=== PATIENT | female | born 1940 | race Caucasian/White ===

== ENCOUNTER 2017-01-30 02:24 | Inpatient (IN) | payer BC, OTHER ==
[~2017-01-30] VITALS: Ht 167.6 cm; Wt 54.3 kg
[2017-01-30] VITALS (8 sets, daily range): BP systolic 160–189; BP diastolic 60–80; PULSE 72–100; TEMP 36.8–37; O2SAT 96–97; Ht 167.6 cm; Wt 54.3 kg
[~2017-01-30 02:24] MED LIST: ASPI325T45 PO; CALCTAB65 PO; LANS30CA12 PO; LOSA50TA54 PO; MAGNTAB4 PO; METF-383 PO; NMN10 PO; NVLGI7030 SQ; PANC1200 PO; RISE150T PO; SIMV40TA2 PO
[2017-01-30] MEDS ORDERED: SODIUM CHLORIDE 0.9% 1000ML 1,000 ML IV ONE (03:00)
[2017-01-30 03:38] LABS: BASO % 0.2 %; BASO ABS # 0.02 K/uL (0-0.2); COMPLETE YES; EOS % 0.2 %; IG% 0.3 %; LYMPH % 12.9 %; MEAN CELL VOLUME 90.9 fL (80-100); MEAN CORPUSCULAR HEMOGLOBIN 30.6 pg (25-34); MEAN CORPUSCULAR HGB CONC 33.7 g/dl (32-36); MEAN PLATELET VOLUME 9.4 fL (7.4-10.4); MONO % 7.1 %; NEUT % 79.3 %; PLATELET COUNT 292 K/uL (130-400); RED BLOOD COUNT 3.85 M/uL (4.2-5.4); WHITE BLOOD COUNT 10.07 K/uL (4.8-10.8)
[2017-01-30 03:57] LABS: BUN/CREATININE RATIO 33.6 (10-20); CALCIUM 9.9 mg/dl (8.5-10.1); CREATININE 1.5 mg/dl (0.60-1.20); MAGNESIUM 2.4 mg/dl (1.8-2.4); POTASSIUM 5.2 mmol/L (3.5-5.1)
[2017-01-30 03:59] LABS: ALB/GLOB RATIO 1.1 (0.9-2)
[2017-01-30 04:16] LABS: URINE APPEARANCE CLEAR (CLEAR); URINE BILIRUBIN NEG (NEG); URINE COLOR YELLOW; URINE EPITHELIAL CELL AUTO >30 /lpf (0-5); URINE NITRITE NEG (NEG); URINE SPECIFIC GRAVITY 1.023 (1.000-1.030); UROBILINOGEN NEG (NEG); ZZUR CULT IF INDIC CLEAN CATCH YES
[2017-01-30 04:20] LABS: MANUAL MICROSCOPIC REQUIRED? NO; REVIEW REQ? YES
[2017-01-30] MEDS ORDERED: NAPHSOL OPB (05:12)
[2017-01-30] MEDS ORDERED: MIRA1TAB3 PO (05:16)
[2017-01-30] MEDS ORDERED: NVLGI/PEN SQ ×2 (05:18→05:44)
[2017-01-30] MEDS ORDERED: RIVA4.5C4 PO (05:20)
[2017-01-30] MEDS ORDERED: LEVAQUIN 500MG / 100ML D5W IV ONE (05:30)
--- NOTE | 2017-01-30 05:46 | EMERGENCY ROOM VISIT NOTE ---
ED Visit Note First contact with patient: 02:40 Agree with the workup by my physician pastry assistant. I have personally examined the patient and reviewed labs. Patient has an elevated creatinine and signs of dehydration. Patient has failed outpatient therapy with Bactrim and continues to have a urinary tract infection with confusion. The case of be discussed with the hospitalist for admission. I agree with the entire workup Problem List Medical Problems: (1) Breast CA Status: Resolved (2) Diabetes Status: Chronic (3) Hypertension Status: Chronic (4) Pancreatic carcinoma Status: Resolved Surgical Problems: (1) S/P tubal ligation Status: Resolved Current/Historical Medications Scheduled Aspirin (Aspirin), 325 MG PO DAILY Calcium Carbonate-Vitamin D (Calcium 500 + D), 1 TAB PO DAILY Insulin Aspart (Novolog Flexpen), 2 UNITS SQ BEFORE LUNCH Insulin Aspart (Novolog Flexpen), 3-4 UNITS SQ BEFORE VASHTI MEAL Lansoprazole (Prevacid), 30 MG PO DAILY Losartan Potassium (Cozaar), 50 MG PO DAILY Magnesium Chloride (Slow-Mag Tab), 64 MG PO DAILY Memantine (Namenda), 10 MG PO BID Metformin Hcl (Glucophage), 850 MG PO BIDM Mirabegron (Myrbetriq Er), 50 MG PO DAILY Naphazoline W/ Pheniramine (Eye Allergy Relief), 1 DROP OPB DAILY Pancrelipase (Lipase-Protease- (Creon [id number]), 24,000 MG PO BIDM Risedronate Sodium (Actonel), 1 TAB PO MONTHLY Rivastigmine Tartrate (Rivastigmine Tartrate), 4.5 MG PO BID Simvastatin (Zocor), 40 MG PO QPM Allergies Coded Allergies: Repaglinide (Verified Allergy, Intermediate, SEVER SHAKING, 01/30/17) Acetaminophen (Verified Allergy, Mild, UNKNOWN, 01/30/17) Hydrocodone (Verified Allergy, Mild, UNKNOWN, 01/30/17) Vital Signs Date Time Temp Pulse Resp B/P Pulse Ox O2 Delivery O2 Flow Rate FiO2 01/30/17 05:34 93 24 184/88 95 Room Air 01/30/17 04:25 84 182/73 96 Room Air 01/30/17 03:45 89 01/30/17 03:03 97 Room Air 01/30/17 02:29 36.7 91 21 152/70 96 Room Air Laboratory Results 01/30/17 03:25 Red Blood Count 3.85, Mean Corpuscular Volume 90.9, Mean Corpuscular Hemoglobin 30.6, Mean Corpuscular Hemoglobin Concent 33.7, Mean Platelet Volume 9.4, Neutrophils (%) (Auto) 79.3, Lymphocytes (%) (Auto) 12.9, Monocytes (%) (Auto) 7.1, Eosinophils (%) (Auto) 0.2, Basophils (%) (Auto) 0.2, Neutrophils # (Auto) 7.98, Lymphocytes # (Auto) 1.30, Monocytes # (Auto) 0.72, Eosinophils # (Auto) 0.02, Basophils # (Auto) 0.02 01/30/17 03:25 Test 01/30/17 03:25 01/30/17 03:32 01/30/17 03:35 01/30/17 04:00 White Blood Count 10.07 K/uL (4.8-10.8) Red Blood Count 3.85 M/uL (4.2-5.4) Hemoglobin 11.8 g/dL (12.0-16.0) Hematocrit 35.0 % (37-47) Mean Corpuscular Volume 90.9 fL (80-100) Mean Corpuscular Hemoglobin 30.6 pg (25-34) Mean Corpuscular Hemoglobin Concent 33.7 g/dl (32-36) Platelet Count 292 K/uL (130-400) Mean Platelet Volume 9.4 fL (7.4-10.4) Neutrophils (%) (Auto) 79.3 % Lymphocytes (%) (Auto) 12.9 % Monocytes (%) (Auto) 7.1 % Eosinophils (%) (Auto) 0.2 % Basophils (%) (Auto) 0.2 % Neutrophils # (Auto) 7.98 K/uL (1.4-6.5) Lymphocytes # (Auto) 1.30 K/uL (1.2-3.4) Monocytes # (Auto) 0.72 K/uL (0.11-0.59) Eosinophils # (Auto) 0.02 K/uL (0-0.5) Basophils # (Auto) 0.02 K/uL (0-0.2) RDW Standard Deviation 40.1 fL (36.4-46.3) RDW Coefficient of Variation 12.1 % (11.5-14.5) Immature Granulocyte % (Auto) 0.3 % Immature Granulocyte # (Auto) 0.03 K/uL (0.00-0.02) Anion Gap 9.0 mmol/L (3-11) Est Creatinine Clear Calc Drug Dose 27.8 ml/min Estimated GFR () 39.1 Estimated GFR (Non- 33.7 BUN/Creatinine Ratio 33.6 (10-20) Calcium Level 9.9 mg/dl (8.5-10.1) Magnesium Level 2.4 mg/dl (1.8-2.4) Total Bilirubin 0.3 mg/dl (0.2-1) Aspartate Amino Transf (AST/SGOT) 20 U/L (15-37) Alanine Aminotransferase (ALT/SGPT) 30 U/L (12-78) Alkaline Phosphatase 53 U/L (45-117) Total Protein 7.4 gm/dl (6.4-8.2) Albumin 3.9 gm/dl (3.4-5.0) Globulin 3.5 gm/dl (2.5-4.0) Albumin/Globulin Ratio 1.1 (0.9-2) Bedside Troponin I 0.010 ng/ml (0-0.045) Lactic Acid Level 1.2 mmol/L (0.4-2.0) Urine Color YELLOW Urine Appearance CLEAR (CLEAR) Urine pH 5.0 (4.5-7.5) Urine Specific [place] 1.023 (1.000-1.030) Urine Protein NEG (NEG) Urine Glucose (UA) 3+ (NEG) Urine Ketones TRACE (NEG) Urine Occult Blood NEG (NEG) Urine Nitrite NEG (NEG) Urine Bilirubin NEG (NEG) Urine Urobilinogen NEG (NEG) Urine Leukocyte Esterase SMALL (NEG) Urine WBC (Auto) 10-30 /hpf (0-5) Urine RBC (Auto) 0-4 /hpf (0-4) Urine Hyaline Casts (Auto) >30 /lpf (0-5) Urine Epithelial Cells (Auto) >30 /lpf (0-5) Urine Bacteria (Auto) 1+ (NEG) Urine Crystals CALCIUM OXALATE (NONE Urine Pathogenic Casts /lpf (0) Medications Administered Medications (Trade) Dose Ordered Sig/German Route Start Time Stop Time Status Last Admin Dose Admin Sodium Chloride (Nss 1000ml) 1,000 ml @ 250 mls/hr Q4H ONCE IV 01/30/17 03:00 01/30/17 06:59 01/30/17 03:25 250 MLS/HR Levofloxacin (Levaquin / D5W) 500 mg NOW ONCE IV 01/30/17 05:30 01/30/17 05:31 DC 01/30/17 05:32 500 MG Departure Information Referrals Toney Morgan MD (PCP) Patient Instructions Count Includes [facility]
[2017-01-30] MEDS ORDERED: RIVA3CAP4 PO (05:48)
[2017-01-30] MEDS ORDERED: SERT25TA PO (05:50)
[2017-01-30] MEDS ORDERED: INSU1.2I SQ (05:52)
[2017-01-30] MEDS ORDERED: LEVOFLOXACIN / D5W 500 MG in PREMIXED IN D5W 100 ML IV SCH (06:45)
[2017-01-30] MEDS ORDERED: ONDANSETRON INJ 2 MG/ML 2 ML VIAL IV PRN (06:45)
[2017-01-30] MEDS ORDERED: MAGNESIUM HYDROXIDE SUSP 30 ML UDC PO PRN (06:45)
[2017-01-30] MEDS ORDERED: ALUMINUM/MAGNESIUM/SIMETH (MAALOX MAX) 30 ML UDC PO PRN (06:45)
--- NOTE | 2017-01-30 07:02 | History and Physical ---
History & Physical Date & Time of Service: Jan 30, 2017 at 06:48 Chief Complaint: Confused,Dizzy, Primary Care Physician: Toney Morgan MD History of Present Illness Source: spouse 76 y/o F w/Hx DM, HTN, pancreatic insufficiency, advanced dementia. Per she has been acting more confused than usual and has exhibited an unsteady gait over the past few days. She was recently treated for a UTI with a 7 day course of Bactrim. There have been no reported fevers and the pt does not complain of back pain or dysuria but she is not a reliable historian. Her UA is strongly positive and labs reveal SUNDAR. Her neurologist had recently increased her Namenda and Exelon doses. Past Medical/Surgical History Medical Problems: (1) Breast CA Status: Resolved (2) Diabetes Status: Chronic (3) Hypertension Status: Chronic (4) Pancreatic mass - benign - leading to pancreatic insufficiency - did not receive surgery Surgical Problems: (1) S/P tubal ligation Status: Resolved Family History Hypertension Kidney disease Could not obtain Social History She is care-dependent due to dementia - she is looked after by her Smoking Status: Never Smoker Drug Use: none Marital Status: Immunizations History of Pneumococcal: Yes Multi-Drug Resistant Organisms History of MDRO: No Allergies Coded Allergies: Repaglinide (Verified Allergy, Intermediate, SEVER SHAKING, 01/30/17) Acetaminophen (Verified Allergy, Mild, UNKNOWN, 01/30/17) Hydrocodone (Verified Allergy, Mild, UNKNOWN, 01/30/17) Home Medications Scheduled Aspirin (Aspirin), 325 MG PO DAILY Calcium Carbonate-Vitamin D (Calcium 500 + D), 1 TAB PO DAILY Insulin Aspart (Novolog Flexpen), 2 UNITS SQ BEFORE LUNCH Insulin Aspart (Novolog Flexpen), 3-4 UNITS SQ BEFORE VASHTI MEAL Insulin Glargine (Toujeo Solostar), 6 UNITS SQ HS Lansoprazole (Prevacid), 30 MG PO DAILY Losartan Potassium (Cozaar), 50 MG PO DAILY Magnesium Chloride (Slow-Mag Tab), 64 MG PO DAILY Memantine (Namenda), 10 MG PO BID Metformin Hcl (Glucophage), 850 MG PO BIDM Mirabegron (Myrbetriq Er), 50 MG PO DAILY Naphazoline W/ Pheniramine (Eye Allergy Relief), 1 DROP OPB DAILY Pancrelipase (Lipase-Protease- (Creon [id number]), 24,000 MG PO BIDM Risedronate Sodium (Actonel), 1 TAB PO MONTHLY Rivastigmine Tartrate (Exelon), 6 MG PO DAILY Sertraline (Zoloft), 25 MG PO DAILY Simvastatin (Zocor), 40 MG PO QPM Review of Systems Could not obtain - brought in by due to worsening confusion and unsteady gait. Physical Exam Vital Signs Date Time Temp Pulse Resp B/P Pulse Ox O2 Delivery O2 Flow Rate FiO2 01/30/17 05:34 93 24 184/88 95 Room Air 01/30/17 04:25 84 182/73 96 Room Air 01/30/17 03:45 89 01/30/17 03:03 97 Room Air 01/30/17 02:29 36.7 91 21 152/70 96 Room Air General Appearance: + pertinent finding (Thin , pleasantly confused elderly female in no distress) Head: normocephalic Eyes: normal inspection, PERRL, EOMI ENT: normal ENT inspection, pharynx normal Neck: supple, no JVD Respiratory/Chest: chest non-tender, lungs clear, normal breath sounds Cardiovascular: regular rate, rhythm, no edema, no gallop Abdomen/GI: normal bowel sounds, non tender, soft Back: normal inspection, no CVA tenderness Extremities/Musculoskelatal: normal inspection, no calf tenderness, normal capillary refill, no pedal edema, normal range of motion Neurologic/Psych: dental receptionist II-XII nml as tested, no motor/sensory deficits, + pertinent finding (AAO x 1 ) Skin: normal color, warm/dry, no rash Diagnostics Laboratory Results Results Past 24 Hours Test 01/30/17 03:25 01/30/17 03:32 01/30/17 03:35 01/30/17 04:00 Range/Units White Blood Count 10.07 4.8-10.8 K/uL Red Blood Count 3.85 4.2-5.4 M/uL Hemoglobin 11.8 12.0-16.0 g/dL Hematocrit 35.0 37-47 % Mean Corpuscular Volume 90.9 80-100 fL Mean Corpuscular Hemoglobin 30.6 25-34 pg Mean Corpuscular Hemoglobin Concent 33.7 32-36 g/dl Platelet Count 292 130-400 K/uL Mean Platelet Volume 9.4 7.4-10.4 fL Neutrophils (%) (Auto) 79.3 % Lymphocytes (%) (Auto) 12.9 % Monocytes (%) (Auto) 7.1 % Eosinophils (%) (Auto) 0.2 % Basophils (%) (Auto) 0.2 % Neutrophils # (Auto) 7.98 1.4-6.5 K/uL Lymphocytes # (Auto) 1.30 1.2-3.4 K/uL Monocytes # (Auto) 0.72 0.11-0.59 K/uL Eosinophils # (Auto) 0.02 0-0.5 K/uL Basophils # (Auto) 0.02 0-0.2 K/uL RDW Standard Deviation 40.1 36.4-46.3 fL RDW Coefficient of Variation 12.1 11.5-14.5 % Immature Granulocyte % (Auto) 0.3 % Immature Granulocyte # (Auto) 0.03 0.00-0.02 K/uL Sodium Level 137 136-145 mmol/L Potassium Level 5.2 3.5-5.1 mmol/L Chloride Level 102 98-107 mmol/L Carbon Dioxide Level 26 21-32 mmol/L Anion Gap 9.0 3-11 mmol/L Blood Urea Nitrogen 50 7-18 mg/dl Creatinine 1.50 0.60-1.20 mg/dl Est Creatinine Clear Calc Drug Dose 27.8 ml/min Estimated GFR () 39.1 Estimated GFR (Non- 33.7 BUN/Creatinine Ratio 33.6 10-20 Random Glucose 230 70-99 mg/dl Calcium Level 9.9 8.5-10.1 mg/dl Magnesium Level 2.4 1.8-2.4 mg/dl Total Bilirubin 0.3 0.2-1 mg/dl Aspartate Amino Transf (AST/SGOT) 20 15-37 U/L Alanine Aminotransferase (ALT/SGPT) 30 12-78 U/L Alkaline Phosphatase 53 45-117 U/L Total Protein 7.4 6.4-8.2 gm/dl Albumin 3.9 3.4-5.0 gm/dl Globulin 3.5 2.5-4.0 gm/dl Albumin/Globulin Ratio 1.1 0.9-2 Bedside Troponin I 0.010 0-0.045 ng/ml Lactic Acid Level 1.2 0.4-2.0 mmol/L Urine Color YELLOW Urine Appearance CLEAR CLEAR Urine pH 5.0 4.5-7.5 Urine Specific [place] 1.023 1.000-1.030 Urine Protein NEG NEG Urine Glucose (UA) 3+ NEG Urine Ketones TRACE NEG Urine Occult Blood NEG NEG Urine Nitrite NEG NEG Urine Bilirubin NEG NEG Urine Urobilinogen NEG NEG Urine Leukocyte Esterase SMALL NEG Urine WBC (Auto) 10-30 0-5 /hpf Urine RBC (Auto) 0-4 0-4 /hpf Urine Hyaline Casts (Auto) >30 0-5 /lpf Urine Epithelial Cells (Auto) >30 0-5 /lpf Urine Bacteria (Auto) 1+ NEG Urine Crystals CALCIUM OXALATE NONE PRSENT Urine Pathogenic Casts 0 /lpf Microbiology Results 01/30/17 Blood Culture, Received Pending 01/30/17 Blood Culture, Received Pending 01/30/17 Urine Culture, Received Pending Impression Assessment and Plan 76 y/o F w/Hx DM, HTN, pancreatic insufficiency, advanced dementia. Per she has been acting more confused than usual and has exhibited an unsteady gait over the past few days. She was recently treated for a UTI with a 7 day course of Bactrim. There have been no reported fevers and the pt does not complain of back pain or dysuria but she is not a reliable historian. Her UA is strongly positive and labs reveal SUNDAR. 1) UTI - Levaquin provided pending culture results 2) AMS - advanced dementia - likely exacerbated by infection and dehydration - IVF provided - trend labs 3) SUNDAR - IVF - repeat labs afternoon 4) Advanced dementia - Her neurologist had recently increased her Namenda and Exelon doses. Pt will require 1 to 1 obs during her stay as she has a tendency to wander and may be a fall risk. 5) DM - SS 6) HTN - Cont Cozaar 7) HPL - statin provided Full code - SCDs due to falll risk Total time for this admit including review of labs, meds, records - discussion with pts and ER attending 33 min Level of Care Med/Surg Resuscitation Status FULL RESUSCITATION VTE Prophylaxis VTE Risk Assessment Done? Y/N: Yes Risk Level: Moderate Given or contraindicated: Unfractionated heparin SQ
--- NOTE | 2017-01-30 07:05 | DIAGNOSTIC IMAGING REPORT ---
HEAD CT NONCONTRAST CT DOSE: 614.27 mGy.cm HISTORY: Confusion TECHNIQUE: Multiaxial CT images of the head were performed without the use of intravenous contrast. Automated exposure control was utilized for this study. Comparison: Head CT 07/03/2016. Findings: The paranasal sinuses and mastoid air cells are clear. The calvarium and skull base are intact. There is no mass, hematoma, midline shift, acute infarct. White matter hypodensity is nonspecific but suggestive of microvascular ischemic change. The ventricles and sulci demonstrate mild age-related involutional changes. Impression: No significant change compared to the prior study. No acute intracranial abnormality. Electronically signed by: Jaxon Spencer M.D. 01/30/2017 7:03 AM Dictated Date/Time: 01/30/2017 7:02 AM
--- NOTE | 2017-01-30 07:10 | EMERGENCY ROOM VISIT NOTE ---
History First contact with patient: 02:40 Chief Complaint: CONFUSION Stated Complaint: CONFUSED,DIZZY, Nursing Triage Summary: see triage note History of Present Illness The patient is a 76 year old female who presents to the Emergency Room with complaints of worsening confusion this evening. The patient is accompanied by his who helps with the history. The patient has recently been treated for a urinary tract infection with a 7 day course of Bactrim. She has been eating well and does not complain of back pain or dysuria. She does not report fever or other complaints. The patient herself is unsure why she is here. She rates her discomfort a 0/10. Review of Systems More than 10 systems were reviewed and otherwise negative with the exception of history of present illness. Past Medical/Surgical History Medical Problems: (1) Altered mental status (2) Breast CA (3) Diabetes (4) Hypertension (5) Pancreatic carcinoma Surgical Problems: (1) S/P tubal ligation Family History Hypertension Kidney disease Social History Smoking Status: Never Smoker Drug Use: none Marital Status: Housing Status: lives with family Current/Historical Medications Scheduled Aspirin (Aspirin), 325 MG PO DAILY Calcium Carbonate-Vitamin D (Calcium 500 + D), 1 TAB PO DAILY Insulin Aspart (Novolog Flexpen), 2 UNITS SQ BEFORE LUNCH Insulin Aspart (Novolog Flexpen), 3-4 UNITS SQ BEFORE VASHTI MEAL Insulin Glargine (Toujeo Solostar), 6 UNITS SQ HS Lansoprazole (Prevacid), 30 MG PO DAILY Losartan Potassium (Cozaar), 50 MG PO DAILY Magnesium Chloride (Slow-Mag Tab), 64 MG PO DAILY Memantine (Namenda), 10 MG PO BID Metformin Hcl (Glucophage), 850 MG PO BIDM Mirabegron (Myrbetriq Er), 50 MG PO DAILY Naphazoline W/ Pheniramine (Eye Allergy Relief), 1 DROP OPB DAILY Pancrelipase (Lipase-Protease- (Creon [id number]), 24,000 MG PO BIDM Risedronate Sodium (Actonel), 1 TAB PO MONTHLY Rivastigmine Tartrate (Exelon), 6 MG PO DAILY Sertraline (Zoloft), 25 MG PO DAILY Simvastatin (Zocor), 40 MG PO QPM Allergies Coded Allergies: Repaglinide (Verified Allergy, Intermediate, SEVER SHAKING, 01/30/17) Acetaminophen (Verified Allergy, Mild, UNKNOWN, 01/30/17) Hydrocodone (Verified Allergy, Mild, UNKNOWN, 01/30/17) Physical Exam Vital Signs Date Time Temp Pulse Resp B/P Pulse Ox O2 Delivery O2 Flow Rate FiO2 01/30/17 06:52 94 18 190/86 96 Room Air 01/30/17 05:34 93 24 184/88 95 Room Air 01/30/17 04:25 84 182/73 96 Room Air 01/30/17 03:45 89 01/30/17 03:03 97 Room Air 01/30/17 02:29 36.7 91 21 152/70 96 Room Air Physical Exam VITALS: Vitals are noted on the nurse's note and reviewed by myself. Vital signs stable. GENERAL: Elderly-appearing white female who is mildly confused but cooperative HEART: Regular rate and rhythm without murmurs gallops or rubs. LUNGS: Clear to auscultation bilaterally without wheezes, rales or rhonchi. No retractions or accessory muscle use. ABDOMEN: Positive normal bowel sounds x 4. Soft, nontender, without masses or organomegaly. No guarding or rebound tenderness. No CVA tenderness. MUSCULOSKELETAL: No muscle atrophy, erythema, or edema noted. Full range of motion without joint tenderness in all extremities. Medical Decision & Procedures ER Provider Diagnostic Interpretation: HEAD CT NONCONTRAST CT DOSE: 614.27 mGy.cm HISTORY: Confusion TECHNIQUE: Multiaxial CT images of the head were performed without the use of intravenous contrast. Automated exposure control was utilized for this study. Comparison: Head CT 07/03/2016. Findings: The paranasal sinuses and mastoid air cells are clear. The calvarium and skull base are intact. There is no mass, hematoma, midline shift, acute infarct. White matter hypodensity is nonspecific but suggestive of microvascular ischemic change. The ventricles and sulci demonstrate mild age-related involutional changes. Impression: No significant change compared to the prior study. No acute intracranial abnormality. Laboratory Results 01/30/17 03:25 Red Blood Count 3.85, Mean Corpuscular Volume 90.9, Mean Corpuscular Hemoglobin 30.6, Mean Corpuscular Hemoglobin Concent 33.7, Mean Platelet Volume 9.4, Neutrophils (%) (Auto) 79.3, Lymphocytes (%) (Auto) 12.9, Monocytes (%) (Auto) 7.1, Eosinophils (%) (Auto) 0.2, Basophils (%) (Auto) 0.2, Neutrophils # (Auto) 7.98, Lymphocytes # (Auto) 1.30, Monocytes # (Auto) 0.72, Eosinophils # (Auto) 0.02, Basophils # (Auto) 0.02 Test 01/30/17 03:25 01/30/17 03:32 01/30/17 03:35 01/30/17 04:00 White Blood Count 10.07 K/uL (4.8-10.8) Red Blood Count 3.85 M/uL (4.2-5.4) Hemoglobin 11.8 g/dL (12.0-16.0) Hematocrit 35.0 % (37-47) Mean Corpuscular Volume 90.9 fL (80-100) Mean Corpuscular Hemoglobin 30.6 pg (25-34) Mean Corpuscular Hemoglobin Concent 33.7 g/dl (32-36) Platelet Count 292 K/uL (130-400) Mean Platelet Volume 9.4 fL (7.4-10.4) Neutrophils (%) (Auto) 79.3 % Lymphocytes (%) (Auto) 12.9 % Monocytes (%) (Auto) 7.1 % Eosinophils (%) (Auto) 0.2 % Basophils (%) (Auto) 0.2 % Neutrophils # (Auto) 7.98 K/uL (1.4-6.5) Lymphocytes # (Auto) 1.30 K/uL (1.2-3.4) Monocytes # (Auto) 0.72 K/uL (0.11-0.59) Eosinophils # (Auto) 0.02 K/uL (0-0.5) Basophils # (Auto) 0.02 K/uL (0-0.2) RDW Standard Deviation 40.1 fL (36.4-46.3) RDW Coefficient of Variation 12.1 % (11.5-14.5) Immature Granulocyte % (Auto) 0.3 % Immature Granulocyte # (Auto) 0.03 K/uL (0.00-0.02) Est Creatinine Clear Calc Drug Dose 27.8 ml/min Magnesium Level 2.4 mg/dl (1.8-2.4) Total Bilirubin 0.3 mg/dl (0.2-1) Aspartate Amino Transf (AST/SGOT) 20 U/L (15-37) Alanine Aminotransferase (ALT/SGPT) 30 U/L (12-78) Alkaline Phosphatase 53 U/L (45-117) Total Protein 7.4 gm/dl (6.4-8.2) Albumin 3.9 gm/dl (3.4-5.0) Globulin 3.5 gm/dl (2.5-4.0) Albumin/Globulin Ratio 1.1 (0.9-2) Bedside Troponin I 0.010 ng/ml (0-0.045) Lactic Acid Level 1.2 mmol/L (0.4-2.0) Urine Color YELLOW Urine Appearance CLEAR (CLEAR) Urine pH 5.0 (4.5-7.5) Urine Specific [place] 1.023 (1.000-1.030) Urine Protein NEG (NEG) Urine Glucose (UA) 3+ (NEG) Urine Ketones TRACE (NEG) Urine Occult Blood NEG (NEG) Urine Nitrite NEG (NEG) Urine Bilirubin NEG (NEG) Urine Urobilinogen NEG (NEG) Urine Leukocyte Esterase SMALL (NEG) Urine WBC (Auto) 10-30 /hpf (0-5) Urine RBC (Auto) 0-4 /hpf (0-4) Urine Hyaline Casts (Auto) >30 /lpf (0-5) Urine Epithelial Cells (Auto) >30 /lpf (0-5) Urine Bacteria (Auto) 1+ (NEG) Urine Crystals CALCIUM OXALATE (NONE Urine Pathogenic Casts /lpf (0) Test 01/30/17 06:48 Medications Administered Medications (Trade) Dose Ordered Sig/German Route Start Time Stop Time Status Last Admin Dose Admin Sodium Chloride (Nss 1000ml) 1,000 ml @ 250 mls/hr Q4H ONCE IV 01/30/17 03:00 01/30/17 06:59 DC 01/30/17 03:25 250 MLS/HR Levofloxacin (Levaquin / D5W) 500 mg NOW ONCE IV 01/30/17 05:30 01/30/17 05:31 DC 01/30/17 05:32 500 MG ED Course Physical exam and history were performed. Nursing notes and EMR were reviewed. Patient appears to have worsening confusion over the past one day. She was wandering around the upstairs of her home tonight, and could not explained to her why she was doing this. The patient appears pleasant, but confused. She does have some confusion at baseline, but this is worse than normal according to her . IV access was established and labs were obtained. CT scan of the head was performed. The patient was gently hydrated with normal saline and urine was collected. The patient blood work is as above and was reviewed. She does not have a significantly elevated white blood cell count. She is mildly anemic. She does not have a gross electrolyte imbalance, however her BUN/creatinine are elevated when compared to labs from 2016. The patient urine is quite concerning for urinary tract infection. CT scan does not show acute process. Chest x-ray does not show significant findings. The case was discussed with my attending physician, Dr. Carrero, who also independently evaluated the patient. The patient does have some increasing confusion with a persistent UTI that has failed 7 days of outpatient Bactrim. Thankfully she does not have an elevated lactic acid and her vitals are stable. Blood cultures and urine cultures are pending. The patient also has some acute kidney injury and is being gently hydrated here in the department. Because of this we feel the patient is not stable for discharge home. The case was discussed with the on-call hospitalist who will agree to evaluate the patient here for further care and evaluation. The chart was completed utilizing [employer] Speech Voice Recognition Software. Grammatical errors, random word insertions, pronoun errors, and incomplete sentences are an occasional consequence of this system due to software limitations, ambient noise, and hardware issues. Any formal questions or concerns about the content, text, or information contained within the body of this dictation should be directly addressed to the provider for clarification. . Medical Decision Differential diagnosis: Etiologies such as metabolic, infection, hypoglycemia, electrolyte abnormalities , cardiac sources, intracerebral event, toxicologic, neurologic, as well as others were entertained. Impression Primary Impression: Altered mental status Additional Impressions: UTI (urinary tract infection) Acute kidney injury Failure of outpatient treatment Departure Information Referrals Toney Morgan MD (PCP) Patient Instructions My [facility] Problem Qualifiers
[2017-01-30] MEDS ORDERED: SODIUM CHLORIDE 0.9% 1000ML 1,000 ML IV SCH (08:30)
[2017-01-30] MEDS ORDERED: GLUCAGON FOR INJ 1 MG VIAL SQ PRN (08:45)
[2017-01-30] MEDS ORDERED: DEXTROSE 50% 50 ML SYR IV PRN (08:45)
[2017-01-30] MEDS ORDERED: GLUCOSE 10 TABS/TUBE PO PRN (08:45)
[2017-01-30] MEDS ORDERED: POLYETHYLENE (MIRALAX) 17 GM PACK PO PRN (08:45)
[2017-01-30] MEDS ORDERED: GLUCOSE 40% GEL 15 GM TUBE PO PRN (08:45)
--- NOTE | 2017-01-30 08:50 | DIAGNOSTIC IMAGING REPORT ---
CHEST ONE VIEW PORTABLE HISTORY: Confusion COMPARISON: None. FINDINGS: The lungs are clear. Cardiac silhouette is normal in size. No pleural effusions. No pneumothorax. Right hilar prominence is likely due to the overlapping vessels and mild patient rotation. Calcified right peritracheal lymph nodes are again noted. IMPRESSION: No acute process. Electronically signed by: Jaxon Spencer M.D. 01/30/2017 8:49 AM Dictated Date/Time: 01/30/2017 8:48 AM
[2017-01-30 08:51] LABS: PARTIAL THROMBOPLASTIN RATIO 0.8; PROTHROMBIN TIME (PATIENT) 10.9 SECONDS (9.0-12.0)
[2017-01-30 09:18] LABS: BUN/CREATININE RATIO 40.5 (10-20); CREATININE 0.94 mg/dl (0.60-1.20); POTASSIUM 3.9 mmol/L (3.5-5.1)
[2017-01-30] MEDS: RIVASTIGMINE TARTRATE (EXELON) 1.5 MG CAP PO SCH (10:36)
[2017-01-30] MEDS: ASPIRIN 325 MG ECTAB PO SCH (10:37)
[2017-01-30] MEDS: CALCIUM 600MG + VIT D 400 IU TAB PO SCH (10:37)
[2017-01-30] MEDS: MAGNESIUM CHLORIDE 64MG DELAYED REL TAB PO SCH (10:37)
[2017-01-30] MEDS: MIRABEGRON ER 25 MG TAB PO SCH (10:37)
[2017-01-30] MEDS: SERTRALINE HCL 50 MG TAB PO SCH (10:38)
[2017-01-30] MEDS: PANCREAZE (LIPASE 10,500U) CAP PO SCH ×2 (10:38→18:23)
[2017-01-30] MEDS: MEMANTINE 10 MG TAB PO SCH ×2 (10:39→21:55)
[2017-01-30] MEDS: PANTOprazole SOD 40 MG TAB PO SCH (10:39)
[2017-01-30] MEDS ORDERED: LEVOFLOXACIN CONSULT ACTIVE PRN (13:00)
[2017-01-30] MEDS: INSULIN ASPART 100 UNITS/ML 3 ML PEN SC SCH ×3 (13:26→21:00)
[2017-01-30] MEDS: HEPARIN SOD 5000 UNIT/0.5 ML CARP SQ SCH ×2 (13:27→21:59)
[2017-01-30 16:00] LABS: BUN/CREATININE RATIO 33.9 (10-20); CALCIUM 8.4 mg/dl (8.5-10.1); CREATININE 0.92 mg/dl (0.60-1.20); POTASSIUM 3.7 mmol/L (3.5-5.1)
[2017-01-30 16:20] LABS: BETA-HYDROXYBUTYRATE 0.85 mg/dL (0.2-2.81)
[2017-01-30] MEDS: HydrALAZINE HCL 20 MG/ML VIAL IV. PRN (17:13)
[2017-01-30] MEDS ORDERED: LOSARTAN POTASSIUM 50 MG TAB PO ONE (17:21)
[2017-01-30] MEDS ORDERED: INSULIN GLARGINE SOLOSTAR 100 UNITS/ML 3 ML PEN SC SCH ×2 (21:00)
[2017-01-30] MEDS ORDERED: SIMVASTATIN 40 MG TAB PO SCH (21:00)
--- NOTE | 2017-01-30 22:17 | Progress Note ---
Progress Note Date of Service Jan 30, 2017. Progress Note Patient admitted after midnight. She was seen and examined by me today. Her was at bedside. She is feeling significantly improved and he is asking if he can even take her home. Her renal failure has improved overnight with IV fluids and treatment of her UTI. states that she is totally back to baseline as far as her confusion on her pre-existing dementia. Blood glucose is benign her insulin was adjusted. I will continue her on Levaquin. Her IV fluids have been stopped. Vitals reviewed RRR no MGR Clear to auscultation bilaterally, breathing unlabored Abdomen soft nontender nondistended positive bowel sounds Extremities no edema 76-year-old female here with acute metabolic encephalopathy secondary to UTI present on admission. -Follow urine culture sensitivities and identification -Continue Levaquin -If blood cultures negative tomorrow and urine culture sensitivity is back, can consider discharge to home PT riley
[2017-01-31] MEDS ORDERED: LEVOFLOXACIN 250MG / D5W IV SCH (06:00)
[2017-01-31] MEDS: HEPARIN SOD 5000 UNIT/0.5 ML CARP SQ SCH ×2 (06:41→14:00)
[2017-01-31 07:18] LABS: BASO % 0.4 %; BASO ABS # 0.03 K/uL (0-0.2); COMPLETE YES; EOS % 1.4 %; IG% 0.3 %; LYMPH % 21.5 %; LYMPH ABS # 1.71 K/uL (1.2-3.4); MEAN CELL VOLUME 92.1 fL (80-100); MEAN CORPUSCULAR HEMOGLOBIN 32.1 pg (25-34); MEAN CORPUSCULAR HGB CONC 34.9 g/dl (32-36); MEAN PLATELET VOLUME 9.8 fL (7.4-10.4); MONO % 9.8 %; NEUT % 66.6 %; PLATELET COUNT 263 K/uL (130-400); WHITE BLOOD COUNT 7.96 K/uL (4.8-10.8)
[2017-01-31 07:59] LABS: BUN/CREATININE RATIO 24.4 (10-20); CALCIUM 8.7 mg/dl (8.5-10.1); MAGNESIUM 1.9 mg/dl (1.8-2.4)
[2017-01-31 08:00] VITALS: BP 197/71; PULSE 84; TEMP 36.5; O2SAT 96; O2SAT 97
[2017-01-31 08:12] LABS: BETA-HYDROXYBUTYRATE 0.9 mg/dL (0.2-2.81)
[2017-01-31] MEDS: MIRABEGRON ER 25 MG TAB PO SCH (08:31)
[2017-01-31] MEDS: MAGNESIUM CHLORIDE 64MG DELAYED REL TAB PO SCH (08:31)
[2017-01-31] MEDS: PANCREAZE (LIPASE 10,500U) CAP PO SCH (08:32)
[2017-01-31] MEDS: ASPIRIN 325 MG ECTAB PO SCH (08:32)
[2017-01-31] MEDS: SERTRALINE HCL 50 MG TAB PO SCH (08:32)
[2017-01-31] MEDS: PANTOprazole SOD 40 MG TAB PO SCH (08:33)
[2017-01-31] MEDS: MEMANTINE 10 MG TAB PO SCH (08:33)
[2017-01-31] MEDS: RIVASTIGMINE TARTRATE (EXELON) 1.5 MG CAP PO SCH (08:33)
[2017-01-31 08:34] LABS: POTASSIUM 4.3 mmol/L (3.5-5.1)
[2017-01-31] MEDS: HydrALAZINE HCL 20 MG/ML VIAL IV. PRN (08:37)
[2017-01-31] MEDS: INSULIN ASPART 100 UNITS/ML 3 ML PEN SC SCH ×2 (08:44→12:34)
[2017-01-31] MEDS: CALCIUM 600MG + VIT D 400 IU TAB PO SCH (08:47)
[2017-01-31] MEDS ORDERED: LOSARTAN POTASSIUM 50 MG TAB PO SCH (09:00)
[2017-01-31 10:30] VITALS: BP 170/67; PULSE 98
[2017-01-31] MEDS ORDERED: AMLODIPINE BESYLATE 5 MG TAB PO ONE (11:00)
[2017-01-31 12:13] VITALS: BP 181/65; PULSE 95; TEMP 36.8; O2SAT 95
[2017-01-31 14:22] VITALS: BP 159/59; PULSE 102; O2SAT 97
[2017-01-31 14:40] VITALS: BP 165/53; PULSE 97; TEMP 36.8; O2SAT 95
[2017-01-31] MEDS ORDERED: INSU1.2I SQ (14:47)
[2017-01-31] MEDS ORDERED: NRV5 PO (14:47)
[2017-01-31] MEDS ORDERED: LEVO500T19 PO (14:47)
--- NOTE | 2017-01-31 14:52 | Discharge Instructions ---
Discharge Instructions Date of Service Jan 31, 2017. Admission Reason for Admission: Altered Mental Status; Uti Discharge Discharge Diagnosis / Problem: UTI, Acute metabolic encephalopathy Discharge Goals Goal(s): Improve disease control, Therapeutic intervention Activity Recommendations Activity Limitations: resume your previous activity Exercise/Sports Limitations: gradually increase as tolerated (and will be seen by home PT) . Instructions / Follow-Up Instructions / Follow-Up You were admitted to the hospital for confusion due to a urinary tract infection (UTI). You were treated with antibiotics and had significant improvement. You should finish out the whole course of antibiotics after you return home. Your blood pressure was very elevated while you were here. You will be started on a new blood pressure medication called amlodipine. This is to be taken once daily IN ADDITION TO your losartan. Your blood sugars were very elevated as well due to the infection and your insulin (long acting) is to be increased to 8 units at bedtime. This can be adjusted by your family doctor if your blood sugars start to get too low. Please follow up with your family doctor within 1 week. Current Hospital Diet Patient's current hospital diet: AHA Diet (Heart Healthy), Diabetes Type 2 Diet Discharge Diet Recommended Diet: AHA Diet (Heart Healthy), Diabetes Type 2 Diet Procedures Procedures Performed: Chest Xray CT head Pending Studies Studies pending at discharge: yes List of pending studies: Final Urine culture--> still pending at time of discharge Final Blood cultures-no growth at time of discharge Laboratory Results Hemoglobin A1c Test 01/31/17 06:50 Range/Units Medical Emergencies . Who to Call and When: Medical Emergencies: If at any time you feel your situation is an emergency, please call 911 immediately. . Non-Emergent Contact Non-Emergency issues call your: Primary Care Provider Call Non-Emergent contact if: you have a fever, you have any medication questions if you develop worsening confusion or weakness. . . "Provider Documentation" section prepared by Blanca Jack. . VTE Core Measure Inpt VTE Proph given/why not?: Unfractionated heparin SQ
[2017-01-31 15:48] VITALS: BP 165/53; PULSE 97; TEMP 36.8; O2SAT 95
--- NOTE | 2017-01-31 22:59 | Discharge Summary ---
Discharge Summary Date of Service Jan 31, 2017. Discharge Summary Admission Date: Jan 30, 2017 at 06:36 Discharge Date: Jan 31, 2017 Discharge Disposition: Home with services Principal Diagnosis: acute metabolic encephalopathy secondary to UTI, acute kidney injury Problems/Secondary Diagnoses: DMII HTN Pancreatic insufficiency Dementia Ambulatory dysfunction Hyperlipidemia GERD Anxiety disorder Overactive bladder Immunizations: History of Pneumococcal: Yes Procedures: Head CT: The paranasal sinuses and mastoid air cells are clear. The calvarium and skull base are intact. There is no mass, hematoma, midline shift, acute infarct. White matter hypodensity is nonspecific but suggestive of microvascular ischemic change. The ventricles and sulci demonstrate mild age-related involutional changes. Impression: No significant change compared to the prior study. No acute intracranial abnormality. Chest x-ray: The lungs are clear. Cardiac silhouette is normal in size. No pleural effusions. No pneumothorax. Right hilar prominence is likely due to the overlapping vessels and mild patient rotation. Calcified right peritracheal lymph nodes are again noted. IMPRESSION: No acute process. Consultations: None Medication Reconciliation New Medications: Levofloxacin (Levaquin) 500 Mg Tab 1 TAB PO DAILY for 5 Days, #5 TAB Next dose due on 02/01/17 Amlodipine Besylate (Amlodipine Besylate) 5 Mg Tab 5 MG PO QAM for Hypertension for 30 Days, #30 TAB Changed Medications: Insulin Glargine (Toujeo Solostar) 300 Unit/Ml Inj 8 UNITS SQ HS for 30 Days (Changed from: 6 UNITS) Continued Medications: Aspirin (Aspirin) 325 Mg Tab 325 MG PO DAILY Calcium Carbonate-Vitamin D (Calcium 500 + D) 1 Tab Tab 1 TAB PO DAILY Insulin Aspart (Novolog Flexpen) 100 Units/Ml Inj 2 UNITS SQ BEFORE LUNCH Insulin Aspart (Novolog Flexpen) 100 Units/Ml Inj 3-4 UNITS SQ BEFORE VASHTI MEAL Lansoprazole (Prevacid) 30 Mg Capcr 30 MG PO DAILY, CAP Losartan Potassium (Cozaar) 50 Mg Tab 50 MG PO DAILY, TAB Magnesium Chloride (Slow-Mag Tab) 64 Mg Tabcr 64 MG PO DAILY, TAB Memantine (Namenda) 10 Mg Tab 10 MG PO BID, TAB Metformin Hcl (Glucophage) 850 Mg Tab 850 MG PO BIDM, TAB WITH MORNING AND EVENING MEALS Mirabegron (Myrbetriq Er) 50 Mg Tab 50 MG PO DAILY, TAB Naphazoline W/ Pheniramine (Eye Allergy Relief) 1 Cora Cora 1 DROP OPB DAILY Pancrelipase (Lipase-Protease- (Creon 61873) 1 Cap Cap 39780 MG PO BIDM, CAP Risedronate Sodium (Actonel) 150 Mg Tab 1 TAB PO MONTHLY, TAB GIVE ON THE 6TH OF EACH MONTH Rivastigmine Tartrate (Exelon) 3 Mg Cap 6 MG PO DAILY, CAP Sertraline (Zoloft) 25 Mg Tab 25 MG PO DAILY, TAB Simvastatin (Zocor) 40 Mg Tab 40 MG PO QPM, TAB Referrals At Discharge Follow up Referrals: Family Practice Referral - Within 1 Week with Toeny Morgan MD Discharge Exam Review of Systems: Constitutional: No fever Eyes: No problem reported ENT: No problem reported Respiratory: No shortness of breath Cardiovascular: No chest pain Abdomen: No diarrhea, No nausea, No pain, No vomiting Musculoskeletal: No problem reported Genitourinary - Female: No problem reported Neurologic: + memory loss Psychiatric: No problem reported Endocrine: No problem reported Hematologic / Lymphatic: No problem reported Integumentary: No problem reported Physical Exam: General Appearance: WD/WN, no apparent distress Eyes: normal inspection, sclerae normal ENT: hearing grossly normal, pharynx normal Neck: trachea midline Respiratory/Chest: lungs clear, normal breath sounds, no respiratory distress, no accessory muscle use Cardiovascular: regular rate, rhythm, no edema, no gallop, no murmur Abdomen / GI: normal bowel sounds, non tender, soft Extremities: no calf tenderness, no pedal edema, normal range of motion Neurologic/Psychiatric: alert, normal mood/affect Skin: normal color, warm/dry, no rash Hospital Course 76 y/o F w/Hx DM, HTN, pancreatic insufficiency, advanced dementia. Per she has been acting more confused than usual and has exhibited an unsteady gait over the past few days. She was recently treated for a UTI with a 7 day course of Bactrim. There have been no reported fevers and the pt does not complain of back pain or dysuria but she is not a reliable historian. Her UA is strongly positive and labs reveal SUNDAR. 1) UTI present on admission - Levaquin provided and had improvement in symptoms including improved weakness and resolved metabolic encephalopathy. Urine culture was still pending at the time of discharge. -Continue Levaquin for 7 day course and follow up with PCP 2) acute metabolic encephalopathy secondary to urinary tract infection superimposed on dementia -treated the dehydration, acute kidney injury, and UTI and she had improvement back to her baseline 3) SUNDAR - creatinine was 1.5 on admission. IVF were given and creatinine improved to 1.0 on the day of discharge 4) Advanced dementia - Her neurologist had recently increased her Namenda and Exelon doses. No issues during hospitalization 5) DMII- uncontrolled with hyperglycemia during admission likely secondary to acute infection, hemoglobin A1c pending at time of discharge -Increased insulin glargine to 8 units at bedtime and utilized sliding scale with carbohydrate coverage while inpatient -Continue glucose checks and pre-meal NovoLog along with long-acting insulin at home and follow up with PCP -Restart metformin on discharge 6) HTN - uncontrolled requiring IV hydralazine during admission. Cozaar was held initially for acute kidney injury -Cont Cozaar and added amlodipine 5 mg once daily -Follow up with PCP 7) HPL - stable, no issues -Continue statin 8) overactive bladder-stable -Continue Myrbetriq 9) GERD-stable -Continue PPI Full code - SCDs due to falll risk Total Time Spent: Greater than 30 minutes This includes examination of the patient, discharge planning, medication reconciliation, and communication with other providers. Discharge Instructions Please refer to the electronic Patient Visit Report (Discharge Instructions) for additional information. Follow-Up With PCP within 1-2 weeks Additional Copies To Toney Morgan MD
[2017-02-01 06:40] LABS: ESTIMATED AVERAGE GLUCOSE 209 mg/dl; HA1C FLAG Normal (Normal)
[2017-02-01] MEDS ORDERED: AMLODIPINE BESYLATE 5 MG TAB PO SCH (09:00)
== END 2017-01-31 16:15 | disposition home health service (06) | DRG 689 ==
LOC: ENRESERVTM → ENRESERVDT → C.EDB 02:26 → C.MED 06:36 → EDBEDREQ 06:46
PROVIDERS: ADMIT Internal Medicine; ATTEND Family Medicine
DX: N39.0 Urinary tract infection, site not specified (principal); G93.41 Metabolic encephalopathy; N17.9 Acute kidney failure, unspecified; E86.0 Dehydration; I10 Essential (primary) hypertension; E11.65 Type 2 diabetes mellitus with hyperglycemia; K86.89 Other specified diseases of pancreas; R26.9 Unspecified abnormalities of gait and mobility; E78.5 Hyperlipidemia, unspecified; K21.9 Gastro-esophageal reflux disease without esophagitis; N32.81 Overactive bladder; F03.90 Unspecified dementia, unspecified severity, without behavioral disturbance, psychotic disturbance, mood disturbance, and anxiety; F41.9 Anxiety disorder, unspecified; Z79.4 Long term (current) use of insulin; Z79.84 Long term (current) use of oral hypoglycemic drugs; Z79.82 Long term (current) use of aspirin; Z79.899 Other long term (current) drug therapy

== ENCOUNTER → 2017-02-19 | Outpatient (CLI) | payer BC ==
[~2017-02-19] MED LIST changes: +INSU1.2I SQ; +MIRA1TAB3 PO; +NAPHSOL OPB; +NRV5 PO; +NVLGI/PEN SQ; -NVLGI7030 SQ; +RIVA3CAP4 PO; +SERT25TA PO
== END | disposition home or self-care (01) ==
LOC: C.LABBFT 13:57
PROVIDERS: ATTEND Nurse Practitioner Adult Health
DX: R39.15 Urgency of urination (principal)

== ENCOUNTER → 2017-10-05 | Outpatient (CLI) | payer BC ==
[~2017-10-05] MED LIST changes: +ACET-1138 PO; +AMLO2.5T PO; +AMLO2.5T2 PO; +ASPECOTC PO; -ASPI325T45 PO; +ASPI81TA28 PO; +BACTRIM PO; +CALC-20 PO; +CALC-214 PO; +CALC-354 PO; +CALC-388 PO; +CALC-51 PO; +CALC1TAB72 PO; +CALC300T PO; +CEFD300C2 PO; +CEPH500C2 PO; +CRDCD180 PO; +CYCL5TAB PO; +CZR25 PO; +CZR50 PO; +DILT-113 PO; +DTR/2 PO; +GLC500 PO; +INSDGIPEN SC; +INSDGIPEN SQ; +LDDP5 TD; +LIDO1PAD2 TD; +LOSA50TA6 PO; +LPR25 PO; +MAGN1CAP2; +MAGN1TAB41 PO; +METF-384 PO; +METO25TA56 PO; +METO50TA2 PO; +MOME6000 NAE; +NVLGI7030 SC; +NVLGIPEN SC; +RIVA6CAP4 PO; +SLWMEC PO; +SULF800T23 PO; +ULT/50 PO; +ZLF50 PO
--- NOTE | 2017-10-05 16:28 | DIAGNOSTIC IMAGING REPORT ---
RIBS BILATERAL WITH PA CHEST CLINICAL HISTORY: BACK PAIN pain COMPARISON STUDY: 01/30/2017 FINDINGS: Lungs are considered clear. Nondisplaced cortical fractures anterior right sixth and eighth ribs. Negative left ribs. IMPRESSION: 1. Nondisplaced cortical fractures right sixth and eighth ribs. 2. Negative left ribs. 3. Negative chest. The above report was generated using voice recognition software. It may contain grammatical, syntax or spelling errors. Electronically signed by: Erwin Morgan M.D. 10/05/2017 4:26 PM Dictated Date/Time: 10/05/2017 4:24 PM
== END | disposition home or self-care (01) ==
LOC: C.LAB1850 16:01
PROVIDERS: ATTEND Student in an Organized Health Care Education/Training Program
DX: S22.41XA Multiple fractures of ribs, right side, initial encounter for closed fracture (principal); W19.XXXA Unspecified fall, initial encounter

== ENCOUNTER → 2018-05-02 | Outpatient (CLI) | payer BC ==
[~2018-05-02] MED LIST changes: -AMLO2.5T PO; -AMLO2.5T2 PO; -ASPECOTC PO; -BACTRIM PO; -CALC-20 PO; -CALC-214 PO; -CALC-354 PO; -CALC-51 PO; -CALC300T PO; -CALCTAB65 PO; -CEFD300C2 PO; -CEPH500C2 PO; -CRDCD180 PO; -CYCL5TAB PO; -CZR25 PO; -CZR50 PO; -DTR/2 PO; -GLC500 PO; -INSDGIPEN SC; -INSU1.2I SQ; -LDDP5 TD; -LIDO1PAD2 TD; -LOSA50TA54 PO; -LPR25 PO; -MAGN1CAP2; -MAGN1TAB41 PO; -MAGNTAB4 PO; -METF-383 PO; -METO25TA56 PO; -NAPHSOL OPB; -NRV5 PO; -NVLGI7030 SC; -NVLGIPEN SC; -RIVA3CAP4 PO; -SLWMEC PO; -SULF800T23 PO; -ULT/50 PO; -ZLF50 PO
== END | disposition home or self-care (01) ==
LOC: C.LAB 16:31
PROVIDERS: ATTEND Nurse Practitioner Family
DX: R32 Unspecified urinary incontinence (principal); R39.15 Urgency of urination; N39.0 Urinary tract infection, site not specified

== ENCOUNTER 2018-05-16 15:09 | Inpatient (IN) | payer BC, OTHER ==
[~2018-05-16] VITALS: Ht 167.6 cm; Wt 55.7 kg
[2018-05-16 16:11] LABS: BASO % 0.4 %; BASO ABS # 0.03 K/uL (0-0.2); EOS % 1.3 %; HEMATOCRIT 35.3 % (37-47); HEMOGLOBIN 11.8 g/dL (12.0-16.0); IG# 0.02 K/uL (0.00-0.02); LYMPH % 17.3 %; MEAN CELL VOLUME 88.3 fL (80-100); MEAN CORPUSCULAR HEMOGLOBIN 29.5 pg (25-34); MEAN CORPUSCULAR HGB CONC 33.4 g/dl (32-36); MEAN PLATELET VOLUME 8.6 fL (7.4-10.4); MONO % 7.6 %; MONO ABS # 0.57 K/uL (0.11-0.59); NEUT % 73.1 %; NEUT ABS # 5.49 K/uL (1.4-6.5); PLATELET COUNT 297 K/uL (130-400); RED CELL DISTRIBUTION WIDTH CV 12.6 % (11.5-14.5); RED CELL DISTRIBUTION WIDTH SD 40.4 fL (36.4-46.3); WHITE BLOOD COUNT 7.51 K/uL (4.8-10.8)
[2018-05-16 16:19] LABS: PTT PATIENT 23.2 SECONDS (21.0-31.0)
[2018-05-16 16:40] LABS: ALBUMIN 3.3 gm/dl (3.4-5.0); ALKALINE PHOSPHATASE 52 U/L (45-117); ALT/SGPT 17 U/L (12-78); AST/SGOT 16 U/L (15-37); BLOOD UREA NITROGEN 14 mg/dl (7-18); CALCIUM 9.1 mg/dl (8.5-10.1); CARBON DIOXIDE 25 mmol/L (21-32); GLUCOSE 79 mg/dl (70-99); LIPASE 61 U/L (73-393); POTASSIUM 3.9 mmol/L (3.5-5.1); SODIUM 129 mmol/L (136-145); TOTAL PROTEIN 7.5 gm/dl (6.4-8.2)
--- NOTE | 2018-05-16 16:47 | DIAGNOSTIC IMAGING REPORT ---
HEAD CT NONCONTRAST CT DOSE: 1819.83 mGy.cm HISTORY: Fall. EVALUATE WEAKNESS TECHNIQUE: Multiaxial CT images of the head were performed without the use of intravenous contrast. Automated exposure control was utilized for this study. A dose lowering technique was utilized adhering to the principles of ALARA. Comparison: Head CT 03/31/2018 Findings: The paranasal sinuses and mastoid air cells are clear. The calvarium and skull base are intact. There is no mass, hematoma, midline shift, acute infarct. White matter hypodensity is nonspecific but suggestive of microvascular ischemic change. The ventricles and sulci demonstrate mild age-related involutional changes. Impression: No significant change compared to the prior study. No acute intracranial abnormality. Electronically signed by: Jaxon Spencer M.D. 05/16/2018 4:45 PM Dictated Date/Time: 05/16/2018 4:42 PM
--- NOTE | 2018-05-16 17:04 | DIAGNOSTIC IMAGING REPORT ---
CERVICAL, THORACIC, LUMBAR SPINE CT CT DOSE: HISTORY: fall, pain TECHNIQUE: Multiaxial CT images of the cervical, thoracic, and lumbar spine were performed and reformatted in the sagittal and coronal plane without the use of contrast. A dose lowering technique was utilized adhering to the principles of ALARA. COMPARISON: None. FINDINGS: No fracture or subluxation within the cervical spine. Prevertebral soft tissues and the C1-C2 interval are intact. Disc spaces are preserved for age. No pneumothorax. No significant change in the moderate T11 compression deformity. This demonstrates sclerosis and is therefore considered to be a subacute to chronic fracture. There is 2 mm of retropulsion of the posterior superior corner without significant central canal narrowing. Mild disc space narrowing within the thoracic spine. Minimal superior endplate concavity at T2 and T3 is also likely old. No acute fractures identified within the thoracic spine. Subacute to chronic fracture within the right posterior T7 and T8 ribs. Healing right L1 transverse process fracture. No acute fractures within the lumbar spine. Disc spaces are preserved. Paraspinal soft tissues are unremarkable. IMPRESSION: 1. No acute fractures within the cervical, thoracic, lumbar spine. 2. Subacute to chronic fractures within the thoracic and lumbar spine described above. There are also subacute right posterior T7 and T8 rib fractures. Electronically signed by: Jaxon Spencer M.D. 05/16/2018 5:03 PM Dictated Date/Time: 05/16/2018 4:49 PM
--- NOTE | 2018-05-16 17:05 | DIAGNOSTIC IMAGING REPORT ---
CT OF THE CHEST WITHOUT IV CONTRAST CLINICAL HISTORY: Fall. Chest pain. COMPARISON STUDY: Chest radiograph April 01, 2018. TECHNIQUE: Axial images of the chest were obtained without IV contrast. Images were reviewed in the axial, sagittal, and coronal planes. IV contrast was not administered for this examination. A dose lowering technique was utilized adhering to the principles of ALARA. FINDINGS: Several calcified mediastinal lymph nodes are noted. The size of the heart is normal. There is no mediastinal hematoma. There is no pericardial effusion. No pneumothorax or pulmonary contusion is present. The thoracic spine CT will be reported separately. Nondisplaced fractures of the posterior right seventh and eighth ribs are noted. These are probably subacute. There are multiple old bilateral rib fractures. The abdomen and pelvis will be reported separately. Old T11 compression fracture is noted. IMPRESSION: 1. No pneumothorax. No mediastinal hematoma. No pulmonary contusion. 2. Several age indeterminate, but likely subacute, posterior right rib fractures. Electronically signed by: Blake Padilla M.D. 05/16/2018 5:03 PM Dictated Date/Time: 05/16/2018 4:55 PM
--- NOTE | 2018-05-16 17:13 | DIAGNOSTIC IMAGING REPORT ---
CT OF THE ABDOMEN AND PELVIS WITHOUT CONTRAST CLINICAL HISTORY: Fall. Pain. COMPARISON STUDY: CT of the abdomen and pelvis March 18, 2018. TECHNIQUE: Axial images of the abdomen and pelvis were obtained without IV contrast. Images were reviewed in the axial, sagittal, and coronal planes. A dose lowering technique was utilized adhering to the principles of ALARA. FINDINGS: No hemoperitoneum or pneumoperitoneum is present. Dilatation of the main pancreatic duct is similar to previous exam. This is suboptimally assessed on this unenhanced exam. Pancreatic glandular atrophy is unchanged. There is no change in biliary ductal dilatation status post cholecystectomy. There are a few pancreatic parenchymal calcifications. There is no evidence for traumatic injury to the liver, spleen, adrenal glands, kidneys or pancreas. There are calcified cannula was within the spleen. The appendix is normal. No acute lumbar spine or pelvic fractures identified. Old T11 compression fracture is noted. There is sigmoid diverticulosis without evidence for acute diverticulitis. Old right inferior pubic ramus fracture is present. Bladder is mildly distended. Extensive atherosclerotic plaque is noted. IMPRESSION: 1. No acute traumatic findings within the abdomen or pelvis on unenhanced exam. 2. No change in pancreatic ductal dilatation which is better depicted on prior contrast enhanced CT of March 18, 2018. This remains similar to study of December 09, 2012. Electronically signed by: Blake Padilla M.D. 05/16/2018 5:11 PM Dictated Date/Time: 05/16/2018 5:04 PM
[2018-05-16] MEDS ORDERED: CALC-354 PO ×2 (17:24)
[2018-05-16] MEDS ORDERED: MAGN1CAP2 (17:30)
[2018-05-16] MEDS ORDERED: MAGN1TAB41 PO ×2 (17:30)
[2018-05-16] MEDS ORDERED: METO25TA56 PO ×2 (17:31)
[2018-05-16] MEDS ORDERED: NVLGI/PEN SQ ×6 (17:34→17:36)
[2018-05-16] MEDS ORDERED: KETOROLAC TROMETHAMINE 30 MG/ML VIAL IV STA (17:36)
[2018-05-16] MEDS ORDERED: LIDODERM (LIDOCAINE) PATCH 5% TD STA (17:43)
[2018-05-16] MEDS ORDERED: SULF800T23 PO ×2 (17:46)
[2018-05-16] MEDS ORDERED: INSU1.2I SQ ×2 (17:50)
[2018-05-16] MEDS ORDERED: AMLO2.5T PO ×2 (17:51)
[2018-05-16] MEDS ORDERED: DILT-113 PO (17:52)
[2018-05-16] MEDS ORDERED: ULT/50 PO (18:02)
[2018-05-16] MEDS ORDERED: ACETAMINOPHEN 500 MG TAB PO STA (19:07)
[2018-05-16] MEDS ORDERED: FENTANYL CITRATE INJ 50 MCG/1 ML 2 ML VIAL IV ONE (19:15)
[2018-05-16] MEDS ORDERED: GLUCAGON FOR INJ 1 MG VIAL SQ PRN (20:00)
[2018-05-16] MEDS ORDERED: GLUCOSE 10 TABS/TUBE PO PRN (20:00)
[2018-05-16] MEDS ORDERED: ALUMINUM/MAGNESIUM/SIMETH (MAALOX MAX) 30 ML UDC PO PRN (20:00)
[2018-05-16] MEDS ORDERED: MAGNESIUM HYDROXIDE SUSP 30 ML UDC PO PRN (20:00)
[2018-05-16] MEDS ORDERED: ACETAMINOPHEN 325 MG TAB PO PRN (20:00)
[2018-05-16] MEDS ORDERED: CARBOHYDRATES FOR HYPOGLYCEMIA PO PRN (20:00)
[2018-05-16] MEDS ORDERED: TRAMADOL HCL 50 MG TAB PO PRN (20:00)
[2018-05-16] MEDS ORDERED: GLUCOSE 40% GEL 15 GM TUBE PO PRN (20:00)
[2018-05-16] MEDS ORDERED: DEXTROSE 50% 50 ML SYR IV PRN (20:00)
--- NOTE | 2018-05-16 20:44 | History and Physical ---
History & Physical Date & Time of Service: May 16, 2018 at 20:15 Chief Complaint: Back Pain Primary Care Physician: Toney Morgan MD History of Present Illness The patient is a 77 year old female with a past medical history of hypertension , diabetes mellitus, dementia, overactive bladder, GERD, and chronic hyponatremia that presents with a 10 day history of worsening unsteadiness and falls. The patient lives at home alone with her and as home health/ PT every other day. 10 days ago the noticed that the was becoming increasingly unsteady and had an unwitnessed fall outside in their backyard. The patient does not recall the fall but fell on her back and denies any head trauma. Her left sided hip pain has become increasingly worse and now is having trouble getting in and out of bed. The himself uses a walker and is no longer able to help her get in and out of bed. The patient was also recently admitted for hyponatremia and was found to have a sodium of 129 in the ED. The patient denies any dysuria but has been having polyuria and is incontinent at night to urine. She denies any recent fevers , chills, sweats, or other infectious symptoms. The patient describes her unsteadiness as a lightheaded sensation but denies any vertigo like symptoms. The patient has some clear underlying dementia during our conversation with mainly short term recall and memory. Past Medical/Surgical History Medical Problems: (1) Abnormal chest x-ray (2) Acute kidney injury (3) Acute metabolic encephalopathy (4) Altered mental status (5) Breast CA (6) Chest wall contusion (7) CHI (closed head injury) (8) Confusion (9) Confusion (10) Dehydration (11) Diabetes (12) Diarrhea (13) Dizziness (14) Failure of outpatient treatment (15) Fall (16) Generalized weakness (17) Hyperglycemia (18) Hyperglycemia (19) Hypertension (20) Hypertensive urgency (21) Hyponatremia (22) Pancreatic carcinoma (23) Skin tear of left forearm without complication (24) Skin tear of right upper arm without complication (25) Skin tear of right upper extremity (26) UTI (urinary tract infection) (27) Visual changes Surgical Problems: (1) S/P tubal ligation Family History Hypertension Kidney disease Social History Smoking Status: Never Smoker Drug Use: none Marital Status: Housing status: lives with family Occupational Status: retired Immunizations History of Influenza Vaccine: Unknown History of Tetanus Vaccine?: Unknown History of Pneumococcal: Unknown History of Hepatitis B Vaccine: Unknown Allergies Coded Allergies: Repaglinide (Verified Allergy, Intermediate, SEVER SHAKING, 04/01/18) Hydrocodone (Verified Allergy, Mild, UNKNOWN, 04/01/18) Home Medications Scheduled Amlodipine (Norvasc), 2.5 MG PO DAILY Aspirin (Aspirin Ec), 81 MG PO DAILY Calcium Carbonate-Cholecalcife (Caltrate 600+D), 1 TAB PO DAILY Insulin Aspart (Novolog Flexpen), 3 UNITS SQ BREAKFAST Insulin Aspart (Novolog Flexpen), 3 UNITS SQ LUNCH Insulin Aspart (Novolog Flexpen), 4 UNITS SQ VASHTI MEAL Insulin Glargine (Toujeo Solostar), 8 UNITS SQ BEFORE BREAKFAST Lansoprazole (Prevacid), 30 MG PO DAILY Losartan Potassium (Cozaar), 50 MG PO BID Magnesium Oxide (Magnesium), 200 MG PO DAILY Memantine (Namenda), 10 MG PO BID Metformin Hcl (Glucophage), 1,000 MG PO BID Metoprolol Tartrate (Lopressor) (Lopressor), 25 MG PO BID Mirabegron (Myrbetriq Er), 50 MG PO DAILY Pancrelipase (Lipase-Protease- (Creon [id number]), 24,000 MG PO BIDM Risedronate Sodium (Actonel), 150 MG PO MONTHLY Rivastigmine Tartrate (Rivastigmine Tartrate), 6 MG PO BID Sertraline (Zoloft), 50 MG PO HS Simvastatin (Zocor), 40 MG PO QPM Sulfa/Trimethoprim (Bactrim Ds 800MG/160MG), 1 TAB PO BID Scheduled PRN Acetaminophen (Tylenol Extra Strength), 1,000 MG PO Q6 PRN for Pain Mometasone Furoate (Nasal) (Mometasone Furoate), 2 SPRAYS DENA DAILY PRN for ALLERGY SYMPTOMS Tramadol Hcl (Ultram), 50 MG PO Q8H PRN for Pain Review of Systems Constitutional: + weakness, + fatigue, No fever, No chills Respiratory: No cough, No sputum, No wheezing, No shortness of breath, No dyspnea on exertion Cardiovascular: No chest pain, No orthopnea, No palpitations Abdomen: No pain, No nausea, No vomiting, No diarrhea, No constipation Musculoskeletal: No joint pain, No swelling, No calf pain Genitourinary - Female: + urinary frequency, + urinary incontinence, No dysuria , No urinary urgency Neurologic: No memory loss, No numbness/tingling, No vertigo Physical Exam Vital Signs Date Time Temp Pulse Resp B/P (MAP) Pulse Ox O2 Delivery O2 Flow Rate FiO2 05/16/18 20:12 75 05/16/18 20:04 76 14 187/77 96 Room Air 05/16/18 18:27 37.0 80 16 183/64 96 05/16/18 17:53 80 16 183/64 96 Room Air 05/16/18 15:52 94 Room Air 05/16/18 15:17 76 05/16/18 15:17 37.0 76 13 195/79 94 Room Air General Appearance: WD/WN, no apparent distress Head: normocephalic, atraumatic Eyes: normal inspection, sclerae normal Neck: supple, no carotid bruits Respiratory/Chest: chest non-tender, lungs clear, normal breath sounds Cardiovascular: regular rate, rhythm, no edema, no gallop Abdomen/GI: normal bowel sounds, non tender, soft Extremities/Musculoskelatal: no calf tenderness, no pedal edema, + pertinent finding (Left posterior hip tenderness to palpation, no visible hematoma or abrasions over the area. 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, no motor/sensory deficits, alert, normal mood/affect, oriented x 3, + pertinent finding (Field of view intacts, CN 2-12 grossly intact, finger to nose and heel to chong grossly intact, A&O x 3) Diagnostics Laboratory Results Results Past 24 Hours Test 05/16/18 16:02 05/16/18 16:46 05/16/18 19:54 Range/Units White Blood Count 7.51 4.8-10.8 K/uL Red Blood Count 4.00 4.2-5.4 M/uL Hemoglobin 11.8 12.0-16.0 g/dL Hematocrit 35.3 37-47 % Mean Corpuscular Volume 88.3 80-100 fL Mean Corpuscular Hemoglobin 29.5 25-34 pg Mean Corpuscular Hemoglobin Concent 33.4 32-36 g/dl Platelet Count 297 130-400 K/uL Mean Platelet Volume 8.6 7.4-10.4 fL Neutrophils (%) (Auto) 73.1 % Lymphocytes (%) (Auto) 17.3 % Monocytes (%) (Auto) 7.6 % Eosinophils (%) (Auto) 1.3 % Basophils (%) (Auto) 0.4 % Neutrophils # (Auto) 5.49 1.4-6.5 K/uL Lymphocytes # (Auto) 1.30 1.2-3.4 K/uL Monocytes # (Auto) 0.57 0.11-0.59 K/uL Eosinophils # (Auto) 0.10 0-0.5 K/uL Basophils # (Auto) 0.03 0-0.2 K/uL RDW Standard Deviation 40.4 36.4-46.3 fL RDW Coefficient of Variation 12.6 11.5-14.5 % Immature Granulocyte % (Auto) 0.3 % Immature Granulocyte # (Auto) 0.02 0.00-0.02 K/uL Prothrombin Time 10.3 9.0-12.0 SECONDS Prothromb Time International Ratio 1.0 0.9-1.1 Activated Partial Thromboplast Time 23.2 21.0-31.0 SECONDS Partial Thromboplastin Ratio 0.9 Sodium Level 129 136-145 mmol/L Potassium Level 3.9 3.5-5.1 mmol/L Chloride Level 95 98-107 mmol/L Carbon Dioxide Level 25 21-32 mmol/L Anion Gap 9.0 3-11 mmol/L Blood Urea Nitrogen 14 7-18 mg/dl Creatinine 0.70 0.60-1.20 mg/dl Est Creatinine Clear Calc Drug Dose 72.3 ml/min Estimated GFR () 97.5 Estimated GFR (Non- 84.2 BUN/Creatinine Ratio 19.3 10-20 Random Glucose 79 70-99 mg/dl Calcium Level 9.1 8.5-10.1 mg/dl Magnesium Level 2.1 1.8-2.4 mg/dl Total Bilirubin 0.5 0.2-1 mg/dl Direct Bilirubin 0.1 0-0.2 mg/dl Aspartate Amino Transf (AST/SGOT) 16 15-37 U/L Alanine Aminotransferase (ALT/SGPT) 17 12-78 U/L Alkaline Phosphatase 52 45-117 U/L Troponin I < 0.015 0-0.045 ng/ml Total Protein 7.5 6.4-8.2 gm/dl Albumin 3.3 3.4-5.0 gm/dl Lipase 61 73-393 U/L Thyroid Stimulating Hormone (TSH) 0.921 0.300-4.500 uIu/ml Urine Color YELLOW Urine Appearance CLEAR CLEAR Urine pH 7.0 4.5-7.5 Urine Specific [place] 1.013 1.000-1.030 Urine Protein NEG NEG Urine Glucose (UA) NEG NEG Urine Ketones TRACE NEG Urine Occult Blood NEG NEG Urine Nitrite NEG NEG Urine Bilirubin NEG NEG Urine Urobilinogen NEG NEG Urine Leukocyte Esterase NEG NEG Bedside Glucose 98 70-90 mg/dl Microbiology Results 05/16/18 Urine Culture, Received Pending Impression Assessment and Plan The patient is a 77 year old female with a past medical history of hypertension , diabetes mellitus, dementia, overactive bladder, GERD, and chronic hyponatremia that presents with a 10 day history of worsening unsteadiness and falls Functional Decline with Recent Fall - No signs of infection, UA wnl, progressive decline at home - CT Imaging showed subacute rib fractures of T7/T8 in addition to multiple healing older fractures - PT/OT - Fall Precautions and Walking with Assistance in the hospital - Lidocaine Patch, Toradol and Tylenol PRN for pain - Continue home Tramadol for pain Hyponatremia - Na 129 - IV NS @ 60 mls/hr - Daily BMP Diabetes Mellitus - ISS with AC & HS Glucose Checks - Lantus 8 units QAM - Hold home Metformin Hypertension - Continue home Amlodipine and Losartan Dementia/ Depression - Continue home Namenda, Simvastatin HLD - Continue home Simvastatin DVT - Heparin Code Status - Full Resuscitation Resuscitation Status Full Resuscitation VTE Prophylaxis Will order VTE Prophylaxis: Yes Resident Tracking Resident Involvement: Resident Care Provided Care Provided: Adult Hospital Medicine History Patient seen and examined, chart reviewed, case discussed with Dr. Marcum and I agree with his assessment and plan as documented above. Briefly, patient is a 77yo female with history of HTN, DM, Dementia, GERD and hyponatremia presenting with 10 days of functional decline after an unwitnessed fall at home. Patient has chronic dizziness and frequent falls, requiring more assistance at home. Pain is presently well controlled, no additional complaints On physical exam she is afebrile, hypertensive otherwise HD stable General: AA&O, pleasant, NAD Skin: warm, dry, intact, no rashes/lesions HEENT: NC/AT, PERRL, MMM, neck supple, no JVD Heart: +S1/S2, regular, no m/r/g Lungs: CTA Abd: +BS, soft, NT/ND Ext: warm, well perfused, no clubbing/cyanosis or edema, no midline spine tenderness, some tenderness over left hip Labs and images reviewed. Oo=[id number]. Xray with subacute right posterior T7 and T8 rib fractures. Assessment/Plan: Observation to medical floor. Gentle IV hydration. Pain control. Monitor Na level. PT/OT and Case management consult for possible placement needs. Management of chronic medical problems as above.
[2018-05-16] MEDS ORDERED: KETOROLAC TROMETHAMINE 15 MG/ML VIAL IV PRN (20:45)
[2018-05-16] MEDS ORDERED: ACETAMINOPHEN 500 MG TAB PO PRN (21:00)
--- NOTE | 2018-05-16 21:47 | EMERGENCY ROOM VISIT NOTE ---
History Report prepared by Terrence: Tiffani Diaz Under the Supervision of: Dr. Nash Baires M.D. First contact with patient: 15:38 Chief Complaint: BACK PAIN Stated Complaint: BACK PAIN History of Present Illness The patient is a 77 year old female who presents to the Emergency Room with complaints of persistent back pain for the past 3 days. She rates her discomfort as a 10/10 in severity. Movement worsens her pain. Aspirin has provided some relief. She denies any headache, chest pain or difficulty breathing. She states she has been eating and drinking normally. She admits to urinary symptoms both today and yesterday. She does not take daily blood thinners. She has experienced no vision changes. Nursing states the patient experienced a fall from ground level approximately 1 week ago and landed on her back, and the patient also has a history of dementia. HPI is limited secondary to the patients history of dementia. Source of History: patient Onset: 3 days [employer]IT[employer] Position: back Symptom Intensity: 10/10 Timing: other (persistent) Modifying Factors (Worsening): movement Modifying Factors (Relieving): other (Aspirin) Associated Symptoms: + urinary symptoms, No headache, No chest pain, No SOB Review of Systems See HPI for pertinent positives and negatives. A limited number of systems were reviewed and were otherwise negative. Past Medical & Surgical Medical Problems: (1) Acute metabolic encephalopathy (2) Altered mental status (3) Breast CA (4) Dementia (5) Diabetes (6) Hypertension (7) Pancreatic carcinoma Surgical Problems: (1) S/P tubal ligation Family History Hypertension Kidney disease Social History Smoking Status: Never Smoker Alcohol Use: none Drug Use: none Marital Status: Housing Status: lives with family Occupation Status: retired Current/Historical Medications Scheduled Amlodipine (Norvasc), 2.5 MG PO DAILY Aspirin (Aspirin Ec), 81 MG PO DAILY Calcium Carbonate-Cholecalcife (Caltrate 600+D), 1 TAB PO DAILY Insulin Aspart (Novolog Flexpen), 3 UNITS SQ BREAKFAST Insulin Aspart (Novolog Flexpen), 3 UNITS SQ LUNCH Insulin Aspart (Novolog Flexpen), 4 UNITS SQ VASHTI MEAL Insulin Glargine (Toujeo Solostar), 8 UNITS SQ BEFORE BREAKFAST Lansoprazole (Prevacid), 30 MG PO DAILY Losartan Potassium (Cozaar), 50 MG PO BID Magnesium Oxide (Magnesium), 200 MG PO DAILY Memantine (Namenda), 10 MG PO BID Metformin Hcl (Glucophage), 1,000 MG PO BID Metoprolol Tartrate (Lopressor) (Lopressor), 25 MG PO BID Mirabegron (Myrbetriq Er), 50 MG PO DAILY Pancrelipase (Lipase-Protease- (Creon [id number]), 24,000 MG PO BIDM Risedronate Sodium (Actonel), 150 MG PO MONTHLY Rivastigmine Tartrate (Rivastigmine Tartrate), 6 MG PO BID Sertraline (Zoloft), 50 MG PO HS Simvastatin (Zocor), 40 MG PO QPM Sulfa/Trimethoprim (Bactrim Ds 800MG/160MG), 1 TAB PO BID Scheduled PRN Acetaminophen (Tylenol Extra Strength), 1,000 MG PO Q6 PRN for Pain Mometasone Furoate (Nasal) (Mometasone Furoate), 2 SPRAYS DENA DAILY PRN for ALLERGY SYMPTOMS Tramadol Hcl (Ultram), 50 MG PO Q8H PRN for Pain Allergies Coded Allergies: Repaglinide (Verified Allergy, Intermediate, SEVER SHAKING, 04/01/18) Hydrocodone (Verified Allergy, Mild, UNKNOWN, 04/01/18) Physical Exam Vital Signs Date Time Temp Pulse Resp B/P (MAP) Pulse Ox O2 Delivery O2 Flow Rate FiO2 05/16/18 20:12 75 05/16/18 20:04 76 14 187/77 96 Room Air 05/16/18 18:27 37.0 80 16 183/64 96 05/16/18 17:53 80 16 183/64 96 Room Air 05/16/18 15:52 94 Room Air 05/16/18 15:17 76 05/16/18 15:17 37.0 76 13 195/79 94 Room Air Physical Exam GENERAL: Awake, alert, well-appearing, in no distress HENT: Normocephalic, atraumatic. Oropharynx unremarkable. EYES: Normal conjunctiva. Sclera non-icteric. NECK: Supple. No nuchal rigidity. RESPIRATORY: Clear to auscultation. No wheezes. Normal respiratory effort. CARDIAC: Normal rate. Normal rhythm. Extremities warm and well perfused. GI: Soft, non-distended. left flank tenderness to palpation and pain with straight leg raise. No rebound or guarding. No masses. RECTAL: Deferred. MUSCULOSKELETAL: Atraumatic. Chest examination reveals no tenderness. There is no CVA tenderness to palpation. LOWER EXTREMITIES: Calves are equal size bilaterally and non-tender. No edema NEURO: Patient is alert to person, but not to time or location. Normal sensorium. No sensory or motor deficits noted. No facial droop. SKIN: Warm and dry. No rash or jaundice noted. Medical Decision & Procedures ER Provider Diagnostic Interpretation: Radiology results as stated below per my review and radiologist interpretation: CERVICAL, THORACIC, LUMBAR SPINE CT CT DOSE: HISTORY: fall, pain TECHNIQUE: Multiaxial CT images of the cervical, thoracic, and lumbar spine were performed and reformatted in the sagittal and coronal plane without the use of contrast. A dose lowering technique was utilized adhering to the principles of ALARA. COMPARISON: None. FINDINGS: No fracture or subluxation within the cervical spine. Prevertebral soft tissues and the C1-C2 interval are intact. Disc spaces are preserved for age. No pneumothorax. No significant change in the moderate T11 compression deformity. This demonstrates sclerosis and is therefore considered to be a subacute to chronic fracture. There is 2 mm of retropulsion of the posterior superior corner without significant central canal narrowing. Mild disc space narrowing within the thoracic spine. Minimal superior endplate concavity at T2 and T3 is also likely old. No acute fractures identified within the thoracic spine. Subacute to chronic fracture within the right posterior T7 and T8 ribs. Healing right L1 transverse process fracture. No acute fractures within the lumbar spine. Disc spaces are preserved. Paraspinal soft tissues are unremarkable. IMPRESSION: 1. No acute fractures within the cervical, thoracic, lumbar spine. 2. Subacute to chronic fractures within the thoracic and lumbar spine described above. There are also subacute right posterior T7 and T8 rib fractures. Electronically signed by: Jaxon Spencer M.D. 05/16/2018 5:[address] OF THE ABDOMEN AND PELVIS WITHOUT CONTRAST CLINICAL HISTORY: Fall. Pain. COMPARISON STUDY: CT of the abdomen and pelvis March 18, 2018. TECHNIQUE: Axial images of the abdomen and pelvis were obtained without IV contrast. Images were reviewed in the axial, sagittal, and coronal planes. A dose lowering technique was utilized adhering to the principles of ALARA. FINDINGS: No hemoperitoneum or pneumoperitoneum is present. Dilatation of the main pancreatic duct is similar to previous exam. This is suboptimally assessed on this unenhanced exam. Pancreatic glandular atrophy is unchanged. There is no change in biliary ductal dilatation status post cholecystectomy. There are a few pancreatic parenchymal calcifications. There is no evidence for traumatic injury to the liver, spleen, adrenal glands, kidneys or pancreas. There are calcified cannula was within the spleen. The appendix is normal. No acute lumbar spine or pelvic fractures identified. Old T11 compression fracture is noted. There is sigmoid diverticulosis without evidence for acute diverticulitis. Old right inferior pubic ramus fracture is present. Bladder is mildly distended. Extensive atherosclerotic plaque is noted. IMPRESSION: 1. No acute traumatic findings within the abdomen or pelvis on unenhanced exam. 2. No change in pancreatic ductal dilatation which is better depicted on prior contrast enhanced CT of March 18, 2018. This remains similar to study of December 09, 2012. Electronically signed by: Blake Padilla M.D. 05/16/2018 5:[address] OF THE CHEST WITHOUT IV CONTRAST CLINICAL HISTORY: Fall. Chest pain. COMPARISON STUDY: Chest radiograph April 01, 2018. TECHNIQUE: Axial images of the chest were obtained without IV contrast. Images were reviewed in the axial, sagittal, and coronal planes. IV contrast was not administered for this examination. A dose lowering technique was utilized adhering to the principles of ALARA. FINDINGS: Several calcified mediastinal lymph nodes are noted. The size of the heart is normal. There is no mediastinal hematoma. There is no pericardial effusion. No pneumothorax or pulmonary contusion is present. The thoracic spine CT will be reported separately. Nondisplaced fractures of the posterior right seventh and eighth ribs are noted. These are probably subacute. There are multiple old bilateral rib fractures. The abdomen and pelvis will be reported separately. Old T11 compression fracture is noted. IMPRESSION: 1. No pneumothorax. No mediastinal hematoma. No pulmonary contusion. 2. Several age indeterminate, but likely subacute, posterior right rib fractures. Electronically signed by: Blake Padilla M.D. 05/16/2018 5:[address] CT DOSE: 1819.83 mGy.cm HISTORY: Fall. EVALUATE WEAKNESS TECHNIQUE: Multiaxial CT images of the head were performed without the use of intravenous contrast. Automated exposure control was utilized for this study. A dose lowering technique was utilized adhering to the principles of ALARA. Comparison: Head CT 03/31/2018 Findings: The paranasal sinuses and mastoid air cells are clear. The calvarium and skull base are intact. There is no mass, hematoma, midline shift, acute infarct. White matter hypodensity is nonspecific but suggestive of microvascular ischemic change. The ventricles and sulci demonstrate mild age-related involutional changes. Impression: No significant change compared to the prior study. No acute intracranial abnormality. Electronically signed by: Jaxon Spencer M.D. 05/16/2018 4:45 PM CERVICAL, THORACIC, LUMBAR SPINE CT CT DOSE: HISTORY: fall, pain TECHNIQUE: Multiaxial CT images of the cervical, thoracic, and lumbar spine were performed and reformatted in the sagittal and coronal plane without the use of contrast. A dose lowering technique was utilized adhering to the principles of ALARA. COMPARISON: None. FINDINGS: No fracture or subluxation within the cervical spine. Prevertebral soft tissues and the C1-C2 interval are intact. Disc spaces are preserved for age. No pneumothorax. No significant change in the moderate T11 compression deformity. This demonstrates sclerosis and is therefore considered to be a subacute to chronic fracture. There is 2 mm of retropulsion of the posterior superior corner without significant central canal narrowing. Mild disc space narrowing within the thoracic spine. Minimal superior endplate concavity at T2 and T3 is also likely old. No acute fractures identified within the thoracic spine. Subacute to chronic fracture within the right posterior T7 and T8 ribs. Healing right L1 transverse process fracture. No acute fractures within the lumbar spine. Disc spaces are preserved. Paraspinal soft tissues are unremarkable. IMPRESSION: 1. No acute fractures within the cervical, thoracic, lumbar spine. 2. Subacute to chronic fractures within the thoracic and lumbar spine described above. There are also subacute right posterior T7 and T8 rib fractures. Electronically signed by: Jaxon Spencer M.D. 05/16/2018 5:03 PM CERVICAL, THORACIC, LUMBAR SPINE CT CT DOSE: HISTORY: fall, pain TECHNIQUE: Multiaxial CT images of the cervical, thoracic, and lumbar spine were performed and reformatted in the sagittal and coronal plane without the use of contrast. A dose lowering technique was utilized adhering to the principles of ALARA. COMPARISON: None. FINDINGS: No fracture or subluxation within the cervical spine. Prevertebral soft tissues and the C1-C2 interval are intact. Disc spaces are preserved for age. No pneumothorax. No significant change in the moderate T11 compression deformity. This demonstrates sclerosis and is therefore considered to be a subacute to chronic fracture. There is 2 mm of retropulsion of the posterior superior corner without significant central canal narrowing. Mild disc space narrowing within the thoracic spine. Minimal superior endplate concavity at T2 and T3 is also likely old. No acute fractures identified within the thoracic spine. Subacute to chronic fracture within the right posterior T7 and T8 ribs. Healing right L1 transverse process fracture. No acute fractures within the lumbar spine. Disc spaces are preserved. Paraspinal soft tissues are unremarkable. IMPRESSION: 1. No acute fractures within the cervical, thoracic, lumbar spine. 2. Subacute to chronic fractures within the thoracic and lumbar spine described above. There are also subacute right posterior T7 and T8 rib fractures. Electronically signed by: Jaxon Spencer M.D. 05/16/2018 5:03 PM Laboratory Results 05/16/18 16:02 Red Blood Count 4.00, Mean Corpuscular Volume 88.3, Mean Corpuscular Hemoglobin 29.5, Mean Corpuscular Hemoglobin Concent 33.4, Mean Platelet Volume 8.6, Neutrophils (%) (Auto) 73.1, Lymphocytes (%) (Auto) 17.3, Monocytes (%) (Auto) 7.6, Eosinophils (%) (Auto) 1.3, Basophils (%) (Auto) 0.4, Neutrophils # (Auto) 5.49, Lymphocytes # (Auto) 1.30, Monocytes # (Auto) 0.57, Eosinophils # (Auto) 0.10, Basophils # (Auto) 0.03 05/16/18 16:02 Test 05/16/18 16:02 05/16/18 16:46 White Blood Count 7.51 K/uL (4.8-10.8) Red Blood Count 4.00 M/uL (4.2-5.4) Hemoglobin 11.8 g/dL (12.0-16.0) Hematocrit 35.3 % (37-47) Mean Corpuscular Volume 88.3 fL (80-100) Mean Corpuscular Hemoglobin 29.5 pg (25-34) Mean Corpuscular Hemoglobin Concent 33.4 g/dl (32-36) Platelet Count 297 K/uL (130-400) Mean Platelet Volume 8.6 fL (7.4-10.4) Neutrophils (%) (Auto) 73.1 % Lymphocytes (%) (Auto) 17.3 % Monocytes (%) (Auto) 7.6 % Eosinophils (%) (Auto) 1.3 % Basophils (%) (Auto) 0.4 % Neutrophils # (Auto) 5.49 K/uL (1.4-6.5) Lymphocytes # (Auto) 1.30 K/uL (1.2-3.4) Monocytes # (Auto) 0.57 K/uL (0.11-0.59) Eosinophils # (Auto) 0.10 K/uL (0-0.5) Basophils # (Auto) 0.03 K/uL (0-0.2) RDW Standard Deviation 40.4 fL (36.4-46.3) RDW Coefficient of Variation 12.6 % (11.5-14.5) Immature Granulocyte % (Auto) 0.3 % Immature Granulocyte # (Auto) 0.02 K/uL (0.00-0.02) Prothrombin Time 10.3 SECONDS (9.0-12.0) Prothromb Time International Ratio 1.0 (0.9-1.1) Activated Partial Thromboplast Time 23.2 SECONDS (21.0-31.0) Partial Thromboplastin Ratio 0.9 Anion Gap 9.0 mmol/L (3-11) Est Creatinine Clear Calc Drug Dose 72.3 ml/min Estimated GFR () 97.5 Estimated GFR (Non- 84.2 BUN/Creatinine Ratio 19.3 (10-20) Calcium Level 9.1 mg/dl (8.5-10.1) Magnesium Level 2.1 mg/dl (1.8-2.4) Total Bilirubin 0.5 mg/dl (0.2-1) Direct Bilirubin 0.1 mg/dl (0-0.2) Aspartate Amino Transf (AST/SGOT) 16 U/L (15-37) Alanine Aminotransferase (ALT/SGPT) 17 U/L (12-78) Alkaline Phosphatase 52 U/L (45-117) Troponin I < 0.015 ng/ml (0-0.045) Total Protein 7.5 gm/dl (6.4-8.2) Albumin 3.3 gm/dl (3.4-5.0) Lipase 61 U/L (73-393) Thyroid Stimulating Hormone (TSH) 0.921 uIu/ml (0.300-4.500) Urine Color YELLOW Urine Appearance CLEAR (CLEAR) Urine pH 7.0 (4.5-7.5) Urine Specific [place] 1.013 (1.000-1.030) Urine Protein NEG (NEG) Urine Glucose (UA) NEG (NEG) Urine Ketones TRACE (NEG) Urine Occult Blood NEG (NEG) Urine Nitrite NEG (NEG) Urine Bilirubin NEG (NEG) Urine Urobilinogen NEG (NEG) Urine Leukocyte Esterase NEG (NEG) Laboratory results reviewed by me Medications Administered Medications (Trade) Dose Ordered Sig/German Route Start Time Stop Time Status Last Admin Dose Admin Ketorolac Tromethamine (Toradol Inj) 15 mg NOW STAT IV 05/16/18 17:36 05/16/18 17:37 DC 05/16/18 17:50 15 MG Lidocaine (Lidoderm Patch 5%) 1 patch ONE STAT TD 05/16/18 17:43 05/16/18 17:44 DC 05/16/18 17:51 1 PATCH Acetaminophen (Tylenol Tab) 1,000 mg NOW STAT PO 05/16/18 19:07 05/16/18 19:08 DC 05/16/18 19:41 1,000 MG Fentanyl Citrate (Fentanyl Inj) 25 mcg NOW ONCE IV 05/16/18 19:15 05/16/18 19:17 DC 05/16/18 19:42 25 MCG ECG Per My Interpretation Indication: back/shoulder pain Rate (beats per minute): 78 Rhythm: sinus rhythm Findings: PAC, other (no ST segment elevation, no T wave inversions) Comparison ECG Date: Compared to EKG from April 13, 2019, PAC's are now present ED Course 1540: The patient was evaluated in room C10. A complete history and physical exam was performed. 173: Toradol 15 mg IV. 174: Lidoderm Patch 1 patch TD. 1814: I reevaluated the patient. She is feeling well and resting comfortably. I discussed her results and discharge instructions and she verbalized complete understanding and agreement. 1850: Nursing informed me the patient cannot ambulate and is unable to go home. I will contact the hospital medicine team. 1906: Acetaminophen 1000 mg PO. 1914: Fentanyl 25 mcg IV. 0: I discussed the patients case with [facility] Hospitalist. The patient will be further evaluated. Medical Decision Triage Nursing notes reviewed. The patient's presentation and history were concerning for traumatic injury. Differential diagnosis: Etiologies such as fracture, dislocation, intra-abdominal, pneumothorax, intrathoracic , intracranial, neurologic, as well as other traumatic pathologies were entertained. Limited history from patient secondary to dementia. Evidently suffered a fall about a week ago. Unsure of evaluated. Complaining of back pain worse with movement. No abdominal pain reported or chest pain. Given limited history and question of fall imaging of the head spine and thorax completed with CT scans. Basic labs and urine obtained. Doubt cauda equina syndrome. No evidence of acute intracranial injury or cervical injury. No thoracic injuries appreciated in the chest abdomen or pelvis. No leukocytosis. No evidence of UTI. Stable hyponatremia. Given some Toradol. Some subacute to chronic rib fractures and thoracic and lumbar spine fractures. No other acute findings. Family is working for placement at [facility]. PDMP was queried and she is appropriate for controlled substances at this time. Given instruction utilize Tylenol and Advil and breakthrough tramadol which is tolerated before. Had discussion with this with the patient's who is in agreement; however, upon trying to have the patient ambulate here there is significant difficulty. Patient expressed significant concern about being able to get her around at home. Case management was unable for direct custodial placement at this time. Given additional pain medication. They do not feel safe with discharge and patient required admission for PT OT eval for likely placement. Hospitalist contacted. Medication Reconcilliation Current Medication List: was personally reviewed by me Blood Pressure Screening Patient's blood pressure: Elevated blood pressure Blood pressure disposition: Referred to PCP Consults Time Called: 1929 Consulting Physician: Dr. Marcum, [facility]ist Returned Call: 1929 I discussed the patients case with Dr. Marcum [facility] Hospitalist. The patient will be further evaluated. Impression Primary Impression: Back pain Additional Impression: Dementia Scribe Attestation The scribe's documentation has been prepared under my direction and personally reviewed by me in its entirety. I confirm that the note above accurately reflects all work, treatment, procedures, and medical decision making performed by me. Departure Information Dispostion Being Evaluated By Hospitalist Prescriptions Tramadol Hcl (ULTRAM) 50 Mg Tab 50 MG PO Q8H Y for Pain for 5 Days, #15 TAB PRN PAIN Prov: Nash Baires M.D. 05/16/18 Referrals Toney Morgan MD (PCP) Patient Instructions My [facility] Problem Qualifiers Primary Impression: Back pain Back pain location: low back pain Chronicity: chronic Back pain laterality : left Sciatica presence: without sciatica Qualified Codes: M54.5 - Low back pain; G89.29 - Other chronic pain Additional Impression: Dementia Dementia type: unspecified type Dementia behavioral disturbance: without behavioral disturbance Qualified Codes: F03.90 - Unspecified dementia without behavioral disturbance
[2018-05-16 21:50] VITALS: BMI 19.8
[2018-05-16 22:30] VITALS: O2SAT 97
[2018-05-16 22:33] VITALS: BP 214/80; PULSE 88; TEMP 37; Ht 167.6 cm; Wt 55.7 kg
[2018-05-16 23:21] VITALS: BP 151/66; PULSE 71; TEMP 36.5; O2SAT 96
[2018-05-16] MEDS: SODIUM CHLORIDE 0.9% 1000ML 1,000 ML IV SCH (23:44)
[2018-05-16] MEDS: METOPROLOL TARTRATE 25 MG TAB PO SCH (23:46)
[2018-05-16] MEDS: LOSARTAN POTASSIUM 50 MG TAB PO SCH (23:46)
[2018-05-16] MEDS: SIMVASTATIN 40 MG TAB PO SCH (23:47)
[2018-05-16] MEDS: SERTRALINE HCL 50 MG TAB PO SCH (23:48)
[2018-05-16] MEDS: MEMANTINE 10 MG TAB PO SCH (23:49)
[2018-05-16] MEDS: SULFAMETHOXAZOLE/TRIMETHOPRIM DS 800/160MG TAB PO SCH (23:49)
[2018-05-17] MEDS: HEPARIN SOD 5000 UNIT/0.5 ML CARP SQ SCH ×3 (00:08→20:13)
[2018-05-17] MEDS: INSULIN ASPART 100 UNITS/ML 3 ML PEN SC SCH ×5 (00:09→20:13)
--- NOTE | 2018-05-17 06:44 | Family Medicine Progress Note ---
Progress Note Date of Service May 17, 2018. Subjective Pt evaluation today including: conversation w/ patient Pain: None PO Intake: Good Diane Caraballo is a 77yo F with a PMHx of HTN, T2DM, dementia, overactive bladder, GERD, and chronic hyponatremia admitted after an unobserved fall by her and with a 10 day history of worsening unsteadiness. She was at home when her found her in the backyard on her back. She denies head trauma. She was admitted to the ED and found to have a sodium of 129, she is chronically in the high 120'[id number]. She denies any vertigo, but endorses lightheadedness at the time of fall. Endorses weakness. Denies fevers, chills, sweats, chest pain, shortness of breath, and cold like symptoms. CT spine/ab/pelvis/head/LS/TS showed subacute rib fxrs at T7/T8 and subacute thoracic and lumbar fxr but without acute pathology. She reports she feels well today. She endorses she has had many falls over the summer. She feels she falls from lightheadedness, but does not experience room spinning. She is eating today. She eats cereal and 'mixed meals' at home, denies tea and toast type diet. She lives with her who was not present at time of interview. She has a good appetite today. No nausea, vomiting, diarrhea, or constipation. She reports she frequently has to pee and sometimes has trouble making it to the bathroom in time. Denies urinary retention. Endorses a gradual decrease in visual acuity but no recent change. Reports her mood is ok, sometimes a little down but she feels well today. Some dementia was prominent during visit, but she answered most questions appropriately. Appendum 05/17 1700hrs - Diane had a fall observed by nursing staff when she was trying to administrative office specialist her room. Per nursing staff she hit the back of her head, pt denies this. She has no headache, pain, or pain to palpation following the fall. No nausea, dizziness, confusion. She sustained an abrasian to her R elbow. Non-contrast CT ordered for evaluation. Constitutional: + weakness, + fatigue, No fever, No chills, No sweats, No weight loss Eyes: + worsening of vision, No diplopia ENT: No hearing loss, No nasal symptoms, No sore throat Respiratory: No cough, No sputum, No shortness of breath, No dyspnea on exertion Cardiovascular: No chest pain, No edema, No palpitations Abdomen: No pain, No nausea, No vomiting, No diarrhea, No constipation, No GI bleeding Musculoskeletal: No joint pain, No muscle pain Female : + urinary frequency, No dysuria Neurologic: + weakness, + balance problems, No numbness/tingling, No vertigo Psychiatric: + depression symptoms, No anxiety, No insomnia Endo: + fatigue Skin: No rash Medications Current Inpatient Medications Medications (Trade) Dose Ordered Sig/German Route Start Time Stop Time Status Last Admin Dose Admin Al Hydrox/Mg Hydrox/Simethicone (Maalox Max Susp) 15 ml Q4H PRN PO 05/16/18 20:00 06/15/18 19:59 Magnesium Hydroxide (Milk Of Magnesia Susp) 30 ml Q6H PRN PO 05/16/18 20:00 06/15/18 19:59 Heparin Sodium (Porcine) (Heparin Sq 5000 Unit/0.5ml) 5,000 unit Q12 SQ 05/16/18 21:00 06/15/18 20:59 05/17/18 08:12 5,000 UNIT Insulin Aspart (novoLOG ASPART) SLIDING SCALE If C... ACHS SC 05/16/18 21:00 06/15/18 20:59 05/17/18 17:56 7 UNITS Glucose (Glucose 40% Gel) 15-30 GRAMS 15 GRAMS... UD PRN PO 05/16/18 20:00 06/15/18 19:59 Glucose (Glucose Chew Tab) 4-8 Tablets 4 Tabl... UD PRN PO 05/16/18 20:00 06/15/18 19:59 Dextrose (Dextrose 50% 50ML Syringe) 25-50ML 25ML FOR ... UD PRN IV 05/16/18 20:00 06/15/18 19:59 Glucagon (Glucagon Inj) 1 mg UD PRN SQ 05/16/18 20:00 06/15/18 19:59 Carbohydrates (Carbohydrates For Hypoglycemia) 15-30 GRAMS 15 grams if BSG 54-69... UD PRN PO 05/16/18 20:00 06/15/18 19:59 Acetaminophen (Tylenol Tab) 1,000 mg Q6H PRN PO 05/16/18 21:00 06/15/18 20:59 Amlodipine Besylate (Norvasc Tab) 2.5 mg DAILY PO 05/17/18 08:00 06/16/18 08:59 05/17/18 08:06 2.5 MG Aspirin (Ecotrin Tab) 81 mg DAILY PO 05/17/18 08:00 06/16/18 08:59 05/17/18 08:08 81 MG Losartan Potassium (coZAAR TAB) 50 mg BID PO 05/16/18 21:00 06/15/18 20:59 05/17/18 08:07 50 MG Memantine (Namenda Tab) 10 mg BID PO 05/16/18 21:00 06/15/18 20:59 05/17/18 08:08 10 MG Metoprolol Tartrate (Lopressor Tab) 25 mg BID PO 05/16/18 21:00 06/15/18 20:59 05/17/18 08:07 25 MG Mirabegron (Myrbetriq Er) 50 mg DAILY PO 05/17/18 08:00 06/16/18 08:59 05/17/18 08:06 50 MG Sertraline HCl (Zoloft Tab) 50 mg HS PO 05/16/18 21:00 06/15/18 20:59 05/16/18 23:48 50 MG Simvastatin (Zocor Tab) 40 mg QPM PO 05/16/18 21:00 06/15/18 20:59 05/16/18 23:47 40 MG Trimethoprim/ Sulfamethoxazole (Septra Ds 800/ 160MG Tab) 1 tab BID PO 05/16/18 21:00 05/26/18 20:59 05/17/18 08:07 1 TAB Tramadol HCl (Ultram Tab) 50 mg Q8H PRN PO 05/16/18 20:00 06/15/18 19:59 Insulin Glargine (Lantus Solostar Pen) 8 units QAM SC 05/17/18 08:00 06/16/18 08:59 05/17/18 08:12 8 UNITS Pantoprazole Sodium (Protonix Tab) 40 mg QAM PO 05/17/18 08:00 06/16/18 08:59 05/17/18 08:07 40 MG Sodium Chloride 1,000 ml @ 60 mls/hr [id number] IV 05/16/18 20:45 06/15/18 20:44 05/17/18 12:42 60 MLS/HR Ketorolac Tromethamine (Toradol Inj) 15 mg Q6H PRN IV 05/16/18 20:45 05/21/18 20:44 Lidocaine (Lidoderm Patch 5%) 1 patch QAM TD 05/17/18 08:00 06/16/18 08:59 05/17/18 08:07 1 PATCH Miscellaneous (Remove Lidoderm Patch) 1 ea DAILY@21 N/A 05/16/18 21:00 06/15/18 20:59 Amylase/Lipase/ Protease (Pancreaze (Lipase 10,500U) Cap) 1 cap BIDM PO 05/17/18 17:00 06/16/18 16:59 05/17/18 17:32 1 CAP Objective Vital Signs Date Time Temp Pulse Resp B/P (MAP) Pulse Ox O2 Delivery O2 Flow Rate FiO2 05/17/18 16:04 36.9 67 18 135/67 (89) 95 Room Air 05/17/18 15:30 96 Room Air 05/17/18 13:26 64 96 05/17/18 09:46 Room Air 05/17/18 07:47 36.6 65 16 153/67 (95) 95 Room Air 05/16/18 23:21 36.5 71 20 151/66 (94) 96 Room Air 05/16/18 22:33 37.0 88 16 214/80 05/16/18 22:30 97 Room Air 05/16/18 21:16 88 16 182/76 99 Room Air 05/16/18 20:12 75 05/16/18 20:04 76 14 187/77 96 Room Air 05/16/18 18:27 37.0 80 16 183/64 96 Physical Exam General Appearance: WD/WN, no apparent distress Eyes: normal inspection, PERRL, EOMI, sclerae normal ENT: hearing grossly normal Neck: supple, no adenopathy, no JVD, no carotid bruits, trachea midline Respiratory/Chest: lungs clear, normal breath sounds, no respiratory distress, no accessory muscle use, + pertinent finding (lower L lifts prominently tender to palpation. Mild pain in lower L ribs on deep inspiration.) Cardiovascular: regular rate, rhythm, no edema, no gallop, no JVD, no murmur Abdomen: normal bowel sounds, soft, no organomegaly, + tenderness (mild tenderness to deep palpation in LRQ, no radiation) Extremities: non-tender, no pedal edema, + pertinent finding (ankle dorsiflexion/plantarflexion, hip flexion, knee flexion/extension, elbow flexion/ extension, shoulder flexion/extension/internal rot/external rot 5/5 but weight bearing and gait not tested.) Neurologic/Psychiatric: alert, normal mood/affect, + pertinent finding ( Oriented to place and name. Not oriented to date or season.) Skin: normal color, warm/dry, no rash Lymphatic: no adenopathy Laboratory Results 05/17/18 05:34 Test 05/17/18 05:34 05/17/18 16:45 Anion Gap 7.0 mmol/L (3-11) Est Creatinine Clear Calc Drug Dose 62.8 ml/min Estimated GFR () 99.0 Estimated GFR (Non- 85.4 BUN/Creatinine Ratio 31.7 (10-20) Calcium Level 8.5 mg/dl (8.5-10.1) Bedside Glucose 113 mg/dl (70-90) Assessment and Plan Diane Caraballo is a 77yo F with a PMHx of hyponatremia, falls, dementia, and T2DM with functional decline and 3 recent admits related to falls who presents with 10 days of worsening balance and an unobserved fall. Functional Decline with Recent Fall - 3x fall admits over this past summer - No signs of infection, UA wnl, progressive decline at home - CT Imaging showed subacute rib fractures of T7/T8, multiple healing older fractures - PT/OT to see - Fall Precautions and Walking with Assistance in the hospital - Pt reports she is independent with ADLs - Lidocaine Patch, Toradol and Tylenol PRN for pain - Continue MONOTYPER Tramadol for pain - Case management saw. She has been denied referal to [facility] in the [facility] , pt would not like to go to a skilled facility unless she is denied. Hyponatremia - Na 129 - IV NS @ 60 mls/hr - Daily BMP Diabetes Mellitus - ISS with AC & HS Glucose Checks - Lantus 8 units QAM - Hold home Metformin Hypertension - MONOTYPER Amlodipine 2.5mg QD - MONOTYPER Losartan 50mg BID Dementia - MONOTYPER Namenda 10mg BID Depression - Continue MONOTYPER Sertraline 50mg QD - She has a long history of hyponatremia in the high 120s/low 130s which likely represents her baseline. It is unlikely that her SSI is making a meaningful contribution to SIADH/hyponatremia at this time but this should be reassessed if her hyponatremia worsens in the future. HLD - MONOTYPER Simvastatin 40mg qHS DVT - Heparin prophylaxis Incontinence/Overactive Bladder - Mirabegron 50mg QD GERD - Pantoprazole 40mg QD Code Status - Full Resuscitation Resident Physician Supervision Note: I was present with the resident physician during the history and exam. I discussed the case with the resident and agree with the findings and plan as documented in the note. This looks to be the patient's third admission this summer for similar presentation. At the last admission, there is documented discussion regarding the possibility of the need for placement in the near future. Physical therapy and occupational consults; also involve case management as we look to find the best and safest placement for this patient. She is chronically mildly hyponatremic; I suspect her amatory dysfunction is more the basis of her progressive dementia rather than her hyponatremia. Documented By: Yo Albarran Continued [facility] stay due to: home environment unsafe for pt Resident Tracking Resident Involvement: Resident Care Provided Care Provided: Adult Hospital Medicine
[2018-05-17 06:50] LABS: CALCIUM 8.5 mg/dl (8.5-10.1); CREATININE 0.67 mg/dl (0.60-1.20)
[2018-05-17 07:47] VITALS: BP 153/67; PULSE 65; TEMP 36.6; O2SAT 95
[2018-05-17] MEDS: MIRABEGRON ER 25 MG TAB PO SCH (08:06)
[2018-05-17] MEDS: AMLODIPINE BESYLATE 5 MG TAB PO SCH (08:06)
[2018-05-17] MEDS: SULFAMETHOXAZOLE/TRIMETHOPRIM DS 800/160MG TAB PO SCH ×2 (08:07→19:55)
[2018-05-17] MEDS: METOPROLOL TARTRATE 25 MG TAB PO SCH ×2 (08:07→19:54)
[2018-05-17] MEDS: LIDODERM (LIDOCAINE) PATCH 5% TD SCH (08:07)
[2018-05-17] MEDS: LOSARTAN POTASSIUM 50 MG TAB PO SCH ×2 (08:07→19:54)
[2018-05-17] MEDS: PANTOprazole SOD 40 MG TAB PO SCH (08:07)
[2018-05-17] MEDS: ASPIRIN 81 MG ECTAB PO SCH (08:08)
[2018-05-17] MEDS: MEMANTINE 10 MG TAB PO SCH ×2 (08:08→19:55)
[2018-05-17] MEDS: INSULIN GLARGINE SOLOSTAR 100 UNITS/ML 3 ML PEN SC SCH (08:12)
[2018-05-17] MEDS: SODIUM CHLORIDE 0.9% 1000ML 1,000 ML IV SCH (12:42)
[2018-05-17 13:26] VITALS: BP 127/66; PULSE 64; O2SAT 96
[2018-05-17 15:30] VITALS: O2SAT 96
[2018-05-17 16:04] VITALS: BP 135/67; PULSE 67; TEMP 36.9; O2SAT 95
--- NOTE | 2018-05-17 17:18 | DIAGNOSTIC IMAGING REPORT ---
HEAD WITHOUT CONTRAST (CT) CT DOSE: 537.48 mGy.cm HISTORY: Trauma. Mental status change. Fall while in hospital room, hit back of head. TECHNIQUE: Multiaxial CT images of the head were performed without the use of intravenous contrast. A dose lowering technique was utilized adhering to the principles of ALARA. Comparison: 05/16/2018 Findings: The paranasal sinuses and mastoid air cells are clear. The calvarium and skull base are intact. The ventricles and sulci are within normal limits. There is no mass, hematoma, midline shift, or acute infarct. Impression: No acute intracranial abnormality. Age-related atrophy and chronic small vessel change The above report was generated using voice recognition software. It may contain grammatical, syntax or spelling errors. Electronically signed by: Erwin Morgan M.D. 05/17/2018 5:16 PM Dictated Date/Time: 05/17/2018 5:15 PM
[2018-05-17] MEDS: PANCREAZE (LIPASE 10,500U) CAP PO SCH (17:32)
[2018-05-17 19:51] VITALS: BP 152/62; PULSE 75
[2018-05-17] MEDS: SIMVASTATIN 40 MG TAB PO SCH (19:57)
[2018-05-17] MEDS: SERTRALINE HCL 50 MG TAB PO SCH (19:57)
[2018-05-17 23:03] VITALS: BP 147/63; PULSE 73; TEMP 36.7; O2SAT 94
[2018-05-18] VITALS (7 sets, daily range): BP systolic 139–222; BP diastolic 65–99; PULSE 64–95; TEMP 36.6–36.9; O2SAT 93–97
--- NOTE | 2018-05-18 06:44 | Family Medicine Progress Note ---
Progress Note Date of Service May 18, 2018. Subjective Pt evaluation today including: conversation w/ patient Pain: None PO Intake: Good Voiding: no voiding problems Diane Caraballo is a 77yo F with a PMHx of HTN, T2DM, dementia, overactive bladder, GERD, and chronic hyponatremia admitted after an unobserved fall by her and with a 10 day history of worsening unsteadiness. She was at home when her found her in the backyard on her back. She denies head trauma. She was admitted to the ED and found to have a sodium of 129, she is chronically in the high 120's-[id number]. She denies any vertigo, but endorses lightheadedness at the time of fall. Endorses weakness. Denies fevers, chills, sweats, chest pain, shortness of breath, and cold like symptoms. CT spine/ab/pelvis/head/LS/TS showed subacute rib fxrs at T7/T8 and subacute thoracic and lumbar fxr but without acute pathology. She feels well today. She fell yesterday but had no pain, lightheadedness, dizziness, or headache. She is eating breakfast at time of exam this morning. Denies nausea, vomiting, diarrhea, constipation. She has no questions/concerns this morning. No shortness of breath or chest pain. She continues to endorse feelings of weakness and gait instability. She requires assistance to stand. She is not sure where what the plan is for discharge placement, but she reports she is content and comfortable at the moment. Dementia is prominent during visit today. Constitutional: + weakness, No fever, No chills Eyes: No worsening of vision Respiratory: No cough, No sputum, No wheezing, No shortness of breath, No dyspnea on exertion Cardiovascular: No chest pain Abdomen: No pain, No nausea, No vomiting, No diarrhea, No constipation Musculoskeletal: No joint pain, No muscle pain Female : No dysuria Endo: No fatigue Skin: No rash Medications Current Inpatient Medications Medications (Trade) Dose Ordered Sig/German Route Start Time Stop Time Status Last Admin Dose Admin Al Hydrox/Mg Hydrox/Simethicone (Maalox Max Susp) 15 ml Q4H PRN PO 05/16/18 20:00 06/15/18 19:59 Magnesium Hydroxide (Milk Of Magnesia Susp) 30 ml Q6H PRN PO 05/16/18 20:00 06/15/18 19:59 Heparin Sodium (Porcine) (Heparin Sq 5000 Unit/0.5ml) 5,000 unit Q12 SQ 05/16/18 21:00 06/15/18 20:59 05/18/18 08:34 5,000 UNIT Insulin Aspart (novoLOG ASPART) SLIDING SCALE If C... ACHS SC 05/16/18 21:00 06/15/18 20:59 05/18/18 12:28 6 UNITS Glucose (Glucose 40% Gel) 15-30 GRAMS 15 GRAMS... UD PRN PO 05/16/18 20:00 06/15/18 19:59 Glucose (Glucose Chew Tab) 4-8 Tablets 4 Tabl... UD PRN PO 05/16/18 20:00 06/15/18 19:59 Dextrose (Dextrose 50% 50ML Syringe) 25-50ML 25ML FOR ... UD PRN IV 05/16/18 20:00 06/15/18 19:59 Glucagon (Glucagon Inj) 1 mg UD PRN SQ 05/16/18 20:00 06/15/18 19:59 Carbohydrates (Carbohydrates For Hypoglycemia) 15-30 GRAMS 15 grams if BSG 54-69... UD PRN PO 05/16/18 20:00 06/15/18 19:59 Acetaminophen (Tylenol Tab) 1,000 mg Q6H PRN PO 05/16/18 21:00 06/15/18 20:59 Amlodipine Besylate (Norvasc Tab) 2.5 mg DAILY PO 05/17/18 08:00 06/16/18 08:59 05/18/18 08:03 2.5 MG Aspirin (Ecotrin Tab) 81 mg DAILY PO 05/17/18 08:00 06/16/18 08:59 05/18/18 08:05 81 MG Losartan Potassium (coZAAR TAB) 50 mg BID PO 05/16/18 21:00 06/15/18 20:59 05/18/18 08:04 50 MG Memantine (Namenda Tab) 10 mg BID PO 05/16/18 21:00 06/15/18 20:59 05/18/18 08:05 10 MG Metoprolol Tartrate (Lopressor Tab) 25 mg BID PO 05/16/18 21:00 06/15/18 20:59 05/18/18 08:05 25 MG Mirabegron (Myrbetriq Er) 50 mg DAILY PO 05/17/18 08:00 06/16/18 08:59 05/18/18 08:06 50 MG Sertraline HCl (Zoloft Tab) 50 mg HS PO 05/16/18 21:00 06/15/18 20:59 05/17/18 19:57 50 MG Simvastatin (Zocor Tab) 40 mg QPM PO 05/16/18 21:00 06/15/18 20:59 05/17/18 19:57 40 MG Trimethoprim/ Sulfamethoxazole (Septra Ds 800/ 160MG Tab) 1 tab BID PO 05/16/18 21:00 05/26/18 20:59 05/18/18 08:05 1 TAB Tramadol HCl (Ultram Tab) 50 mg Q8H PRN PO 05/16/18 20:00 06/15/18 19:59 05/17/18 21:10 50 MG Insulin Glargine (Lantus Solostar Pen) 8 units QAM SC 05/17/18 08:00 06/16/18 08:59 05/18/18 08:33 8 UNITS Pantoprazole Sodium (Protonix Tab) 40 mg QAM PO 05/17/18 08:00 06/16/18 08:59 05/18/18 08:05 40 MG Sodium Chloride 1,000 ml @ 60 mls/hr [id number] IV 05/16/18 20:45 06/15/18 20:44 05/18/18 08:03 60 MLS/HR Ketorolac Tromethamine (Toradol Inj) 15 mg Q6H PRN IV 05/16/18 20:45 05/21/18 20:44 Lidocaine (Lidoderm Patch 5%) 1 patch QAM TD 05/17/18 08:00 06/16/18 08:59 05/18/18 08:07 1 PATCH Miscellaneous (Remove Lidoderm Patch) 1 ea DAILY@21 N/A 05/16/18 21:00 06/15/18 20:59 05/17/18 19:58 1 EA Amylase/Lipase/ Protease (Pancreaze (Lipase 10,500U) Cap) 1 cap BIDM PO 05/17/18 17:00 06/16/18 16:59 05/18/18 08:05 1 CAP Objective Vital Signs Date Time Temp Pulse Resp B/P (MAP) Pulse Ox O2 Delivery O2 Flow Rate FiO2 05/18/18 15:38 36.9 64 18 146/66 (92) 93 Room Air 05/18/18 08:30 97 Room Air 05/18/18 08:00 68 20 174/67 (102) 05/18/18 07:27 36.6 82 17 222/94 (136) 97 Room Air 210/99 (136) 05/18/18 00:00 Room Air 05/17/18 23:03 36.7 73 18 147/63 (91) 94 Room Air 05/17/18 21:22 Room Air 05/17/18 19:51 75 152/62 (92) 05/17/18 16:04 36.9 67 18 135/67 (89) 95 Room Air Physical Exam General Appearance: WD/WN, no apparent distress Eyes: normal inspection, PERRL, sclerae normal ENT: hearing grossly normal Neck: supple, no JVD, no carotid bruits, trachea midline Respiratory/Chest: chest non-tender, lungs clear, normal breath sounds, no respiratory distress, no accessory muscle use Cardiovascular: regular rate, rhythm, no edema, no JVD Abdomen: normal bowel sounds, non tender, soft Extremities: normal inspection Neurologic/Psychiatric: alert, + pertinent finding (poorly oriented, oriented to name only. Not oriented to season, year, place.) Skin: normal color, warm/dry, no rash Lymphatic: no adenopathy Laboratory Results 05/18/18 07:58 Test 05/18/18 07:58 05/18/18 11:45 Anion Gap 7.0 mmol/L (3-11) Est Creatinine Clear Calc Drug Dose 49.5 ml/min Estimated GFR () 77.1 Estimated GFR (Non- 66.6 BUN/Creatinine Ratio 19.1 (10-20) Calcium Level 8.3 mg/dl (8.5-10.1) Bedside Glucose 257 mg/dl (70-90) Assessment and Plan Diane Caraballo is a 77yo F with a PMHx of hyponatremia, falls, dementia, and T2DM with functional decline and 3 recent admits related to falls who presents with 10 days of worsening balance and an unobserved fall. Functional Decline with Recent Fall - 3x fall admits over this past summer. Progressive decline at home. - No signs of infection - CT Imaging showed subacute rib fractures of T7/T8, multiple healing older fractures - PT/OT to see. Requires 2 nurse assist to stand today. - Fall Precautions and Walking with Assistance in the hospital - Lidocaine Patch, Toradol and Tylenol PRN for pain - Continue KENO CLERK Tramadol for pain - Case management saw. She has been denied referal to [facility] in the [facility] , continuing to try and find placement. She is medically safe for d/c pending placement. Hyponatremia - Na 131 - IV NS @ 60 mls/hr - Daily BMP Diabetes Mellitus - ISS with AC & HS Glucose Checks - Lantus 8 units QAM - Hold home Metformin Hypertension - KENO CLERK Amlodipine 2.5mg QD - KENO CLERK Losartan 50mg BID Dementia - KENO CLERK Namenda 10mg BID Depression - Continue KENO CLERK Sertraline 50mg QD - She has a long history of hyponatremia in the high 120s/low 130s which likely represents her baseline. It is unlikely that her SSI is making a meaningful contribution to SIADH/hyponatremia at this time but this should be reassessed if her hyponatremia worsens in the future. HLD - KENO CLERK Simvastatin 40mg qHS DVT - Heparin prophylaxis Incontinence/Overactive Bladder - Mirabegron 50mg QD GERD - Pantoprazole 40mg QD Code Status - Full Resuscitation Resident Physician Supervision Note: I interviewed and examined the patient. Discussed with the resident physician and agree with findings and plan as documented in the note. Any exceptions or clarifications are listed here: Upon my visit and examination the patient this morning, she was sleeping but easily awoke to my voice. She was oriented to place, but not to date or time. Efforts continue regarding placement; as discussed yesterday, this is her third admission over the summer and we have radiographic evidence suggesting multiple falls during this timeframe. Documented By: Yo Albarran Continued [facility] stay due to: other (pending placement and PT/OT eval. Pt is not safe for ambulation or care at home, high fall risk.) Resident Tracking Resident Involvement: Resident Care Provided Care Provided: Adult Hospital Medicine
[2018-05-18] MEDS: AMLODIPINE BESYLATE 5 MG TAB PO SCH (08:03)
[2018-05-18] MEDS: SODIUM CHLORIDE 0.9% 1000ML 1,000 ML IV SCH (08:03)
[2018-05-18] MEDS: LOSARTAN POTASSIUM 50 MG TAB PO SCH ×2 (08:04→21:23)
[2018-05-18] MEDS: MEMANTINE 10 MG TAB PO SCH ×2 (08:05→21:05)
[2018-05-18] MEDS: PANCREAZE (LIPASE 10,500U) CAP PO SCH ×2 (08:05→17:34)
[2018-05-18] MEDS: ASPIRIN 81 MG ECTAB PO SCH (08:05)
[2018-05-18] MEDS: METOPROLOL TARTRATE 25 MG TAB PO SCH ×2 (08:05→21:24)
[2018-05-18] MEDS: PANTOprazole SOD 40 MG TAB PO SCH (08:05)
[2018-05-18] MEDS: SULFAMETHOXAZOLE/TRIMETHOPRIM DS 800/160MG TAB PO SCH ×2 (08:05→21:05)
[2018-05-18] MEDS: MIRABEGRON ER 25 MG TAB PO SCH (08:06)
[2018-05-18] MEDS: LIDODERM (LIDOCAINE) PATCH 5% TD SCH (08:07)
[2018-05-18] MEDS: INSULIN ASPART 100 UNITS/ML 3 ML PEN SC SCH ×4 (08:32→21:27)
[2018-05-18] MEDS: INSULIN GLARGINE SOLOSTAR 100 UNITS/ML 3 ML PEN SC SCH (08:33)
[2018-05-18 08:34] LABS: CALCIUM 8.3 mg/dl (8.5-10.1); CREATININE 0.85 mg/dl (0.60-1.20); POTASSIUM 4.2 mmol/L (3.5-5.1)
[2018-05-18] MEDS: HEPARIN SOD 5000 UNIT/0.5 ML CARP SQ SCH ×2 (08:34→21:27)
[2018-05-18] MEDS: SERTRALINE HCL 50 MG TAB PO SCH (21:04)
[2018-05-18] MEDS: SIMVASTATIN 40 MG TAB PO SCH (21:23)
[2018-05-19] MEDS: SODIUM CHLORIDE 0.9% 1000ML 1,000 ML IV SCH ×2 (00:59→15:26)
--- NOTE | 2018-05-19 06:48 | Family Medicine Progress Note ---
Progress Note Date of Service May 19, 2018. Subjective Pt evaluation today including: conversation w/ patient, conversation w/ family Diane Caraballo is a 77yo F with a PMHx of HTN, T2DM, dementia, overactive bladder, GERD, and chronic hyponatremia admitted after an unobserved fall by her and with a 10 day history of worsening unsteadiness. She was at home when her found her in the backyard on her back; she denied head trauma. She was admitted to the ED and found to have a sodium of 129, she is chronically in the high [id number]. She feels well today. She is eating breakfast at time of visit. She has no nausea, and denies vomiting/diarrhea/constipation. She denies pain, lightheadedness, dizziness. She feels she is at her baseline strength, but notes that she feels weak when trying to stand. She requires a 2 nurse assist to stand. Addendum: Her is here to visit today. He has numerous questions regarding placement. He would like her to be able to go to rehab, but agrees that she is unlikely to tolerate 4 hours per day of rehab. Her decline in function as related to her dementia was gently discussed, and the possibility that she may not tolerate intense rehab was touched on. He also notes that it has been harder to take care of her at home and they have had to gate the stairs to prevent her from falling. He is curious to know about what the options are. He is also concerned that one of her medications related to bladder or blood pressure might be making her weak. Constitutional: + weakness, No fever, No chills, No sweats, No fatigue Eyes: No worsening of vision Respiratory: No cough, No sputum, No wheezing, No shortness of breath, No dyspnea at rest Cardiovascular: No chest pain, No edema Abdomen: No pain, No nausea, No vomiting, No diarrhea, No constipation Musculoskeletal: No joint pain, No muscle pain Female : No dysuria, No urinary frequency Neurologic: + memory loss, + weakness, + balance problems, No numbness/ tingling, No vertigo Skin: No rash Medications Current Inpatient Medications Medications (Trade) Dose Ordered Sig/German Route Start Time Stop Time Status Last Admin Dose Admin Al Hydrox/Mg Hydrox/Simethicone (Maalox Max Susp) 15 ml Q4H PRN PO 8/13/18 20:00 06/15/18 19:59 Magnesium Hydroxide (Milk Of Magnesia Susp) 30 ml Q6H PRN PO 05/16/18 20:00 06/15/18 19:59 Heparin Sodium (Porcine) (Heparin Sq 5000 Unit/0.5ml) 5,000 unit Q12 SQ 05/16/18 21:00 06/15/18 20:59 05/19/18 07:54 5,000 UNIT Insulin Aspart (novoLOG ASPART) SLIDING SCALE If C... ACHS SC 05/16/18 21:00 06/15/18 20:59 05/19/18 13:15 8 UNITS Glucose (Glucose 40% Gel) 15-30 GRAMS 15 GRAMS... UD PRN PO 05/16/18 20:00 06/15/18 19:59 Glucose (Glucose Chew Tab) 4-8 Tablets 4 Tabl... UD PRN PO 05/16/18 20:00 06/15/18 19:59 Dextrose (Dextrose 50% 50ML Syringe) 25-50ML 25ML FOR ... UD PRN IV 05/16/18 20:00 06/15/18 19:59 Glucagon (Glucagon Inj) 1 mg UD PRN SQ 05/16/18 20:00 06/15/18 19:59 Carbohydrates (Carbohydrates For Hypoglycemia) 15-30 GRAMS 15 grams if BSG 54-69... UD PRN PO 05/16/18 20:00 06/15/18 19:59 Acetaminophen (Tylenol Tab) 1,000 mg Q6H PRN PO 05/16/18 21:00 06/15/18 20:59 Amlodipine Besylate (Norvasc Tab) 2.5 mg DAILY PO 05/17/18 08:00 06/16/18 08:59 05/19/18 08:11 2.5 MG Aspirin (Ecotrin Tab) 81 mg DAILY PO 05/17/18 08:00 06/16/18 08:59 05/19/18 07:39 81 MG Losartan Potassium (coZAAR TAB) 50 mg BID PO 05/16/18 21:00 06/15/18 20:59 05/19/18 07:39 50 MG Memantine (Namenda Tab) 10 mg BID PO 05/16/18 21:00 06/15/18 20:59 05/19/18 07:43 10 MG Metoprolol Tartrate (Lopressor Tab) 25 mg BID PO 05/16/18 21:00 06/15/18 20:59 05/19/18 07:39 25 MG Mirabegron (Myrbetriq Er) 50 mg DAILY PO 05/17/18 08:00 06/16/18 08:59 05/19/18 07:43 50 MG Sertraline HCl (Zoloft Tab) 50 mg HS PO 05/16/18 21:00 06/15/18 20:59 05/18/18 21:04 50 MG Simvastatin (Zocor Tab) 40 mg QPM PO 05/16/18 21:00 06/15/18 20:59 05/18/18 21:23 40 MG Trimethoprim/ Sulfamethoxazole (Septra Ds 800/ 160MG Tab) 1 tab BID PO 05/16/18 21:00 05/26/18 20:59 05/19/18 07:43 1 TAB Tramadol HCl (Ultram Tab) 50 mg Q8H PRN PO 05/16/18 20:00 06/15/18 19:59 05/17/18 21:10 50 MG Insulin Glargine (Lantus Solostar Pen) 8 units QAM SC 05/17/18 08:00 06/16/18 08:59 05/19/18 08:15 8 UNITS Pantoprazole Sodium (Protonix Tab) 40 mg QAM PO 05/17/18 08:00 06/16/18 08:59 05/19/18 08:10 40 MG Sodium Chloride 1,000 ml @ 60 mls/hr [id number] IV 05/16/18 20:45 06/15/18 20:44 05/19/18 15:26 60 MLS/HR Ketorolac Tromethamine (Toradol Inj) 15 mg Q6H PRN IV 05/16/18 20:45 05/21/18 20:44 Lidocaine (Lidoderm Patch 5%) 1 patch QAM TD 05/17/18 08:00 06/16/18 08:59 05/19/18 07:44 1 PATCH Miscellaneous (Remove Lidoderm Patch) 1 ea DAILY@21 N/A 05/16/18 21:00 06/15/18 20:59 8/15/18 21:24 1 EA Amylase/Lipase/ Protease (Pancreaze (Lipase 10,500U) Cap) 1 cap BIDM PO 05/17/18 17:00 06/16/18 16:59 05/19/18 07:43 1 CAP Objective Vital Signs Test 05/19/18 11:49 Bedside Glucose 288 mg/dl (70-90) Physical Exam General Appearance: WD/WN, no apparent distress Eyes: normal inspection, PERRL, sclerae normal ENT: hearing grossly normal Neck: supple, no carotid bruits, trachea midline Respiratory/Chest: chest non-tender, lungs clear, normal breath sounds, no respiratory distress, no accessory muscle use Cardiovascular: regular rate, rhythm, no edema, no gallop, no JVD, no murmur Abdomen: normal bowel sounds, non tender, soft Extremities: normal capillary refill Neurologic/Psychiatric: alert, normal mood/affect, + disoriented (not orientate to date, city today. oriented to place and name) Skin: normal color, warm/dry, no rash Lymphatic: no adenopathy Laboratory Results Test 05/19/18 11:49 Bedside Glucose 288 mg/dl (70-90) Assessment and Plan Diane Caraballo is a 77yo F with a PMHx of hyponatremia, falls, dementia, and T2DM with functional decline and 3 recent admits related to falls who presents with 10 days of worsening balance and an unobserved fall. Functional Decline with Recent Fall - 3x fall admits over this past summer. Progressive decline at home. - No signs of infection - CT Imaging showed subacute rib fractures of T7/T8, multiple healing older fractures - PT/OT to see. Requires 2 nurse assist to stand today. - Fall Precautions and Walking with Assistance in the hospital - Lidocaine Patch, Toradol and Tylenol PRN for pain - Continue ANIMAL TECHNICIAN Tramadol for pain - Case management saw. Her is here today. would like rehab, but admits that she is unlikely to tolerate 4 hours of rehab at [facility]. Case management working on placement. She still requires a 2 nurse assist to stand. Skilled is likely the most appropriate dispo plan for her. Amendment 05/19 @ 1555: Pt has been accepted at [facility], pending insurance authorization. Hyponatremia - Na 131 - IV NS @ 60 mls/hr - Daily BMP - Likely represents a new osmostat and is not pathologic for her. Diabetes Mellitus - ISS with AC & HS Glucose Checks - Lantus 8 units QAM - Hold home Metformin Hypertension - ANIMAL TECHNICIAN Amlodipine 2.5mg QD - ANIMAL TECHNICIAN Losartan 50mg BID Dementia - ANIMAL TECHNICIAN Namenda 10mg BID Depression - Continue ANIMAL TECHNICIAN Sertraline 50mg QD - She has a long history of hyponatremia in the high 120s/low 130s which likely represents her baseline. It is unlikely that her SSI is making a meaningful contribution to SIADH/hyponatremia at this time but this should be reassessed if her hyponatremia worsens in the future. HLD - ANIMAL TECHNICIAN Simvastatin 40mg qHS DVT - Heparin prophylaxis Incontinence/Overactive Bladder - Mirabegron 50mg QD GERD - Pantoprazole 40mg QD Code Status - Full Resuscitation Resident Physician Supervision Note: I was present with the resident physician during the history and exam. I discussed the case with the resident and agree with the findings and plan as documented in the note. We had a discussion with the patient and her late this morning. I do not think she will be appropriate for [facility], as given her dementia and overall prognosis, I do not think she would be capable of doing 4 hours of physical therapy a day. She would benefit from lower intensity physical therapy to improve safety on transfers. Per nursing notes now, the patient is a 2 person assist on transfers. Spoke with case management who will discuss with family and investigate facilities close to where the patient and her live presently. Documented By: Yo Albarran Continued [facility] stay due to: other (pending placement) Discharge planning: [facility] facility (She has been accepted at [facility]. Pending insurance auth.) Resident Tracking Resident Involvement: Resident Care Provided Care Provided: Adult Hospital Medicine
[2018-05-19 07:35] VITALS: BP_SYST 215; BP_SYST 238; BP_DIAS 83; BP_DIAS 94; PULSE 90; TEMP 36.9; O2SAT 93
[2018-05-19] MEDS: ASPIRIN 81 MG ECTAB PO SCH (07:39)
[2018-05-19] MEDS: METOPROLOL TARTRATE 25 MG TAB PO SCH ×2 (07:39→20:30)
[2018-05-19] MEDS: LOSARTAN POTASSIUM 50 MG TAB PO SCH ×2 (07:39→20:30)
[2018-05-19] MEDS: SULFAMETHOXAZOLE/TRIMETHOPRIM DS 800/160MG TAB PO SCH ×2 (07:43→20:28)
[2018-05-19] MEDS: MIRABEGRON ER 25 MG TAB PO SCH (07:43)
[2018-05-19] MEDS: PANCREAZE (LIPASE 10,500U) CAP PO SCH ×2 (07:43→17:11)
[2018-05-19] MEDS: MEMANTINE 10 MG TAB PO SCH ×2 (07:43→20:27)
[2018-05-19] MEDS: LIDODERM (LIDOCAINE) PATCH 5% TD SCH (07:44)
[2018-05-19] MEDS: HEPARIN SOD 5000 UNIT/0.5 ML CARP SQ SCH ×2 (07:54→20:35)
[2018-05-19] MEDS: PANTOprazole SOD 40 MG TAB PO SCH (08:10)
[2018-05-19] MEDS: AMLODIPINE BESYLATE 5 MG TAB PO SCH (08:11)
[2018-05-19] MEDS: INSULIN ASPART 100 UNITS/ML 3 ML PEN SC SCH ×4 (08:15→20:37)
[2018-05-19] MEDS: INSULIN GLARGINE SOLOSTAR 100 UNITS/ML 3 ML PEN SC SCH (08:15)
[2018-05-19 09:32] VITALS: BP_SYST 118; BP_SYST 125; BP_DIAS 46; BP_DIAS 54
[2018-05-19 14:40] VITALS: BP 127/68; PULSE 69; TEMP 37.1; O2SAT 98
[2018-05-19 20:28] VITALS: BP 168/52; PULSE 76
[2018-05-19] MEDS: SIMVASTATIN 40 MG TAB PO SCH (20:28)
[2018-05-19] MEDS: SERTRALINE HCL 50 MG TAB PO SCH (20:31)
[2018-05-19 22:59] VITALS: BP_SYST 207; BP_SYST 209; BP_DIAS 67; BP_DIAS 70; PULSE 80; TEMP 36.8; O2SAT 95
[2018-05-20] MEDS ORDERED: HydrALAZINE HCL 20 MG/ML VIAL IV. PRN (00:15)
[2018-05-20 02:56] VITALS: BP 159/65; PULSE 74
[2018-05-20 06:13] LABS: HEMATOCRIT 32.7 % (37-47); MEAN CELL VOLUME 87.4 fL (80-100); MEAN CORPUSCULAR HEMOGLOBIN 29.4 pg (25-34); MEAN CORPUSCULAR HGB CONC 33.6 g/dl (32-36); MEAN PLATELET VOLUME 9.3 fL (7.4-10.4); PLATELET COUNT 337 K/uL (130-400); RED CELL DISTRIBUTION WIDTH CV 12.8 % (11.5-14.5); RED CELL DISTRIBUTION WIDTH SD 41.3 fL (36.4-46.3); WHITE BLOOD COUNT 10.65 K/uL (4.8-10.8)
[2018-05-20 06:48] LABS: CALCIUM 8.6 mg/dl (8.5-10.1); CREATININE 0.75 mg/dl (0.60-1.20); POTASSIUM 3.9 mmol/L (3.5-5.1)
[2018-05-20] MEDS: SODIUM CHLORIDE 0.9% 1000ML 1,000 ML IV SCH (07:43)
[2018-05-20 07:44] VITALS: BP 165/66; PULSE 72; TEMP 36.8; O2SAT 96
[2018-05-20] MEDS: SULFAMETHOXAZOLE/TRIMETHOPRIM DS 800/160MG TAB PO SCH ×2 (07:44→20:38)
[2018-05-20] MEDS: PANCREAZE (LIPASE 10,500U) CAP PO SCH ×2 (07:44→17:38)
[2018-05-20] MEDS: LIDODERM (LIDOCAINE) PATCH 5% TD SCH (07:44)
[2018-05-20] MEDS: MEMANTINE 10 MG TAB PO SCH ×2 (07:45→20:38)
[2018-05-20] MEDS: ASPIRIN 81 MG ECTAB PO SCH (07:45)
[2018-05-20] MEDS: MIRABEGRON ER 25 MG TAB PO SCH (07:45)
[2018-05-20] MEDS: AMLODIPINE BESYLATE 5 MG TAB PO SCH (07:45)
[2018-05-20] MEDS: PANTOprazole SOD 40 MG TAB PO SCH (07:46)
[2018-05-20] MEDS: LOSARTAN POTASSIUM 50 MG TAB PO SCH ×2 (07:46→20:37)
[2018-05-20] MEDS: METOPROLOL TARTRATE 25 MG TAB PO SCH ×2 (07:46→20:38)
[2018-05-20] MEDS: HEPARIN SOD 5000 UNIT/0.5 ML CARP SQ SCH ×2 (07:55→20:45)
[2018-05-20] MEDS: INSULIN ASPART 100 UNITS/ML 3 ML PEN SC SCH ×4 (08:29→20:44)
[2018-05-20] MEDS: INSULIN GLARGINE SOLOSTAR 100 UNITS/ML 3 ML PEN SC SCH (08:30)
[2018-05-20 13:58] LABS: CALCIUM 8.6 mg/dl (8.5-10.1); CREATININE 0.9 mg/dl (0.60-1.20); POTASSIUM 4.4 mmol/L (3.5-5.1)
[2018-05-20 15:02] VITALS: BP 170/70; PULSE 73; TEMP 36.6; O2SAT 98
--- NOTE | 2018-05-20 16:32 | Family Medicine Progress Note ---
Progress Note Date of Service May 20, 2018. Subjective Pt evaluation today including: conversation w/ patient, conversation w/ family , physical exam, chart review, lab review, review of studies, review of inpatient medication list Pain: 0/10 PO Intake: OK Voiding: no voiding problems, incontinence Diane Caraballo is a 77yo F with a PMHx of HTN, T2DM, dementia, overactive bladder, GERD, and chronic hyponatremia admitted after an unobserved fall by her and with a 10 day history of worsening unsteadiness. She was at home when her found her in the backyard on her back; she denied head trauma. She was admitted to the ED and found to have a sodium of 129, she is chronically in the high [id number]. Diane reports she feels well today, but is still weak. She feels better than she did yesterday. She had eaten some breakfast and is not nauseus. Her is present at exam. He would like her to go to [facility] and says he has heard poor things about the quality of rehab at [facility]. He recognizes that she is a high fall risk, and that she cannot tolerate extended rehab at this time. Long discussion was had today with her regarding her placement and the costs/benefits of various options. Constitutional: No fever, No chills, No sweats Eyes: No worsening of vision ENT: No nasal symptoms, No sore throat Respiratory: No cough, No sputum, No shortness of breath Abdomen: No pain, No nausea, No vomiting, No diarrhea, No constipation Musculoskeletal: No joint pain, No muscle pain Female : + incontinence, No dysuria Neurologic: + weakness, + balance problems, No numbness/tingling, No vertigo Skin: No rash Medications Current Inpatient Medications Medications (Trade) Dose Ordered Sig/German Route Start Time Stop Time Status Last Admin Dose Admin Al Hydrox/Mg Hydrox/Simethicone (Maalox Max Susp) 15 ml Q4H PRN PO 05/16/18 20:00 06/15/18 19:59 Magnesium Hydroxide (Milk Of Magnesia Susp) 30 ml Q6H PRN PO 05/16/18 20:00 06/15/18 19:59 Heparin Sodium (Porcine) (Heparin Sq 5000 Unit/0.5ml) 5,000 unit Q12 SQ 05/16/18 21:00 06/15/18 20:59 05/20/18 07:55 5,000 UNIT Insulin Aspart (novoLOG ASPART) SLIDING SCALE If C... ACHS SC 05/16/18 21:00 06/15/18 20:59 05/20/18 17:39 7 UNITS Glucose (Glucose 40% Gel) 15-30 GRAMS 15 GRAMS... UD PRN PO 05/16/18 20:00 06/15/18 19:59 Glucose (Glucose Chew Tab) 4-8 Tablets 4 Tabl... UD PRN PO 05/16/18 20:00 06/15/18 19:59 Dextrose (Dextrose 50% 50ML Syringe) 25-50ML 25ML FOR ... UD PRN IV 05/16/18 20:00 06/15/18 19:59 Glucagon (Glucagon Inj) 1 mg UD PRN SQ 05/16/18 20:00 06/15/18 19:59 Carbohydrates (Carbohydrates For Hypoglycemia) 15-30 GRAMS 15 grams if BSG 54-69... UD PRN PO 05/16/18 20:00 06/15/18 19:59 Acetaminophen (Tylenol Tab) 1,000 mg Q6H PRN PO 05/16/18 21:00 06/15/18 20:59 Amlodipine Besylate (Norvasc Tab) 2.5 mg DAILY PO 05/17/18 08:00 06/16/18 08:59 05/20/18 07:45 2.5 MG Aspirin (Ecotrin Tab) 81 mg DAILY PO 05/17/18 08:00 06/16/18 08:59 05/20/18 07:45 81 MG Losartan Potassium (coZAAR TAB) 50 mg BID PO 05/16/18 21:00 06/15/18 20:59 05/20/18 07:46 50 MG Memantine (Namenda Tab) 10 mg BID PO 05/16/18 21:00 06/15/18 20:59 05/20/18 07:45 10 MG Metoprolol Tartrate (Lopressor Tab) 25 mg BID PO 05/16/18 21:00 06/15/18 20:59 05/20/18 07:46 25 MG Mirabegron (Myrbetriq Er) 50 mg DAILY PO 05/17/18 08:00 06/16/18 08:59 05/20/18 07:45 50 MG Simvastatin (Zocor Tab) 40 mg QPM PO 05/16/18 21:00 06/15/18 20:59 05/19/18 20:28 40 MG Trimethoprim/ Sulfamethoxazole (Septra Ds 800/ 160MG Tab) 1 tab BID PO 05/16/18 21:00 05/26/18 20:59 05/20/18 07:44 1 TAB Tramadol HCl (Ultram Tab) 50 mg Q8H PRN PO 05/16/18 20:00 06/15/18 19:59 05/17/18 21:10 50 MG Insulin Glargine (Lantus Solostar Pen) 8 units QAM SC 05/17/18 08:00 06/16/18 08:59 05/20/18 08:30 8 UNITS Pantoprazole Sodium (Protonix Tab) 40 mg QAM PO 05/17/18 08:00 06/16/18 08:59 05/20/18 07:46 40 MG Ketorolac Tromethamine (Toradol Inj) 15 mg Q6H PRN IV 05/16/18 20:45 05/21/18 20:44 Lidocaine (Lidoderm Patch 5%) 1 patch QAM TD 05/17/18 08:00 06/16/18 08:59 05/20/18 07:44 1 PATCH Miscellaneous (Remove Lidoderm Patch) 1 ea DAILY@21 N/A 05/16/18 21:00 06/15/18 20:59 05/19/18 20:31 1 EA Amylase/Lipase/ Protease (Pancreaze (Lipase 10,500U) Cap) 1 cap BIDM PO 05/17/18 17:00 06/16/18 16:59 05/20/18 17:38 1 CAP Hydralazine HCl (HydrALAZINE INJ) 10 mg Q6H PRN IV. 05/20/18 00:15 06/19/18 00:14 05/20/18 00:23 10 MG Objective Vital Signs Date Time Temp Pulse Resp B/P (MAP) Pulse Ox O2 Delivery O2 Flow Rate FiO2 05/20/18 17:07 Room Air 05/20/18 15:02 36.6 73 18 170/70 (103) 98 05/20/18 08:00 Room Air 05/20/18 07:44 36.8 72 18 165/66 (99) 96 Room Air 05/20/18 02:56 74 159/65 (96) 05/20/18 00:40 Room Air 05/19/18 22:59 36.8 80 21 209/67 (114) 95 Room Air 207/70 (115) 05/19/18 20:28 76 168/52 (90) 05/19/18 19:50 Room Air Physical Exam General Appearance: WD/WN, no apparent distress Eyes: PERRL, EOMI, sclerae normal ENT: hearing grossly normal Neck: no carotid bruits, trachea midline Respiratory/Chest: chest non-tender, lungs clear, normal breath sounds, no respiratory distress, no accessory muscle use Cardiovascular: regular rate, rhythm, no edema, no gallop, no JVD, no murmur Abdomen: normal bowel sounds, non tender, soft Extremities: non-tender Neurologic/Psychiatric: alert, normal mood/affect, + pertinent finding ( Oriented to name and place. Not oriented to year.) Skin: normal color, warm/dry, no rash Laboratory Results 05/20/18 05:37 05/20/18 13:04 Test 05/20/18 05:37 05/20/18 13:04 05/20/18 15:54 05/20/18 17:11 Red Blood Count 3.74 M/uL (4.2-5.4) Mean Corpuscular Volume 87.4 fL (80-100) Mean Corpuscular Hemoglobin 29.4 pg (25-34) Mean Corpuscular Hemoglobin Concent 33.6 g/dl (32-36) RDW Standard Deviation 41.3 fL (36.4-46.3) RDW Coefficient of Variation 12.8 % (11.5-14.5) Mean Platelet Volume 9.3 fL (7.4-10.4) Anion Gap 10.0 mmol/L (3-11) Est Creatinine Clear Calc Drug Dose 46.8 ml/min Estimated GFR () 72.0 Estimated GFR (Non- 62.1 BUN/Creatinine Ratio 16.0 (10-20) Calcium Level 8.6 mg/dl (8.5-10.1) Osmolality 270 mOsm/kg (280-300) Uric Acid 2.4 mg/dl (2.6-7.2) Bedside Glucose 206 mg/dl (70-90) Assessment and Plan Diane Caraballo is a 77yo F with a PMHx of hyponatremia, falls, dementia, and T2DM with functional decline and 3 recent admits related to falls who presents with 10 days of worsening balance and an unobserved fall. Functional Decline with Recent Fall - 3x fall admits over this past summer. Progressive decline at home. - No signs of infection - CT Imaging showed subacute rib fractures of T7/T8, multiple healing older fractures - PT/OT to see. Requires 2 nurse assist to stand - Fall Precautions and Walking with Assistance in the hospital - Lidocaine Patch, Toradol and Tylenol PRN for pain - Continue TELEGRAPH LINEMAN Tramadol for pain - She is currently accepted to [facility] and has been denied from [facility]. Her would like her to go to rehab and is resistant to [facility] as opposed to [facility]. She is unlikely to tolerate extensive rehab at this time and is an assist to stand. Skilled is likely the most appropriate dispo plan for her. Plan to d/c tomorrow Hyponatremia - Na 122 - Her sodium decrease to 122 on increased NSS (100ml/hr), although the value corrected for glucose remains stable. - Daily BMP - May represents a new osmostat and is may not be pathologic for her. - Urine electrolyte and osmolality studies pending to confirm etiology. - SSRI d/donavan in case it was contributing to SIADH Diabetes Mellitus - ISS with AC & HS Glucose Checks - Lantus 8 units QAM - Hold home Metformin Hypertension - TELEGRAPH LINEMAN Amlodipine 2.5mg QD - TELEGRAPH LINEMAN Losartan 50mg BID Dementia - TELEGRAPH LINEMAN Namenda 10mg BID Depression - d/donavan sertraline due to concerns over SIADH contribution HLD - TELEGRAPH LINEMAN Simvastatin 40mg qHS DVT - Heparin prophylaxis Incontinence/Overactive Bladder - Mirabegron 50mg QD GERD - Pantoprazole 40mg QD Code Status - Full Resuscitation Continued [facility] stay due to: other (Hyponatremic to 122, Urine studies pending) Discharge planning: group home facility Assessment/Plan Resident Physician Supervision Note: I was present with Dr. Dewey during the history and exam. I discussed the case with the resident and agree with the findings and plan as documented in the note. Any exceptions or clarifications are listed here: Pt seen and examined at bedside. No acute events overnight. Pt reports feeling overall weak but improved from previous and roughly at her baseline. Discussed with in detail regarding need for further supportive environment 2/2 recurrent falls - understand that she is difficult to care for but is more concerned about the quantity of rehab that she would receive at any given place. Notified by case management that he refuses CC and would either go HS ( previously denied, now family appeal) or home with home health (where she does not have help/assist besides him, and has resulted in falls previously) despite our counseling earlier for 30 minutes. On examination - S1/S2 nl RRR, CTAB. Abd is NT/ND, BS +ve. CNII-XII grossly intact as evaluated. Hyponatremia - corrected Na of 125 2/2 mild hyperglycemia. Urine and serum osm/ Na and uric acid --> ?Na tablet. D/C sertraline 2/2 recurrent hypoNa Recurrent falls in the setting of functional decline - family discussion as above. Continue PT/OT and pain management as noted. Case management aware. DMII - would continue lantus and consider increase, though has previously w/ hypoglycemia so would move cautiously Depression - hold sertraline for now 2/2 hyponatremia and pending evaluation
[2018-05-20 20:35] VITALS: BP 137/66; PULSE 76
[2018-05-20] MEDS: SIMVASTATIN 40 MG TAB PO SCH (20:38)
[2018-05-20 23:56] VITALS: BP 175/67; PULSE 73; TEMP 36.6; O2SAT 99
[2018-05-21 07:51] VITALS: BP 186/63; PULSE 81; TEMP 36.4; O2SAT 95
[2018-05-21 08:00] VITALS: O2SAT 95
[2018-05-21 08:11] LABS: CALCIUM 8.5 mg/dl (8.5-10.1); CREATININE 0.83 mg/dl (0.60-1.20); POTASSIUM 4.1 mmol/L (3.5-5.1)
[2018-05-21] MEDS: MEMANTINE 10 MG TAB PO SCH ×2 (10:14→20:26)
[2018-05-21] MEDS: SULFAMETHOXAZOLE/TRIMETHOPRIM DS 800/160MG TAB PO SCH ×2 (10:15→20:29)
[2018-05-21] MEDS: PANTOprazole SOD 40 MG TAB PO SCH (10:15)
[2018-05-21] MEDS: METOPROLOL TARTRATE 25 MG TAB PO SCH ×2 (10:15→20:26)
[2018-05-21] MEDS: MIRABEGRON ER 25 MG TAB PO SCH (10:15)
[2018-05-21] MEDS: AMLODIPINE BESYLATE 5 MG TAB PO SCH (10:15)
[2018-05-21] MEDS: ASPIRIN 81 MG ECTAB PO SCH (10:15)
[2018-05-21] MEDS: LOSARTAN POTASSIUM 50 MG TAB PO SCH ×2 (10:16→20:26)
[2018-05-21] MEDS: PANCREAZE (LIPASE 10,500U) CAP PO SCH ×2 (10:16→17:26)
[2018-05-21] MEDS: LIDODERM (LIDOCAINE) PATCH 5% TD SCH (10:17)
[2018-05-21] MEDS: INSULIN ASPART 100 UNITS/ML 3 ML PEN SC SCH ×4 (10:23→20:35)
[2018-05-21] MEDS: INSULIN GLARGINE SOLOSTAR 100 UNITS/ML 3 ML PEN SC SCH (10:23)
[2018-05-21] MEDS: HEPARIN SOD 5000 UNIT/0.5 ML CARP SQ SCH ×2 (10:23→20:27)
[2018-05-21 11:53] VITALS: BP 126/58; PULSE 74; TEMP 37.1; O2SAT 97
[2018-05-21 15:02] VITALS: BP 120/65; PULSE 70; TEMP 37.5; O2SAT 98
--- NOTE | 2018-05-21 15:11 | Family Medicine Progress Note ---
Progress Note Date of Service May 21, 2018. Resident Tracking Resident Involvement: Resident Care Provided Care Provided: Adult Hospital Medicine Assessment/Plan Duplicate documentation.
--- NOTE | 2018-05-21 17:07 | Family Medicine Progress Note ---
Progress Note Date of Service May 21, 2018. Subjective Diane Caraballo is a 77yo F with a PMHx of HTN, T2DM, dementia, overactive bladder, GERD, and chronic hyponatremia admitted after an unobserved fall by her and with a 10 day history of worsening unsteadiness. She was at home when her found her in the backyard on her back; she denied head trauma. She was admitted to the ED and found to have a sodium of 129, she is chronically in the high [id number]. Diane reports she feels well today, but is still weak. She feels better than she did yesterday. would like her to go to [facility] and says he has heard poor things about the quality of rehab at [facility]. He recognizes that she is a high fall risk, and that she cannot tolerate extended rehab at this time. Long discussion was had today with her regarding her placement and the costs/benefits of various options. Constitutional: No fever, No chills, No sweats Eyes: No worsening of vision ENT: No nasal symptoms, No sore throat Respiratory: No cough, No sputum, No shortness of breath Abdomen: No pain, No nausea, No vomiting, No diarrhea, No constipation Musculoskeletal: No joint pain, No muscle pain Female : + incontinence, No dysuria Neurologic: + weakness, + balance problems, No numbness/tingling, No vertigo Skin: No rash Medications Current Inpatient Medications Medications (Trade) Dose Ordered Sig/German Route Start Time Stop Time Status Last Admin Dose Admin Al Hydrox/Mg Hydrox/Simethicone (Maalox Max Susp) 15 ml Q4H PRN PO 05/16/18 20:00 06/15/18 19:59 Magnesium Hydroxide (Milk Of Magnesia Susp) 30 ml Q6H PRN PO 05/16/18 20:00 06/15/18 19:59 Heparin Sodium (Porcine) (Heparin Sq 5000 Unit/0.5ml) 5,000 unit Q12 SQ 05/16/18 21:00 06/15/18 20:59 05/21/18 10:23 5,000 UNIT Insulin Aspart (novoLOG ASPART) SLIDING SCALE If C... ACHS SC 05/16/18 21:00 06/15/18 20:59 05/21/18 13:08 11 UNITS Glucose (Glucose 40% Gel) 15-30 GRAMS 15 GRAMS... UD PRN PO 05/16/18 20:00 06/15/18 19:59 Glucose (Glucose Chew Tab) 4-8 Tablets 4 Tabl... UD PRN PO 05/16/18 20:00 06/15/18 19:59 Dextrose (Dextrose 50% 50ML Syringe) 25-50ML 25ML FOR ... UD PRN IV 05/16/18 20:00 06/15/18 19:59 Glucagon (Glucagon Inj) 1 mg UD PRN SQ 05/16/18 20:00 06/15/18 19:59 Carbohydrates (Carbohydrates For Hypoglycemia) 15-30 GRAMS 15 grams if BSG 54-69... UD PRN PO 05/16/18 20:00 06/15/18 19:59 Acetaminophen (Tylenol Tab) 1,000 mg Q6H PRN PO 05/16/18 21:00 06/15/18 20:59 Amlodipine Besylate (Norvasc Tab) 2.5 mg DAILY PO 05/17/18 08:00 06/16/18 08:59 05/21/18 10:15 2.5 MG Aspirin (Ecotrin Tab) 81 mg DAILY PO 05/17/18 08:00 06/16/18 08:59 05/21/18 10:15 81 MG Losartan Potassium (coZAAR TAB) 50 mg BID PO 05/16/18 21:00 06/15/18 20:59 05/21/18 10:16 50 MG Memantine (Namenda Tab) 10 mg BID PO 05/16/18 21:00 06/15/18 20:59 05/21/18 10:14 10 MG Metoprolol Tartrate (Lopressor Tab) 25 mg BID PO 05/16/18 21:00 06/15/18 20:59 05/21/18 10:15 25 MG Mirabegron (Myrbetriq Er) 50 mg DAILY PO 05/17/18 08:00 06/16/18 08:59 05/21/18 10:15 50 MG Simvastatin (Zocor Tab) 40 mg QPM PO 05/16/18 21:00 06/15/18 20:59 05/20/18 20:38 40 MG Trimethoprim/ Sulfamethoxazole (Septra Ds 800/ 160MG Tab) 1 tab BID PO 05/16/18 21:00 05/26/18 20:59 05/21/18 10:15 1 TAB Tramadol HCl (Ultram Tab) 50 mg Q8H PRN PO 05/16/18 20:00 06/15/18 19:59 05/17/18 21:10 50 MG Insulin Glargine (Lantus Solostar Pen) 8 units QAM SC 05/17/18 08:00 06/16/18 08:59 05/21/18 10:23 8 UNITS Pantoprazole Sodium (Protonix Tab) 40 mg QAM PO 05/17/18 08:00 06/16/18 08:59 05/21/18 10:15 40 MG Ketorolac Tromethamine (Toradol Inj) 15 mg Q6H PRN IV 05/16/18 20:45 05/21/18 20:44 Lidocaine (Lidoderm Patch 5%) 1 patch QAM TD 05/17/18 08:00 06/16/18 08:59 05/21/18 10:17 1 PATCH Miscellaneous (Remove Lidoderm Patch) 1 ea DAILY@21 N/A 05/16/18 21:00 06/15/18 20:59 05/20/18 20:39 1 EA Amylase/Lipase/ Protease (Pancreaze (Lipase 10,500U) Cap) 1 cap BIDM PO 05/17/18 17:00 06/16/18 16:59 05/21/18 10:16 1 CAP Hydralazine HCl (HydrALAZINE INJ) 10 mg Q6H PRN IV. 05/20/18 00:15 06/19/18 00:14 05/20/18 00:23 10 MG Objective Vital Signs Date Time Temp Pulse Resp B/P (MAP) Pulse Ox O2 Delivery O2 Flow Rate FiO2 05/21/18 16:14 Room Air 05/21/18 15:02 37.5 70 18 120/65 (83) 98 05/21/18 11:53 37.1 74 20 126/58 (80) 97 05/21/18 08:00 95 Room Air 05/21/18 07:51 36.4 81 20 186/63 (104) 95 05/21/18 05:28 Room Air 05/20/18 23:56 36.6 73 18 175/67 (103) 99 Room Air 05/20/18 20:35 76 137/66 (89) 05/20/18 17:07 Room Air Physical Exam Notes: General Appearance: WD/WN, no apparent distress Eyes: PERRL, EOMI, sclerae normal ENT: hearing grossly normal Neck: no carotid bruits, trachea midline Respiratory/Chest: chest non-tender, lungs clear, normal breath sounds, no respiratory distress, no accessory muscle use Cardiovascular: regular rate, rhythm, no edema, no gallop, no JVD, no murmur Abdomen: normal bowel sounds, non tender, soft Extremities: non-tender Neurologic/Psychiatric: alert, normal mood/affect, + pertinent finding ( Oriented to name and place. Not oriented to year.) Laboratory Results 05/21/18 07:18 Test 05/20/18 22:12 05/21/18 07:18 05/21/18 11:42 Urine Osmolality 462 mOms/kg (500-800) Urine Random Sodium 66 mEq/L Anion Gap 8.0 mmol/L (3-11) Est Creatinine Clear Calc Drug Dose 50.7 ml/min Estimated GFR () 79.4 Estimated GFR (Non- 68.5 BUN/Creatinine Ratio 18.3 (10-20) Calcium Level 8.5 mg/dl (8.5-10.1) Bedside Glucose 342 mg/dl (70-90) Assessment and Plan Diane Caraballo is a 77yo F with a PMHx of hyponatremia, falls, dementia, and T2DM with functional decline and 3 recent admits related to falls who presents with 10 days of worsening balance and an unobserved fall. Functional Decline with Recent Fall - 3x fall admits over this past summer. Progressive decline at home. - No signs of infection - CT Imaging showed subacute rib fractures of T7/T8, multiple healing older fractures - PT/OT to see. Requires 2 nurse assist to stand - Fall Precautions and Walking with Assistance in the hospital - Lidocaine Patch, Toradol and Tylenol PRN for pain - Continue home Tramadol for pain - She is currently accepted to [facility] and has been denied from [facility]. Her would like her to go to rehab and is resistant to [facility] as opposed to [facility]. She is unlikely to tolerate extensive rehab at this time and is an assist to stand. Skilled is likely the most appropriate dispo plan for her. Family has entered an appeal to [employer]. D/C pending resolution of the appeal. 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 - SSRI d/donavan in case it was contributing to SIADH Diabetes Mellitus - ISS with AC & HS Glucose Checks - Lantus 8 units QAM - Hold home Metformin Hypertension - [employer] Amlodipine 2.5mg QD - [employer] Losartan 50mg BID Dementia - [employer] Namenda 10mg BID Depression - d/donavan sertraline due to concerns over SIADH contribution HLD - [employer] Simvastatin 40mg qHS DVT - Heparin prophylaxis Incontinence/Overactive Bladder - Mirabegron 50mg QD GERD - Pantoprazole 40mg QD Code Status - Full Resuscitation Resident Tracking Resident Involvement: Resident Care Provided Care Provided: Adult Hospital Medicine Assessment/Plan Resident Physician Supervision Note: I was present with Dr. Gerber during the history and exam. I discussed the case with the resident and agree with the findings and plan as documented in the note. Any exceptions or clarifications are listed here: Pt seen and examined at bedside. No acute events overnight. Pt reports diffuse weakness which is unchanged from previous evaluation. not present at time of interview today On examination - CTAB. S1/S2 nl RRR. Abd is NT/ND, BS +ve. CNII-XII grossly intact as evaluated. AAOx1 Hyponatremia 2/2 SIADH - continue holding sertraline, add sodium tablet. Repeat in AM. Avoid excess hydration. Recurrent falls in the setting of functional decline - family discussion as previous. Continue PT/OT and pain management. Case management aware. DMII - would continue lantus and consider increase of AC novolog if glucose elevated. H/O Hypoglycemia, so caution required Depression - hold sertraline for now 2/2 hyponatremia and pending evaluation
[2018-05-21 20:24] VITALS: BP 161/68; PULSE 85
[2018-05-21] MEDS: SIMVASTATIN 40 MG TAB PO SCH (20:28)
[2018-05-21 22:51] VITALS: BP 128/50; PULSE 65; TEMP 36.9; O2SAT 93
[2018-05-22 07:02] VITALS: BP 167/69; PULSE 77; TEMP 36.8; O2SAT 96
[2018-05-22 08:00] VITALS: O2SAT 96
[2018-05-22 10:07] LABS: CALCIUM 8.9 mg/dl (8.5-10.1); CREATININE 0.81 mg/dl (0.60-1.20); POTASSIUM 4.5 mmol/L (3.5-5.1)
[2018-05-22] MEDS: LOSARTAN POTASSIUM 50 MG TAB PO SCH ×2 (10:08→20:32)
[2018-05-22] MEDS: PANTOprazole SOD 40 MG TAB PO SCH (10:08)
[2018-05-22] MEDS: SULFAMETHOXAZOLE/TRIMETHOPRIM DS 800/160MG TAB PO SCH ×2 (10:09→20:31)
[2018-05-22] MEDS: AMLODIPINE BESYLATE 5 MG TAB PO SCH (10:09)
[2018-05-22] MEDS: ASPIRIN 81 MG ECTAB PO SCH (10:09)
[2018-05-22] MEDS: MEMANTINE 10 MG TAB PO SCH ×2 (10:09→20:31)
[2018-05-22] MEDS: PANCREAZE (LIPASE 10,500U) CAP PO SCH ×2 (10:09→17:07)
[2018-05-22] MEDS: LIDODERM (LIDOCAINE) PATCH 5% TD SCH (10:10)
[2018-05-22] MEDS: METOPROLOL TARTRATE 25 MG TAB PO SCH ×2 (10:10→20:32)
[2018-05-22] MEDS: MIRABEGRON ER 25 MG TAB PO SCH (10:10)
[2018-05-22] MEDS: INSULIN GLARGINE SOLOSTAR 100 UNITS/ML 3 ML PEN SC SCH (10:15)
[2018-05-22] MEDS: HEPARIN SOD 5000 UNIT/0.5 ML CARP SQ SCH ×2 (10:15→21:11)
[2018-05-22] MEDS: INSULIN ASPART 100 UNITS/ML 3 ML PEN SC SCH ×4 (10:15→21:11)
[2018-05-22] MEDS: SODIUM CHLORIDE 1 GM TAB PO SCH (14:31)
--- NOTE | 2018-05-22 15:51 | Family Medicine Progress Note ---
Progress Note Date of Service May 22, 2018. Subjective Pt evaluation today including: conversation w/ patient, physical exam PO Intake: none reported Diane Caraballo is a 77yo F with a PMHx of HTN, T2DM, dementia, overactive bladder, GERD, and chronic hyponatremia admitted after an unobserved fall by her and with a 10 day history of worsening unsteadiness. She was at home when her found her in the backyard on her back; she denied head trauma. She was admitted to the ED and found to have a sodium of 129, she is chronically in the high 120's-[id number]. Patient was alone today, and was not oriented to place, time or situation. She reported she felt well, and was able to carry on conversation. She is currently here awaiting decision from [employer] about a family appeal of the initial rejection. Constitutional: No fever, No chills, No sweats Eyes: No worsening of vision ENT: No nasal symptoms, No sore throat Respiratory: No cough, No sputum, No shortness of breath Abdomen: No pain, No nausea, No vomiting, No diarrhea, No constipation Musculoskeletal: No joint pain, No muscle pain Female : + incontinence, No dysuria Neurologic: + weakness, + balance problems, No numbness/tingling, No vertigo Skin: No rash Medications Current Inpatient Medications Medications (Trade) Dose Ordered Sig/German Route Start Time Stop Time Status Last Admin Dose Admin Al Hydrox/Mg Hydrox/Simethicone (Maalox Max Susp) 15 ml Q4H PRN PO 05/16/18 20:00 06/15/18 19:59 Magnesium Hydroxide (Milk Of Magnesia Susp) 30 ml Q6H PRN PO 05/16/18 20:00 06/15/18 19:59 Heparin Sodium (Porcine) (Heparin Sq 5000 Unit/0.5ml) 5,000 unit Q12 SQ 05/16/18 21:00 06/15/18 20:59 05/22/18 10:15 5,000 UNIT Insulin Aspart (novoLOG ASPART) SLIDING SCALE If C... ACHS SC 05/16/18 21:00 06/15/18 20:59 05/22/18 12:39 5 UNITS Glucose (Glucose 40% Gel) 15-30 GRAMS 15 GRAMS... UD PRN PO 05/16/18 20:00 06/15/18 19:59 Glucose (Glucose Chew Tab) 4-8 Tablets 4 Tabl... UD PRN PO 05/16/18 20:00 06/15/18 19:59 Dextrose (Dextrose 50% 50ML Syringe) 25-50ML 25ML FOR ... UD PRN IV 05/16/18 20:00 06/15/18 19:59 Glucagon (Glucagon Inj) 1 mg UD PRN SQ 05/16/18 20:00 06/15/18 19:59 Carbohydrates (Carbohydrates For Hypoglycemia) 15-30 GRAMS 15 grams if BSG 54-69... UD PRN PO 05/16/18 20:00 06/15/18 19:59 Acetaminophen (Tylenol Tab) 1,000 mg Q6H PRN PO 05/16/18 21:00 06/15/18 20:59 Amlodipine Besylate (Norvasc Tab) 2.5 mg DAILY PO 05/17/18 08:00 06/16/18 08:59 05/22/18 10:09 2.5 MG Aspirin (Ecotrin Tab) 81 mg DAILY PO 05/17/18 08:00 06/16/18 08:59 05/22/18 10:09 81 MG Losartan Potassium (coZAAR TAB) 50 mg BID PO 05/16/18 21:00 06/15/18 20:59 05/22/18 10:08 50 MG Memantine (Namenda Tab) 10 mg BID PO 05/16/18 21:00 06/15/18 20:59 05/22/18 10:09 10 MG Metoprolol Tartrate (Lopressor Tab) 25 mg BID PO 05/16/18 21:00 06/15/18 20:59 05/22/18 10:10 25 MG Mirabegron (Myrbetriq Er) 50 mg DAILY PO 05/17/18 08:00 06/16/18 08:59 05/22/18 10:10 50 MG Simvastatin (Zocor Tab) 40 mg QPM PO 05/16/18 21:00 06/15/18 20:59 05/21/18 20:28 40 MG Trimethoprim/ Sulfamethoxazole (Septra Ds 800/ 160MG Tab) 1 tab BID PO 05/16/18 21:00 05/26/18 20:59 05/22/18 10:09 1 TAB Tramadol HCl (Ultram Tab) 50 mg Q8H PRN PO 05/16/18 20:00 06/15/18 19:59 05/17/18 21:10 50 MG Insulin Glargine (Lantus Solostar Pen) 8 units QAM SC 05/17/18 08:00 06/16/18 08:59 05/22/18 10:15 8 UNITS Pantoprazole Sodium (Protonix Tab) 40 mg QAM PO 05/17/18 08:00 06/16/18 08:59 05/22/18 10:08 40 MG Lidocaine (Lidoderm Patch 5%) 1 patch QAM TD 05/17/18 08:00 06/16/18 08:59 05/22/18 10:10 1 PATCH Miscellaneous (Remove Lidoderm Patch) 1 ea DAILY@21 N/A 05/16/18 21:00 06/15/18 20:59 05/21/18 20:30 1 EA Amylase/Lipase/ Protease (Pancreaze (Lipase 10,500U) Cap) 1 cap BIDM PO 05/17/18 17:00 06/16/18 16:59 05/22/18 10:09 1 CAP Hydralazine HCl (HydrALAZINE INJ) 10 mg Q6H PRN IV. 05/20/18 00:15 06/19/18 00:14 05/20/18 00:23 10 MG Sodium Chloride (Sodium Chloride Tab) 1 gm DAILY PO 05/22/18 13:00 06/21/18 12:59 05/22/18 14:31 1 GM Objective Vital Signs Date Time Temp Pulse Resp B/P (MAP) Pulse Ox O2 Delivery O2 Flow Rate FiO2 05/22/18 15:56 37.0 66 18 120/63 (82) 99 Room Air 05/22/18 08:00 96 Room Air 05/22/18 07:02 36.8 77 20 167/69 (101) 96 Room Air 05/22/18 00:10 Room Air 05/21/18 22:51 36.9 65 18 128/50 (76) 93 Room Air 05/21/18 20:24 85 161/68 (99) Physical Exam Notes: General Appearance: WD/WN, no apparent distress Eyes: PERRL, EOMI, sclerae normal ENT: hearing grossly normal Neck: no carotid bruits, trachea midline Respiratory/Chest: chest non-tender, lungs clear, normal breath sounds, no respiratory distress, no accessory muscle use Cardiovascular: regular rate, rhythm, no edema, no gallop, no JVD, no murmur Abdomen: normal bowel sounds, non tender, soft Extremities: non-tender Neurologic/Psychiatric: alert, normal mood/affect Laboratory Results 05/22/18 09:24 Test 05/22/18 09:24 05/22/18 11:26 Anion Gap 8.0 mmol/L (3-11) Est Creatinine Clear Calc Drug Dose 52.0 ml/min Estimated GFR () 81.8 Estimated GFR (Non- 70.5 BUN/Creatinine Ratio 20.5 (10-20) Calcium Level 8.9 mg/dl (8.5-10.1) Bedside Glucose 153 mg/dl (70-90) Assessment and Plan Diane Caraballo is a 77yo F with a PMHx of hyponatremia, falls, dementia, and T2DM with functional decline and 3 recent admits related to falls who presents with 10 days of worsening balance and an unobserved fall. Functional Decline with Recent Fall - Won't hear decision for family appeal until Wednesday - Discharge to [facility] for rehab vs. 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 - SSRI d/donavan in case it was contributing to SIADH Diabetes Mellitus - ISS with AC & HS Glucose Checks - Lantus 8 units QAM - Hold home Metformin Hypertension - [employer] Amlodipine 2.5mg QD - [employer] Losartan 50mg BID Dementia - [employer] Namenda 10mg BID Depression - d/donavan sertraline due to concerns over SIADH contribution HLD - [employer] Simvastatin 40mg qHS Incontinence/Overactive Bladder - Mirabegron 50mg QD GERD - Pantoprazole 40mg QD DVT - Heparin prophylaxis Code Status - Full Resuscitation Resident Tracking Resident Involvement: Resident Care Provided Care Provided: Adult Hospital Medicine Assessment/Plan Resident Physician Supervision Note: I was present with Dr. Gerber during the history and exam. I discussed the case with the resident and agree with the findings and plan as documented in the note. Any exceptions or clarifications are listed here: Pt seen and examined at bedside. No acute events overnight. Pt complaint of diffuse weakness unchanged from previous evaluation. still not present at time of interview On examination - CTAB. S1/S2 nl RRR. Abd is NT/ND, BS +ve. CNII-XII grossly intact as evaluated. AAOx1 Hyponatremia 2/2 SIADH - stable - continue holding sertraline. Increase sodium tablet tm. Trend BMP. Avoid excess hydration. Recurrent falls in the setting of functional decline - family discussion as previous. Currently w/ Family Appeal to [employer]. Continue PT/OT and pain management. Case management aware. DMII - would continue lantus and consider increase of AC novolog if glucose elevated. H/O Hypoglycemia, so caution required Depression - holding sertraline for now 2/2 hyponatremia and pending evaluation
[2018-05-22 15:56] VITALS: BP 120/63; PULSE 66; TEMP 37; O2SAT 99
[2018-05-22 20:30] VITALS: BP 130/66; PULSE 71
[2018-05-22] MEDS: SIMVASTATIN 40 MG TAB PO SCH (20:32)
[2018-05-22 23:04] VITALS: BP 146/68; PULSE 65; TEMP 36.7; O2SAT 99
--- NOTE | 2018-05-23 06:38 | Family Medicine Progress Note ---
Progress Note Date of Service May 23, 2018. Subjective Pt evaluation today including: conversation w/ patient Pain: None PO Intake: Tolerates PO OK, but does not eat much. Declined breakfast this morning. Voiding: no voiding problems Mrs. Caraballo is sitting comfortably in her chair this morning drinking coffee. She reports she feels better today than yesterday. Reports her appetite is OK, although she did not each much breakfast. Per nursing staff she declined breakfast. She is not oriented to date or place today, but is oriented to name. She denies lightheadedness, dizziness, pre-syncope. She says she does not feel weak or fatigued today but has not tried to stand today. She denied ambulation with walker to nursing staff today. Constitutional: No fever, No chills, No weakness, No fatigue Eyes: No worsening of vision, No diplopia ENT: No sore throat Respiratory: No cough, No wheezing, No shortness of breath, No dyspnea on exertion, No dyspnea at rest Cardiovascular: No chest pain, No palpitations Abdomen: No pain, No nausea, No vomiting, No diarrhea, No constipation, No GI bleeding Musculoskeletal: No muscle pain Female : No dysuria Psychiatric: + depression symptoms, + anxiety Endo: No fatigue Skin: No rash, No itch Medications Current Inpatient Medications Medications (Trade) Dose Ordered Sig/German Route Start Time Stop Time Status Last Admin Dose Admin Al Hydrox/Mg Hydrox/Simethicone (Maalox Max Susp) 15 ml Q4H PRN PO 05/16/18 20:00 06/15/18 19:59 Magnesium Hydroxide (Milk Of Magnesia Susp) 30 ml Q6H PRN PO 05/16/18 20:00 06/15/18 19:59 Heparin Sodium (Porcine) (Heparin Sq 5000 Unit/0.5ml) 5,000 unit Q12 SQ 05/16/18 21:00 06/15/18 20:59 05/23/18 08:45 5,000 UNIT Insulin Aspart (novoLOG ASPART) SLIDING SCALE If C... ACHS SC 05/16/18 21:00 06/15/18 20:59 05/23/18 08:44 6 UNITS Glucose (Glucose 40% Gel) 15-30 GRAMS 15 GRAMS... UD PRN PO 05/16/18 20:00 9/12/18 19:59 Glucose (Glucose Chew Tab) 4-8 Tablets 4 Tabl... UD PRN PO 05/16/18 20:00 06/15/18 19:59 Dextrose (Dextrose 50% 50ML Syringe) 25-50ML 25ML FOR ... UD PRN IV 05/16/18 20:00 06/15/18 19:59 Glucagon (Glucagon Inj) 1 mg UD PRN SQ 05/16/18 20:00 06/15/18 19:59 Carbohydrates (Carbohydrates For Hypoglycemia) 15-30 GRAMS 15 grams if BSG 54-69... UD PRN PO 05/16/18 20:00 06/15/18 19:59 Acetaminophen (Tylenol Tab) 1,000 mg Q6H PRN PO 05/16/18 21:00 06/15/18 20:59 Amlodipine Besylate (Norvasc Tab) 2.5 mg DAILY PO 05/17/18 08:00 06/16/18 08:59 05/23/18 08:30 2.5 MG Aspirin (Ecotrin Tab) 81 mg DAILY PO 05/17/18 08:00 06/16/18 08:59 05/23/18 08:29 81 MG Losartan Potassium (coZAAR TAB) 50 mg BID PO 05/16/18 21:00 06/15/18 20:59 05/23/18 08:29 50 MG Memantine (Namenda Tab) 10 mg BID PO 05/16/18 21:00 06/15/18 20:59 05/23/18 08:29 10 MG Metoprolol Tartrate (Lopressor Tab) 25 mg BID PO 05/16/18 21:00 06/15/18 20:59 05/23/18 08:29 25 MG Mirabegron (Myrbetriq Er) 50 mg DAILY PO 05/17/18 08:00 06/16/18 08:59 05/23/18 08:29 50 MG Simvastatin (Zocor Tab) 40 mg QPM PO 05/16/18 21:00 06/15/18 20:59 05/22/18 20:32 40 MG Trimethoprim/ Sulfamethoxazole (Septra Ds 800/ 160MG Tab) 1 tab BID PO 05/16/18 21:00 05/26/18 20:59 05/23/18 08:30 1 TAB Tramadol HCl (Ultram Tab) 50 mg Q8H PRN PO 05/16/18 20:00 06/15/18 19:59 05/17/18 21:10 50 MG Insulin Glargine (Lantus Solostar Pen) 8 units QAM SC 05/17/18 08:00 06/16/18 08:59 05/23/18 08:44 8 UNITS Pantoprazole Sodium (Protonix Tab) 40 mg QAM PO 05/17/18 08:00 06/16/18 08:59 05/23/18 08:29 40 MG Lidocaine (Lidoderm Patch 5%) 1 patch QAM TD 05/17/18 08:00 06/16/18 08:59 05/22/18 10:10 1 PATCH Miscellaneous (Remove Lidoderm Patch) 1 ea DAILY@21 N/A 05/16/18 21:00 06/15/18 20:59 05/21/18 20:30 1 EA Amylase/Lipase/ Protease (Pancreaze (Lipase 10,500U) Cap) 1 cap BIDM PO 05/17/18 17:00 06/16/18 16:59 05/23/18 08:30 1 CAP Hydralazine HCl (HydrALAZINE INJ) 10 mg Q6H PRN IV. 05/20/18 00:15 06/19/18 00:14 05/20/18 00:23 10 MG Sodium Chloride (Sodium Chloride Tab) 1 gm DAILY PO 05/22/18 13:00 06/21/18 12:59 05/23/18 08:30 1 GM Objective Vital Signs Date Time Temp Pulse Resp B/P (MAP) Pulse Ox O2 Delivery O2 Flow Rate FiO2 05/23/18 10:42 62 125/65 (85) 05/23/18 09:00 Room Air 05/23/18 07:25 36.9 96 16 230/88 (135) 97 230/91 (137) 05/22/18 23:04 36.7 65 18 146/68 (94) 99 Room Air 05/22/18 20:40 Room Air 05/22/18 20:30 71 130/66 (87) 05/22/18 15:56 37.0 66 18 120/63 (82) 99 Room Air Physical Exam General Appearance: WD/WN, no apparent distress Eyes: normal inspection, EOMI, sclerae normal ENT: hearing grossly normal Neck: supple, no JVD, no carotid bruits, trachea midline Respiratory/Chest: chest non-tender, lungs clear, normal breath sounds, no respiratory distress, no accessory muscle use Cardiovascular: regular rate, rhythm, no edema, no murmur Abdomen: normal bowel sounds, non tender, soft Extremities: normal range of motion, no pedal edema, normal capillary refill Neurologic/Psychiatric: alert, normal mood/affect, + pertinent finding ( Oriented to name place, not oriented to date) Skin: normal color, warm/dry, no rash Lymphatic: no adenopathy Laboratory Results 05/23/18 07:50 Test 05/23/18 07:25 05/23/18 07:50 Bedside Glucose 164 mg/dl (70-90) Anion Gap 7.0 mmol/L (3-11) Est Creatinine Clear Calc Drug Dose 45.7 ml/min Estimated GFR () 70.1 Estimated GFR (Non- 60.5 BUN/Creatinine Ratio 24.0 (10-20) Calcium Level 8.8 mg/dl (8.5-10.1) Assessment and Plan Diane Caraballo is a 77yo F with a PMHx of hyponatremia, falls, dementia, and T2DM with functional decline and 3 recent admits related to falls who presents with 10 days of worsening balance and an unobserved fall. Functional Decline with Recent Fall - Pending discussion with Case management today. Pt' refused transfer to [facility] over the w/e - Discharge to [facility] for rehab vs. 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 - SSRI d/donavan Wednesday Diabetes Mellitus - ISS with AC & HS Glucose Checks - Lantus 8 units QAM - Hold home Metformin Hypertension - [employer] Amlodipine 2.5mg QD - [employer] Losartan 50mg BID Dementia - [employer] Namenda 10mg BID Depression - d/donavan sertraline due to concerns over SIADH contribution HLD - [employer] Simvastatin 40mg qHS Incontinence/Overactive Bladder - Mirabegron 50mg QD GERD - Pantoprazole 40mg QD DVT - Heparin prophylaxis Code Status - Full Resuscitation Resident Physician Supervision Note: I interviewed and examined the patient. Discussed with Dr. Dewey and agree with findings and plan as documented in the note. Any exceptions or clarifications are listed here: None Documented By: Wilber Orozco no meaningful HPI or ROS but pt notes she feels OK awaiting results of family appeal for [employer] - not optimistic given generally bottom line focused behaviors of insurance companies in modern era medicine vitals noted nad breathing unlabored no pallor or icterus falls/weakness - would be appropriate for rehab but insurance denying as this is what they do. SNF will be reasonable second choice, would harbor concerns if home is only choice as she's high fall risk Resident Tracking Resident Involvement: Resident Care Provided Care Provided: Adult Hospital Medicine
[2018-05-23 07:25] VITALS: BP_SYST 230; BP_DIAS 88; BP_DIAS 91; PULSE 96; TEMP 36.9; O2SAT 97
[2018-05-23] MEDS: LIDODERM (LIDOCAINE) PATCH 5% TD SCH (08:00)
[2018-05-23 08:27] LABS: CALCIUM 8.8 mg/dl (8.5-10.1); CREATININE 0.92 mg/dl (0.60-1.20); POTASSIUM 4.7 mmol/L (3.5-5.1)
[2018-05-23] MEDS: LOSARTAN POTASSIUM 50 MG TAB PO SCH ×2 (08:29→20:46)
[2018-05-23] MEDS: MEMANTINE 10 MG TAB PO SCH ×2 (08:29→20:46)
[2018-05-23] MEDS: PANTOprazole SOD 40 MG TAB PO SCH (08:29)
[2018-05-23] MEDS: MIRABEGRON ER 25 MG TAB PO SCH (08:29)
[2018-05-23] MEDS: ASPIRIN 81 MG ECTAB PO SCH (08:29)
[2018-05-23] MEDS: METOPROLOL TARTRATE 25 MG TAB PO SCH ×2 (08:29→20:47)
[2018-05-23] MEDS: SULFAMETHOXAZOLE/TRIMETHOPRIM DS 800/160MG TAB PO SCH (08:30)
[2018-05-23] MEDS: PANCREAZE (LIPASE 10,500U) CAP PO SCH ×2 (08:30→17:37)
[2018-05-23] MEDS: AMLODIPINE BESYLATE 5 MG TAB PO SCH (08:30)
[2018-05-23] MEDS: SODIUM CHLORIDE 1 GM TAB PO SCH (08:30)
[2018-05-23] MEDS: INSULIN GLARGINE SOLOSTAR 100 UNITS/ML 3 ML PEN SC SCH (08:44)
[2018-05-23] MEDS: INSULIN ASPART 100 UNITS/ML 3 ML PEN SC SCH ×4 (08:44→20:49)
[2018-05-23] MEDS: HEPARIN SOD 5000 UNIT/0.5 ML CARP SQ SCH ×2 (08:45→20:49)
[2018-05-23 10:42] VITALS: BP 125/65; PULSE 62
[2018-05-23 10:48] VITALS: BP 126/70; PULSE 60
[2018-05-23 15:52] VITALS: BP 127/62; PULSE 67; TEMP 37; O2SAT 97
[2018-05-23 20:45] VITALS: BP 152/68; PULSE 78
[2018-05-23] MEDS: SIMVASTATIN 40 MG TAB PO SCH (20:47)
[2018-05-23 23:03] VITALS: BP 132/65; PULSE 66; TEMP 37; O2SAT 96
--- NOTE | 2018-05-24 07:16 | Family Medicine Progress Note ---
Progress Note Date of Service May 24, 2018. Subjective Pt evaluation today including: conversation w/ patient Pain: None, denies pain this morning PO Intake: OK Mrs. Caraballo was sleeping in bed today. She was easily aroused and answered appropriately, although she was oriented to name only. She denied pain. She feels OK, reported she slept well last night and had no feelings of fever, chills, sweats. She reports she feels a little weak, but not abnormally weak. NO headache, lightheadedness, or dizziness today. She has not had breakfast, but denies abdominal pain or nausea and endorses that she is a little hungry. Constitutional: + weakness, + fatigue, No fever, No chills, No sweats, No weight loss Eyes: No worsening of vision ENT: + nasal symptoms Respiratory: No cough, No sputum, No wheezing, No shortness of breath, No dyspnea on exertion, No dyspnea at rest Cardiovascular: No chest pain Abdomen: No pain, No nausea, No vomiting, No diarrhea, No constipation Female : No dysuria Neurologic: + weakness, + balance problems, No vertigo Skin: No rash Medications Current Inpatient Medications Medications (Trade) Dose Ordered Sig/German Route Start Time Stop Time Status Last Admin Dose Admin Al Hydrox/Mg Hydrox/Simethicone (Maalox Max Susp) 15 ml Q4H PRN PO 05/16/18 20:00 06/15/18 19:59 Magnesium Hydroxide (Milk Of Magnesia Susp) 30 ml Q6H PRN PO 05/16/18 20:00 06/15/18 19:59 Heparin Sodium (Porcine) (Heparin Sq 5000 Unit/0.5ml) 5,000 unit Q12 SQ 05/16/18 21:00 06/15/18 20:59 05/24/18 10:01 5,000 UNIT Insulin Aspart (novoLOG ASPART) SLIDING SCALE If C... ACHS SC 05/16/18 21:00 06/15/18 20:59 05/24/18 10:00 7 UNITS Glucose (Glucose 40% Gel) 15-30 GRAMS 15 GRAMS... UD PRN PO 05/16/18 20:00 06/15/18 19:59 Glucose (Glucose Chew Tab) 4-8 Tablets 4 Tabl... UD PRN PO 05/16/18 20:00 06/15/18 19:59 Dextrose (Dextrose 50% 50ML Syringe) 25-50ML 25ML FOR ... UD PRN IV 05/16/18 20:00 06/15/18 19:59 Glucagon (Glucagon Inj) 1 mg UD PRN SQ 05/16/18 20:00 06/15/18 19:59 Carbohydrates (Carbohydrates For Hypoglycemia) 15-30 GRAMS 15 grams if BSG 54-69... UD PRN PO 05/16/18 20:00 06/15/18 19:59 Acetaminophen (Tylenol Tab) 1,000 mg Q6H PRN PO 05/16/18 21:00 06/15/18 20:59 Amlodipine Besylate (Norvasc Tab) 2.5 mg DAILY PO 05/17/18 08:00 06/16/18 08:59 05/24/18 09:43 2.5 MG Aspirin (Ecotrin Tab) 81 mg DAILY PO 05/17/18 08:00 06/16/18 08:59 05/24/18 09:42 81 MG Losartan Potassium (coZAAR TAB) 50 mg BID PO 05/16/18 21:00 06/15/18 20:59 05/24/18 09:41 50 MG Memantine (Namenda Tab) 10 mg BID PO 05/16/18 21:00 06/15/18 20:59 05/24/18 09:43 10 MG Metoprolol Tartrate (Lopressor Tab) 25 mg BID PO 05/16/18 21:00 06/15/18 20:59 05/24/18 09:41 25 MG Mirabegron (Myrbetriq Er) 50 mg DAILY PO 05/17/18 08:00 06/16/18 08:59 05/24/18 09:42 50 MG Simvastatin (Zocor Tab) 40 mg QPM PO 05/16/18 21:00 06/15/18 20:59 05/23/18 20:47 40 MG Tramadol HCl (Ultram Tab) 50 mg Q8H PRN PO 05/16/18 20:00 06/15/18 19:59 05/17/18 21:10 50 MG Insulin Glargine (Lantus Solostar Pen) 8 units QAM SC 05/17/18 08:00 9/13/18 08:59 05/24/18 10:01 8 UNITS Pantoprazole Sodium (Protonix Tab) 40 mg QAM PO 05/17/18 08:00 06/16/18 08:59 05/24/18 09:41 40 MG Lidocaine (Lidoderm Patch 5%) 1 patch QAM TD 05/17/18 08:00 06/16/18 08:59 05/24/18 10:02 1 PATCH Miscellaneous (Remove Lidoderm Patch) 1 ea DAILY@21 N/A 05/16/18 21:00 06/15/18 20:59 05/21/18 20:30 1 EA Amylase/Lipase/ Protease (Pancreaze (Lipase 10,500U) Cap) 1 cap BIDM PO 05/17/18 17:00 06/16/18 16:59 05/24/18 09:43 1 CAP Hydralazine HCl (HydrALAZINE INJ) 10 mg Q6H PRN IV. 05/20/18 00:15 06/19/18 00:14 05/20/18 00:23 10 MG Sodium Chloride (Sodium Chloride Tab) 1 gm DAILY PO 05/22/18 13:00 06/21/18 12:59 05/24/18 09:43 1 GM Objective Vital Signs Date Time Temp Pulse Resp B/P (MAP) Pulse Ox O2 Delivery O2 Flow Rate FiO2 05/24/18 07:31 36.6 67 18 162/73 (102) 95 Room Air 05/24/18 00:04 Room Air 05/23/18 23:03 37.0 66 18 132/65 (87) 96 Room Air 05/23/18 20:45 78 152/68 (96) 05/23/18 17:10 Room Air 05/23/18 15:52 37.0 67 18 127/62 (83) 97 Room Air Physical Exam General Appearance: WD/WN, no apparent distress Eyes: normal inspection, PERRL, EOMI, sclerae normal ENT: hearing grossly normal Neck: supple, no adenopathy, thyroid normal, no JVD, trachea midline Respiratory/Chest: chest non-tender, lungs clear, normal breath sounds, no respiratory distress, no accessory muscle use Cardiovascular: regular rate, rhythm, no edema, no gallop, no JVD, no murmur Abdomen: normal bowel sounds, non tender, soft, no organomegaly Neurologic/Psychiatric: normal mood/affect, + pertinent finding (Somnolent but easily arousable. Oriented to name, only.) Skin: normal color, warm/dry Lymphatic: no adenopathy Laboratory Results 05/24/18 07:23 Test 05/24/18 07:23 05/24/18 16:56 Anion Gap 8.0 mmol/L (3-11) Est Creatinine Clear Calc Drug Dose 49.5 ml/min Estimated GFR () 77.1 Estimated GFR (Non- 66.6 BUN/Creatinine Ratio 18.3 (10-20) Calcium Level 8.8 mg/dl (8.5-10.1) Bedside Glucose 315 mg/dl (70-90) Assessment and Plan Diane Carablalo is a 77yo F with a PMHx of hyponatremia, falls, dementia, and T2DM with functional decline and 3 recent admits related to falls who presents with 10 days of worsening balance and an unobserved fall. Functional Decline with Recent Fall - Pending discussion with Case management today. Pt' refused transfer to [facility] over the w/e - Discharge to [facility] for rehab vs. [facility] vs home - First level appeal was denied, pending second review by Sean. Likely to be denied. 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 d/donavan Wednesday Diabetes Mellitus - ISS with AC & HS Glucose Checks - Lantus 8 units QAM - Hold home Metformin - Increased ratio from 1:10 to 1:7, glucose ran high today Hypertension - [employer] Amlodipine 2.5mg QD - [employer] Losartan 50mg BID Dementia - [employer] Namenda 10mg BID Depression - d/donavan sertraline due to concerns over SIADH contribution HLD - [employer] Simvastatin 40mg qHS Incontinence/Overactive Bladder - Mirabegron 50mg QD GERD - Pantoprazole 40mg QD DVT - Heparin prophylaxis Code Status - Full Resuscitation Resident Physician Supervision Note: I interviewed and examined the patient. Discussed with Dr. Dewey and agree with findings and plan as documented in the note. Any exceptions or clarifications are listed here: None Documented By: Wilber Orozco feeling the same disappointed that [facility] denied, but reluctantly OK w SNF, agrees she needs some form of rehab vitals noted nad breathing unlabored no pallor or icterus fall/weaknes - not safe at home, for SNF once possible. otherwise as above Resident Tracking Resident Involvement: Resident Care Provided Care Provided: Adult Hospital Medicine
[2018-05-24 07:31] VITALS: BP 162/73; PULSE 67; TEMP 36.6; O2SAT 95
[2018-05-24 08:00] VITALS: O2SAT 95
[2018-05-24 08:08] LABS: CALCIUM 8.8 mg/dl (8.5-10.1); CREATININE 0.85 mg/dl (0.60-1.20); POTASSIUM 4.4 mmol/L (3.5-5.1)
[2018-05-24] MEDS: METOPROLOL TARTRATE 25 MG TAB PO SCH ×2 (09:41→20:06)
[2018-05-24] MEDS: PANTOprazole SOD 40 MG TAB PO SCH (09:41)
[2018-05-24] MEDS: LOSARTAN POTASSIUM 50 MG TAB PO SCH ×2 (09:41→20:06)
[2018-05-24] MEDS: ASPIRIN 81 MG ECTAB PO SCH (09:42)
[2018-05-24] MEDS: MIRABEGRON ER 25 MG TAB PO SCH (09:42)
[2018-05-24] MEDS: AMLODIPINE BESYLATE 5 MG TAB PO SCH (09:43)
[2018-05-24] MEDS: SODIUM CHLORIDE 1 GM TAB PO SCH (09:43)
[2018-05-24] MEDS: PANCREAZE (LIPASE 10,500U) CAP PO SCH ×2 (09:43→17:18)
[2018-05-24] MEDS: MEMANTINE 10 MG TAB PO SCH ×2 (09:43→20:07)
[2018-05-24] MEDS: INSULIN ASPART 100 UNITS/ML 3 ML PEN SC SCH ×4 (10:00→21:03)
[2018-05-24] MEDS: HEPARIN SOD 5000 UNIT/0.5 ML CARP SQ SCH ×2 (10:01→21:04)
[2018-05-24] MEDS: INSULIN GLARGINE SOLOSTAR 100 UNITS/ML 3 ML PEN SC SCH (10:01)
[2018-05-24] MEDS: LIDODERM (LIDOCAINE) PATCH 5% TD SCH (10:02)
[2018-05-24 15:07] VITALS: BP 147/69; PULSE 67; TEMP 36.6; O2SAT 97
[2018-05-24 20:00] VITALS: BP 125/64; PULSE 76; O2SAT 96
[2018-05-24] MEDS: SIMVASTATIN 40 MG TAB PO SCH (20:07)
[2018-05-24 22:43] VITALS: BP 169/68; PULSE 71; TEMP 36.6; O2SAT 97
[2018-05-25 07:08] VITALS: BP 174/70; PULSE 65; TEMP 36.9; O2SAT 97
[2018-05-25] MEDS: INSULIN GLARGINE SOLOSTAR 100 UNITS/ML 3 ML PEN SC SCH (09:01)
[2018-05-25] MEDS: INSULIN ASPART 100 UNITS/ML 3 ML PEN SC SCH (09:01)
[2018-05-25] MEDS: HEPARIN SOD 5000 UNIT/0.5 ML CARP SQ SCH (09:02)
[2018-05-25] MEDS: AMLODIPINE BESYLATE 5 MG TAB PO SCH (09:03)
[2018-05-25] MEDS: LOSARTAN POTASSIUM 50 MG TAB PO SCH (09:04)
[2018-05-25] MEDS: PANTOprazole SOD 40 MG TAB PO SCH (09:04)
[2018-05-25] MEDS: MIRABEGRON ER 25 MG TAB PO SCH (09:04)
[2018-05-25] MEDS: ASPIRIN 81 MG ECTAB PO SCH (09:04)
[2018-05-25] MEDS: SODIUM CHLORIDE 1 GM TAB PO SCH (09:04)
[2018-05-25] MEDS: MEMANTINE 10 MG TAB PO SCH (09:05)
[2018-05-25] MEDS: PANCREAZE (LIPASE 10,500U) CAP PO SCH (09:05)
[2018-05-25] MEDS: METOPROLOL TARTRATE 25 MG TAB PO SCH (09:05)
[2018-05-25] MEDS: LIDODERM (LIDOCAINE) PATCH 5% TD SCH (09:06)
[2018-05-25 10:23] VITALS: BP 174/70; PULSE 65; TEMP 36.9; O2SAT 97
[2018-05-25] MEDS ORDERED: LDDP5 TD ×2 (11:41)
--- NOTE | 2018-05-25 11:42 | Discharge Instructions ---
Discharge Instructions Date of Service May 25, 2018. Admission Reason for Admission: Fall, Hyponatremia Discharge Discharge Diagnosis / Problem: fall, weakness, deconditioning Discharge Goals Goal(s): Diagnostic testing, Therapeutic intervention Activity Recommendations Activity Level: Assistance Required Therapies: Physical Therapy, Occupational Therapy . Additional Information Patient informed of condition: Yes Advance Directives: No DNR: No Level of Care: Skilled (rehab emphasis) Communicable Disease: No Prognosis: Stable Current Hospital Diet Patient's current hospital diet: Diabetes Type 2 Diet Discharge Diet Recommended Diet: Diabetes Type 2 Diet Pending Studies Studies pending at discharge: no Laboratory Results Hemoglobin A1c Test 04/02/18 05:33 Range/Units Estimated Average Glucose 160 mg/dl Hemoglobin A1c 7.2 H 4.5-5.6 % Medical Emergencies . Who to Call and When: Medical Emergencies: If at any time you feel your situation is an emergency, please call 911 immediately. . Non-Emergent Contact Non-Emergency issues call your: Primary Care Provider . . "Provider Documentation" section prepared by Waqar Dewey. . Core Measure Problem Core Measures: None
--- NOTE | 2018-05-25 18:55 | Discharge Summary ---
Discharge Summary Date of Service May 25, 2018. Discharge Summary Admission Date: May 16, 2018 at 20:13 Discharge Date: May 25, 2018 [facility] Principal Diagnosis: fall, weakness, progressive dementia Immunizations: Have You Had Influenza Vaccine: Unknown History of Tetanus Vaccine?: Unknown History of Pneumococcal: Unknown History of Hepatitis B Vaccine: Unknown Medication Reconciliation New Medications: Lidocaine (Lidocaine) 1 Patch Tdsy 1 PATCH TD QAM, #30 Continued Medications: Acetaminophen (Tylenol Extra Strength) 500 Mg Tab 1000 MG PO Q6 PRN for Pain Amlodipine (Norvasc) 2.5 Mg Tab 2.5 MG PO DAILY, TAB Aspirin (Aspirin Ec) 81 Mg Tab 81 MG PO DAILY Calcium Carbonate-Cholecalcife (Caltrate 600+D) 1 Tab Tab 1 TAB PO DAILY Insulin Aspart (Novolog Flexpen) 100 Units/Ml Inj 3 UNITS SQ BREAKFAST Insulin Aspart (Novolog Flexpen) 100 Units/Ml Inj 3 UNITS SQ LUNCH Insulin Aspart (Novolog Flexpen) 100 Units/Ml Inj 4 UNITS SQ VASHTI MEAL Insulin Glargine (Toujeo Solostar) 300 Unit/Ml Inj 8 UNITS SQ BEFORE BREAKFAST Lansoprazole (Prevacid) 30 Mg Capcr 30 MG PO DAILY, CAP Losartan Potassium (Cozaar) 50 Mg Tab 50 MG PO BID, TAB Magnesium Oxide (Magnesium) 400 Mg Tab 200 MG PO DAILY 1/2 TABLET DOSE Memantine (Namenda) 10 Mg Tab 10 MG PO BID, TAB Metformin Hcl (Glucophage) 1,000 Mg Tab 1000 MG PO BID Metoprolol Tartrate (Lopressor) (Lopressor) 25 Mg Tab 25 MG PO BID, TAB Mirabegron (Myrbetriq Er) 50 Mg Tab 50 MG PO DAILY, TAB Mometasone Furoate (Nasal) (Mometasone Furoate) 50 Mcg/Act Spr 2 SPRAYS DENA DAILY PRN for ALLERGY SYMPTOMS Pancrelipase (Lipase-Protease- (Creon 70047) 1 Cap Cap 68505 MG PO BIDM, CAP TAKE WITH BREAKFAST AND EVENING MEAL Risedronate Sodium (Actonel) 150 Mg Tab 150 MG PO MONTHLY, TAB GIVE ON THE 6TH OF EACH MONTH Rivastigmine Tartrate (Rivastigmine Tartrate) 6 Mg Cap 6 MG PO BID Sertraline (Zoloft) 25 Mg Tab 50 MG PO HS TWO 25 MG TABLETS DAILY Simvastatin (Zocor) 40 Mg Tab 40 MG PO QPM, TAB Discontinued Medications: Sulfa/Trimethoprim (Bactrim Ds 800MG/160MG) Tab 1 TAB PO BID, TAB BEGIN 05/05/18 X 14 DAYS. Discharge Exam Physical Exam: General Appearance: no apparent distress Hospital Course Diane Caraballo is a 77yo F with a PMHx of hyponatremia, falls, dementia, and T2DM with functional decline and 3 recent admits related to falls who presents with 10 days of worsening balance and an unobserved fall. 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 - overall control good, does show some postprandial variation based on intake Hypertension - [employer] Amlodipine 2.5mg QD - [employer] Losartan 50mg BID - continue to follow meds Dementia - [employer] Namenda 10mg BID Depression - d/donavan sertraline due to concerns over SIADH contribution HLD - [employer] Simvastatin 40mg qHS Incontinence/Overactive Bladder - Mirabegron 50mg QD GERD - Pantoprazole 40mg QD DVT - Heparin prophylaxis utilized while here Code Status - Full Resuscitation stable for SNF / rehab emphasis Total Time Spent: Greater than 30 minutes This includes examination of the patient, discharge planning, medication reconciliation, and communication with other providers. Discharge Instructions Please refer to the electronic Patient Visit Report (Discharge Instructions) for additional information. Additional Copies To [facility]
--- NOTE | 2018-05-25 18:56 | Discharge Summary ---
Discharge Summary Date of Service May 25, 2018. Discharge Summary Admission Date: May 16, 2018 at 20:13 Discharge Date: May 25, 2018 Discharge Disposition: [facility] facility Principal Diagnosis: Fall Problems/Secondary Diagnoses: Hyponatremia Dementia with decline in ambulatory function T2DM Immunizations: Have You Had Influenza Vaccine: Unknown History of Tetanus Vaccine?: Unknown History of Pneumococcal: Unknown History of Hepatitis B Vaccine: Unknown Procedures: HEAD WITHOUT CONTRAST (CT) CT DOSE: 537.48 mGy.cm HISTORY: Trauma. Mental status change. Fall while in hospital room, hit back of head. TECHNIQUE: Multiaxial CT images of the head were performed without the use of intravenous contrast. A dose lowering technique was utilized adhering to the principles of ALARA. Comparison: 05/16/2018 Findings: The paranasal sinuses and mastoid air cells are clear. The calvarium and skull base are intact. The ventricles and sulci are within normal limits. There is no mass, hematoma, midline shift, or acute infarct. Impression: No acute intracranial abnormality. Age-related atrophy and chronic small vessel change CERVICAL, THORACIC, LUMBAR SPINE CT CT DOSE: HISTORY: fall, pain TECHNIQUE: Multiaxial CT images of the cervical, thoracic, and lumbar spine were performed and reformatted in the sagittal and coronal plane without the use of contrast. A dose lowering technique was utilized adhering to the principles of ALARA. COMPARISON: None. FINDINGS: No fracture or subluxation within the cervical spine. Prevertebral soft tissues and the C1-C2 interval are intact. Disc spaces are preserved for age. No pneumothorax. No significant change in the moderate T11 compression deformity. This demonstrates sclerosis and is therefore considered to be a subacute to chronic fracture. There is 2 mm of retropulsion of the posterior superior corner without significant central canal narrowing. Mild disc space narrowing within the thoracic spine. Minimal superior endplate concavity at T2 and T3 is also likely old. No acute fractures identified within the thoracic spine. Subacute to chronic fracture within the right posterior T7 and T8 ribs. Healing right L1 transverse process fracture. No acute fractures within the lumbar spine. Disc spaces are preserved. Paraspinal soft tissues are unremarkable. IMPRESSION: 1. No acute fractures within the cervical, thoracic, lumbar spine. 2. Subacute to chronic fractures within the thoracic and lumbar spine described above. There are also subacute right posterior T7 and T8 rib fractures. Electronically signed by: Jaxon Spencer M.D. 05/16/2018 5:03 PM Dictated Date/Time: 05/16/2018 4:49 PM [~ rep ct add3]] CT OF THE ABDOMEN AND PELVIS WITHOUT CONTRAST CLINICAL HISTORY: Fall. Pain. COMPARISON STUDY: CT of the abdomen and pelvis March 18, 2018. TECHNIQUE: Axial images of the abdomen and pelvis were obtained without IV contrast. Images were reviewed in the axial, sagittal, and coronal planes. A dose lowering technique was utilized adhering to the principles of ALARA. FINDINGS: No hemoperitoneum or pneumoperitoneum is present. Dilatation of the main pancreatic duct is similar to previous exam. This is suboptimally assessed on this unenhanced exam. Pancreatic glandular atrophy is unchanged. There is no change in biliary ductal dilatation status post cholecystectomy. There are a few pancreatic parenchymal calcifications. There is no evidence for traumatic injury to the liver, spleen, adrenal glands, kidneys or pancreas. There are calcified cannula was within the spleen. The appendix is normal. No acute lumbar spine or pelvic fractures identified. Old T11 compression fracture is noted. There is sigmoid diverticulosis without evidence for acute diverticulitis. Old right inferior pubic ramus fracture is present. Bladder is mildly distended. Extensive atherosclerotic plaque is noted. IMPRESSION: 1. No acute traumatic findings within the abdomen or pelvis on unenhanced exam. 2. No change in pancreatic ductal dilatation which is better depicted on prior contrast enhanced CT of March 18, 2018. This remains similar to study of December 09, 2012. Electronically signed by: Blake Padilla M.D. 05/16/2018 5:11 PM Dictated Date/Time: 05/16/2018 5:[address] OF THE CHEST WITHOUT IV CONTRAST CLINICAL HISTORY: Fall. Chest pain. COMPARISON STUDY: Chest radiograph April 01, 2018. TECHNIQUE: Axial images of the chest were obtained without IV contrast. Images were reviewed in the axial, sagittal, and coronal planes. IV contrast was not administered for this examination. A dose lowering technique was utilized adhering to the principles of ALARA. FINDINGS: Several calcified mediastinal lymph nodes are noted. The size of the heart is normal. There is no mediastinal hematoma. There is no pericardial effusion. No pneumothorax or pulmonary contusion is present. The thoracic spine CT will be reported separately. Nondisplaced fractures of the posterior right seventh and eighth ribs are noted. These are probably subacute. There are multiple old bilateral rib fractures. The abdomen and pelvis will be reported separately. Old T11 compression fracture is noted. IMPRESSION: 1. No pneumothorax. No mediastinal hematoma. No pulmonary contusion. 2. Several age indeterminate, but likely subacute, posterior right rib fractures. Electronically signed by: Blake Padilla M.D. 05/16/2018 5:03 PM Dictated Date/Time: 05/16/2018 4:[address] NON[address]AST CT DOSE: 1819.83 mGy.cm HISTORY: Fall. EVALUATE WEAKNESS TECHNIQUE: Multiaxial CT images of the head were performed without the use of intravenous contrast. Automated exposure control was utilized for this study. A dose lowering technique was utilized adhering to the principles of ALARA. Comparison: Head CT 03/31/2018 Findings: The paranasal sinuses and mastoid air cells are clear. The calvarium and skull base are intact. There is no mass, hematoma, midline shift, acute infarct. White matter hypodensity is nonspecific but suggestive of microvascular ischemic change. The ventricles and sulci demonstrate mild age-related involutional changes. Impression: No significant change compared to the prior study. No acute intracranial abnormality. Electronically signed by: Jaxon Spencer M.D. 05/16/2018 4:45 PM Dictated Date/Time: 05/16/2018 4:42 PM CERVICAL, THORACIC, LUMBAR SPINE CT CT DOSE: HISTORY: fall, pain TECHNIQUE: Multiaxial CT images of the cervical, thoracic, and lumbar spine were performed and reformatted in the sagittal and coronal plane without the use of contrast. A dose lowering technique was utilized adhering to the principles of ALARA. COMPARISON: None. FINDINGS: No fracture or subluxation within the cervical spine. Prevertebral soft tissues and the C1-C2 interval are intact. Disc spaces are preserved for age. No pneumothorax. No significant change in the moderate T11 compression deformity. This demonstrates sclerosis and is therefore considered to be a subacute to chronic fracture. There is 2 mm of retropulsion of the posterior superior corner without significant central canal narrowing. Mild disc space narrowing within the thoracic spine. Minimal superior endplate concavity at T2 and T3 is also likely old. No acute fractures identified within the thoracic spine. Subacute to chronic fracture within the right posterior T7 and T8 ribs. Healing right L1 transverse process fracture. No acute fractures within the lumbar spine. Disc spaces are preserved. Paraspinal soft tissues are unremarkable. IMPRESSION: 1. No acute fractures within the cervical, thoracic, lumbar spine. 2. Subacute to chronic fractures within the thoracic and lumbar spine described above. There are also subacute right posterior T7 and T8 rib fractures. Electronically signed by: Jaxon Spencer M.D. 05/16/2018 5:03 PM Dictated Date/Time: 05/16/2018 4:49 PM CERVICAL, THORACIC, LUMBAR SPINE CT CT DOSE: HISTORY: fall, pain TECHNIQUE: Multiaxial CT images of the cervical, thoracic, and lumbar spine were performed and reformatted in the sagittal and coronal plane without the use of contrast. A dose lowering technique was utilized adhering to the principles of ALARA. COMPARISON: None. FINDINGS: No fracture or subluxation within the cervical spine. Prevertebral soft tissues and the C1-C2 interval are intact. Disc spaces are preserved for age. No pneumothorax. No significant change in the moderate T11 compression deformity. This demonstrates sclerosis and is therefore considered to be a subacute to chronic fracture. There is 2 mm of retropulsion of the posterior superior corner without significant central canal narrowing. Mild disc space narrowing within the thoracic spine. Minimal superior endplate concavity at T2 and T3 is also likely old. No acute fractures identified within the thoracic spine. Subacute to chronic fracture within the right posterior T7 and T8 ribs. Healing right L1 transverse process fracture. No acute fractures within the lumbar spine. Disc spaces are preserved. Paraspinal soft tissues are unremarkable. IMPRESSION: 1. No acute fractures within the cervical, thoracic, lumbar spine. 2. Subacute to chronic fractures within the thoracic and lumbar spine described above. There are also subacute right posterior T7 and T8 rib fractures. Electronically signed by: Jaxon Spencer M.D. 05/16/2018 5:03 PM Dictated Date/Time: 05/16/2018 4:49 PM Discharge Exam Review of Systems: Constitutional: + weakness, No fever, No chills, No sweats, No weight loss, No fatigue Eyes: No worsening of vision, No diplopia Respiratory: No cough, No sputum, No wheezing, No shortness of breath, No dyspnea on exertion, No dyspnea at rest Cardiovascular: No chest pain Abdomen: No pain, No nausea, No vomiting, No diarrhea, No constipation Genitourinary - Female: No dysuria Neurologic: + vertigo, + balance problems, No numbness/tingling Endocrine: No fatigue Hematologic / Lymphatic: No abnormal bleeding/bruising Integumentary: No rash, No new/changing skin lesions Physical Exam: General Appearance: WD/WN, no apparent distress Eyes: PERRL, EOMI, sclerae normal ENT: hearing grossly normal Neck: supple, no carotid bruits, trachea midline Respiratory/Chest: chest non-tender, lungs clear, normal breath sounds, no respiratory distress, no accessory muscle use Cardiovascular: regular rate, rhythm, no edema, no murmur, normal peripheral pulses Abdomen / GI: normal bowel sounds, non tender, soft, no organomegaly, no pulsatile mass Extremities: normal inspection, normal range of motion, non-tender Neurologic/Psychiatric: alert, normal mood/affect, + pertinent finding ( Oriented to name and hospital only. Not oriented to city or date.) Skin: normal color, warm/dry, no rash Lymphatic: no adenopathy Hospital Course Total Time Spent: Greater than 30 minutes This includes examination of the patient, discharge planning, medication reconciliation, and communication with other providers. Discharge Instructions Please refer to the electronic Patient Visit Report (Discharge Instructions) for additional information. Additional Copies To Toney Morgan MD
[2018-05-26] MEDS ORDERED: LIDO1PAD2 TD (01:39)
== END 2018-05-25 12:00 | DRG 92 ==
LOC: EDBD 15:09 → C.EDC 15:10 → C.4E 20:13 → ENRESERV 20:20
PROVIDERS: ADMIT Student in an Organized Health Care Education/Training Program; ATTEND Family Medicine
DX: R29.6 Repeated falls (principal); E22.2 Syndrome of inappropriate secretion of antidiuretic hormone; S22.41XA Multiple fractures of ribs, right side, initial encounter for closed fracture; F03.90 Unspecified dementia, unspecified severity, without behavioral disturbance, psychotic disturbance, mood disturbance, and anxiety; R53.1 Weakness; M54.5 Low back pain; E11.65 Type 2 diabetes mellitus with hyperglycemia; I10 Essential (primary) hypertension; F32.9 Major depressive disorder, single episode, unspecified; K21.9 Gastro-esophageal reflux disease without esophagitis; N32.81 Overactive bladder; R32 Unspecified urinary incontinence; Z51.81 Encounter for therapeutic drug level monitoring; Z79.899 Other long term (current) drug therapy; Z79.4 Long term (current) use of insulin; Z79.82 Long term (current) use of aspirin; Z85.3 Personal history of malignant neoplasm of breast; Z85.07 Personal history of malignant neoplasm of pancreas; Z88.5 Allergy status to narcotic agent; Z88.8 Allergy status to other drugs, medicaments and biological substances; Z82.49 Family history of ischemic heart disease and other diseases of the circulatory system; W19.XXXA Unspecified fall, initial encounter; Y92.009 Unspecified place in unspecified non-institutional (private) residence as the place of occurrence of the external cause; Y99.8 Other external cause status

== ENCOUNTER 2018-05-25 23:57 | Emergency (ER) | payer BC, OTHER ==
[~2018-05-25 23:57] MED LIST changes: +AMLO2.5T PO; +CALC-354 PO; +INSU1.2I SQ; +LDDP5 TD; +MAGN1CAP2; +MAGN1TAB41 PO; +METO25TA56 PO; +SULF800T23 PO; +ULT/50 PO
[2018-05-26] VITALS: TEMP 36.6
--- NOTE | 2018-05-26 01:27 | EMERGENCY ROOM VISIT NOTE ---
ED Visit Note First contact with patient: 00:08 I have seen and examined this patient with Kelechi Moreland and generally agree with the treatment plan as discussed. Problem List Medical Problems: (1) Breast CA Status: Resolved (2) Diabetes Status: Chronic (3) Hypertension Status: Chronic (4) Pancreatic carcinoma Status: Resolved Surgical Problems: (1) S/P tubal ligation Status: Resolved Current/Historical Medications Scheduled Amlodipine (Norvasc), 2.5 MG PO DAILY Aspirin (Aspirin Ec), 81 MG PO DAILY Calcium Carbonate-Cholecalcife (Caltrate 600+D), 1 TAB PO DAILY Insulin Aspart (Novolog Flexpen), 3 UNITS SQ BREAKFAST Insulin Aspart (Novolog Flexpen), 3 UNITS SQ LUNCH Insulin Aspart (Novolog Flexpen), 4 UNITS SQ VASHTI MEAL Insulin Glargine (Toujeo Solostar), 8 UNITS SQ BEFORE BREAKFAST Lansoprazole (Prevacid), 30 MG PO DAILY Lidocaine (Lidocaine), 1 PATCH TD QAM Losartan Potassium (Cozaar), 50 MG PO BID Magnesium Oxide (Magnesium), 200 MG PO DAILY Memantine (Namenda), 10 MG PO BID Metformin Hcl (Glucophage), 1,000 MG PO BID Metoprolol Tartrate (Lopressor) (Lopressor), 25 MG PO BID Mirabegron (Myrbetriq Er), 50 MG PO DAILY Pancrelipase (Lipase-Protease- (Creon [id number]), 24,000 MG PO BIDM Risedronate Sodium (Actonel), 150 MG PO MONTHLY Rivastigmine Tartrate (Rivastigmine Tartrate), 6 MG PO BID Sertraline (Zoloft), 50 MG PO HS Simvastatin (Zocor), 40 MG PO QPM Scheduled PRN Acetaminophen (Tylenol Extra Strength), 1,000 MG PO Q6 PRN for Pain Mometasone Furoate (Nasal) (Mometasone Furoate), 2 SPRAYS DENA DAILY PRN for ALLERGY SYMPTOMS Allergies Coded Allergies: Repaglinide (Verified Allergy, Intermediate, SEVER SHAKING, 04/01/18) Hydrocodone (Verified Allergy, Mild, UNKNOWN, 04/01/18) Vital Signs Date Time Temp Pulse Resp B/P (MAP) Pulse Ox O2 Delivery O2 Flow Rate FiO2 05/26/18 00:00 36.6 66 18 151/69 96 Room Air Departure Information Referrals Toney Morgan MD (PCP) Patient Instructions [facility]
[2018-05-26] MEDS ORDERED: LIDO1PAD2 TD (01:39)
[2018-05-26 01:55] VITALS: BP 118/72; PULSE 82; O2SAT 98
--- NOTE | 2018-05-26 06:11 | EMERGENCY ROOM VISIT NOTE ---
History First contact with patient: 00:08 Chief Complaint: FALL Stated Complaint: FALL History of Present Illness The patient is a 77 year old female who presents to the Emergency Room with complaints of possible fall related injuries. The patient is accompanied by her who provides much of the history. The patient was admitted to this hospital earlier in the week following multiple falls. The patient was medically cleared and discharged to a local group home for rehab and skilled care. The patient was essentially at the group home for 9 or 10 hours, and according to the had 2 falls today that are new. The was not comfortable keeping her there without evaluation for her falls. The patient is with some chronic dementia and does not have any complaints herself. She is very pleasant and otherwise cooperative. Because of her dementia much of the history is limited to information provided by the . The patient herself rates her discomfort as 0/10. There is concern that she may have injured her knee as there is a superficial abrasion in this area, and concerned that she may have fallen onto her buttocks as she did complain about this a few hours ago. Review of Systems More than 10 systems were reviewed and otherwise negative with the exception of history of present illness. Past Medical/Surgical History Medical Problems: (1) Acute metabolic encephalopathy (2) Altered mental status (3) Breast CA (4) Dementia (5) Diabetes (6) Hypertension (7) Pancreatic carcinoma Surgical Problems: (1) S/P tubal ligation Family History Hypertension Kidney disease Social History Smoking Status: Never Smoker Alcohol Use: none Drug Use: none Marital Status: Housing Status: lives with family Occupation Status: retired Current/Historical Medications Scheduled Amlodipine (Norvasc), 2.5 MG PO DAILY Aspirin (Aspirin Ec), 81 MG PO DAILY Calcium Carbonate-Cholecalcife (Caltrate 600+D), 1 TAB PO DAILY Insulin Aspart (Novolog Flexpen), 3 UNITS SQ BREAKFAST Insulin Aspart (Novolog Flexpen), 3 UNITS SQ LUNCH Insulin Aspart (Novolog Flexpen), 4 UNITS SQ VASHTI MEAL Insulin Glargine (Toujeo Solostar), 8 UNITS SQ BEFORE BREAKFAST Lansoprazole (Prevacid), 30 MG PO DAILY Lidocaine (Lidocaine), 1 PATCH TD QAM Losartan Potassium (Cozaar), 50 MG PO BID Magnesium Oxide (Magnesium), 200 MG PO DAILY Memantine (Namenda), 10 MG PO BID Metformin Hcl (Glucophage), 1,000 MG PO BID Metoprolol Tartrate (Lopressor) (Lopressor), 25 MG PO BID Mirabegron (Myrbetriq Er), 50 MG PO DAILY Pancrelipase (Lipase-Protease- (Creon [id number]), 24,000 MG PO BIDM Risedronate Sodium (Actonel), 150 MG PO MONTHLY Rivastigmine Tartrate (Rivastigmine Tartrate), 6 MG PO BID Sertraline (Zoloft), 50 MG PO HS Simvastatin (Zocor), 40 MG PO QPM Scheduled PRN Acetaminophen (Tylenol Extra Strength), 1,000 MG PO Q6 PRN for Pain Mometasone Furoate (Nasal) (Mometasone Furoate), 2 SPRAYS DENA DAILY PRN for ALLERGY SYMPTOMS Physical Exam Vital Signs Date Time Temp Pulse Resp B/P (MAP) Pulse Ox O2 Delivery O2 Flow Rate FiO2 05/26/18 01:55 82 20 118/72 98 05/26/18 01:29 64 18 147/51 98 Room Air 05/26/18 00:00 36.6 66 18 151/69 96 Room Air Physical Exam VITALS: Vitals are noted on the nurse's note and reviewed by myself. Vital signs stable. GENERAL: Well-developed, well-nourished, pleasant white female who appears mildly confused and is evidently at her baseline according to her . HEAD: Normocephalic atraumatic. HEART: Regular rate and rhythm LUNGS: Slightly coarse breath sounds heard bilateral MUSCULOSKELETAL: Superficial abrasion appreciated over the anterior left knee. No significant spinal tenderness. There is some mild tenderness of the very lower sacrum/coccyx. NEURO: Patient was alert to person but not time or location Medical Decision & Procedures ED Course Physical exam and history were performed. Nursing notes, EMR, and Medication List were personally reviewed. Patient appears to have suffered potential falls 2 while at a group home today. The patient was admitted at this facility and just discharged for this complaint. The patient is comfortably and pleasantly demented. She essentially only has an abrasion to her left knee that appears relatively new. She does not have other significant exam findings. There is some questionable coccygeal tenderness. X-rays were obtained and reviewed by myself and my attending is showing no obvious fracture. Official radiology read is pending. Overall the patient appears well for discharge. She has appropriate services in place and the family was very comfortable with her evaluation. They were otherwise invited back to the ER with any new, worsening, or concerning symptoms. The chart was completed utilizing [employer] Speech Voice Recognition Software. Grammatical errors, random word insertions, pronoun errors, and incomplete sentences are an occasional consequence of this system due to software limitations, ambient noise, and hardware issues. Any formal questions or concerns about the content, text, or information contained within the body of this dictation should be directly addressed to the provider for clarification. . Medical Decision Differential diagnosis includes, but is not limited to: Sprain, strain, fracture , dislocation, subluxation, contusion, and others Impression Primary Impression: Fall Additional Impression: Contusion of multiple sites Departure Information Dispostion Home / Self-Care Condition GOOD Referrals Toney Morgan MD (PCP) Forms HOME CARE DOCUMENTATION FORM, IMPORTANT VISIT INFORMATION Patient Instructions [facility] Additional Instructions You were seen and evaluated today on an emergency basis only. This is not a substitute for, or an effort to provide, complete comprehensive medical care. It is not possible to recognize and treat all injuries or illnesses in a single emergency department visit. For this reason it is recommended that you followup with your primary care physician with any ongoing or persisting symptoms. Take every precaution to prevent falling You are welcome to return to the emergency department anytime with new, worsening, or concerning symptoms. Problem Qualifiers
--- NOTE | 2018-05-26 06:34 | DIAGNOSTIC IMAGING REPORT ---
L KNEE 3 VIEWS HISTORY: 77 years-old Female Fall. Left knee injury acute left knee pain status post fall COMPARISON: None available TECHNIQUE: 3 views of the left knee FINDINGS: Bones appear mildly demineralized. Minimal tricompartmental joint space narrowing. No acute fracture, dislocation or opaque foreign body. Mild soft tissue swelling about the knee with mild stranding of the infrapatellar fat pad. Peripheral arterial calcifications are noted. Sclerotic chondroid appearing 1.7 cm lesion of the mid distal femoral metaphysis suggests probable enchondroma. IMPRESSION: 1. No acute fracture or dislocation. 2. Mildly demineralized appearance of the bones. 3. 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 The above report was generated using voice recognition software. It may contain grammatical, syntax or spelling errors. Electronically signed by: Mayo Olsen M.D. 05/26/2018 6:33 AM Dictated Date/Time: 05/26/2018 6:30 AM
--- NOTE | 2018-05-26 06:38 | DIAGNOSTIC IMAGING REPORT ---
CHEST 2 VIEWS ROUTINE HISTORY: 77 years-old Female Fall acute chest trauma status post fall COMPARISON: Chest radiograph 04/01/2018, CT chest 05/16/2018 TECHNIQUE: PA and lateral views of the chest FINDINGS: Cardiac silhouette is within normal limits in size. Calcification of the aorta. Calcified right hilar lymph nodes compatible with prior granulomatous disease. Emphysema without pneumothorax, pleural effusion or overt pulmonary edema. Eventration of the right hemidiaphragm redemonstrated. Prominent epicardial fat pad projects over the left lung base. Degenerative changes of the shoulders and spine. Remote compression deformity at T11, unchanged. IMPRESSION: 1. Emphysema without acute process. 2. Prior granulomatous disease. 3. Remote T11 compression deformity. The above report was generated using voice recognition software. It may contain grammatical, syntax or spelling errors. Electronically signed by: Mayo Olsen M.D. 05/26/2018 6:37 AM Dictated Date/Time: 05/26/2018 6:35 AM
--- NOTE | 2018-05-26 06:45 | DIAGNOSTIC IMAGING REPORT ---
SACRUM COCCYX MIN 2 VIEWS HISTORY: 77 years-old Female Fall acute sacral pain status post fall COMPARISON: CT abdomen and pelvis 05/16/2018 TECHNIQUE: 3 views of the sacrum and coccyx. FINDINGS: Mild degenerative changes about the bilateral SI joints. No definite acute fracture or subluxation identified. Facet arthrosis with spondylitic spurring about the lower lumbar spine. Calcifications of the pelvis suggest phleboliths. Arterial calcifications are also noted. IMPRESSION: No acute fracture. The above report was generated using voice recognition software. It may contain grammatical, syntax or spelling errors. Electronically signed by: Mayo Olsen M.D. 05/26/2018 6:44 AM Dictated Date/Time: 05/26/2018 6:42 AM
== END 2018-05-26 01:56 | disposition home or self-care (01) ==
LOC: C.EDB 23:58 → C.EDA 05-26 01:56
DX: T14.8XXA Other injury of unspecified body region, initial encounter (principal); W19.XXXA Unspecified fall, initial encounter; Y92.129 Unspecified place in nursing home as the place of occurrence of the external cause; F03.90 Unspecified dementia, unspecified severity, without behavioral disturbance, psychotic disturbance, mood disturbance, and anxiety; G93.41 Metabolic encephalopathy; E11.9 Type 2 diabetes mellitus without complications; I10 Essential (primary) hypertension; Z85.07 Personal history of malignant neoplasm of pancreas; Z79.82 Long term (current) use of aspirin; Z79.4 Long term (current) use of insulin; Z79.84 Long term (current) use of oral hypoglycemic drugs; Z79.899 Other long term (current) drug therapy

== ENCOUNTER 2019-03-19 20:57 | Inpatient (IN) ==
--- OUTSIDE RECORDS SUMMARY | 2019-03-19 21:00 | External Medical Summary | Continuity of Care Document ---
:1940 Author Name Laya Ruelas, Provider Address Unavailable Unavailable , Care Team Providers Name Role Phone Lin Eva LEON Unavailable [email or web address] Unavailable [email or web address] Lydia Ruelas Unavailable [email or web address] Kimberly LEON Unavailable [email or web address] Nora LEON Unavailable [email or web address] Kristan Villarreal M.D. 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) Ataxic gait (781.2) (R26.0) Breast Lump Dizziness (780.4) (R42) Pancreatic insufficiency (577.8) (K86.89) Osteoporosis (733.00) (M81.0) Urinary urgency (788.63) (R39.15) Recurrent UTI (599.0) (N39.0) Hypertension (401.9) (I10) Dyslipidemia (272.4) (E78.5) Diabetic retinopathy, nonproliferative (250.50) (E11.3299) Dementia (294.20) (F03.90) 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 (E11.649) CAROLYN Harris Start: 08-Nov-2015 Quantity: 4 100 Unit Box Refills: 3 Sertraline HCl - 25 MG Oral Tablet; TAKE 2 TABLET Bedtime Suraj Eid Start: 14-Jul-2018 Quantity: 60 Refills: 1 amLODIPine Besylate 5 MG Oral Tablet Refills: 0 Calcitriol 0.25 MCG Oral Capsule Refills: 0 Ibuprofen 200 MG Oral Capsule Refills: 0 Myrbetriq 50 MG Oral Tablet Extended Release 24 Hour Refills: 0 Omeprazole 20 MG Oral Capsule Delayed Release Refills: 0 Simvastatin 40 MG Oral Tablet; TAKE 1 TABLET DAILY AT BEDTIM E. Refills: 0 Sulfamethoxazole-Trimethoprim 800-160 MG Oral Tablet; WHEN SYMPTOMS OF UTI ARE PRESENT START THIS MEDICATION: TAKE 1 TAB TWICE DAILY FOR 3 DAYS - IF NO IMPROVEMENT CALL CAROLYN Arana Start: 04-May-2018 Quantity: 28 Refills: 3 Memantine HCl - 10 MG Oral Tablet; TAKE 1 TABLET TWICE DAILY. Suraj Villarreal Quantity: 180 Refills: 1 Nitrofurantoin Macrocrystal 100 MG Oral Capsule; TAKE 1 CAPSULE AT BEDTIME. CAROLYN Melendez Demi Hernandez Start: 02-Feb-2019 Quantity: 90 Refills: 3 BD Pen Needle Shania U/F 32G X 4 MM; USE 4 DAILY WITH IN SULIN PEN INJECTIONS CAROLYN Harris Start: 19-Apr-2018 Quantity: 4 100 Unit Box Refills: 3 Mometasone Furoate 50 MCG/ACT Nasal Susp ension; USE 1 TO 2 SPRAYS IN EACH NOSTRIL ONCE DAILY. Start: 08-Apr-2018 Refills: 0 17 GM Inhaler metFORMIN HCl - 1000 MG Oral Tablet; TAKE 1 TABLET TWICE HUBER LY. Start: 08-Apr-2018 Quantity: 180 Refills: 3 Acetaminophen 500 MG Oral Tablet; TAKE 2 TABLETS EVERY 6 JANNIE RS NEEDED. Start: 08-Apr-2018 Refills: 0 Aspirin EC 81 MG Oral Tablet Delayed Release; TAKE 1 TABLET DAILY. Start: 08-Apr-2018 Refills: 0 Metoprolol Tartrate 25 MG Oral Tablet; TAKE 0.5 TABLET TWICE DAILY. Start: 08-Apr-2018 Refills: 0 Lansoprazole 30 MG Oral Capsule Delayed Release; TAKE 1 CAPS ULE DAILY. Start: 27-Jan-2016 Refills: 0 Losartan Potassium 50 MG Oral Tablet; take 1 tablet by mouth twice a day Start: 27-Jan-2016 Refills: 0 Rivastigmine Tartrate 6 MG Oral Capsule; TAKE 1 CAPSUL E TWICE DAILY. Suraj Villarreal Start: 23-Jul-2015 Quantity: 180 Refills: 1 Toujeo SoloStar 300 UNIT/ML Subcutaneous Solution Pen-injector; inject 10 units daily LinCAROLYN Start: 05-May-2018 Quantity: 1 3 x 1.5 ML Pen Refills: 1 TechLite Lancets; Test 4 times daily CAROLYN Harris 100 Unit Box Quantity: 4 Refills: 3 Pancrelipase CPEP Refills: 0 Eye Allergy Relief 0.025-0.3 % Ophthalmi c Solution; INSTILL 1 DROP INTO BOTH EYES ONCE DAILY. Refills: 0 Mag64 535 (64 Mg) MG TBCR; TAKE 1/2 TABLET DAILY. Start: 27-Jan-2016 Refills: 0 NovoLOG FlexPen 100 UNIT/ML Subcutaneous Solution Pen-injector; inject 6 units with breakfast and lunch and 6 units with dinner LinCAROLYN Start : 14-Jul-2016 Quantity: 1 5 x 3 ML Pen Refills: 1 Accu-Chek Radha Plus In Vitro Strip; USE TO TEST AT LE AST 4 TIMES A DAY LinCAROLYN 100 Strip Box Quantity: 4 Refills: 3 Risedronate Sodium 150 MG Oral Tablet; Take 1 tablet once a month. Start: 27-Jan-2016 Refills: 0 Procedures History of Cholecystectomy Status: Compl eted History of Breast Surgery Lumpectomy Sta tus: Completed Immunizations Pneumococcal polysaccharide vaccine, 23 valent On: 2005 Influenza On: 04-Jun-2016 Influenza On: 2017 Family History Unknown Family Member Family history of Coronary Artery Disease Status: Active Comments: Family History (V17.49) Family history of Type 1 Diabetes Mellitus Status: Active Comments: Family History Mother Family history of diabetes mellitus (V18.0) (Z83.3) Status: Active Father Family history of cardiac disorder (V17.49) (Z82.49) Status: Active Social History - Smoking Status Unknown if ever smoked Former smoker Plan of Treatment Planned Encounters Appointment; Gareth Freeman M.D. Start: 26-Apr-2019 11:00 Request Planned Observations Planned Goals not documented Results No Known Results Results not documented Encounters Appointment; Gareth Freeman M.D. 25-Oct-2018 11:00 Encounter Diagnosis: Problem not documented Appointment; Eva Ceballos CRNP 20-Sep-2018 12:00 Encounter Diagnosis: Problem not documented Appointment; Nilam Gutierrez R.D. 24-Jun-2018 12:30 Encounter Diagnosis: Problem not documented Appointment; Madison Harris CRNP 05-May-2018 13:45 Encounter Diagnosis: Problem not documented Appointment; Madison Harris CRNP 29-Apr-2018 14:15 Encounter Diagnosis: Problem not documented Appointment; Gareth Freeman M.D. 26-Apr-2018 10:20 Encounter Diagnosis: Problem not documented Appointment; Madison Harris CRNP 08-Apr-2018 13:45 Encounter Diagnosis: Problem not documented Appointment; Mukesh Villarreal M.D. 16-Mar-2018 10:15 Encounter Diagnosis: Problem not documented Appointment; Madison Harris CRNP 01-Nov-2017 10:45 Encounter Diagnosis: Problem not documented Appointment; Gareth Freeman M.D. 26-Oct-2017 10:20 Encounter Diagnosis: Problem not documented Appointment; Mukesh Villarreal M.D. 16-Sep-2017 11:00 Encounter Diagnosis: Problem not documented Appointment; Madison Harris CRNP 24-Jun-2017 10:15 Encounter Diagnosis: Problem not documented Appointment; Gareth Freeman M.D. 28-Apr-2017 16:40 Encounter Diagnosis: Problem not documented Appointment; Madison Harris CRNP 16-Apr-2017 14:00 Encounter Diagnosis: Problem not documented Appointment; Gareth Freeman M.D. 26-Apr-2019 11:00 Encounter Diagnosis: Problem not documented
[2019-03-19] MEDS ORDERED: cefTRIAXone SODIUM 1,000 MG/50 ML BAG IV STA (21:41)
[2019-03-19] MEDS ORDERED: SODIUM CHLORIDE 0.9% 1000ML 1,000 ML IV ONE (21:41)
[2019-03-19 21:58] LABS: Basophils # (auto) 0.02 K/uL (0-0.2); Basophils % (auto) 0.1 %; Eosinophils # (auto) 0.02 K/uL (0-0.5); Eosinophils % (auto) 0.1 %; Hematocrit (blood only) 36.3 % (37-47); Immature Granulocytes # (auto) 0.05 K/uL (0.00-0.02); Immature Granulocytes % (auto) 0.3 %; Lymphocytes % (auto) 10.1 %; Mean Corpuscular Hgb Conc 33.1 g/dL (32-36); Mean Corpuscular Volume 89.4 fL (80-100); Mean Platelet Volume 10.7 fL (7.4-10.4); Monocytes # (auto) 0.97 K/uL (0.11-0.59); Monocytes % (auto) 6.5 %; Neutrophils # (auto) 12.26 K/uL (1.4-6.5); Neutrophils % (auto) 82.9 %; Platelet Count 293 K/uL (130-400); RDW Coefficient of Variation 13.9 % (11.5-14.5); RDW Standard Deviation 45.6 fL (36.4-46.3); Red Blood Count 4.06 M/uL (4.2-5.4); White Blood Count 14.82 K/uL (4.8-10.8)
--- NOTE | 2019-03-19 21:58 | XRay Report ---
XR chest 1V portable CLINICAL HISTORY: Sepsis COMPARISON STUDY: Chest CT May 16, 2018. Chest radiograph August 15, 2018. FINDINGS: Lung volumes are mildly diminished. There is no pneumothorax or pleural effusion. A calcifi ed right paratracheal lymph node is incidentally noted. Cardiac size is normal. No evidence for pulmo nary edema. Patient is rotated. IMPRESSION: No acute cardiopulmonary findings. Electronically signed by: Blake Padilla M.D. 03/19/2019 9:55 PM
[2019-03-19 22:03] LABS: Partial Thromboplastin Ratio 0.8; Partial Thromboplastin Time 22.4 Seconds (21.0-31.0); Prothrombin Time 10.7 Seconds (9.0-12.0)
[2019-03-19 22:04] LABS: Albumin Level 3.7 gm/dl (3.4-5.0); BUN Creatinine Ratio 27.2 (10-20); Calcium 9.3 mg/dl (8.5-10.1); Creatinine Clr Calc Pharmacy 60.3 ml/min; Est GFR (African American) 97.8; Est GFR (Non-African American) 84.4
[2019-03-19 22:07] LABS: Albumin Globulin Ratio 0.9 (0.9-2); Bilirubin,Total 0.6 mg/dl (0.2-1); Globulin 4.2 gm/dl (2.5-4.0); Total Protein 7.9 gm/dl (6.4-8.2)
[2019-03-19 22:22] LABS: Appearance Urine Cloudy (Clear); Bacteria Urine Automated Negative (Negative); Bilirubin Urine Negative (Negative); Blood Urine 1+ (Negative); Color Urine Yellow; Glucose Urine UA Negative (Negative); Ketones Urine Trace (Negative); Leukocyte Esterase Urine 3+ (Negative); Nitrite Urine Negative (Negative); Protein Urine Negative (Negative); Specific Gravity Urine 1.015 (1.000-1.030); Urobilinogen Urine Negative (Negative); WBC Urine Automated >30 /hpf (0-5)
[2019-03-19] MEDS ORDERED: PIPERACILL/TAZOBAC CONSULT ACTIVE PRN (22:37)
[2019-03-19] MEDS ORDERED: PIPERACILLIN/TAZOBACTAM 4.5 GM/120 ML BAG IV ONE (22:37)
--- NOTE | 2019-03-20 00:31 | Emergency Department Note ---
Entered by Jessi Gutierrez acting as a scribe for Wilber Pederson DO History of Present Illness General Chief complaint: Fever Stated complaint: AMS Source: patient and other (nursing staff) Mode of arrival: EMS History of Present Illness Provider complaint: lower abdominal pain Onset (ago): hour(s) (prior to arrival) Location: abdomen (lower) Radiation: back Relieved By: + none Exacerbated By: + none Associated symptoms: + other (+incontinence stools) The patient is a 78 year old female who presents to the Emergency Room with complaints of lower abdominal pain prior to arrival. Per the nursing staff, the patient has a history of frequent UTIs. They state that the patient has had incontinence stools. They state that the patients mental baseline is dementia. The patient states that she has lower back pain. History is limited secondary to patient's dementia. Home Medications Home Medications Medication Instructions Recorded Confirmed Type Caltrate 600 + D 1 tab PO QDD 06/15/18 03/19/19 History Creon 12,000 units PO BIDM 06/15/18 03/19/19 History Myrbetriq 50 mg PO QDD 06/15/18 03/19/19 History Novolog PenFill U-100 Insulin 4 unit SUBCUT QDL 06/15/18 03/19/19 History Novolog PenFill U-100 Insulin 6 unit SUBCUT BIDM 06/15/18 03/19/19 History Toujeo Max U-300 SoloStar 10 unit SUBCUT HS 06/15/18 03/19/19 History acetaminophen [Acetaminophen Extra 1,000 mg PO Q6H PRN 06/15/18 03/19/19 History Strength] losartan [Cozaar] 50 mg PO AMHS 06/15/18 03/19/19 History memantine 10 mg PO BIDM 06/15/18 03/19/19 History metformin 1,000 mg PO BIDM 06/15/18 03/19/19 History risedronate 150 mg PO MONTHLY 06/15/18 03/19/19 History simvastatin 40 mg PO HS 06/15/18 03/19/19 History amlodipine [Norvasc] 5 mg PO QDD 03/19/19 03/19/19 History aspirin [Aspir-81] 81 mg PO QAM 03/19/19 03/19/19 History calcitonin (salmon) 1 spry NA QAM 03/19/19 03/19/19 History ibuprofen 200 mg PO Q6H PRN 03/19/19 03/19/19 History lansoprazole [Prevacid] 30 mg PO QAM 03/19/19 03/19/19 History magnesium oxide 400 mg PO QDD 03/19/19 03/19/19 History metoprolol tartrate 25 mg PO BIDM 03/19/19 03/19/19 History nitrofurantoin macrocrystal 100 mg PO HS 03/19/19 03/19/19 History rivastigmine tartrate 6 mg PO BIDM 03/19/19 03/19/19 History sertraline 25 mg PO HS 03/19/19 03/19/19 History sodium chloride 1,000 mg PO BIDM 03/19/19 03/19/19 History Allergies Allergy/AdvReac Type Severity Reaction Status Date / Time hydrocodone Allergy Mild UNKNOWN Verified 03/19/19 21:55 repaglinide AdvReac Intermediate SEVERE Verified 03/19/19 21:55 SHAKING sertraline AdvReac Intermediate Hyponatremia Verified 03/19/19 21:55 - SIADH Past Med/Surg History Medical History Lumbar compression fracture (Resolved) Fall (Resolved) Thoracic compression fracture (Resolved) Elevated total protein (Resolved) Type 1 diabetes mellitus (Chronic) Cervical spine fracture (Resolved) Hyponatremia (Resolved) GERD (gastroesophageal reflux disease) (Chronic) Metabolic encephalopathy Hypertension (Chronic) Pancreatic carcinoma (Resolved) Breast CA (Resolved) CHI (closed head injury) (Resolved) Dementia (Chronic) Skin tear of left forearm without complication (Resolved) Altered mental status (Acute) Confusion (Resolved) Contusion of multiple sites (Resolved) Falls (Chronic) Breast cancer right - s/p lumpectomy Compression fracture Dementia GERD (gastroesophageal reflux disease) Hyperlipidemia Hypertension Hyponatremia likely due to SIADH Pancreatic insufficiency Pancreatic tumor unsure if any portion of the pancreas was resected Surgical History S/P tubal ligation (Resolved) H/O lumpectomy History of cholecystectomy [address] [place] [address] ([place]) Family History Father Myocardial infarction Mother Myocardial infarction Other Hypertension Social History Preferred Language: Faroese Communication Ability: Impaired Visual Impairment: Limited Beliefs That Will Affect Care: None Current Living Situation: Fdc other: did various jobs - [employer] ([employer] office) Feels Safe at Home: Yes Smoking Status: Unknown if ever smoked Hx Alcohol Use: No Hx Substance Use: No Review of Systems See HPI for pertinent positives & negatives. and A total of 10 systems reviewed and were otherwise negative Physical Exam Vital Signs Vital Signs - 24 hr 03/19/19 21:05 03/19/19 21:06 03/19/19 21:15 Temperature 38.4 C H Temperature Source Oral Sepsis Recent Fever Within 48 Hours Yes Sepsis New/Unexplained Change in Mental Status No Sepsis Action Taken by Nursing No Action Required Pulse Rate 97 H 99 H 96 H Pulse Rate [Left Apical] 99 H Pulse Rate from SpO2 Sensor Pulse Rhythm Regular Pulse Rhythm [Left Apical] Regular Pulse Strength Normal Pulse Strength [Left Apical] Normal Respiratory Rate 25 H 20 21 Respiratory Effort / Characteristics Non-Labored Spontaneous Respiratory Depth Normal Respiratory Pattern Regular Blood Pressure 165/87 H 165/87 H Blood Pressure [Right Arm] 165/87 H Blood Pressure Mean 113 113 Blood Pressure Mean [Right Arm] 113 Blood Pressure Position Lying Blood Pressure Position [Right Arm] Lying Pulse Oximetry 94 Oxygen Delivery Method Room Air 03/19/19 21:30 03/19/19 21:45 03/19/19 22:00 Temperature Temperature Source Sepsis Recent Fever Within 48 Hours Sepsis New/Unexplained Change in Mental Status Sepsis Action Taken by Nursing Pulse Rate 99 H 98 H 97 H Pulse Rate [Left Apical] Pulse Rate from SpO2 Sensor Pulse Rhythm Pulse Rhythm [Left Apical] Pulse Strength Pulse Strength [Left Apical] Respiratory Rate 15 25 H 23 Respiratory Effort / Characteristics Respiratory Depth Respiratory Pattern Blood Pressure Blood Pressure [Right Arm] Blood Pressure Mean Blood Pressure Mean [Right Arm] Blood Pressure Position Blood Pressure Position [Right Arm] Pulse Oximetry Oxygen Delivery Method 03/19/19 22:15 03/19/19 22:20 03/19/19 22:30 Temperature Temperature Source Sepsis Recent Fever Within 48 Hours Sepsis New/Unexplained Change in Mental Status Sepsis Action Taken by Nursing Pulse Rate 93 H 100 H 99 H Pulse Rate [Left Apical] 101 H Pulse Rate from SpO2 Sensor 100 H Pulse Rhythm Pulse Rhythm [Left Apical] Pulse Strength Pulse Strength [Left Apical] Respiratory Rate 26 H 22 28 H Respiratory Effort / Characteristics Respiratory Depth Respiratory Pattern Blood Pressure 168/66 H Blood Pressure [Right Arm] 168/66 H Blood Pressure Mean 100 Blood Pressure Mean [Right Arm] 100 Blood Pressure Position Blood Pressure Position [Right Arm] Semi-fowlers Pulse Oximetry 95 Oxygen Delivery Method Room Air 03/19/19 22:45 03/19/19 23:00 03/19/19 23:15 Temperature Temperature Source Sepsis Recent Fever Within 48 Hours Sepsis New/Unexplained Change in Mental Status Sepsis Action Taken by Nursing Pulse Rate 99 H 95 H 98 H Pulse Rate [Left Apical] Pulse Rate from SpO2 Sensor Pulse Rhythm Pulse Rhythm [Left Apical] Pulse Strength Pulse Strength [Left Apical] Respiratory Rate 21 20 17 Respiratory Effort / Characteristics Respiratory Depth Respiratory Pattern Blood Pressure Blood Pressure [Right Arm] Blood Pressure Mean Blood Pressure Mean [Right Arm] Blood Pressure Position Blood Pressure Position [Right Arm] Pulse Oximetry Oxygen Delivery Method GENERAL: alert, laying in bed, well appearing, well nourished, disheveled, non- toxic EYE EXAM: normal conjunctiva, PERRL and EOM's grossly intact OROPHARYNX: no exudate, no erythema, lips, buccal mucosa, and tongue normal and mucous membranes are moist NECK: supple, no nuchal rigidity, no adenopathy, non-tender LUNGS: Clear to auscultation. Normal chest wall mechanics HEART: S1 normal and S2 normal ABDOMEN: abdomen soft, non-tender, normo-active bowel sounds, no masses, no rebound or guarding. BACK: Back is symmetrical on inspection and there is no deformity, no midline tenderness, no CVA tenderness. SKIN: no rashes and no bruising UPPER EXTREMITIES: upper extremities are grossly normal. LOWER EXTREMITIES: No pitting edema. NEURO EXAM: oriented to person, but not place or year, non focal, baseline according to medics, cranial nerves II-XII grossly intact, normal speech, no gross weakness of arms, no gross weakness of legs. Course 2107: The patient was evaluated in room A2, and a complete history and physical examination were performed. 2209: I reviewed the patient's case with Dr. John [facility] He will evaluate the patient for further management. Consultations Consultation #1: Dr. John [facility] Hospitalist Time: 22:10 Administered Medications Discontinued Medications Ceftriaxone Sodium (Rocephin) 1,000 mg in 50 mls @ 100 mls/hr IV NOW STA Stop: 03/19/19 22:10 Last Infusion: 03/19/19 22:48 Dose: 0 mls/hr Documented by: [id number] Admin: 03/19/19 22:20 Dose: 100 mls/hr Documented by: [id number] Sodium Chloride (Nss 1000ml) 1,000 mls @ 999 mls/hr IV .Q1H1M ONE Stop: 03/19/19 22:41 Last Infusion: 03/20/19 00:06 Dose: 0 mls/hr Documented by: [id number] Admin: 03/19/19 22:20 Dose: 999 mls/hr Documented by: [id number] Piperacillin Sod/Tazobactam Sod (Zosyn) 4.5 gm in 120 mls @ 240 mls/hr IV NOW ONE Stop: 03/19/19 23:06 Last Infusion: 03/20/19 00:06 Dose: 0 mls/hr Documented by: [id number] Admin: 03/19/19 22:48 Dose: 240 mls/hr Documented by: [id number] Medical Decision Making Differential Diagnosis Differential diagnosis: Etiologies such as sepsis, UTI, pneumonia, metabolic, electrolyte abnormalities, cardiac sources, intracerebral event, toxicologic, neurologic, as well as others were entertained. Medical Records Attestation: I reviewed the patient's medical records. Home Medications Current Medication List: was personally reviewed by me Laboratory Data Attestation: I reviewed the patient's lab results. Result diagrams: 03/19/19 20:44 03/19/19 20:44 Lab Results 03/19/19 03/19/19 03/19/19 Range/Units 20:44 20:44 20:44 WBC 14.82 H (4.8-10.8) K/uL RBC 4.06 L (4.2-5.4) M/uL Hgb 12.0 (12.0-16.0) g/dL Hct 36.3 L (37-47) % MCV 89.4 (80-100) fL MCH 29.6 (25-34) pg MCHC 33.1 (32-36) g/dL RDW Std Deviation 45.6 (36.4-46.3) fL RDW Coeff of Chandni 13.9 (11.5-14.5) % Plt Count 293 (130-400) K/uL MPV 10.7 H (7.4-10.4) fL Immature Gran % (Auto) 0.3 % Neut % (Auto) 82.9 % Lymph % (Auto) 10.1 % Gage % (Auto) 6.5 % Eos % (Auto) 0.1 % Baso % (Auto) 0.1 % Immature Gran # (Auto) 0.05 H (0.00-0.02) K/uL Neut # (Auto) 12.26 H (1.4-6.5) K/uL Lymph # (Auto) 1.50 (1.2-3.4) K/uL Gage # (Auto) 0.97 H (0.11-0.59) K/uL Eos # (Auto) 0.02 (0-0.5) K/uL Baso # (Auto) 0.02 (0-0.2) K/uL PT 10.7 (9.0-12.0) Seconds INR 1.0 (0.9-1.1) APTT 22.4 (21.0-31.0) Seconds PTT Ratio 0.8 Sodium 138 (136-145) mmol/L Potassium 4.0 (3.5-5.1) mmol/L Chloride 102 (98-107) mmol/L Carbon Dioxide 26 (21-32) mmol/L Anion Gap 10.0 (3-11) BUN 19 H (7-18) mg/dl Creatinine 0.68 (0.6-1.2) mg/dl Est Cr Clr Drug Dosing 60.3 ml/min Est GFR ( Amer) 97.8 Est GFR (Non-Af Amer) 84.4 BUN/Creatinine Ratio 27.2 H (10-20) Glucose 78 (70-99) mg/dl Lactate (0.4-2.0) mmol/L Calcium 9.3 (8.5-10.1) mg/dl Total Bilirubin 0.6 (0.2-1) mg/dl AST 19 (15-37) U/L ALT 16 (12-78) U/L Alkaline Phosphatase 55 (45-117) U/L Total Protein 7.9 (6.4-8.2) gm/dl Albumin 3.7 (3.4-5.0) gm/dl Globulin 4.2 H (2.5-4.0) gm/dl Albumin/Globulin Ratio 0.9 (0.9-2) Urine Color Urine Appearance (Clear) Urine pH (4.5-7.5) Ur Specific [place] (1.000-1.030) Urine Protein (Negative) Urine Glucose (UA) (Negative) Urine Ketones (Negative) Urine Blood (Negative) Urine Nitrite (Negative) Urine Bilirubin (Negative) Urine Urobilinogen (Negative) Ur Leukocyte Esterase (Negative) Urine WBC (Auto) (0-5) /hpf Urine RBC (Auto) (0-4) /hpf U Hyaline Cast (Auto) (0-5) /lpf U Epithel Cells (Auto) (0-5) /lpf Urine Bacteria (Auto) (Negative) 03/19/19 03/19/19 Range/Units 21:30 22:04 WBC (4.8-10.8) K/uL RBC (4.2-5.4) M/uL Hgb (12.0-16.0) g/dL Hct (37-47) % MCV (80-100) fL MCH (25-34) pg MCHC (32-36) g/dL RDW Std Deviation (36.4-46.3) fL RDW Coeff of Chandni (11.5-14.5) % Plt Count (130-400) K/uL MPV (7.4-10.4) fL Immature Gran % (Auto) % Neut % (Auto) % Lymph % (Auto) % Gage % (Auto) % Eos % (Auto) % Baso % (Auto) % Immature Gran # (Auto) (0.00-0.02) K/uL Neut # (Auto) (1.4-6.5) K/uL Lymph # (Auto) (1.2-3.4) K/uL Gage # (Auto) (0.11-0.59) K/uL Eos # (Auto) (0-0.5) K/uL Baso # (Auto) (0-0.2) K/uL PT (9.0-12.0) Seconds INR (0.9-1.1) APTT (21.0-31.0) Seconds PTT Ratio Sodium (136-145) mmol/L Potassium (3.5-5.1) mmol/L Chloride (98-107) mmol/L Carbon Dioxide (21-32) mmol/L Anion Gap (3-11) BUN (7-18) mg/dl Creatinine (0.6-1.2) mg/dl Est Cr Clr Drug Dosing ml/min Est GFR ( Amer) Est GFR (Non-Af Amer) BUN/Creatinine Ratio (10-20) Glucose (70-99) mg/dl Lactate 1.0 (0.4-2.0) mmol/L Calcium (8.5-10.1) mg/dl Total Bilirubin (0.2-1) mg/dl AST (15-37) U/L ALT (12-78) U/L Alkaline Phosphatase (45-117) U/L Total Protein (6.4-8.2) gm/dl Albumin (3.4-5.0) gm/dl Globulin (2.5-4.0) gm/dl Albumin/Globulin Ratio (0.9-2) Urine Color Yellow Urine Appearance Cloudy A (Clear) Urine pH 8.0 H (4.5-7.5) Ur Specific [place] 1.015 (1.000-1.030) Urine Protein Negative (Negative) Urine Glucose (UA) Negative (Negative) Urine Ketones Trace H (Negative) Urine Blood 1+ H (Negative) Urine Nitrite Negative (Negative) Urine Bilirubin Negative (Negative) Urine Urobilinogen Negative (Negative) Ur Leukocyte Esterase 3+ H (Negative) Urine WBC (Auto) >30 H (0-5) /hpf Urine RBC (Auto) 5-10 H (0-4) /hpf U Hyaline Cast (Auto) 1-5 (0-5) /lpf U Epithel Cells (Auto) 5-10 H (0-5) /lpf Urine Bacteria (Auto) Negative (Negative) Imaging Data Radiologist's Impression: Radiology results as stated below per my review and the radiologist's interpretation: XR chest 1V portable CLINICAL HISTORY: Sepsis COMPARISON STUDY: Chest CT May 16, 2018. Chest radiograph August 15, 2018. FINDINGS: Lung volumes are mildly diminished. There is no pneumothorax or pleural effusion. A calcified right paratracheal lymph node is incidentally noted. Cardiac size is normal. No evidence for pulmonary edema. Patient is rotated. IMPRESSION: No acute cardiopulmonary findings. Electronically signed by: Blake Padilla M.D. 03/19/2019 9:55 PM ECG Data Attestation: I personally reviewed and interpreted this ECG as follows: Indication: altered mental status Rate (beats per minute): 97 Rhythm: sinus rhythm Findings: + other (normal axis); no PVC Blood Pressure Blood Pressure Findings: Elevated blood pressure Blood Pressure Disposition: elevated BP felt to be situational MDM Narrative Patient is a 78-year-old female who presents the ER for possible UTI. Patient was found to be febrile and was brought in by EMS. IV was established and blood work was obtained. Patient was febrile and tachycardic. Labs show a leukocytosis of 14,000. INR was unremarkable. BMP along with LFTs was unremarkable. UA does show a clear UTI as 1 week after being purulent material initially drained out. Patient was initially given Rocephin but upon review of further cultures with enterococcus and ESBL patient was given a dose of Zosyn. She was given fluids as well. Discussed with the hospitalist patient was admitted for sepsis secondary to UTI. Impression & Plan Sepsis, UTI (urinary tract infection), Dementia Discharge Plan Visit Data Chief Complaint: Fever Stated Complaint: AMS ED Provider: Wilber Pederson Discharge Problem: Sepsis, UTI (urinary tract infection), Dementia Patient Disposition: Being Evaluated by Hospitalist Forms Stand Alone Forms: My [facility] Prescriptions Prescriptions: No Action sodium chloride 1 gram Tablet 1,000 mg PO BIDM RF: 0 aspirin [Aspir-81] 81 mg Tablet,Delayed Release (Dr/Ec) 81 mg PO QAM RF: 0 rivastigmine tartrate 6 mg Capsule 6 mg PO BIDM RF: 0 nitrofurantoin macrocrystal 100 mg Capsule 100 mg PO HS RF: 0 lansoprazole [Prevacid] 30 mg Capsule,Delayed Release(Dr/Ec) 30 mg PO QAM RF: 0 ibuprofen 200 mg Tablet 200 mg PO Q6H PRN (Reason: Pain) RF: 0 metoprolol tartrate 25 mg Tablet 25 mg PO BIDM RF: 0 amlodipine [Norvasc] 5 mg tablet 5 mg PO QDD RF: 0 magnesium oxide 400 mg (241.3 mg magnesium) tablet 400 mg PO QDD RF: 0 calcitonin (salmon) 200 unit/actuation spray,non-aerosol 1 spry NA QAM RF: 0 sertraline 50 mg tablet 25 mg PO HS RF: 0 acetaminophen [Acetaminophen Extra Strength] 500 mg Tablet 1,000 mg PO Q6H PRN (Reason: Fever Or Pain) RF: 0 losartan [Cozaar] 50 mg Tablet 50 mg PO AMHS RF: 0 simvastatin 40 mg Tablet 40 mg PO HS RF: 0 metformin 1,000 mg Tablet 1,000 mg PO BIDM RF: 0 Novolog PenFill U-100 Insulin 100 unit/mL Cartridge 6 unit SUBCUT BIDM RF: 0 Novolog PenFill U-100 Insulin 100 unit/mL Cartridge 4 unit SUBCUT QDL RF: 0 memantine 10 mg Tablet 10 mg PO BIDM RF: 0 risedronate 150 mg Tablet 150 mg PO MONTHLY RF: 0 Creon 12,000-38,000 -60,000 unit Capsule,Delayed Release(Dr/Ec) 12,000 units PO BIDM RF: 0 Myrbetriq 50 mg Tablet Extended Release 24 Hr 50 mg PO QDD RF: 0 Caltrate 600 + D 600 mg (1,500 mg)-800 unit Tablet,Chewable 1 tab PO QDD RF: 0 Toujeo Max U-300 SoloStar 300 unit/mL (3 mL) Insulin Pen 10 unit SUBCUT HS RF: 0 Referrals Referrals: Toney Morgan [Primary Care Provider] - The scribe's documentation has been prepared under my direction and personally reviewed by me in its entirety. I confirm that the note above accurately reflects all work, treatment, procedures, and medical decision making performed by me.
--- NOTE | 2019-03-20 00:35 | History & Physical Report ---
Date of Service March 20, 2019 Assessment & Plan (1) UTI (urinary tract infection): 78 yo F with history of Dementia, Diabetes, HTN, Hyponatremia, GERD previous h/o ESBL+ UTI presenting with worsening confusion in setting of UTI. Patient was found to be febrile,mildly tachycardic, maintained bp, WBC ct of 14.82, electrolytes, Cr, unremarkable, UA consistent with UTI. CXR was unremarkable, Blood cx's pending. -Past Urine cx showed Enterococcus (08/21), ESBL E. coli ( 07/05/18) , Hafnia alvei (07/20/18), Klebsiella ( 06/21) - received Ceftriaxone, Zosyn in ED - reviewed sensitivities - will opt to continue with Zosyn - F/u new urine culture - IV fluids - UTI possible contributor to change in mental status (2) Acute confusion: likely result of UTI, although underlying dementia, glucose dyregulation , polypharmacy may have all played a roll (3) Dementia: intermittently conversive , waxes and wanes per Continue rivastigmine, memantine Continue Sertraline for anxiety/depression (4) Hypertension: BP elevated on arrival, Continue to monitor Continue amlodipine, losartan, metoprolol (5) Diabetes: ISS held home indulin, held metformin Consider adding basal if indicated (6) GERD (gastroesophageal reflux disease): PPI History of Present Illness Primary Care Provider: Toney Morgan 78 yo F with history of Dementia, Diabetes, HTN, Hyponatremia, GERD previous h/o ESBL+ UTI presenting with worsening confusion. History is mainly per chart, Emergency physician report and patient's . Patient is a poor historian due to mental status. Per patient's , on the afternoon of arrival, patient was growing more shaky, progressively weak, seemingly more incoherent. While patient has advanced dementia at baseline including intermittent hallucination, her mental status was a definite departure from baseline according to her . reports no fever at home, bgl 300's ,Bp 160's. NO abdominal pain, diarrhea, n/v. no light headedness. he report he tested her 5 days ago for uti with a home kit and did not think results were remarkable In the ED patient, patient was found to be febrile,mildly tachycardic, maintained bp, WBC ct of 14.82, electrolytes, Cr, unremarkable, UA consistent with UTI. CXR was unremarkable, Blood cx's pending. Past Urine cx showed Enterococcus (08/21), ESBL E. coli ( 07/05/18) , Hafnia alvei (07/20/18), Klebsiella ( 06/21) . She received Ceftriaxone, Zosyn, IV NSS in ED. Allergies Allergy/AdvReac Type Severity Reaction Status Date / Time hydrocodone Allergy Mild UNKNOWN Verified 03/19/19 21:55 repaglinide AdvReac Intermediate SEVERE Verified 03/19/19 21:55 SHAKING sertraline AdvReac Intermediate Hyponatremia Verified 03/19/19 21:55 - SIADH Home Medications Home Medications Medication Instructions Recorded Confirmed Type Caltrate 600 + D 1 tab PO QDD 06/15/18 03/19/19 History Creon 12,000 units PO BIDM 06/15/18 03/19/19 History Myrbetriq 50 mg PO QDD 06/15/18 03/19/19 History Novolog PenFill U-100 Insulin 4 unit SUBCUT QDL 06/15/18 03/19/19 History Novolog PenFill U-100 Insulin 6 unit SUBCUT BIDM 06/15/18 03/19/19 History Toujeo Max U-300 SoloStar 10 unit SUBCUT HS 06/15/18 03/19/19 History acetaminophen [Acetaminophen Extra 1,000 mg PO Q6H PRN 06/15/18 03/19/19 History Strength] losartan [Cozaar] 50 mg PO AMHS 06/15/18 03/19/19 History memantine 10 mg PO BIDM 06/15/18 03/19/19 History metformin 1,000 mg PO BIDM 06/15/18 03/19/19 History risedronate 150 mg PO MONTHLY 06/15/18 03/19/19 History simvastatin 40 mg PO HS 06/15/18 03/19/19 History amlodipine [Norvasc] 5 mg PO QDD 03/19/19 03/19/19 History aspirin [Aspir-81] 81 mg PO QAM 03/19/19 03/19/19 History calcitonin (salmon) 1 spry NA QAM 03/19/19 03/19/19 History ibuprofen 200 mg PO Q6H PRN 03/19/19 03/19/19 History lansoprazole [Prevacid] 30 mg PO QAM 03/19/19 03/19/19 History magnesium oxide 400 mg PO QDD 03/19/19 03/19/19 History metoprolol tartrate 25 mg PO BIDM 03/19/19 03/19/19 History nitrofurantoin macrocrystal 100 mg PO HS 03/19/19 03/19/19 History rivastigmine tartrate 6 mg PO BIDM 03/19/19 03/19/19 History sertraline 25 mg PO HS 03/19/19 03/19/19 History sodium chloride 1,000 mg PO BIDM 03/19/19 03/19/19 History Past Med/Surg History Medical History Lumbar compression fracture (Resolved) Fall (Resolved) Thoracic compression fracture (Resolved) Elevated total protein (Resolved) Type 1 diabetes mellitus (Chronic) Cervical spine fracture (Resolved) Hyponatremia (Resolved) GERD (gastroesophageal reflux disease) (Chronic) Metabolic encephalopathy Hypertension (Chronic) Pancreatic carcinoma (Resolved) Breast CA (Resolved) CHI (closed head injury) (Resolved) Dementia (Chronic) Skin tear of left forearm without complication (Resolved) Altered mental status (Acute) Confusion (Resolved) Contusion of multiple sites (Resolved) Falls (Chronic) Breast cancer right - s/p lumpectomy Compression fracture Dementia GERD (gastroesophageal reflux disease) Hyperlipidemia Hypertension Hyponatremia likely due to SIADH Pancreatic insufficiency Pancreatic tumor unsure if any portion of the pancreas was resected Surgical History S/P tubal ligation (Resolved) H/O lumpectomy History of cholecystectomy [address] [place] [address] ([place]) Family History Father Myocardial infarction Mother Myocardial infarction Other Hypertension Social History Preferred Language: Yi Communication Ability: Impaired Visual Impairment: Limited 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 Beliefs That Will Affect Care: None Current Living Situation: [facility] 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) Feels Safe at Home: No Is there a partner from a previous relationship who is making you feel unsafe now?: No (Patient confused unable to obtain from questioning) Any Concerns about Your Family Situation: No (Patient confused unable to obtain from questioning) Would You Like to Speak to Someone About Your Situation: No (Patient confused unable to obtain from questioning) Smoking Status: Unknown if ever smoked Hx Alcohol Use: No (Patient confused unable to obtain from questioning at this time) Review of Systems Review of Systems: Unobtainable due to cognitive status Physical Exam Physical Exam: GENERAL APPEARANCE: AOx1 ( to person only) appears to be in no acute distress. HEAD: normocephalic. EYES: PERRL, EOMI. vision is grossly intact. EARS: hearing grossly intact. NOSE: No nasal discharge. NECK: Neck supple, non-tender without lymphadenopathy CARDIAC: Normal S1 and S2. No S3, S4 or murmurs. Rhythm is regular LUNGS: Clear to auscultation and percussion without rales, rhonchi, wheezing or diminished breath sounds. ABDOMEN: Positive bowel sounds. Soft, nondistended, nontender. No guarding or rebound. No masses. LOWER EXTREMITY: no edema NEUROLOGICAL: CN II-XII grossly intact. Strength and sensation symmetric and grossly intact throughout. SKIN: Skin normal color, texture and turgor with no lesions or eruptions. Results & Data Vital Signs (Past 12 Hours) Vital Signs Temp Pulse Pulse Resp BP BP Pulse Ox 03/19/19 23:15 98 H 17 03/19/19 23:00 95 H 20 03/19/19 22:45 99 H 21 03/19/19 22:30 99 H 28 H 03/19/19 22:20 100 H 101 H 22 168/66 H 168/66 H 95 03/19/19 22:15 93 H 26 H 03/19/19 22:00 97 H 23 03/19/19 21:45 98 H 25 H 03/19/19 21:30 99 H 15 03/19/19 21:15 96 H 21 03/19/19 21:06 38.4 C H 99 H 99 H 20 165/87 H 165/87 H 94 03/19/19 21:05 97 H 25 H 165/87 H Laboratory Results Laboratory Results WBC 14.82 K/uL (4.8-10.8) H 03/19/19 20:44 RBC 4.06 M/uL (4.2-5.4) L 03/19/19 20:44 Hgb 12.0 g/dL (12.0-16.0) 03/19/19 20:44 Hct 36.3 % (37-47) L 03/19/19 20:44 MCV 89.4 fL (80-100) 03/19/19 20:44 MCH 29.6 pg (25-34) 03/19/19 20:44 MCHC 33.1 g/dL (32-36) 03/19/19 20:44 RDW Std Deviation 45.6 fL (36.4-46.3) 03/19/19 20:44 RDW Coeff of Chandni 13.9 % (11.5-14.5) 03/19/19 20:44 Plt Count 293 K/uL (130-400) 03/19/19 20:44 MPV 10.7 fL (7.4-10.4) H 03/19/19 20:44 Immature Gran % (Auto) 0.3 % 03/19/19 20:44 Neut % (Auto) 82.9 % 03/19/19 20:44 Lymph % (Auto) 10.1 % 03/19/19 20:44 [place] % (Auto) 6.5 % 03/19/19 20:44 Eos % (Auto) 0.1 % 03/19/19 20:44 Baso % (Auto) 0.1 % 03/19/19 20:44 Immature Gran # (Auto) 0.05 K/uL (0.00-0.02) H 03/19/19 20:44 Neut # (Auto) 12.26 K/uL (1.4-6.5) H 03/19/19 20:44 Lymph # (Auto) 1.50 K/uL (1.2-3.4) 03/19/19 20:44 [place] # (Auto) 0.97 K/uL (0.11-0.59) H 03/19/19 20:44 Eos # (Auto) 0.02 K/uL (0-0.5) 03/19/19 20:44 Baso # (Auto) 0.02 K/uL (0-0.2) 03/19/19 20:44 PT 10.7 Seconds (9.0-12.0) 03/19/19 20:44 INR 1.0 (0.9-1.1) 03/19/19 20:44 APTT 22.4 Seconds (21.0-31.0) 03/19/19 20:44 PTT Ratio 0.8 03/19/19 20:44 Sodium 138 mmol/L (136-145) 03/19/19 20:44 Potassium 4.0 mmol/L (3.5-5.1) 03/19/19 20:44 Chloride 102 mmol/L (98-107) 03/19/19 20:44 Carbon Dioxide 26 mmol/L (21-32) 03/19/19 20:44 Anion Gap 10.0 (3-11) 03/19/19 20:44 BUN 19 mg/dl (7-18) H 03/19/19 20:44 Creatinine 0.68 mg/dl (0.6-1.2) 03/19/19 20:44 Est Cr Clr Drug Dosing 60.3 ml/min 03/19/19 20:44 Est GFR ( Amer) 97.8 03/19/19 20:44 Est GFR (Non-Af Amer) 84.4 03/19/19 20:44 BUN/Creatinine Ratio 27.2 (10-20) H 03/19/19 20:44 Glucose 78 mg/dl (70-99) 03/19/19 20:44 Lactate 1.0 mmol/L (0.4-2.0) 03/19/19 22:04 Calcium 9.3 mg/dl (8.5-10.1) 03/19/19 20:44 Total Bilirubin 0.6 mg/dl (0.2-1) 03/19/19 20:44 AST 19 U/L (15-37) 03/19/19 20:44 ALT 16 U/L (12-78) 03/19/19 20:44 Alkaline Phosphatase 55 U/L (45-117) 03/19/19 20:44 Total Protein 7.9 gm/dl (6.4-8.2) 03/19/19 20:44 Albumin 3.7 gm/dl (3.4-5.0) 03/19/19 20:44 Globulin 4.2 gm/dl (2.5-4.0) H 03/19/19 20:44 Albumin/Globulin Ratio 0.9 (0.9-2) 03/19/19 20:44 Urine Color Yellow 03/19/19 21:30 Urine Appearance Cloudy (Clear) A 03/19/19 21:30 Urine pH 8.0 (4.5-7.5) H 03/19/19 21:30 Ur Specific [place] 1.015 (1.000-1.030) 03/19/19 21:30 Urine Protein Negative (Negative) 03/19/19 21:30 Urine Glucose (UA) Negative (Negative) 03/19/19 21:30 Urine Ketones Trace (Negative) H 03/19/19 21:30 Urine Blood 1+ (Negative) H 03/19/19 21:30 Urine Nitrite Negative (Negative) 03/19/19 21:30 Urine Bilirubin Negative (Negative) 03/19/19 21:30 Urine Urobilinogen Negative (Negative) 03/19/19 21:30 Ur Leukocyte Esterase 3+ (Negative) H 03/19/19 21:30 Urine WBC (Auto) >30 /hpf (0-5) H 03/19/19 21:30 Urine RBC (Auto) 5-10 /hpf (0-4) H 03/19/19 21:30 U Hyaline Cast (Auto) 1-5 /lpf (0-5) 03/19/19 21:30 U Epithel Cells (Auto) 5-10 /lpf (0-5) H 03/19/19 21:30 Urine Bacteria (Auto) Negative (Negative) 03/19/19 21:30 Diagnostic Findings XR chest 1V portable CLINICAL HISTORY: Sepsis COMPARISON STUDY: Chest CT May 16, 2018. Chest radiograph August 15, 2018. FINDINGS: Lung volumes are mildly diminished. There is no pneumothorax or pleural effusion. A calcified right paratracheal lymph node is incidentally noted. Cardiac size is normal. No evidence for pulmonary edema. Patient is rotated. IMPRESSION: No acute cardiopulmonary findings. Electronically signed by: Blake Padilla M.D. 03/19/2019 9:55 PM Dictated: 03/19/192151 Transcribed: 03/19/192151 Medications Administered Piperacillin Sod/Tazobactam (Sod 3.375 gm/ Dextrose) 115 mls @ 28.75 mls/hr IV Q8H [facility]; Protocol Stop: 03/25/19 03:59 Last Admin: 03/20/19 04:19 Dose: 28.8 mls/hr Documented by: [id number] Sodium Chloride (Nss 1000ml) 1,000 mls @ 100 mls/hr IV .Q10H DAVID Stop: 04/19/19 02:01 Last Admin: 03/20/19 02:37 Dose: 100 mls/hr Documented by: [id number] Discontinued Medications Ceftriaxone Sodium (Rocephin) 1,000 mg in 50 mls @ 100 mls/hr IV NOW STA Stop: 03/19/19 22:10 Last Infusion: 03/19/19 22:48 Dose: 0 mls/hr Documented by: [id number] Admin: 03/19/19 22:20 Dose: 100 mls/hr Documented by: [id number] Sodium Chloride (Nss 1000ml) 1,000 mls @ 999 mls/hr IV .Q1H1M ONE Stop: 03/19/19 22:41 Last Infusion: 03/20/19 00:06 Dose: 0 mls/hr Documented by: [id number] Admin: 03/19/19 22:20 Dose: 999 mls/hr Documented by: [id number] Piperacillin Sod/Tazobactam Sod (Zosyn) 4.5 gm in 120 mls @ 240 mls/hr IV NOW ONE Stop: 03/19/19 23:06 Last Infusion: 03/20/19 00:06 Dose: 0 mls/hr Documented by: [id number] Admin: 03/19/19 22:48 Dose: 240 mls/hr Documented by: [id number] ECG Rate (beats per minute): 97 Rhythm: normal sinus Change: no significant change (aug 15 2018) Code Status & VTE Plan Code Status full code VTE Prophylaxis Plan VTE Prophylaxis will be ordered: Yes Supervising Physician Co-Signing Physician Notes Attending addendum: I have physically seen this patient, have supervised the medical residents activities, and agree with the H&P unless as otherwise noted. Assessment and Plan: Recurrent urinary tract infections/multiple different organisms with resistance- 08/15/2018 Enterococcus faecalis pansensitive. 07/20/2018 ESBL E. coli. 07/05/18 Hafnia alvei. Klebsiella oxytoca 06/15/2018 Bactrim resistant. She was initially given ceftriaxone IV in the ED, but then changed to Zosyn IV. Continue Zosyn IV. Follow urine culture and sensitivity. Gentle IV fluid rehydration. UTI likely contributing significantly to metabolic encephalopathy as a change in mental status exacerbating her underlying dementia. Dementia/depression- Continue Rivastigmine, memantine and sertraline. Remainder of orders and notations as noted PG Care Time/CCT Total # of Minutes Spent Total Time Spent with Patient: Total time spent is greater than 50% in coordination of care (as documented) at patient's floor/unit and/or counseling patient: Resident Activity Tracking Resident Involvement: Resident Care Provided Care Provided: Adult Hospital Medicine (1) UTI (urinary tract infection) Hematuria presence: without hematuria Urinary tract infection type: site unspecified Qualified Code(s): N39.0 - Urinary tract infection, site not specified (2) Dementia Dementia behavioral disturbance: without behavioral disturbance Dementia type: unspecified type Qualified Code(s): F03.90 - Unspecified dementia without behavioral disturbance (3) GERD (gastroesophageal reflux disease) Esophagitis presence: esophagitis presence not specified Qualified Code(s): K21.9 - Gastro-esophageal reflux disease without esophagitis (4) Hypertension Hypertension type: essential hypertension Qualified Code(s): I10 - Essential (primary) hypertension
[2019-03-20] MEDS ORDERED: CARBOHYDRATES FOR HYPOGLYCEMIA PO PRN (02:02)
[2019-03-20] MEDS ORDERED: ALUMINUM/MAGNESIUM SUSP 30 ML UDC PO PRN (02:02)
[2019-03-20] MEDS ORDERED: GLUCOSE 40% GEL 15 GM TUBE PO PRN (02:02)
[2019-03-20] MEDS ORDERED: PIPERACILL/TAZOBAC CONSULT ACTIVE PRN (02:02)
[2019-03-20] MEDS ORDERED: ONDANSETRON INJ 2 MG/ML 2 ML VIAL IV PRN (02:02)
[2019-03-20] MEDS ORDERED: GLUCAGON FOR INJ 1 MG VIAL SQ PRN (02:02)
[2019-03-20] MEDS ORDERED: DEXTROSE 50% 50 ML SYRINGE IV PRN (02:02)
[2019-03-20] MEDS ORDERED: ACETAMINOPHEN 325 MG TAB PO PRN (02:02)
[2019-03-20] MEDS ORDERED: GLUCOSE 10 TABS/TUBE PO PRN (02:02)
[2019-03-20] MEDS ORDERED: MAGNESIUM HYDROXIDE SUSP 30 ML UDC PO PRN (02:02)
[2019-03-20] MEDS: SODIUM CHLORIDE 0.9% 1000ML 1,000 ML IV SCH ×2 (02:37→12:43)
[2019-03-20] MEDS: PIPERACILLIN/TAZOBACTAM 3.375 GM in DEXTROSE 5% 100 ML IV SCH ×3 (04:19→21:16)
[2019-03-20 06:38] LABS: Estimated Average Glucose 157 mg/dl; Hemoglobin A1C 7.1 % (4.5-5.6)
[2019-03-20] MEDS: SODIUM CHLORIDE 1 GM TABLET PO SCH ×2 (08:07→16:15)
[2019-03-20] MEDS: ASPIRIN 81 MG ECTAB PO SCH (08:08)
[2019-03-20] MEDS: METOPROLOL TARTRATE 25 MG TAB PO SCH ×2 (08:08→16:17)
[2019-03-20] MEDS: LOSARTAN POTASSIUM 50 MG TAB PO SCH ×2 (08:08→21:16)
[2019-03-20] MEDS: RIVASTIGMINE TARTRATE 1.5 MG CAP PO SCH ×2 (08:10→16:16)
[2019-03-20] MEDS: LANSOPRAZOLE 30 MG SOLTAB PO SCH (08:11)
[2019-03-20] MEDS: MEMANTINE HCL 10 MG TAB PO SCH ×2 (08:11→16:15)
[2019-03-20] MEDS: HEPARIN SOD 5,000 UNIT/0.5 ML VIAL SQ SCH ×2 (08:11→21:17)
[2019-03-20] MEDS ORDERED: PNEUMOCOCCAL ADMINISTRATION CHARGE ONE (08:15)
[2019-03-20] MEDS ORDERED: PNEUMOCOCCAL POLYSACCHARIDES 25 MCG/0.5 ML VIAL/SYR IM ONE (08:15)
[2019-03-20] MEDS: INSULIN ASPART 100 UNITS/ML 3 ML PEN SC SCH ×4 (08:29→20:56)
[2019-03-20] MEDS ORDERED: HydrALAZINE HCL 20 MG/ML VIAL IV PRN (10:16)
[2019-03-20 10:52] LABS: Basophils # (auto) 0.03 K/uL (0-0.2); Basophils % (auto) 0.2 %; Eosinophils # (auto) 0.05 K/uL (0-0.5); Eosinophils % (auto) 0.4 %; Hematocrit (blood only) 30.1 % (37-47); Hemoglobin 9.8 g/dL (12.0-16.0); Immature Granulocytes # (auto) 0.03 K/uL (0.00-0.02); Immature Granulocytes % (auto) 0.2 %; Lymphocytes # (auto) 1.22 K/uL (1.2-3.4); Lymphocytes % (auto) 8.7 %; Mean Corpuscular Hgb Conc 32.6 g/dL (32-36); Mean Corpuscular Volume 90.4 fL (80-100); Mean Platelet Volume 9.4 fL (7.4-10.4); Monocytes # (auto) 0.77 K/uL (0.11-0.59); Monocytes % (auto) 5.5 %; Neutrophils # (auto) 11.93 K/uL (1.4-6.5); Platelet Count 223 K/uL (130-400); RDW Coefficient of Variation 14.3 % (11.5-14.5); RDW Standard Deviation 47.3 fL (36.4-46.3); Red Blood Count 3.33 M/uL (4.2-5.4); White Blood Count 14.03 K/uL (4.8-10.8)
[2019-03-20 11:35] LABS: Est GFR (African American) 82.4; Est GFR (Non-African American) 71.1; Potassium 3.9 mmol/L (3.5-5.1)
[2019-03-20 11:36] LABS: BUN Creatinine Ratio 20.2 (10-20); Calcium 7.9 mg/dl (8.5-10.1); Creatinine Clr Calc Pharmacy 47.6 ml/min
[2019-03-20] MEDS ORDERED: MAGNESIUM OXIDE 400 MG TAB PO SCH (16:30)
[2019-03-20] MEDS ORDERED: AMLODIPINE BESYLATE 5 MG TAB PO SCH (16:30)
[2019-03-20] MEDS ORDERED: MIRABEGRON ER 25 MG TAB PO SCH (16:30)
--- NOTE | 2019-03-20 20:35 | History & Physical Bridge Note ---
Date of Service March 20, 2019 History & Physical Bridge Note I have examined the patient, reviewed the History & Physical and in the interval since the performance of the History & Physical I have noted the following changes of clinical significance: I saw the patient in the early evening and she was eating her dinner and had no complaints except for right lower back pain into her right buttock that was worse with standing and walking. She denied any chest pain or shortness of breath, denied abdominal pains or urinary symptoms. When I asked her if she knew where she was, she replied "I have no idea!" and then laughed. Vitals reviewed Gen: Alert and awake, oriented to person only, very pleasant, NAD HEENT: Anicteric sclerae, EOMI CV: RRR no mgr nl S1S2 Pulm: CTAB no wcr Abd: +BS soft NT ND no masses or hernias Ext: No edema, 2+ DP pulses, no tenderness to palpation of right lower back or buttock Skin: No rashes, warm/dry Glucose readings high in the 200s to 300s here. 78-year-old female with a history of dementia recurrent UTI, diabetes mellitus type I, depression, hyperlipidemia, pancreatic insufficiency, osteoporosis, HTN, hyponatremia, GERD, here with UTI, sepsis, and metabolic encephalopathy. -Continue Zosyn as above -Follow CBC in the morning -Continue gentle IV fluids -Add on Lantus 8 units in the evening and tightened correction factor and carb ratio as well as goal range with supplemental NovoLog based on previous pharmacy recommendations from previous admission -Follow in the morning
[2019-03-20] MEDS ORDERED: INSULIN GLARGINE SOLOSTAR 100 UNITS/ML 3 ML PEN SC SCH (21:00)
[2019-03-20] MEDS ORDERED: SIMVASTATIN 40 MG TAB PO SCH (21:00)
[2019-03-20] MEDS ORDERED: SERTRALINE HCL 50 MG TABLET PO SCH (21:00)
[2019-03-21] MEDS: SODIUM CHLORIDE 0.9% 1000ML 1,000 ML IV SCH (01:48)
[2019-03-21] MEDS: PIPERACILLIN/TAZOBACTAM 3.375 GM in DEXTROSE 5% 100 ML IV SCH (03:27)
[2019-03-21] MEDS: LANSOPRAZOLE 30 MG SOLTAB PO SCH (07:46)
[2019-03-21] MEDS: MEMANTINE HCL 10 MG TAB PO SCH (07:46)
[2019-03-21] MEDS: RIVASTIGMINE TARTRATE 1.5 MG CAP PO SCH (07:46)
[2019-03-21] MEDS: ASPIRIN 81 MG ECTAB PO SCH (07:46)
[2019-03-21] MEDS: LOSARTAN POTASSIUM 50 MG TAB PO SCH (07:47)
[2019-03-21] MEDS: SODIUM CHLORIDE 1 GM TABLET PO SCH (07:47)
[2019-03-21] MEDS: METOPROLOL TARTRATE 25 MG TAB PO SCH (07:47)
[2019-03-21 07:50] LABS: Hematocrit (blood only) 28.8 % (37-47); Hemoglobin 9.4 g/dL (12.0-16.0); Mean Corpuscular Hgb Conc 32.6 g/dL (32-36); Mean Corpuscular Volume 89.4 fL (80-100); Mean Platelet Volume 10.3 fL (7.4-10.4); Platelet Count 218 K/uL (130-400); RDW Coefficient of Variation 13.9 % (11.5-14.5); Red Blood Count 3.22 M/uL (4.2-5.4); White Blood Count 11.15 K/uL (4.8-10.8)
[2019-03-21 08:24] LABS: BUN Creatinine Ratio 19.2 (10-20); Calcium 8.2 mg/dl (8.5-10.1); Creatinine Clr Calc Pharmacy 60.5 ml/min; Est GFR (African American) 100.3; Est GFR (Non-African American) 86.5; Potassium 3.5 mmol/L (3.5-5.1)
[2019-03-21] MEDS: INSULIN ASPART 100 UNITS/ML 3 ML PEN SC SCH ×2 (08:45→12:54)
[2019-03-21] MEDS: HEPARIN SOD 5,000 UNIT/0.5 ML VIAL SQ SCH (08:47)
[2019-03-21] MEDS ORDERED: cefTRIAXone SODIUM 1,000 MG in DEXTROSE 5% 50 ML IV SCH (10:00)
[2019-03-21] MEDS ORDERED: PHARMACY GLYCEMIC MGMT CONSULT PRN (12:07)
--- NOTE | 2019-03-21 14:09 | Discharge Summary ---
Date of Service March 21, 2019 Admission HPI Per Admitting Provider 78 yo F with history of Dementia, Diabetes, HTN, Hyponatremia, GERD previous h/o ESBL+ UTI presenting with worsening confusion. History is mainly per chart, Emergency physician report and patient's . Patient is a poor historian due to mental status. Per patient's , on the afternoon of arrival, patient was growing more shaky, progressively weak, seemingly more incoherent. While patient has advanced dementia at baseline including intermittent hallucination, her mental status was a definite departure from baseline according to her . reports no fever at home, bgl 300's ,Bp 160's. NO abdominal pain, diarrhea, n/v. no light headedness. he report he tested her 5 days ago for uti with a home kit and did not think results were remarkable In the ED patient, patient was found to be febrile,mildly tachycardic, maintained bp, WBC ct of 14.82, electrolytes, Cr, unremarkable, UA consistent with UTI. CXR was unremarkable, Blood cx's pending. Past Urine cx showed Enterococcus (08/21), ESBL E. coli ( 07/05/18) , Hafnia alvei (07/20/18), Klebsiella ( 06/21) . She received Ceftriaxone, Zosyn, IV NSS in ED. Principal Diagnosis UTI, Sepsis Discharge Exam Constitutional WD/WN, vitals as above Eyes PERRL, conjunctivae normal, anicteric sclerae ENMT external ear and nose normal, oropharynx normal Neck trachea midline, no thyromegaly Respiratory normal respiratory effort, lungs clear to auscultation Cardiovascular RRR, no murmur, no edema Gastrointestinal (Abdomen) normal bowel sounds, soft, nontender, no hepatosplenomegaly Musculoskeletal Extremities: extremities normal to inspection; no cyanosis and no clubbing Shoulder: no skin erythema (+TTP over subdeltoid bursa) Skin no rashes, warm and dry Neurologic moves all extremities and awake; no focal motor deficits Psychiatric Orientation: alert, oriented to person and cooperative; + not oriented to place and + not oriented to time Eye Contact: good eye contact Discharge Data Allergies Allergy/AdvReac Type Severity Reaction Status Date / Time hydrocodone Allergy Mild UNKNOWN Verified 03/19/19 21:55 repaglinide AdvReac Intermediate SEVERE Verified 03/19/19 21:55 SHAKING sertraline AdvReac Intermediate Hyponatremia Verified 03/19/19 21:55 - SIADH Consultations 03/19/19 22:37 ED Decision to Admit Stat 03/20/19 02:02 Consult Case Management - Discharge Planning Routine Ordered Studies CXR Hospital Course (1) Sepsis: This pt is a 78 yo F with history of Dementia, Diabetes, HTN, Hyponatremia, GERD previous h/o ESBL+ UTI presenting with worsening confusion in setting of UTI. Patient was found to be febrile,mildly tachycardic, maintained bp, WBC ct of 14.82, electrolytes, Cr, unremarkable, UA consistent with UTI. CXR was unremarkable Sepsis, UTI: -Past Urine cx showed Enterococcus (08/21), ESBL E. coli ( 07/05/18) , Hafnia alvei (07/20/18), Klebsiella ( 06/21) - received Ceftriaxone, Zosyn in ED -based on past urine cultures, she was initially treated with Zosyn Urine culture grew Klebsiella oxytoca pansensitive -Was treated with IVFs and had resolution of fevers, tachycardia. She was mentating at her baseline at time of discharge. Leukocytosis improved to 11k on day of discharge, BCxs remained no growth to date at almost 48 hours and should be followed after discharge Will complete 5 more days of Keflex 500mg po bid and then continue taking prophylactic nitrofurantoin (2) Acute metabolic encephalopathy likely result of UTI, although underlying dementia, glucose dysregulation , polypharmacy may have all played a roll (3) Dementia: intermittently conversive , waxes and wanes per Continue rivastigmine, memantine Continue Sertraline for anxiety/depression (4) Hypertension: BP elevated on arrival, improved after received all antihypertensive meds from home Continue amlodipine, losartan, metoprolol (5) Diabetes: treated with baslal-bolus insulin regimen-continue home dosing along with metformin after discharge had hyperglycemia here secondary to infection A1C well controlled at 7.1% (6) GERD (gastroesophageal reflux disease): PPI (7) Right shoulder pain-consistent with a subdeltoid bursitis-advised ice and NSAIDs prn -f/u PCP Dispo-stable for dc to home Seen by PT/OT and will have home health after discharge (2) UTI (urinary tract infection): (3) Acute confusion: (4) Dementia: (5) Hypertension: (6) Diabetes: (7) GERD (gastroesophageal reflux disease): (8) Shoulder pain: Total Time Total Time Spent Total Time Spent (In Minutes): >30 min Total Time Includes: Examination of the Patient, Discharge Planning and Medication Reconciliation Discharge Plan Discharge Items Patient Disposition: Home - Home Health Services Reason For Visit: METABOLIC ENCEPHALOPATHY, UTI Discharge Diagnosis: UTI Condition: Good Discharge Goals: Decrease discomfort, Diagnostic testing, Improve disease control, Learn about illness and Therapeutic intervention Activity: Resume your previous activity Bathing: No limitations Non-emergency contact: Primary Care Provider Call non-emergency contact if: you have any medication questions, your symptoms worsen, you have a fever and your temperature is above 100.5 Follow-up/Referrals: Toney Morgan [Primary Care Provider] - 03/24/19 9:50 am (A follow up appt. has been made for you with Eva Truong PA-C at Dr. Morgan office on March 24 at 9:50am.) Diet: Carb Count or DM1 Addtl Provider Instructions: Please finish out the course of antibiotics for your urinary tract infection. Please keep the follow up appointment scheduled for you with your PCP. Prescriptions: New cephalexin [Keflex] 500 mg capsule 500 mg PO BID 5 Days Qty: 10 RF: 0 Continued sodium chloride 1 gram Tablet 1,000 mg PO BIDM RF: 0 aspirin [Aspir-81] 81 mg Tablet,Delayed Release (Dr/Ec) 81 mg PO QAM RF: 0 rivastigmine tartrate 6 mg Capsule 6 mg PO BIDM RF: 0 nitrofurantoin macrocrystal 100 mg Capsule 100 mg PO HS RF: 0 lansoprazole [Prevacid] 30 mg Capsule,Delayed Release(Dr/Ec) 30 mg PO QAM RF: 0 ibuprofen 200 mg Tablet 200 mg PO Q6H PRN (Reason: Pain) RF: 0 metoprolol tartrate 25 mg Tablet 25 mg PO BIDM RF: 0 amlodipine [Norvasc] 5 mg tablet 5 mg PO QDD RF: 0 magnesium oxide 400 mg (241.3 mg magnesium) tablet 400 mg PO QDD RF: 0 calcitonin (salmon) 200 unit/actuation spray,non-aerosol 1 spry NA QAM RF: 0 sertraline 50 mg tablet 25 mg PO HS RF: 0 acetaminophen [Acetaminophen Extra Strength] 500 mg Tablet 1,000 mg PO Q6H PRN (Reason: Fever Or Pain) RF: 0 losartan [Cozaar] 50 mg Tablet 50 mg PO AMHS RF: 0 simvastatin 40 mg Tablet 40 mg PO HS RF: 0 metformin 1,000 mg Tablet 1,000 mg PO BIDM RF: 0 Novolog PenFill U-100 Insulin 100 unit/mL Cartridge 6 unit SUBCUT BIDM RF: 0 Novolog PenFill U-100 Insulin 100 unit/mL Cartridge 4 unit SUBCUT QDL RF: 0 memantine 10 mg Tablet 10 mg PO BIDM RF: 0 risedronate 150 mg Tablet 150 mg PO MONTHLY RF: 0 Creon 12,000-38,000 -60,000 unit Capsule,Delayed Release(Dr/Ec) 12,000 units PO BIDM RF: 0 Myrbetriq 50 mg Tablet Extended Release 24 Hr 50 mg PO QDD RF: 0 Caltrate 600 + D 600 mg (1,500 mg)-800 unit Tablet,Chewable 1 tab PO QDD RF: 0 Toujeo Max U-300 SoloStar 300 unit/mL (3 mL) Insulin Pen 10 unit SUBCUT HS RF: 0 Stand-Alone Forms: [facility] Discharge Orders: Discharge Order (Routine); Ordered 03/21/19 Ordered By: Blanca Jack Admission Data Admit Date/Time: 03/20/19 00:53 Attending Provider: Blanca Jack Admit Provider: Ryan Spence Primary Care Provider: Toney Morgan Other Providers: Ryan Spence Service: Medical Other Pending Studies at Discharge: Yes Studies:: Final Blood Culture results
== END 2019-03-21 15:35 | disposition home health service (06) | DRG 871 ==
LOC: ED 20:57 → SUATTDRO 03-20 00:53 → 4E 03-20 00:53

== ENCOUNTER 2019-03-24 06:39 | Inpatient (IN) ==
[2019-03-24] MEDS ORDERED: HYDROmorphone INJ 0.5 MG/0.5 ML SYR IV PRN (07:00)
[2019-03-24 07:34] LABS: iSTAT Creatinine 0.5 mg/dl (0.6-1.3); iSTAT Hemoglobin 9.2 g/dl (12.0-16.0); iSTAT Ionized Calcium 1.21 mmol/l (1.12-1.32); iSTAT Potassium 3.1 mEq/L (3.3-5.0)
--- NOTE | 2019-03-24 07:35 | XRay Report ---
XR chest 1V portable CLINICAL HISTORY: Pt c/o left hip pain pain COMPARISON STUDY: 03/19/2019 FINDINGS: The bones soft tissues and hemidiaphragms are normal. The cardiomediastinal silhouette is n ormal. The lungs are clear. The pulmonary vasculature is normal. IMPRESSION: Negative chest. The above report was generated using voice recognition software. It may contain grammatical, syntax or spelling errors. Electronically signed by: Erwin Morgan M.D. 03/24/2019 7:33 AM
--- NOTE | 2019-03-24 07:36 | XRay Report ---
XR pelvis 1-2V routine CLINICAL HISTORY: Pt c/o left hip pain COMPARISON: None. DISCUSSION: Moderate generalized degenerative change of both hips as well as bony pelvis. Mild nonobs tructive ileus. Extensive soft tissue vascular calcifications. There is no evidence for soft tissue s welling. IMPRESSION: Degenerative change. No acute process. The above report was generated using voice recognition software. It may contain grammatical, syntax or spelling errors. Electronically signed by: Erwin Morgan M.D. 03/24/2019 7:34 AM
[2019-03-24 07:37] LABS: Basophils # (auto) 0.03 K/uL (0-0.2); Basophils % (auto) 0.3 %; Eosinophils # (auto) 0.19 K/uL (0-0.5); Eosinophils % (auto) 1.8 %; Hematocrit (blood only) 28.4 % (37-47); Immature Granulocytes # (auto) 0.05 K/uL (0.00-0.02); Immature Granulocytes % (auto) 0.5 %; Lymphocytes # (auto) 0.95 K/uL (1.2-3.4); Lymphocytes % (auto) 8.8 %; Mean Corpuscular Hgb Conc 31.7 g/dL (32-36); Mean Corpuscular Volume 90.7 fL (80-100); Mean Platelet Volume 9.8 fL (7.4-10.4); Monocytes # (auto) 0.73 K/uL (0.11-0.59); Monocytes % (auto) 6.8 %; Neutrophils # (auto) 8.83 K/uL (1.4-6.5); Neutrophils % (auto) 81.8 %; Platelet Count 292 K/uL (130-400); RDW Coefficient of Variation 14.3 % (11.5-14.5); Red Blood Count 3.13 M/uL (4.2-5.4); White Blood Count 10.78 K/uL (4.8-10.8)
--- NOTE | 2019-03-24 07:37 | XRay Report ---
XR femur LT 2V routine CLINICAL HISTORY: Pt c/o left hip pain COMPARISON: None. DISCUSSION: The clinical cortical defect of the inferior femoral neck. Superimposed degenerative becker ge. Mild calcific trochanteric bursitis. Remainder the femur is unremarkable. There is a small benign bone and chondroma distal femoral shaft. There is no evidence for soft tissue swelling. IMPRESSION: 1. Degenerative change versus occult fracture base femoral neck. 2. CT examination of the left hip is suggested as follow-up. The above report was generated using voice recognition software. It may contain grammatical, syntax or spelling errors. Electronically signed by: Erwin Morgan M.D. 03/24/2019 7:35 AM
[2019-03-24 07:45] LABS: INR 0.9 (0.9-1.1); Partial Thromboplastin Ratio 0.9; Partial Thromboplastin Time 23.1 Seconds (21.0-31.0); Prothrombin Time 9.7 Seconds (9.0-12.0)
[2019-03-24 07:46] LABS: Calcium 9.3 mg/dl (8.5-10.1); Creatinine Clr Calc Pharmacy 70.5 ml/min; Est GFR (African American) 100.3; Est GFR (Non-African American) 86.5; Potassium 3.1 mmol/L (3.5-5.1)
[2019-03-24 07:49] LABS: Appearance Urine Clear (Clear); Bacteria Urine Automated Negative (Negative); Bilirubin Urine Negative (Negative); Blood Urine Negative (Negative); Color Urine Yellow; Glucose Urine UA Negative (Negative); Ketones Urine 1+ (Negative); Leukocyte Esterase Urine Trace (Negative); Nitrite Urine Negative (Negative); Protein Urine Negative (Negative); Specific Gravity Urine 1.015 (1.000-1.030); Urobilinogen Urine Negative (Negative); pH Urine 5.5 (4.5-7.5)
[2019-03-24] MEDS ORDERED: IOVERSOL 100ml IV PRN (08:32)
--- NOTE | 2019-03-24 08:50 | CT Scan Report ---
CT head/brain wo con CLINICAL HISTORY: 78 years-old Female presenting with Pt c/o fall. TECHNIQUE: Multidetector CT imaging of the head was performed without the use of intravenous contrast . IV contrast: None. One or more dose lowering techniques were used consistent with the principles of ALARA (as low as reasonably achievable), including automatic exposure control, mA or kV adjustment t o individual patient size, and/or use of iterative reconstruction. COMPARISON: 07/30/2018. CT DOSE (mGy.cm): The estimated cumulative dose is 1544.06. FINDINGS: [employer] topogram: Unremarkable. Proportional ventricular and sulcal prominence, likely age-related parenchymal volume loss. No hemorr talia. Periventricular and subcortical white matter hypoattenuation, nonspecific but likely indicative of chronic small vessel ischemic change. No acute territorial infarct. No mass effect or midline lew ft. No extra-axial fluid collection. Paranasal sinuses and mastoid air cells clear. Calvarium intact. IMPRESSION: 1. Chronic small vessel ischemic change. No acute intracranial abnormality. Electronically signed by: Waqar Guillen M.D. 03/24/2019 8:48 AM
--- NOTE | 2019-03-24 08:51 | CT Scan Report ---
CT cervical spine wo con CLINICAL HISTORY: 78 years-old Female with Pt c/o fall. Acute neck injury status post fall COMPARISON: CT head of same day, CT cervical spine 07/30/2018. TECHNIQUE: Multiple axial CT images of the cervical spine were obtained without contrast. A dose low ering technique was utilized adhering to the principles of ALARA. FINDINGS: Healed fractures about the right pedicle, transverse process and facets at C7. Demineralized appearan ce of the bones. No acute fracture or subluxation identified. Moderate multilevel facet arthrosis wit h mild to moderate spondylitic spurring. No significant disc space narrowing. Mild anterior endplate wedging of the upper thoracic spine appears chronic in nature. Moderate to severe degenerative change s at C1-C2. Evaluation of the central canal and neuroforamina is better assessed by MRI. Multilevel f oraminal narrowing is noted. No definite high-grade central canal stenosis. No pneumothorax. Intralobular septal thickening about the lung apices. Calcification of the carotid v asculature. IMPRESSION: No acute cervical spine fracture or subluxation. The above report was generated using voice recognition software. It may contain grammatical, syntax o r spelling errors. Electronically signed by: Mayo Olsen M.D. 03/24/2019 8:50 AM
--- NOTE | 2019-03-24 08:56 | CT Scan Report ---
Study: CT pelvis and hips HISTORY:: Trauma. Pain. FINDINGS: Findings consistent with a fracture left femoral neck extending to the lateral subcapital r egion. No evidence for dislocation or acetabular protrusion. Bony apposition is considered generally good. End of the study confirms mild generalized degenerative change throughout. Mild stranding soft tissue edema. Atherosclerotic change of the abdomen and pelvic and upper leg arterial structures. IMPRESSION: 1. Fracture left femoral neck extending to the lateral subcapital region. 2. No significant displacement. 3. No evidence for dislocation. Electronically signed by: Erwin Morgan M.D. 03/24/2019 8:55 AM
--- NOTE | 2019-03-24 09:19 | CT Scan Report ---
CHEST CT WITH CONTRAST HISTORY: Acute left-sided hip pain status post fall Pt c/o fall TECHNIQUE: Multiaxial CT images of the chest were performed following the intravenous administration of contrast. A dose lowering technique was utilized adhering to the principles of ALARA. COMPARISON: Chest CT 05/16/2018, CT thoracic spine 07/05/2018 FINDINGS: No focal thyroid nodule. 1.7 x 1.3 cm enlarged right hilar node, previously 1.4 x 0.9 cm. Prominent 9 mm subcarinal lymph node. Heart is normal in size without pericardial effusion. Mitral and aortic a nnular with coronary arterial calcifications. Moderate to severe calcified plaque of the thoracic aor ta without aneurysm. The opacified pulmonary arterial tree is unremarkable. No pneumothorax or pleural effusion. Mild emphysema. Mild intralobular septal thickening of the apice s, right greater than left with mild bilateral bronchial wall thickening. No overt pulmonary edema id entified. Mild subsegmental bibasilar atelectasis/scarring. No focal airspace consolidation typical f or pneumonia. 2 mm solid nodule about the superior segment of the left lower lobe is unchanged and li china benign. No suspicious pulmonary nodules or masses are identified. Central airways appear patent. Mild nonspecific left perinephric stranding. 3 mm nonobstructing calculus of the superior pole left k idney. Pancreatic ductal dilation versus cystic foci of the pancreatic tail appears unchanged. Soft t issues are unremarkable. Demineralized appearance of the bones. Degenerative changes of the spine and shoulders. Multiple healed right-sided rib fractures are noted. No acute rib fracture identified. Un changed burst fracture of T11 with a few millimeters of retropulsion. There is an acute appearing fra cture noted about the superior endplate of T9 with mild superior and anterior endplate compression of less than 20%. No associated retropulsion. Demineralized appearance of the bones. IMPRESSION: 1. No acute intrathoracic abnormality identified. 2. Acute appearing fracture about the superior endplate of T9 with mild superior and anterior endplat e compression of less than 20% is new from 07/05/2018. No associated retropulsion. 3. Remote T11 compression deformity with unchanged retropulsion. 4. Emphysema. 5. Additional findings as above. Electronically signed by: Mayo Olsen M.D. 03/24/2019 9:18 AM
--- NOTE | 2019-03-24 10:47 | History & Physical Report ---
Date of Service March 24, 2019 Assessment & Plan (1) Fracture of femoral neck, left: Bedrest with Sylvester catheter. Orthopedic consultation. Keep n.p.o. in the event that surgery is done later today. IV fluids. Pain control measures Present on Admission?: Yes (2) UTI (urinary tract infection): Recently treated for Klebsiella UTI. She remains on Keflex 500 mg twice daily Present on Admission?: Yes (3) Hypertension: Treated with metoprolol, amlodipine, losartan (4) Type 2 diabetes mellitus: Metformin is on hold. Basal insulin on hold. Sliding scale insulin for now while n.p.o. (5) DVT prophylaxis: Lovenox subcu History of Present Illness Chief Complaint: Mechanical fall with left hip pain Primary Care Provider: Toney Morgan 78-year-old female with dementia who was just discharged on March 21 after developing a UTI with metabolic encephalopathy. She has baseline dementia. She is currently on Keflex 500 mg twice a day for several more days. She suffered a mechanical fall at home and developed left hip pain. She was brought to the ED for evaluation. She has evidence of a left femoral neck fracture. Orthopedic consultation is pending. She will need surgical intervention. Her requests a full CODE STATUS. She has other medical problems including hyper tension, chronic hyponatremia, type 2 diabetes. She will be kept n.p.o. in the event that surgery is done later today Allergies Allergy/AdvReac Type Severity Reaction Status Date / Time hydrocodone Allergy Mild UNKNOWN Verified 03/24/19 07:03 repaglinide AdvReac Intermediate SEVERE Verified 03/24/19 07:03 SHAKING sertraline AdvReac Intermediate Hyponatremia Verified 03/24/19 07:03 - SIADH Home Medications Home Medications Medication Instructions Recorded Confirmed Type Caltrate 600 + D 1 tab PO QDD 06/15/18 03/24/19 History Creon 12,000 units PO BIDM 06/15/18 03/24/19 History Myrbetriq 50 mg PO QDD 06/15/18 03/24/19 History Novolog PenFill U-100 Insulin 4 unit SUBCUT QDL 06/15/18 03/24/19 History Novolog PenFill U-100 Insulin 6 unit SUBCUT BIDM 06/15/18 03/24/19 History Toujeo Max U-300 SoloStar 10 unit SUBCUT HS 06/15/18 03/24/19 History losartan [Cozaar] 50 mg PO AMHS 06/15/18 03/24/19 History memantine 10 mg PO BIDM 06/15/18 03/24/19 History metformin 1,000 mg PO BIDM 06/15/18 03/24/19 History risedronate 150 mg PO MONTHLY 06/15/18 03/24/19 History simvastatin 40 mg PO HS 06/15/18 03/24/19 History amlodipine [Norvasc] 5 mg PO QDD 03/19/19 03/24/19 History aspirin [Aspir-81] 81 mg PO QAM 03/19/19 03/24/19 History calcitonin (salmon) 1 spry NA QAM 03/19/19 03/24/19 History ibuprofen 200 mg PO Q6H PRN 03/19/19 03/24/19 History lansoprazole [Prevacid] 30 mg PO QAM 03/19/19 03/24/19 History magnesium oxide 400 mg PO QDD 03/19/19 03/24/19 History metoprolol tartrate 25 mg PO BIDM 03/19/19 03/24/19 History nitrofurantoin macrocrystal 100 mg PO HS 03/19/19 03/24/19 History rivastigmine tartrate 6 mg PO BIDM 03/19/19 03/24/19 History sertraline 25 mg PO HS 03/19/19 03/24/19 History sodium chloride 1,000 mg PO BIDM 03/19/19 03/24/19 History cephalexin [Keflex] 500 mg PO BID 5 Days #10 cap 03/21/19 03/24/19 Rx Past Med/Surg History Medical History Type 1 diabetes mellitus (Chronic) GERD (gastroesophageal reflux disease) (Chronic) Dementia (Chronic) Dementia (Acute) Falls (Chronic) Breast CA Breast cancer right - s/p lumpectomy CHI (closed head injury) Cervical spine fracture Compression fracture Elevated total protein Fall GERD (gastroesophageal reflux disease) Hyperlipidemia Hypertension Hyponatremia likely due to SIADH Lumbar compression fracture Pancreatic carcinoma Pancreatic insufficiency Pancreatic tumor unsure if any portion of the pancreas was resected Thoracic compression fracture Surgical History S/P tubal ligation (Resolved) H/O lumpectomy History of cholecystectomy [address] [place] [address] ([place], [place]) Family History Father Myocardial infarction Mother Myocardial infarction Other Hypertension Social History Preferred Language: Cuban Communication Ability: Effective Visual Impairment: Limited Beliefs That Will Affect Care: None Current Living Situation: [facility] other: did various jobs - [facility] [employer] ([employer] office) Feels Safe at Home: Yes Smoking Status: Former smoker Tobacco Type: cigarettes Cigarettes Per Day: 1 ppd Hx Alcohol Use: No (Patient confused unable to obtain from questioning at this time) Review of Systems Review of Systems: Unobtainable due to cognitive status Physical Exam Physical Exam: General-alert and oriented x1`, no fevers, no chills HEENT-head atraumatic and normocephalic, TMs intact bilaterally, pupils equal and reactive to light, extraocular muscles intact Neck-no lymphadenopathy or thyromegaly, trachea midline Chest-clear to auscultation percussion. No rales wheezing or rhonchi Cardiac-regular rate and rhythm, normal S1 and S2, no murmurs Abdomen-normal bowel sounds, nontender, no hepatosplenomegaly Extremities-no cyanosis, clubbing, or edema. Left hip discomfort Neuro-cranial nerves II through XII intact, motor and sensory function within normal limits, strength symmetrical , no focal deficits. Baseline dementia Psych-pleasant. Baseline dementia Results & Data Vital Signs (Past 12 Hours) Vital Signs Temp Pulse Resp BP Pulse Ox 03/24/19 09:20 94 H 17 100 03/24/19 09:10 94 H 16 99 03/24/19 09:01 92 H 15 178/80 H 99 03/24/19 09:00 92 H 14 98 03/24/19 08:50 95 H 19 92 03/24/19 08:46 95 H 19 191/70 H 92 03/24/19 08:45 98 H 20 92 03/24/19 08:01 94 H 18 169/76 H 91 03/24/19 08:00 94 H 20 91 03/24/19 07:50 97 H 19 92 03/24/19 07:40 92 H 20 91 03/24/19 07:31 92 H 18 174/73 H 94 03/24/19 07:30 93 H 20 92 03/24/19 07:20 92 H 17 93 03/24/19 07:10 95 H 21 89 L 03/24/19 07:01 89 21 167/73 H 90 03/24/19 07:00 91 H 18 91 03/24/19 06:50 94 H 21 89 L 03/24/19 06:43 91 H 19 197/64 H 90 03/24/19 06:42 37.4 C 98 H 20 197/64 H 92 Laboratory Results 03/24/19 07:12 03/24/19 07:12 PG Care Time/CCT Total # of Minutes Spent Total Time Spent with Patient: Total time spent is greater than 50% in coordination of care (as documented) at patient's floor/unit and/or counseling patient: (1) UTI (urinary tract infection) Hematuria presence: without hematuria Urinary tract infection type: site unspecified Qualified Code(s): N39.0 - Urinary tract infection, site not specified
[2019-03-24] MEDS ORDERED: MoRPHine SULFATE 2 MG/ML CARP IV PRN (11:29)
[2019-03-24] MEDS ORDERED: ALUMINUM/MAGNESIUM SUSP 30 ML UDC PO PRN (11:29)
[2019-03-24] MEDS ORDERED: INSULIN ASPART 100 UNITS/ML 3 ML PEN SC SCH ×2 (11:30→18:00)
[2019-03-24] MEDS ORDERED: GLUCOSE 10 TABS/TUBE PO PRN (12:00)
[2019-03-24] MEDS ORDERED: CARBOHYDRATES FOR HYPOGLYCEMIA PO PRN (12:00)
[2019-03-24] MEDS ORDERED: ENOXAPARIN INJ 40 MG/0.4 ML SYR SQ SCH (12:00)
[2019-03-24] MEDS ORDERED: DEXTROSE 50% 50 ML SYRINGE IV PRN (12:00)
[2019-03-24] MEDS ORDERED: GLUCOSE 40% GEL 15 GM TUBE PO PRN (12:00)
[2019-03-24] MEDS ORDERED: GLUCAGON FOR INJ 1 MG VIAL SQ PRN (12:00)
[2019-03-24] MEDS ORDERED: Nursing to Pharmacy Communication ONE (12:41)
[2019-03-24] MEDS: SODIUM CHLORIDE 0.9% 1000ML 1,000 ML IV SCH ×2 (12:45→21:36)
--- NOTE | 2019-03-24 13:41 | Orthopedic Consultation ---
Date of Consultation March 24, 2019 Assessment & Plan (1) Fracture of femoral neck, left: We plan to proceed with a left hip hemiarthroplasty. I would like to do it later this afternoon. She is currently n.p.o. She did already receive a dose of Lovenox so we will probably do under a general anesthetic. She will likely be placed on aspirin postoperatively for DVT prophylaxis. I went over the risks, benefits, and alternatives to the procedure and her and her has elected to proceed. Present on Admission?: Yes History of Present Illness Reason for Consultation: Left femoral neck fracture Attending Physician: Keven Morris MD History of Present Illness Diane is a pleasant 78-year-old female with mild dementia. She lives in a house with her . She normally ambulates without assistance but she sometimes uses a cane when she is in public. Earlier today she was walking when she tripped and fell and landed onto her left hip. She had severe left hip pain. She came to the emergency room and radiographs demonstrated a displaced left femoral neck fracture. She was admitted to the medical service. Orthopedics was consulted to evaluate and treat. Allergies Allergy/AdvReac Type Severity Reaction Status Date / Time hydrocodone Allergy Mild UNKNOWN Verified 03/24/19 07:03 repaglinide AdvReac Intermediate SEVERE Verified 03/24/19 07:03 SHAKING sertraline AdvReac Intermediate Hyponatremia Verified 03/24/19 07:03 - SIADH Home Medications Home Medications Medication Instructions Recorded Confirmed Type Caltrate 600 + D 1 tab PO QDD 06/15/18 03/24/19 History Creon 12,000 units PO BIDM 06/15/18 03/24/19 History Myrbetriq 50 mg PO QDD 06/15/18 03/24/19 History Novolog PenFill U-100 Insulin 4 unit SUBCUT QDL 06/15/18 03/24/19 History Novolog PenFill U-100 Insulin 6 unit SUBCUT BIDM 06/15/18 03/24/19 History Toujeo Max U-300 SoloStar 10 unit SUBCUT HS 06/15/18 03/24/19 History losartan [Cozaar] 50 mg PO AMHS 06/15/18 03/24/19 History memantine 10 mg PO BIDM 06/15/18 03/24/19 History metformin 1,000 mg PO BIDM 06/15/18 03/24/19 History risedronate 150 mg PO MONTHLY 06/15/18 03/24/19 History simvastatin 40 mg PO HS 06/15/18 03/24/19 History amlodipine [Norvasc] 5 mg PO QDD 03/19/19 03/24/19 History aspirin [Aspir-81] 81 mg PO QAM 03/19/19 03/24/19 History calcitonin (salmon) 1 spry NA QAM 03/19/19 03/24/19 History ibuprofen 200 mg PO Q6H PRN 03/19/19 03/24/19 History lansoprazole [Prevacid] 30 mg PO QAM 03/19/19 03/24/19 History magnesium oxide 400 mg PO QDD 03/19/19 03/24/19 History metoprolol tartrate 25 mg PO BIDM 03/19/19 03/24/19 History nitrofurantoin macrocrystal 100 mg PO HS 03/19/19 03/24/19 History rivastigmine tartrate 6 mg PO BIDM 03/19/19 03/24/19 History sertraline 25 mg PO HS 03/19/19 03/24/19 History sodium chloride 1,000 mg PO BIDM 03/19/19 03/24/19 History cephalexin [Keflex] 500 mg PO BID 5 Days #10 cap 03/21/19 03/24/19 Rx Patient History Medical History Type 2 diabetes mellitus (Chronic) Fracture of femoral neck, left (Acute) Type 1 diabetes mellitus (Chronic) GERD (gastroesophageal reflux disease) (Chronic) Dementia (Chronic) Dementia (Acute) Falls (Chronic) Breast CA Breast cancer right - s/p lumpectomy CHI (closed head injury) Cervical spine fracture Compression fracture Elevated total protein Fall GERD (gastroesophageal reflux disease) Hyperlipidemia Hypertension Hyponatremia likely due to SIADH Lumbar compression fracture Pancreatic carcinoma Pancreatic insufficiency Pancreatic tumor unsure if any portion of the pancreas was resected Thoracic compression fracture Surgical History S/P tubal ligation (Resolved) H/O lumpectomy History of cholecystectomy [address] [place] [address] ([place], [place]) Family History Father Myocardial infarction Mother Myocardial infarction Other Hypertension Social History Preferred Language: Bermudian Communication Ability: Effective Communication Ability Comment: baseline dementia Visual Impairment: Limited Beliefs That Will Affect Care: None Current Living Situation: Spouse other: did various jobs - [employer] ([employer] office) Feels Safe at Home: Yes Safety Concerns: Feels Safe At This Time Smoking Status: Unknown if ever smoked Hx Alcohol Use: No Hx Substance Use: No Review of Systems Review of Systems: All systems reviewed & are unremarkable except as noted in HPI & below Physical Exam Musculoskeletal: On physical examination of her left hip, the leg is shortened and externally rotated. There are no abrasions lesions or lacerations of her skin. She is neurovascular intact. Results & Data Vital Signs (Past 12 Hours) Vital Signs Temp Pulse Pulse Resp BP BP Pulse Ox 03/24/19 11:31 36.8 C 92 H 17 164/66 H 98 03/24/19 11:01 87 16 159/73 H 99 03/24/19 11:00 91 H 18 99 03/24/19 10:50 88 20 99 03/24/19 10:40 88 16 03/24/19 10:31 92 H 15 167/90 H 98 03/24/19 10:30 92 H 18 98 03/24/19 10:20 93 H 14 99 03/24/19 10:10 93 H 14 99 03/24/19 10:01 95 H 18 177/82 H 99 03/24/19 10:00 92 H 16 99 03/24/19 09:50 97 H 7 L 99 03/24/19 09:40 93 H 16 99 03/24/19 09:31 95 H 16 177/82 H 99 03/24/19 09:30 95 H 16 99 03/24/19 09:20 94 H 17 100 03/24/19 09:10 94 H 16 99 03/24/19 09:01 92 H 15 178/80 H 99 03/24/19 09:00 92 H 14 98 03/24/19 08:50 95 H 19 92 03/24/19 08:46 95 H 19 191/70 H 92 03/24/19 08:45 98 H 20 92 03/24/19 08:01 94 H 18 169/76 H 91 03/24/19 08:00 94 H 20 91 06/21/19 07:50 97 H 19 92 06/21/19 07:40 92 H 20 91 03/24/19 07:31 92 H 18 174/73 H 94 03/24/19 07:30 93 H 20 92 03/24/19 07:20 92 H 17 93 03/24/19 07:10 95 H 21 89 L 03/24/19 07:01 89 21 167/73 H 90 03/24/19 07:00 91 H 18 91 03/24/19 06:50 94 H 21 89 L 03/24/19 06:43 91 H 19 197/64 H 90 03/24/19 06:42 37.4 C 98 H 20 197/64 H 92 Diagnostic Findings X-rays of the left hip and pelvis show a displaced left femoral neck fracture.
--- NOTE | 2019-03-24 13:48 | Anesthesiology Consultation ---
Date of Service March 24, 2019 Assessment & Plan (1) Encounter for pre-operative examination: Chart Review Chart Review: Acceptable Risk for Surgery and Patient NOT seen in Pre Admission Testing Patient had dose of lovenox around noon so will need general anesthesia as she is not a candidate for a spinal block until 12 hours after lovenox injection. Patient and agree with plan and had all questions answered. Consent signed by both of them. Consults Requested none History Surgery Operation Date: 03/24/19 07:30 Proposed Procedures p Left Anterior Bipolar Hip Arthroplasty - Mukesh Mcgraw DO Height/Weight Height: 5 ft 7 in Weight: 59.7 kg Allergies Allergy/AdvReac Type Severity Reaction Status Date / Time hydrocodone Allergy Mild UNKNOWN Verified 03/24/19 07:03 repaglinide AdvReac Intermediate SEVERE Verified 03/24/19 07:03 SHAKING sertraline AdvReac Intermediate Hyponatremia Verified 03/24/19 07:03 - SIADH Medications Home Medications Medication Instructions Recorded Confirmed Last Taken Caltrate 600 + D 1 tab PO QDD 06/15/18 03/24/19 03/23/19 Creon 12,000 units PO BIDM 06/15/18 03/24/19 03/23/19 Myrbetriq 50 mg PO QDD 06/15/18 03/24/19 03/23/19 Novolog PenFill U-100 Insulin 4 unit SUBCUT QDL 06/15/18 03/24/19 03/23/19 Novolog PenFill U-100 Insulin 6 unit SUBCUT BIDM 06/15/18 03/24/19 03/23/19 Toujeo Max U-300 SoloStar 10 unit SUBCUT HS 06/15/18 03/24/19 03/23/19 losartan [Cozaar] 50 mg PO AMHS 06/15/18 03/24/19 03/23/19 memantine 10 mg PO BIDM 06/15/18 03/24/19 03/23/19 metformin 1,000 mg PO BIDM 06/15/18 03/24/19 03/23/19 risedronate 150 mg PO MONTHLY 06/15/18 03/24/19 07/05/18 simvastatin 40 mg PO HS 06/15/18 03/24/19 03/23/19 amlodipine [Norvasc] 5 mg PO QDD 03/19/19 03/24/19 03/23/19 aspirin [Aspir-81] 81 mg PO QAM 03/19/19 03/24/19 03/23/19 calcitonin (salmon) 1 spry NA QAM 03/19/19 03/24/19 03/23/19 ibuprofen 200 mg PO Q6H PRN 03/19/19 03/24/19 Unknown lansoprazole [Prevacid] 30 mg PO QAM 03/19/19 03/24/19 03/23/19 magnesium oxide 400 mg PO QDD 03/19/19 03/24/19 03/23/19 metoprolol tartrate 25 mg PO BIDM 03/19/19 03/24/19 03/23/19 nitrofurantoin macrocrystal 100 mg PO HS 03/19/19 03/24/19 03/23/19 rivastigmine tartrate 6 mg PO BIDM 03/19/19 03/24/19 03/23/19 sertraline 25 mg PO HS 03/19/19 03/24/19 03/23/19 sodium chloride 1,000 mg PO BIDM 03/19/19 03/24/19 03/23/19 cephalexin [Keflex] 500 mg PO BID 5 Days #10 cap 03/21/19 03/24/19 03/23/19 Active Medications Generic Name Dose Route Start Last Admin Trade Name Freq PRN Reason Stop Dose Admin Hydromorphone HCl 0.25 mg 03/24/19 07:00 03/24/19 08:53 Dilaudid IV 04/07/19 06:59 0.25 mg Q20M PRN Administration Moderate Pain (Rating 3,4,5,6) Sodium Chloride 1,000 mls @ 80 mls/hr 03/24/19 11:29 03/24/19 12:45 Nss 1000ml IV 04/23/19 11:28 80 mls/hr .[id number] DAVID Administration Ioversol 93 ml 03/24/19 08:32 03/24/19 08:32 Optiray 320 100ml IV 03/28/19 08:31 93 ml ONCE PRN Administration Interaction Checking Past Medical History Medical History Type 2 diabetes mellitus (Chronic) Fracture of femoral neck, left (Acute) Type 1 diabetes mellitus (Chronic) GERD (gastroesophageal reflux disease) (Chronic) Dementia (Chronic) Dementia (Acute) Falls (Chronic) Breast CA Breast cancer right - s/p lumpectomy CHI (closed head injury) Cervical spine fracture Compression fracture Elevated total protein Fall GERD (gastroesophageal reflux disease) Hyperlipidemia Hypertension Hyponatremia likely due to SIADH Lumbar compression fracture Pancreatic carcinoma Pancreatic insufficiency Pancreatic tumor unsure if any portion of the pancreas was resected Thoracic compression fracture Exercise / Class Metabolic Activity III < 4 Walking/Shop/Light housework Past Family History Family History Father Myocardial infarction Mother Myocardial infarction Other Hypertension Past Surgical History Surgical History S/P tubal ligation (Resolved) H/O lumpectomy History of cholecystectomy [address] [place] [address] ([place]) Past Anesthesia History No Hx of Anesthesia Complications and No Family Hx of Anesthesia Complications History of PONV No Hx of PONV and No Hx of Motion Sickness Social History Smoking Status: Former smoker tobacco type: cigarettes Smoking cigarettes per day: 1 ppd Hx Alcohol Use: No alcohol intake frequency: other Hx Substance Use: No Physical Exam Vital Signs Last Vital Signs Temp 37.3 C 03/24/19 14:17 Pulse 89 03/24/19 14:17 Resp 16 03/24/19 14:17 BP 180/62 H 03/24/19 14:17 Pulse Ox 96 03/24/19 14:17 Testing Laboratory Results 03/24/19 07:12 03/24/19 07:12 PT 9.7 Seconds (9.0-12.0) 03/24/19 07:12 INR 0.9 (0.9-1.1) 03/24/19 07:12 APTT 23.1 Seconds (21.0-31.0) 03/24/19 07:12 Urine Color Yellow 03/24/19 07:33 Urine Appearance Clear (Clear) 03/24/19 07:33 Urine pH 5.5 (4.5-7.5) 03/24/19 07:33 Ur Specific [place] 1.015 (1.000-1.030) 03/24/19 07:33 Urine Protein Negative (Negative) 03/24/19 07:33 Urine Glucose (UA) Negative (Negative) 03/24/19 07:33 Urine Ketones 1+ (Negative) H 03/24/19 07:33 Urine Nitrite Negative (Negative) 03/24/19 07:33 Ur Leukocyte Esterase Trace (Negative) H 03/24/19 07:33 Urine WBC (Auto) 1-5 /hpf (0-5) 03/24/19 07:33 Urine RBC (Auto) 5-10 /hpf (0-4) H 03/24/19 07:33 U Hyaline Cast (Auto) 1-5 /lpf (0-5) 03/24/19 07:33 U Epithel Cells (Auto) 5-10 /lpf (0-5) H 03/24/19 07:33 Urine Bacteria (Auto) Negative (Negative) 03/24/19 07:33 Blood Type A Negative 03/24/19 07:12 Antibody Screen NEGATIVE 03/24/19 07:12 03/24/19 03/24/19 12:43 07:22 POC Glucose 193 H POC Glucose (other) 181 H Electrocardiogram Date: 03/24/19 Findings: + NSR @ (91) Normal sinus rhythm Normal ECG When compared with ECG of 19-MAR-2019 21:13, No significant change was found Chest X-Ray Date: 03/24/19 XR chest 1V portable CLINICAL HISTORY: Pt c/o left hip pain pain COMPARISON STUDY: 03/19/2019 FINDINGS: The bones soft tissues and hemidiaphragms are normal. The cardiomediastinal silhouette is normal. The lungs are clear. The pulmonary vasculature is normal. IMPRESSION: Negative chest.
[2019-03-24] MEDS ORDERED: ePHEDrine sulfate 50 MG/ML AMP IV PRN (14:31)
[2019-03-24] MEDS ORDERED: ONDANSETRON INJ 2 MG/ML 2 ML VIAL IV PRN (14:31)
[2019-03-24] MEDS ORDERED: ATROPINE SULFATE 0.1 MG/ML 10ML SYR IV PRN (14:31)
[2019-03-24] MEDS ORDERED: fentaNYL citrate 100 MCG/2 ML VIAL IV PRN (14:31)
[2019-03-24] MEDS ORDERED: LIDOCAINE HCL 2% 2 ML VIAL/AMP(20MG/ML) INFIL ONE (14:50)
[2019-03-24] MEDS ORDERED: PROPOFOL IV EMULSION 10 MG/ML 20 ML VIAL IV ONE (14:50)
[2019-03-24] MEDS ORDERED: ONDANSETRON INJ 2 MG/ML 2 ML VIAL ONE (14:50)
[2019-03-24] MEDS ORDERED: fentaNYL citrate 100 MCG/2 ML VIAL ONE ×2 (14:50→16:16)
[2019-03-24] MEDS ORDERED: CEFAZOLIN 250 MG/ML 1 GM VIAL ONE (15:12)
[2019-03-24] MEDS ORDERED: ALBUMIN HUMAN 5% 12.5 GM/250 ML VIAL IV ONE (15:32)
--- NOTE | 2019-03-24 16:21 | Emergency Department Note ---
Entered by Jasmyne Castellanos acting as a scribe for Charlie Medeiros MD History of Present Illness General Chief complaint: Hip Pain Stated complaint: FALL/HIP PAIN Time Seen by Provider: 03/24/19 06:50 Source: patient and RN notes reviewed Mode of arrival: EMS Limitations: no limitations History of Present Illness Provider complaint: fall Onset (ago): hour(s) (last night) Location: hip and left Radiation: extremity Pain Consistency: + other (episode) Quality: + other (fall) Exacerbated By: + movement Associated symptoms: + denies other symptoms (abd pain), + chest pain and + other (left leg pain) The patient is a 78 year old female who presents to the Emergency Room via EMS following a fall that occurred last night. The patient reports that she is visiting from out of town and that she was hiking mountains last night and suddenly fell on her left hip. She states that she did need help getting up. She denies injuring her head during this fall but notes she has had left-sided chest pain. She also reports that her hip pain radiates down her left leg. She states that she is unable to move the leg secondary to pain. She denies any abdominal pain. Per RN, the patient went to bed last night following the fall but was unable to walk to the bathroom this morning secondary to the pain. She explains that her then called EMS and that the patient is coming from home. Home Medications Home Medications Medication Instructions Recorded Confirmed Type Caltrate 600 + D 1 tab PO QDD 06/15/18 03/24/19 History Creon 12,000 units PO BIDM 06/15/18 03/24/19 History Myrbetriq 50 mg PO QDD 06/15/18 03/24/19 History Novolog PenFill U-100 Insulin 4 unit SUBCUT QDL 06/15/18 03/24/19 History Novolog PenFill U-100 Insulin 6 unit SUBCUT BIDM 06/15/18 03/24/19 History Toujeo Max U-300 SoloStar 10 unit SUBCUT HS 06/15/18 03/24/19 History losartan [Cozaar] 50 mg PO AMHS 06/15/18 03/24/19 History memantine 10 mg PO BIDM 06/15/18 03/24/19 History metformin 1,000 mg PO BIDM 06/15/18 03/24/19 History risedronate 150 mg PO MONTHLY 06/15/18 03/24/19 History simvastatin 40 mg PO HS 06/15/18 03/24/19 History amlodipine [Norvasc] 5 mg PO QDD 03/19/19 03/24/19 History aspirin [Aspir-81] 81 mg PO QAM 03/19/19 03/24/19 History calcitonin (salmon) 1 spry NA QAM 03/19/19 03/24/19 History ibuprofen 200 mg PO Q6H PRN 03/19/19 03/24/19 History lansoprazole [Prevacid] 30 mg PO QAM 03/19/19 03/24/19 History magnesium oxide 400 mg PO QDD 03/19/19 03/24/19 History metoprolol tartrate 25 mg PO BIDM 03/19/19 03/24/19 History nitrofurantoin macrocrystal 100 mg PO HS 03/19/19 03/24/19 History rivastigmine tartrate 6 mg PO BIDM 03/19/19 03/24/19 History sertraline 25 mg PO HS 03/19/19 03/24/19 History sodium chloride 1,000 mg PO BIDM 03/19/19 03/24/19 History cephalexin [Keflex] 500 mg PO BID 5 Days #10 cap 03/21/19 03/24/19 Rx Allergies Allergy/AdvReac Type Severity Reaction Status Date / Time hydrocodone Allergy Mild UNKNOWN Verified 03/24/19 07:03 repaglinide AdvReac Intermediate SEVERE Verified 03/24/19 07:03 SHAKING sertraline AdvReac Intermediate Hyponatremia Verified 03/24/19 07:03 - SIADH Past Med/Surg History Medical History Type 2 diabetes mellitus (Chronic) Fracture of femoral neck, left (Acute) Type 1 diabetes mellitus (Chronic) GERD (gastroesophageal reflux disease) (Chronic) Dementia (Chronic) Dementia (Acute) Falls (Chronic) Breast CA Breast cancer right - s/p lumpectomy CHI (closed head injury) Cervical spine fracture Compression fracture Elevated total protein Fall GERD (gastroesophageal reflux disease) Hyperlipidemia Hypertension Hyponatremia likely due to SIADH Lumbar compression fracture Pancreatic carcinoma Pancreatic insufficiency Pancreatic tumor unsure if any portion of the pancreas was resected Thoracic compression fracture Surgical History S/P tubal ligation (Resolved) H/O lumpectomy History of cholecystectomy [address] [place] [address] ([place]) Family History Father Myocardial infarction Mother Myocardial infarction Other Hypertension Social History Preferred Language: Turkish Communication Ability: Effective Communication Ability Comment: baseline dementia Visual Impairment: Limited Beliefs That Will Affect Care: None marital status: Current Living Situation: Spouse other: did various jobs - [employer] ([email or web address]) Feels Safe at Home: Yes Safety Concerns: Feels Safe At This Time Smoking Status: Former smoker Tobacco Type: cigarettes Cigarettes Per Day: 1 ppd Second Hand Exposure: No Tobacco Cessation Education Requested by Patient: No Hx Alcohol Use: No Hx Substance Use: No Review of Systems See HPI for pertinent positives & negatives. and A total of 10 systems reviewed and were otherwise negative Physical Exam Vital Signs Vital Signs - 24 hr 03/24/19 06:42 03/24/19 06:43 03/24/19 06:50 Temperature 37.4 C Temperature Source Oral Sepsis Action Taken by Nursing No Action Required Pulse Rate 98 H 91 H 94 H Pulse Rate from SpO2 Sensor 91 H 94 H Respiratory Rate 20 19 21 Respiratory Effort / Characteristics Non-Labored Spontaneous Respiratory Depth Normal Blood Pressure 197/64 H 197/64 H Blood Pressure Mean 108 108 Pulse Oximetry 92 90 89 L Oxygen Delivery Method Room Air Oxygen Flow Rate 03/24/19 07:00 03/24/19 07:01 03/24/19 07:10 Temperature Temperature Source Sepsis Action Taken by Nursing Pulse Rate 91 H 89 95 H Pulse Rate from SpO2 Sensor 91 H 91 H 95 H Respiratory Rate 18 21 21 Respiratory Effort / Characteristics Respiratory Depth Blood Pressure 167/73 H Blood Pressure Mean 104 Pulse Oximetry 91 90 89 L Oxygen Delivery Method Oxygen Flow Rate 03/24/19 07:20 03/24/19 07:30 03/24/19 07:31 Temperature Temperature Source Sepsis Action Taken by Nursing Pulse Rate 92 H 93 H 92 H Pulse Rate from SpO2 Sensor 94 H 92 H 93 H Respiratory Rate 17 20 18 Respiratory Effort / Characteristics Respiratory Depth Blood Pressure 174/73 H Blood Pressure Mean 106 Pulse Oximetry 93 92 94 Oxygen Delivery Method Oxygen Flow Rate 03/24/19 07:40 03/24/19 07:50 03/24/19 08:00 Temperature Temperature Source Sepsis Action Taken by Nursing Pulse Rate 92 H 97 H 94 H Pulse Rate from SpO2 Sensor 92 H 95 H 94 H Respiratory Rate 20 19 20 Respiratory Effort / Characteristics Respiratory Depth Blood Pressure Blood Pressure Mean Pulse Oximetry 91 92 91 Oxygen Delivery Method Oxygen Flow Rate 03/24/19 08:01 03/24/19 08:45 03/24/19 08:46 Temperature Temperature Source Sepsis Action Taken by Nursing Pulse Rate 94 H 98 H 95 H Pulse Rate from SpO2 Sensor 95 H 97 H 95 H Respiratory Rate 18 20 19 Respiratory Effort / Characteristics Respiratory Depth Blood Pressure 169/76 H 191/70 H Blood Pressure Mean 107 110 Pulse Oximetry 91 92 92 Oxygen Delivery Method Oxygen Flow Rate 03/24/19 08:50 03/24/19 09:00 03/24/19 09:01 Temperature Temperature Source Sepsis Action Taken by Nursing Pulse Rate 95 H 92 H 92 H Pulse Rate from SpO2 Sensor 95 H 92 H 92 H Respiratory Rate 19 14 15 Respiratory Effort / Characteristics Respiratory Depth Blood Pressure 178/80 H Blood Pressure Mean 112 Pulse Oximetry 92 98 99 Oxygen Delivery Method Oxygen Flow Rate 03/24/19 09:10 03/24/19 09:20 03/24/19 09:30 Temperature Temperature Source Sepsis Action Taken by Nursing Pulse Rate 94 H 94 H 95 H Pulse Rate from SpO2 Sensor 93 H 94 H 94 H Respiratory Rate 16 17 16 Respiratory Effort / Characteristics Respiratory Depth Blood Pressure Blood Pressure Mean Pulse Oximetry 99 100 99 Oxygen Delivery Method Nasal Cannula Oxygen Flow Rate 3 03/24/19 09:31 03/24/19 09:40 03/24/19 09:50 Temperature Temperature Source Sepsis Action Taken by Nursing Pulse Rate 95 H 93 H 97 H Pulse Rate from SpO2 Sensor 93 H 94 H 89 Respiratory Rate 16 16 7 L Respiratory Effort / Characteristics Respiratory Depth Blood Pressure 177/82 H Blood Pressure Mean 113 Pulse Oximetry 99 99 99 Oxygen Delivery Method Oxygen Flow Rate 03/24/19 10:00 03/24/19 10:01 03/24/19 10:10 Temperature Temperature Source Sepsis Action Taken by Nursing Pulse Rate 92 H 95 H 93 H Pulse Rate from SpO2 Sensor 91 H 97 H 93 H Respiratory Rate 16 18 14 Respiratory Effort / Characteristics Respiratory Depth Blood Pressure 177/82 H Blood Pressure Mean 113 Pulse Oximetry 99 99 99 Oxygen Delivery Method Oxygen Flow Rate 03/24/19 10:20 03/24/19 10:30 03/24/19 10:31 Temperature Temperature Source Sepsis Action Taken by Nursing Pulse Rate 93 H 92 H 92 H Pulse Rate from SpO2 Sensor 91 H 93 H 93 H Respiratory Rate 14 18 15 Respiratory Effort / Characteristics Respiratory Depth Blood Pressure 167/90 H Blood Pressure Mean 115 Pulse Oximetry 99 98 98 Oxygen Delivery Method Oxygen Flow Rate 03/24/19 10:40 Temperature Temperature Source Sepsis Action Taken by Nursing Pulse Rate 88 Pulse Rate from SpO2 Sensor Respiratory Rate 16 Respiratory Effort / Characteristics Respiratory Depth Blood Pressure Blood Pressure Mean Pulse Oximetry Oxygen Delivery Method Oxygen Flow Rate GENERAL: Awake, pleasantly confused, well-appearing, in no acute distress HENT: Normocephalic, atraumatic. Oropharynx unremarkable. EYES: Normal conjunctiva. Sclera non-icteric. NECK: Supple. No nuchal rigidity. FROM. No JVD. RESPIRATORY: Clear to auscultation. CARDIAC: Regular rate, normal rhythm. Extremities warm and well perfused. Pulses equal. ABDOMEN: Soft, non-distended. No tenderness to palpation. No rebound or guarding. No masses. RECTAL: Deferred. MUSCULOSKELETAL: Chest examination reveals no tenderness. The back is symmetrical on inspection without obvious abnormality. There is no CVA tenderness to palpation. No joint edema. LOWER EXTREMITIES: Calves are equal size bilaterally and non-tender. No edema. No discoloration. Left leg is shortness and externally rotated. NVI at the foot. NEURO: Pleasantly confused. No sensory or motor deficits noted. SKIN: No rash or jaundice noted. Course 0655: Past medical records reviewed. The patient was evaluated in room A11B. A complete history and physical examination was performed. 0956: I spoke with the patients . He would like everything done, including surgeries. 1005: I discussed the patient's case with Dr. Ladonna Brandt. He will be sending someone to evaluate the patient. 1031: I spoke with Dr. Ibrahima LARSON. He recommends admission of the patient. 1035: I reviewed the patient's case with Dr. Morris - [facility] Hospitalist. He will evaluate the patient for further management. Administered Medications Hydromorphone HCl (Dilaudid) 0.25 mg IV Q20M PRN PRN Reason: Moderate Pain (Rating 3,4,5,6) Stop: 04/07/19 06:59 Last Admin: 03/24/19 08:53 Dose: 0.25 mg Documented by: [id number] Sodium Chloride (Nss 1000ml) 1,000 mls @ 80 mls/hr IV .[id number] DAVID Stop: 04/23/19 11:28 Last Admin: 03/24/19 12:45 Dose: 80 mls/hr Documented by: [id number] Ioversol (Optiray 320 100ml) 93 ml IV ONCE PRN PRN Reason: Interaction Checking Stop: 03/28/19 08:31 Last Admin: 03/24/19 08:32 Dose: 93 ml Documented by: [id number] Discontinued Medications Enoxaparin Sodium (Lovenox) 40 mg SQ Q24H [facility] Stop: 04/23/19 11:59 Last Admin: 03/24/19 12:47 Dose: 40 mg Documented by: [id number] Medical Decision Making Differential Diagnosis Differential diagnosis includes: fracture, dislocation, neurovascular compromise, compartment syndrome, soft tissue injury, as well as others were entertained. Medical Records Attestation: I reviewed the patient's medical records. Home Medications Current Medication List: was personally reviewed by me Laboratory Data Attestation: I reviewed the patient's lab results. Result diagrams: 03/24/19 07:12 03/24/19 07:12 Lab Results 03/24/19 03/24/19 03/24/19 Range/Units 07:12 07:12 07:12 WBC 10.78 (4.8-10.8) K/uL RBC 3.13 L (4.2-5.4) M/uL Hgb 9.0 L (12.0-16.0) g/dL POC Hgb (12.0-16.0) g/dl Hct 28.4 L (37-47) % POC Hct (37-47) % MCV 90.7 (80-100) fL MCH 28.8 (25-34) pg MCHC 31.7 L (32-36) g/dL RDW Std Deviation 47.0 H (36.4-46.3) fL RDW Coeff of Chandin 14.3 (11.5-14.5) % Plt Count 292 (130-400) K/uL MPV 9.8 (7.4-10.4) fL Immature Gran % (Auto) 0.5 % Neut % (Auto) 81.8 % Lymph % (Auto) 8.8 % [place] % (Auto) 6.8 % Eos % (Auto) 1.8 % Baso % (Auto) 0.3 % Immature Gran # (Auto) 0.05 H (0.00-0.02) K/uL Neut # (Auto) 8.83 H (1.4-6.5) K/uL Lymph # (Auto) 0.95 L (1.2-3.4) K/uL [place] # (Auto) 0.73 H (0.11-0.59) K/uL Eos # (Auto) 0.19 (0-0.5) K/uL Baso # (Auto) 0.03 (0-0.2) K/uL PT 9.7 (9.0-12.0) Seconds INR 0.9 (0.9-1.1) APTT 23.1 (21.0-31.0) Seconds PTT Ratio 0.9 POC Sodium (135-144) mEq/L Sodium 138 (136-145) mmol/L POC Potassium (3.3-5.0) mEq/L Potassium 3.1 L (3.5-5.1) mmol/L POC Chloride (101-112) mEq/L Chloride 103 (98-107) mmol/L Carbon Dioxide 26 (21-32) mmol/L POC Total CO2 (24-31) mEq/l Anion Gap 9.0 (3-11) POC Anion Gap (16-25) mmol/L POC BUN (7-18) mg/dl BUN 12 (7-18) mg/dl Creatinine 0.63 (0.6-1.2) mg/dl POC Creatinine (0.6-1.3) mg/dl Est Cr Clr Drug Dosing 70.5 ml/min Est GFR ( Amer) 100.3 Est GFR (Non-Af Amer) 86.5 BUN/Creatinine Ratio 19.0 (10-20) Glucose 167 H (70-99) mg/dl POC Glucose (other) (70-99) mg/dl Calcium 9.3 (8.5-10.1) mg/dl POC Ioniz Calcium Kristi (1.12-1.32) mmol/l Urine Color Urine Appearance (Clear) Urine pH (4.5-7.5) Ur Specific [place] (1.000-1.030) Urine Protein (Negative) Urine Glucose (UA) (Negative) Urine Ketones (Negative) Urine Blood (Negative) Urine Nitrite (Negative) Urine Bilirubin (Negative) Urine Urobilinogen (Negative) Ur Leukocyte Esterase (Negative) Urine WBC (Auto) (0-5) /hpf Urine RBC (Auto) (0-4) /hpf U Hyaline Cast (Auto) (0-5) /lpf U Epithel Cells (Auto) (0-5) /lpf Urine Bacteria (Auto) (Negative) Blood Type Antibody Screen 03/24/19 03/24/19 03/24/19 Range/Units 07:12 07:22 07:33 WBC (4.8-10.8) K/uL RBC (4.2-5.4) M/uL Hgb (12.0-16.0) g/dL POC Hgb 9.2 L (12.0-16.0) g/dl Hct (37-47) % POC Hct 27 L (37-47) % MCV (80-100) fL MCH (25-34) pg MCHC (32-36) g/dL RDW Std Deviation (36.4-46.3) fL RDW Coeff of Chandni (11.5-14.5) % Plt Count (130-400) K/uL MPV (7.4-10.4) fL Immature Gran % (Auto) % Neut % (Auto) % Lymph % (Auto) % [place] % (Auto) % Eos % (Auto) % Baso % (Auto) % Immature Gran # (Auto) (0.00-0.02) K/uL Neut # (Auto) (1.4-6.5) K/uL Lymph # (Auto) (1.2-3.4) K/uL [place] # (Auto) (0.11-0.59) K/uL Eos # (Auto) (0-0.5) K/uL Baso # (Auto) (0-0.2) K/uL PT (9.0-12.0) Seconds INR (0.9-1.1) APTT (21.0-31.0) Seconds PTT Ratio POC Sodium 139 (135-144) mEq/L Sodium (136-145) mmol/L POC Potassium 3.1 L (3.3-5.0) mEq/L Potassium (3.5-5.1) mmol/L POC Chloride 101 (101-112) mEq/L Chloride (98-107) mmol/L Carbon Dioxide (21-32) mmol/L POC Total CO2 24 (24-31) mEq/l Anion Gap (3-11) POC Anion Gap 18.0 (16-25) mmol/L POC BUN 10 (7-18) mg/dl BUN (7-18) mg/dl Creatinine (0.6-1.2) mg/dl POC Creatinine 0.5 L (0.6-1.3) mg/dl Est Cr Clr Drug Dosing ml/min Est GFR ( Amer) Est GFR (Non-Af Amer) BUN/Creatinine Ratio (10-20) Glucose (70-99) mg/dl POC Glucose (other) 181 H (70-99) mg/dl Calcium (8.5-10.1) mg/dl POC Ioniz Calcium Kristi 1.21 (1.12-1.32) mmol/l Urine Color Yellow Urine Appearance Clear (Clear) Urine pH 5.5 (4.5-7.5) Ur Specific [place] 1.015 (1.000-1.030) Urine Protein Negative (Negative) Urine Glucose (UA) Negative (Negative) Urine Ketones 1+ H (Negative) Urine Blood Negative (Negative) Urine Nitrite Negative (Negative) Urine Bilirubin Negative (Negative) Urine Urobilinogen Negative (Negative) Ur Leukocyte Esterase Trace H (Negative) Urine WBC (Auto) 1-5 (0-5) /hpf Urine RBC (Auto) 5-10 H (0-4) /hpf U Hyaline Cast (Auto) 1-5 (0-5) /lpf U Epithel Cells (Auto) 5-10 H (0-5) /lpf Urine Bacteria (Auto) Negative (Negative) Blood Type A Negative Antibody Screen NEGATIVE Imaging Data Radiologist's Impression: Radiology results as stated below per my review and the radiologist's interpretation: XR chest 1V portable CLINICAL HISTORY: Pt c/o left hip pain pain COMPARISON STUDY: 03/19/2019 FINDINGS: The bones soft tissues and hemidiaphragms are normal. The cardiomediastinal silhouette is normal. The lungs are clear. The pulmonary vascu lature is normal. IMPRESSION: Negative chest. The above report was generated using voice recognition software. It may contain grammatical, syntax or spelling errors. Electronically signed by: Erwin Morgan M.D. 03/24/2019 7:33 AM XR femur LT 2V routine CLINICAL HISTORY: Pt c/o left hip pain COMPARISON: None. DISCUSSION: The clinical cortical defect of the inferior femoral neck. Superimposed degenerative change. Mild calcific trochanteric bursitis. Remainder the femur is unremarkable. There is a small benign bone and chondroma distal femoral shaft. There is no evidence for soft tissue swelling. IMPRESSION: 1. Degenerative change versus occult fracture base femoral neck. 2. CT examination of the left hip is suggested as follow-up. The above report was generated using voice recognition software. It may contain grammatical, syntax or spelling errors. Electronically signed by: Erwin Morgan M.D. 03/24/2019 7:35 AM XR pelvis 1-2V routine CLINICAL HISTORY: Pt c/o left hip pain COMPARISON: None. DISCUSSION: Moderate generalized degenerative change of both hips as well as bony pelvis. Mild nonobstructive ileus. Extensive soft tissue vascular calcifications. There is no evidence for soft tissue swelling. IMPRESSION: Degenerative change. No acute process. The above report was generated using voice recognition software. It may contain grammatical, syntax or spelling errors. Electronically signed by: Erwin Morgan M.D. 03/24/2019 7:[address] cervical spine wo con CLINICAL HISTORY: 78 years-old Female with Pt c/o fall. Acute neck injury status post fall COMPARISON: CT head of same day, CT cervical spine 07/30/2018. TECHNIQUE: Multiple axial CT images of the cervical spine were obtained without contrast. A dose lowering technique was utilized adhering to the principles of ALARA. FINDINGS: Healed fractures about the right pedicle, transverse process and facets at C7. Demineralized appearance of the bones. No acute fracture or subluxation identified. Moderate multilevel facet arthrosis with mild to moderate spondylitic spurring. No significant disc space narrowing. Mild anterior endplate wedging of the upper thoracic spine appears chronic in nature. Moderate to severe degenerative changes at C1-C2. Evaluation of the central canal and neuroforamina is better assessed by MRI. Multilevel foraminal narrowing is noted. No definite high-grade central canal stenosis. No pneumothorax. Intralobular septal thickening about the lung apices. Calcification of the carotid vasculature. IMPRESSION: No acute cervical spine fracture or subluxation. The above report was generated using voice recognition software. It may contain grammatical, syntax or spelling errors. Electronically signed by: Mayo Olsen M.D. 03/24/2019 8:[address] head/brain wo con CLINICAL HISTORY: 78 years-old Female presenting with Pt c/o fall. TECHNIQUE: Multidetector CT imaging of the head was performed without the use of intravenous contrast. IV contrast: None. One or more dose lowering techniques were used consistent with the principles of ALARA (as low as reasonably achievable), including automatic exposure control, mA or kV adjustment to individual patient size, and/or use of iterative reconstruction. COMPARISON: 07/30/2018. CT DOSE (mGy.cm): The estimated cumulative dose is 1544.06. FINDINGS: Integrated Program Teacher topogram: Unremarkable. Proportional ventricular and sulcal prominence, likely age-related parenchymal volume loss. No hemorrhage. Periventricular and subcortical white matter hypoattenuation, nonspecific but likely indicative of chronic small vessel ischemic change. No acute territorial infarct. No mass effect or midline shift. No extra-axial fluid collection. Paranasal sinuses and mastoid air cells clear. Calvarium intact. IMPRESSION: 1. Chronic small vessel ischemic change. No acute intracranial abnormality. Electronically signed by: Waqar Guillen M.D. 03/24/2019 8:[address] WITH CONTRAST HISTORY: Acute left-sided hip pain status post fall Pt c/o fall TECHNIQUE: Multiaxial CT images of the chest were performed following the intravenous administration of contrast. A dose lowering technique was utilized adhering to the principles of ALARA. COMPARISON: Chest CT 05/16/2018, CT thoracic spine 07/05/2018 FINDINGS: No focal thyroid nodule. 1.7 x 1.3 cm enlarged right hilar node, previously 1.4 x 0.9 cm. Prominent 9 mm subcarinal lymph node. Heart is normal in size without pericardial effusion. Mitral and aortic annular with coronary arterial calcifications. Moderate to severe calcified plaque of the thoracic aorta without aneurysm. The opacified pulmonary arterial tree is unremarkable. No pneumothorax or pleural effusion. Mild emphysema. Mild intralobular septal thickening of the apices, right greater than left with mild bilateral bronchial wall thickening. No overt pulmonary edema identified. Mild subsegmental bibasilar atelectasis/scarring. No focal airspace consolidation typical for pneumonia. 2 mm solid nodule about the superior segment of the left lower lobe is unchanged and likely benign. No suspicious pulmonary nodules or masses are identified. Central airways appear patent. Mild nonspecific left perinephric stranding. 3 mm nonobstructing calculus of the superior pole left kidney. Pancreatic ductal dilation versus cystic foci of the pancreatic tail appears unchanged. Soft tissues are unremarkable. Demineralized appearance of the bones. Degenerative changes of the spine and shoulders. Multiple healed right-sided rib fractures are noted. No acute rib fracture identified. Unchanged burst fracture of T11 with a few millimeters of retropulsion. There is an acute appearing fracture noted about the superior endplate of T9 with mild superior and anterior endplate compression of less than 20%. No associated retropulsion. Demineralized appearance of the bones. IMPRESSION: 1. No acute intrathoracic abnormality identified. 2. Acute appearing fracture about the superior endplate of T9 with mild superior and anterior endplate compression of less than 20% is new from 07/05/2018. No associated retropulsion. 3. Remote T11 compression deformity with unchanged retropulsion. 4. Emphysema. 5. Additional findings as above. Electronically signed by: Mayo Olsen M.D. 03/24/2019 9:18 AM Study: CT pelvis and hips HISTORY:: Trauma. Pain. FINDINGS: Findings consistent with a fracture left femoral neck extending to the lateral subcapital region. No evidence for dislocation or acetabular protrusion. Bony apposition is considered generally good. End of the study confirms mild generalized degenerative change throughout. Mild stranding soft tissue edema. Atherosclerotic change of the abdomen and pelvic and upper leg arterial structures. IMPRESSION: 1. Fracture left femoral neck extending to the lateral subcapital region. 2. No significant displacement. 3. No evidence for dislocation. Electronically signed by: Erwin Morgan M.D. 03/24/2019 8:55 AM ECG Data Attestation: I personally reviewed and interpreted this ECG as follows: Indication: chest pain Rate (beats per minute): 91 Rhythm: normal sinus Findings: no ST depression and no ST elevation Blood Pressure Blood Pressure Findings: Elevated blood pressure Blood Pressure Disposition: further management by hospitalist [facility] Narrative This is a 78-year-old female who presents emergency department complaining of left hip pain. Patient is unable to raise her leg. It is shortened and externally rotated. Based on this the patient was sent for x-rays which were inconclusive therefore the patient was then sent for CAT scan of the head chest spine as well as hip. Patient's CAT scan of the hip is concerning for hip fracture. The patient was given Dilaudid for the pain here in the emergency department. I did discuss the case with the patient's as well as the orthopedic service who asked that the patient be admitted to the medicine team. Patient was in agreement with the treatment plan. Impression & Plan Fracture of femoral neck, left Discharge Plan Visit Data *Final* Discharge Date/Time: 03/24/19 10:59 Chief Complaint: Hip Pain Stated Complaint: FALL/HIP PAIN Other Complaint: Fall ED Provider: Charlie Medeiros Discharge Problem: Fracture of femoral neck, left Patient Disposition: Admitted As Inpatient Discharge Instructions Interventions: ED Discharge Assessment Last Done: 03/24/19 10:59 The azeb's documentation has been prepared under my direction and personally reviewed by me in its entirety. I confirm that the note above accurately reflects all work, treatment, procedures, and medical decision making performed by me.
[2019-03-24] MEDS ORDERED: BUPIVACAINE/EPINEPHRINE 0.5% MPF 1:200,000 30 ML VIAL ONE (16:59)
--- NOTE | 2019-03-24 17:07 | Fluoroscopy Report ---
FL hip LT 2-3V CLINICAL HISTORY: LEFT HIP COMPARISON STUDY: 03/24/2019 FLUOROSCOPY TIME: 18 seconds. NUMBER OF FLUOROSCOPIC IMAGES: 3 FINDINGS: 2 intraoperative fluoroscopic spot images reveal placement of a bipolar left hip arthroplas ty. There is no dislocation identified. Note also is made of a Sylvester catheter within the bladder IMPRESSION: Bipolar left hip arthroplasty. Electronically signed by: Mukund Gavin M.D. 03/24/2019 5:05 PM
--- NOTE | 2019-03-24 17:18 | Operative Report ---
Post Operative Report Pre & Post Diagnosis Operation Date: 03/24/19 07:30 Pre-Op Diagnosis: Left femoral neck fracture Post-Op Diagnosis: Left femoral neck fracture Procedure Operation Date: 03/24/19 07:30 Actual Procedures p Left Anterior Bipolar Hip Arthroplasty, cemented (Left) - Mukesh Mcgraw DO Surgeon Mukesh Mcgraw DO Primary Care Provider Wyatt Aldrich PAC Estimated Blood Loss 200 Findings Consistent with Post-Op Diagnosis Specimens Left femoral head Complications none Disposition Disposition: Recovery Room Indications Diane is a pleasant 78-year-old female who tripped and fell earlier this morning. She laid on her left hip and sustained a left displaced femoral neck fracture. She came to the emergency room and was admitted to the medical service. After consultation with orthopedics she elected to proceed with a left hip hemiarthroplasty. Description of Procedure Implants used Biomet LDFX total hip arthroplasty system with a size 11 cemented stem, a 45 mm bipolar cup with a 28 mm head and a +0 neck. The stem was cemented with Palacos G cement. Patient was taken down from her hospital room to the preoperative holding area. The operative extremity was identified and signed. She is given a preoperative antibiotic. She was taken back to the operative room and laid on the table in the supine position. She was put under general anesthesia. The left leg was then brought up to a Purist leg positioner. The left hip was prepped and draped in sterile fashion. A timeout was done. The patient and the operative extremity was properly identified. An anterior approach was used. Dissection was taken down through the fascia and the tensor was retracted laterally and the rectus was retracted medially the circumflex vessels were ligated. The capsule was then incised and tagged for later repair. The femoral neck was resected and the head was removed. The acetabulum was exposed. The femoral head measured to be a size 45. Soft tissue remnants were removed from the acetabulum. The proximal femur was then exposed. Sequential broaching up to a size 11 broach was done. Off that broach a 45 bipolar cup with a +0 neck was trialed. The hip was reduced. Fluoroscopic images showed anatomic reduction of the hip. The hip was then dislocated. The broach was removed. The final size 11 stem was then cemented into place. Once cement had hardened a 45 mm bipolar cup with a 28 mm head and a +0 neck was impacted into place. Hip was then reduced. Final fluoroscopic images showed anatomic alignment. The wound was then irrigated. The capsule was then closed with #1 Vicryl suture. Surrounding soft tissues were injected with 30 cc of Marcaine with epinephrine. A 3-minute Betadine lavage was then done. The fascia was then closed with #1 PDS suture. Deep soft tissue was closed with 2-0 Vicryl. Skin was closed with 3-0 Vicryl and gumaro. A Tanisha VAC dressing was placed. She was then extubated and transferred to a hospital bed. She was taken to the postanesthesia care unit in stable condition. She tolerated the procedure well. Patient arrived at the hospital for the above procedure. They were seen in the preoperative holding area and the operative extremity was identified and signed. They were given a spinal anesthetic. They were given a preoperative antibiotic and TXA. They were taken back To the operating room and laid on the table in the supine position. The leg was brought out through a Puristst leg positioner. The hip was then prepped and draped in sterile fashion. A timeout was done and the patient in upper extremities properly identified. An anterior approach was used. Dissection was taken down through the fascia and the tensor muscle belly was retracted laterally and the rectus was retracted medially. The circumflex vessels were identified and ligated. The capsule was then incised and tagged for later repair. The femoral neck was then cut and the femoral head was removed. The acetabulum was exposed. Time was spent doing a complete circumferential labral release. Sequential reaming of the acetabulum up to a size [] reamer was done. Final reamings were done under fluoroscopy to ensure appropriate version. A Biomet [] mm G7 cup was then impacted into place. A single 25 mm screw was placed. The E1 polyethylene liner was then snapped into place. Surrounding soft tissues were then injected with 100 cc of an orthopedic pain control cocktail. The proximal femur was then exposed. Sequential broaching up to a size [] broach was done. Off that broach a size [] head with a [] neck was trialed. The hip was reduced and fluoroscopic images showed anatomic alignment of the implants in acceptable length. The broach was removed. The final size [] Taperloc stem was then impacted into place. A ceramic [] mm head with a [] neck was then impacted into place in the hip was reduced. Final fluoroscopic images showed anatomic reduction of the hip. The capsule was then closed with #1 Vicryl suture. A dilute betadyne lavage was then done for 3 minutes. The joint was then irrigated with normal saline solution. The fascia was closed with #1 PDS suture. Skin was closed with 2-0 Vicryl, gumaro, and a Tanisha VAC dressing. The patient was then transferred to a hospital bed and taken to the post anesthesia care unit in stable condition. They tolerated the procedure well. I attest to the content of the Intraoperative Record and any orders documented therein. Any exceptions are noted below.
[2019-03-24] MEDS ORDERED: CEFAZOLIN 1000MG 1,000 MG/7.5 ML SYR IV ONE (17:19)
[2019-03-24] MEDS ORDERED: NEOSTIGMINE METHYLSULFATE 5 MG/5 ML SYR ONE (17:22)
[2019-03-24] MEDS ORDERED: ESMOLOL HCL INJ 10 MG/ML 10ML VIAL IV ONE (17:22)
[2019-03-24] MEDS ORDERED: GLYCOPYRROLATE 0.2 MG/ML VIAL ONE (17:22)
[2019-03-24] MEDS ORDERED: LABETALOL HCL IV 5 MG/ML 20ML IV ONE (17:40)
--- NOTE | 2019-03-24 18:12 | XRay Report ---
XR hip LT min 2V CLINICAL HISTORY: Post-Operative implant position COMPARISON: 03/24/2019 DISCUSSION: There is a bipolar left hip arthroplasty. There is no dislocation. There are overlying sk in gumaro. There is air within soft tissues consistent with recent surgery. The femoral component ap pears well seated. IMPRESSION: Bipolar left hip arthroplasty. No evidence of dislocation. Electronically signed by: Mukund Gavin M.D. 03/24/2019 6:09 PM
[2019-03-24] MEDS ORDERED: NALOXONE HCL 0.4 MG/1 ML VIAL/CARP IV PRN (18:33)
--- NOTE | 2019-03-24 18:47 | Anesthesiology Progress Note ---
Date of Service March 24, 2019 Anesthesia Post Procedure Vital Signs Vital Signs: Temp Pulse Pulse Resp BP BP Pulse Ox 03/24/19 18:22 85 16 163/58 H 97 03/24/19 18:15 91 H 22 172/62 H 95 03/24/19 18:05 93 H 17 151/62 H 95 03/24/19 17:55 84 22 164/53 H 100 03/24/19 17:45 90 16 150/59 H 100 03/24/19 17:35 36.7 C 105 H 16 180/82 H 99 03/24/19 14:17 37.3 C 89 16 180/62 H 96 03/24/19 11:31 36.8 C 92 H 17 164/66 H 98 03/24/19 11:01 87 16 159/73 H 99 03/24/19 11:00 91 H 18 99 03/24/19 10:50 88 20 99 03/24/19 10:40 88 16 03/24/19 10:31 92 H 15 167/90 H 98 03/24/19 10:30 92 H 18 98 03/24/19 10:20 93 H 14 99 03/24/19 10:10 93 H 14 99 03/24/19 10:01 95 H 18 177/82 H 99 03/24/19 10:00 92 H 16 99 03/24/19 09:50 97 H 7 L 99 03/24/19 09:40 93 H 16 99 03/24/19 09:31 95 H 16 177/82 H 99 03/24/19 09:30 95 H 16 99 03/24/19 09:20 94 H 17 100 03/24/19 09:10 94 H 16 99 03/24/19 09:01 92 H 15 178/80 H 99 03/24/19 09:00 92 H 14 98 03/24/19 08:50 95 H 19 92 03/24/19 08:46 95 H 19 191/70 H 92 03/24/19 08:45 98 H 20 92 03/24/19 08:01 94 H 18 169/76 H 91 03/24/19 08:00 94 H 20 91 03/24/19 07:50 97 H 19 92 03/24/19 07:40 92 H 20 91 03/24/19 07:31 92 H 18 174/73 H 94 03/24/19 07:30 93 H 20 92 03/24/19 07:20 92 H 17 93 03/24/19 07:10 95 H 21 89 L 03/24/19 07:01 89 21 167/73 H 90 03/24/19 07:00 91 H 18 91 03/24/19 06:50 94 H 21 89 L 03/24/19 06:43 91 H 19 197/64 H 90 03/24/19 06:42 37.4 C 98 H 20 197/64 H 92 Pain Intensity Bilateral Leg: Pain Intensity: 0 Transfer of Care Handoff Completed per policy Notes Mental Status: alert / awake / arousable and participated in evaluation Patient Amnestic to Procedure: Yes Nausea / Vomiting: adequately controlled Pain: adequately controlled Airway Patency, RR, SpO2: stable & adequate BP & HR: stable & adequate Hydration State: stable & adequate Anesthetic Complications: no major complications apparent
[2019-03-24] MEDS: MEMANTINE HCL 10 MG TAB PO SCH (19:32)
[2019-03-24] MEDS: MAGNESIUM OXIDE 400 MG TAB PO SCH (19:32)
[2019-03-24] MEDS: RIVASTIGMINE TARTRATE 1.5 MG CAP PO SCH (19:33)
[2019-03-24] MEDS: CALCIUM 600MG + VIT D 400 IU TAB PO SCH (19:33)
[2019-03-24] MEDS: PANCREAZE (LIPASE 10,500U) CAP PO SCH (19:34)
[2019-03-24] MEDS: SODIUM CHLORIDE 1 GM TABLET PO SCH (19:35)
[2019-03-24] MEDS: MIRABEGRON ER 25 MG TAB PO SCH (19:36)
[2019-03-24] MEDS: METOPROLOL TARTRATE 25 MG TAB PO SCH (19:36)
[2019-03-24] MEDS: AMLODIPINE BESYLATE 5 MG TAB PO SCH (19:37)
[2019-03-24] MEDS: ASPIRIN 81 MG ECTAB PO SCH (20:58)
[2019-03-24] MEDS: LOSARTAN POTASSIUM 50 MG TAB PO SCH (20:58)
[2019-03-24] MEDS: SIMVASTATIN 40 MG TAB PO SCH (20:58)
[2019-03-24] MEDS: SERTRALINE HCL 50 MG TABLET PO SCH (20:58)
[2019-03-24] MEDS ORDERED: cephALEXin 500 MG CAP PO SCH (21:00)
[2019-03-24] MEDS: INSULIN ASPART 100 UNITS/ML 3 ML PEN SC SCH (21:07)
[2019-03-24] MEDS: CEFAZOLIN 1000MG 1,000 MG/7.5 ML SYR IV SCH (23:59)
[2019-03-25 06:02] LABS: Basophils # (auto) 0.04 K/uL (0-0.2); Basophils % (auto) 0.3 %; Eosinophils # (auto) 0.09 K/uL (0-0.5); Eosinophils % (auto) 0.8 %; Hematocrit (blood only) 23.4 % (37-47); Hemoglobin 7.7 g/dL (12.0-16.0); Immature Granulocytes # (auto) 0.07 K/uL (0.00-0.02); Immature Granulocytes % (auto) 0.6 %; Lymphocytes # (auto) 0.89 K/uL (1.2-3.4); Lymphocytes % (auto) 7.6 %; Mean Corpuscular Hgb Conc 32.9 g/dL (32-36); Mean Corpuscular Volume 89.3 fL (80-100); Mean Platelet Volume 9.8 fL (7.4-10.4); Monocytes # (auto) 0.93 K/uL (0.11-0.59); Monocytes % (auto) 7.9 %; Neutrophils # (auto) 9.76 K/uL (1.4-6.5); Neutrophils % (auto) 82.8 %; Platelet Count 253 K/uL (130-400); RDW Coefficient of Variation 14.1 % (11.5-14.5); RDW Standard Deviation 46.5 fL (36.4-46.3); Red Blood Count 2.62 M/uL (4.2-5.4); White Blood Count 11.78 K/uL (4.8-10.8)
[2019-03-25 06:30] LABS: RBC Morphology Unremarkable
[2019-03-25 06:41] LABS: BUN Creatinine Ratio 17.8 (10-20); Calcium 8.6 mg/dl (8.5-10.1); Creatinine Clr Calc Pharmacy 63.4 ml/min; Est GFR (African American) 96.9; Est GFR (Non-African American) 83.6; Potassium 3.4 mmol/L (3.5-5.1)
--- NOTE | 2019-03-25 07:39 | XRay Report ---
XR chest 1V portable CLINICAL HISTORY: dyspnea COMPARISON STUDY: Chest radiograph and chest CT March 24, 2019. FINDINGS: There is no pneumothorax or pleural effusion. Cardiomediastinal silhouette is stable. Pulmo nary vascular congestion with suspected mild pulmonary edema has developed. Patient is rotated. Calci fied right paratracheal lymph node is again noted. IMPRESSION: Interval development of pulmonary vascular congestion with suspected mild pulmonary richard aKateryna Electronically signed by: Blake Padilla M.D. 03/25/2019 7:38 AM
[2019-03-25] MEDS: INSULIN ASPART 100 UNITS/ML 3 ML PEN SC SCH ×3 (08:57→21:11)
[2019-03-25] MEDS ORDERED: ASPIRIN 81 MG ECTAB PO SCH (09:00)
[2019-03-25] MEDS: RIVASTIGMINE TARTRATE 1.5 MG CAP PO SCH ×2 (09:01→16:48)
[2019-03-25] MEDS: METOPROLOL TARTRATE 25 MG TAB PO SCH ×2 (09:03→16:49)
[2019-03-25] MEDS: PANCREAZE (LIPASE 10,500U) CAP PO SCH ×2 (09:04→16:51)
[2019-03-25] MEDS: MEMANTINE HCL 10 MG TAB PO SCH ×2 (09:04→16:51)
[2019-03-25] MEDS: SODIUM CHLORIDE 1 GM TABLET PO SCH ×2 (09:05→16:51)
[2019-03-25] MEDS: LANSOPRAZOLE 30 MG SOLTAB PO SCH (09:06)
--- NOTE | 2019-03-25 09:06 | Orthopedic Progress Note ---
Date of Service March 25, 2019 Assessment & Plan (1) Fracture of femoral neck, left: With regards to her left hip she is doing fairly well. She is already sitting at bedside. She has some soreness in the hip which is to be expected but she seems motivated. She may need a unit of blood today because her H&H is a little bit low. She was anemic even before the procedure. She is also hyperglycemic and the pharmacy is working on keeping her sugars under control. She can be weightbearing as tolerated. She is on aspirin 81 mg twice a day for DVT prophylaxis. Physical therapy and Occupational Therapy will work with ambulation and range of motion exercises. The Tanisha VAC dressing will stay in place for likely 7 days. Present on Admission?: Yes Subjective Diane was seen and examined at bedside this morning. Overall she is doing fairly well. She says she has some soreness in the hip. She is sitting in the chair at bedside and eating breakfast. She was able to get some sleep last night. She has no complaints. Physical Exam Musculoskeletal: On physical examination of the left hip, the Tanisha VAC dressing is to suction. Her leg lengths are equal. She is active dorsiflexion and plantarflexion of her left ankle. Distal sensation is intact. Results & Data Vital Signs (Past 12 Hours) Vital Signs Temp Pulse Resp BP BP Pulse Ox 03/25/19 07:33 105 H 91 03/25/19 07:00 37.1 C 112 H 18 162/60 H 77 L 03/25/19 04:03 37.8 C H 03/25/19 03:17 38.8 C H 104 H 26 H 158/61 H 92 03/24/19 23:58 36.5 C 93 H 16 163/67 H 92 03/24/19 21:39 37.1 C 03/24/19 21:28 37.6 C H 91 H 17 153/67 H 92 Laboratory Results H & H 03/24/19 03/25/19 Range/Units 07:12 05:35 Hgb 9.0 L 7.7 L (12.0-16.0) g/dL Hct 28.4 L 23.4 L (37-47) % Coagulation 03/24/19 Range/Units 07:12 INR 0.9 (0.9-1.1) Diagnostic Findings Postoperative x-rays of the left hip show the prosthesis to be in anatomic alignment without any evidence of fracture, dislocation, or loosening. (1) Fracture of femoral neck, left Encounter type: initial encounter Fracture type: closed Qualified Code(s): S72.002A - Fracture of unspecified part of neck of left femur, initial encounter for closed fracture
[2019-03-25] MEDS: CALCITONIN SALMON NA 200 IU/AC 3.7 ML BTL SCH (09:07)
[2019-03-25] MEDS: LOSARTAN POTASSIUM 50 MG TAB PO SCH ×2 (09:09→20:40)
[2019-03-25] MEDS: ASPIRIN 81 MG ECTAB PO SCH ×2 (09:09→20:45)
[2019-03-25] MEDS: CEFAZOLIN 1000MG 1,000 MG/7.5 ML SYR IV SCH (09:21)
[2019-03-25] MEDS ORDERED: SODIUM CHLORIDE 0.9% 250 ML IV PRN (09:48)
[2019-03-25] MEDS ORDERED: POTASSIUM CHLORIDE 20 MEQ TABCR PO ONE (10:15)
[2019-03-25] MEDS ORDERED: FUROSEMIDE 20 MG in SYRINGE 0 ML IV ONE (10:15)
[2019-03-25] MEDS ORDERED: FUROSEMIDE 40 MG in SYRINGE 0 ML IV ONE (11:00)
[2019-03-25] MEDS ORDERED: INSULIN REGULAR 250 UNITS in SODIUM CHLORIDE 0.9% 247.5 ML IV SCH (13:00)
[2019-03-25] MEDS ORDERED: INSULIN GLARGINE SOLOSTAR 100 UNITS/ML 3 ML PEN SC STA (13:02)
[2019-03-25] MEDS ORDERED: PHARMACY GLYCEMIC MGMT CONSULT PRN (13:03)
[2019-03-25] MEDS: ACETAMINOPHEN 325 MG TAB PO PRN (14:42)
--- NOTE | 2019-03-25 14:44 | Pharmacy Report ---
Glycemic Control Consultation - Date of Service March 25, 2019 - Scope Scope: Glycemic Pharmacist consulted by Dr Jack on 03/25/19 for glycemic control and to write orders per [facility] inpatient glycemic control protocol - Objective Weight: 59.7 kg Accuchecks BSG (last 24hrs): 03/24/19 03/24/19 03/24/19 17:40 18:45 21:04 Glucose POC Glucose 253 H 249 H 268 H 03/25/19 03/25/19 03/25/19 05:35 08:17 12:08 Glucose 221 H POC Glucose 272 H 355 H* 03/25/19 12:10 Glucose POC Glucose 391 H* Laboratory Data (last 24hrs): 03/25/19 05:35 Potassium 3.4 L Carbon Dioxide 29 Anion Gap 6.0 Creatinine 0.70 Est Cr Clr Drug Dosing 63.4 - Recent Pertinent Medications Outpatient Anti-diabetic Regimen: * Toujeo 10u HS, Novolog 6,4,6 units, Metformin * A1c = 7.1 % 03/20/19 - Assessment & Plan Assessment & Plan: ASSESSMENT: * Ms. Caraballo is a 78yo F known to the pharmacy glycemic service from previous admissions. She is a type I diabetic POD: 1 hip repair. PMHx consistent with dementia, falls, HLD, SIADH, HTN, among others. Based on ADA recommendations her goal A1C% is likely <8/8.5%. Her current A1C is below goal range. * She will be started on an insulin infsn in the setting of hyperglycemia. HCO3 is WNL, I am not worried about DKA at this juncture. * Her last dose of metabolic coverage was 03/23/19. Hyperglycemia likely 2/2 to missed insulin doses. * Metformin is likely being given in type 1 diabetes for its macro-vascular benefits. PLAN FOR INPATIENT GLYCEMIC CONTROL: * Starting IV insulin infusion per moderate stress protocol * Goal Range 140 - 200 mg/dl * Basal insulin * Lantus 10 u X1 stat this afternoon * Bolus insulin * NovoLog per scale PCHS while on insulin gtt * Please note that the plan above was derived based on current level of insulin resistance and hospital stress. These recommendations are appropriate for inpatient admission only. Plan of care upon discharge will need to be reassessed to avoid potential outpatient hypo/hyperglycemia. Thank you.
--- NOTE | 2019-03-25 15:28 | Hospitalist Progress Note ---
Date of Service March 25, 2019 Assessment & Plan (1) Fracture of femoral neck, left: Patient with mechanical fall at home resulting in left hip fracture Now status post ORIF on 03/[address] Mcgraw Had a fever last night and a fever again today-wound looks normal, urinalysis is without infection, chest x-ray without pneumonia, no evidence of DVT on examination. Hypoxia likely due to mild pulmonary edema and severe anemia -Pain control with acetaminophen as needed, morphine IV PRN -PT/OT evaluations will be needed and she will require rehab placement -Appreciate orthopedic surgery management (2) Acute blood loss anemia: Has baseline anemia and then had acute blood loss anemia from fracture and surgery-hemoglobin down to 7.7 today from 9.0 on admission -Transfuse 2 units PRBCs today -will give Lasix 20 mill grams IV x1 this morning for hypoxia and then 40 mg IV x1 in between units of PRBCs -Follow CBC in the morning (3) Fever: With fever last night in the postoperative period and again today, low- grade UA without clear source of infection and recently completed a 7-day course of antibiotics for UTI (Rocephin followed by Keflex) Chest x-ray without infiltrate Wound looks normal Do not suspect DVT or PE Could be from atelectasis -will continue to follow/observe off of all antibiotics although she did receive cefazolin in the perioperative setting -Follow CBC, CMP -Can give acetaminophen as needed (4) UTI (urinary tract infection): Recently admitted and treated for Klebsiella UTI. She completed a 7 day course of Keflex 500 mg twice daily (5) Hypertension: Blood pressures controlled -Treated with metoprolol, amlodipine, losartan (6) Acute respiratory failure with hypoxia: Likely secondary to pulmonary edema and poor respiratory effort with atelectasis as above Chest x-ray with pulmonary edema -Giving IV Lasix this morning and again this afternoon in between units of packed red blood cells -Follow and wean oxygen off as tolerated (7) Type 1 diabetes mellitus: With severe hyperglycemia in the 300s I cannot find clear documentation of whether she has type I or type 2 diabetes or perhaps a combination of each I do know that she has pancreatic insufficiency and perhaps this is playing a role Her was not available when I called him today to find out -Nonetheless, she has no evidence of DKA She is also on metformin at home which is being held -Starting insulin drip and pharmacy is consulted for glycemic management (8) GERD (gastroesophageal reflux disease): Continue lansoprazole (9) Dementia: Moderate to severe at baseline Is able to do some ADLs independently and ambulate with a history of multiple falls -Give supportive care -Continue memantine and rivastigmine, sertraline (10) Vertebral compression fracture: With acute T9 superior endplate vertebral compression fracture with 20% loss of height seen on CT of the chest C-spine CT and CT of the head negative for acute fractures -Pain control as needed -Has history of multiple falls with rib fractures and other vertebral compression fractures in the past -Check vitamin D level in the morning (11) DVT prophylaxis: Aspirin twice daily Disposition-remain hospitalized and will need rehab placement when stable Subjective Patient very drowsy and lethargic and spiked another fever this afternoon. She is not able to tell me much. Says that she has pain in her hip. I asked her if she knew why she was in the hospital and she said she did not know. She had severe hyperglycemia today and was started on insulin drip. She is also requiring oxygen today but chest x-ray remains without infiltrate or effusion. She does have some mild pulmonary edema on chest x-ray. Review of Systems Review of Systems: Unobtainable due to cognitive status Physical Exam Constitutional: WD/WN, vitals as above + ill appearing Eyes: PERRL, conjunctivae normal, anicteric sclerae ENMT: external ear and nose normal, oropharynx normal Neck: trachea midline, no thyromegaly Respiratory: normal respiratory effort (But would not take deep breaths for me on examination); no labored breathing and no cough Auscultation: + diminished lung sounds (At the bases); no crackles, no rhonchi and no wheezes Cardiovascular: RRR, no murmur, no edema Gastrointestinal (Abdomen): normal bowel sounds, soft, nontender, no hepatosplenomegaly Musculoskeletal: Extremities: + extremities abnormal to inspection (Left hip with wound VAC in place in the groin, no edema or hematoma, no erythema), no cyanosis and no clubbing Skin: no rashes, warm and dry Neurologic: awake (But very drowsy) Speech / Cognition: + abnormal cognition (Dementia at baseline) Genitourinary: normal external appearance (Sylvester catheter in place with pale clear yellow urine) Results & Data Vital Signs (Past 12 Hours) Vital Signs Temp Pulse Pulse Resp BP BP Pulse Ox 03/25/19 14:46 37.2 C 103 H 20 159/70 H 03/25/19 14:05 38.1 C H 95 H 18 161/68 H 96 03/25/19 12:30 36.9 C 87 18 159/68 H 98 03/25/19 11:59 36.7 C 16 165/69 H 98 03/25/19 11:57 37.1 C 84 18 168/67 H 99 03/25/19 11:56 37.1 C 84 16 168/67 H 99 03/25/19 11:33 93 03/25/19 11:30 36.8 C 81 18 165/63 H 98 03/25/19 11:15 37.1 C 78 16 168/60 H 94 03/25/19 10:58 03/25/19 10:56 36.6 C 78 18 153/63 H 03/25/19 07:33 105 H 91 03/25/19 07:00 37.1 C 112 H 18 162/60 H 77 L 03/25/19 04:03 37.8 C H Pulse Ox 03/25/19 14:46 03/25/19 14:05 03/25/19 12:30 03/25/19 11:59 03/25/19 11:57 03/25/19 11:56 03/25/19 11:33 03/25/19 11:30 03/25/19 11:15 03/25/19 10:58 93 03/25/19 10:56 03/25/19 07:33 03/25/19 07:00 03/25/19 04:03 Laboratory Results 03/25/19 03/25/19 03/25/19 Range/Units 20:32 19:28 18:16 WBC (4.8-10.8) K/uL RBC (4.2-5.4) M/uL Hgb (12.0-16.0) g/dL Hct (37-47) % MCV (80-100) fL MCH (25-34) pg MCHC (32-36) g/dL RDW Std Deviation (36.4-46.3) fL RDW Coeff of Chandni (11.5-14.5) % Plt Count (130-400) K/uL MPV (7.4-10.4) fL Immature Gran % (Auto) % Neut % (Auto) % Lymph % (Auto) % Cowley % (Auto) % Eos % (Auto) % Baso % (Auto) % Immature Gran # (Auto) (0.00-0.02) K/uL Neut # (Auto) (1.4-6.5) K/uL Lymph # (Auto) (1.2-3.4) K/uL Cowley # (Auto) (0.11-0.59) K/uL Eos # (Auto) (0-0.5) K/uL Baso # (Auto) (0-0.2) K/uL RBC Morphology Sodium (136-145) mmol/L Potassium (3.5-5.1) mmol/L Chloride (98-107) mmol/L Carbon Dioxide (21-32) mmol/L Anion Gap (3-11) BUN (7-18) mg/dl Creatinine (0.6-1.2) mg/dl Est Cr Clr Drug Dosing ml/min Est GFR ( Amer) Est GFR (Non-Af Amer) BUN/Creatinine Ratio (10-20) Glucose (70-99) mg/dl POC Glucose 314 H* 341 H* 320 H* (70-99) Calcium (8.5-10.1) mg/dl Blood Type Blood Type Recheck Antibody Screen Crossmatch 03/25/19 03/25/19 03/25/19 Range/Units 17:00 15:29 12:10 WBC (4.8-10.8) K/uL RBC (4.2-5.4) M/uL Hgb (12.0-16.0) g/dL Hct (37-47) % MCV (80-100) fL MCH (25-34) pg MCHC (32-36) g/dL RDW Std Deviation (36.4-46.3) fL RDW Coeff of Chandni (11.5-14.5) % Plt Count (130-400) K/uL MPV (7.4-10.4) fL Immature Gran % (Auto) % Neut % (Auto) % Lymph % (Auto) % Cowley % (Auto) % Eos % (Auto) % Baso % (Auto) % Immature Gran # (Auto) (0.00-0.02) K/uL Neut # (Auto) (1.4-6.5) K/uL Lymph # (Auto) (1.2-3.4) K/uL Cowley # (Auto) (0.11-0.59) K/uL Eos # (Auto) (0-0.5) K/uL Baso # (Auto) (0-0.2) K/uL RBC Morphology Sodium (136-145) mmol/L Potassium (3.5-5.1) mmol/L Chloride (98-107) mmol/L Carbon Dioxide (21-32) mmol/L Anion Gap (3-11) BUN (7-18) mg/dl Creatinine (0.6-1.2) mg/dl Est Cr Clr Drug Dosing ml/min Est GFR ( Amer) Est GFR (Non-Af Amer) BUN/Creatinine Ratio (10-20) Glucose (70-99) mg/dl POC Glucose 287 H 343 H* 391 H* (70-99) Calcium (8.5-10.1) mg/dl Blood Type Blood Type Recheck Antibody Screen Crossmatch 03/25/19 03/25/19 03/25/19 Range/Units 12:08 08:17 05:35 WBC (4.8-10.8) K/uL RBC (4.2-5.4) M/uL Hgb (12.0-16.0) g/dL Hct (37-47) % MCV (80-100) fL MCH (25-34) pg MCHC (32-36) g/dL RDW Std Deviation (36.4-46.3) fL RDW Coeff of Chandni (11.5-14.5) % Plt Count (130-400) K/uL MPV (7.4-10.4) fL Immature Gran % (Auto) % Neut % (Auto) % Lymph % (Auto) % Cowley % (Auto) % Eos % (Auto) % Baso % (Auto) % Immature Gran # (Auto) (0.00-0.02) K/uL Neut # (Auto) (1.4-6.5) K/uL Lymph # (Auto) (1.2-3.4) K/uL Cowley # (Auto) (0.11-0.59) K/uL Eos # (Auto) (0-0.5) K/uL Baso # (Auto) (0-0.2) K/uL RBC Morphology Sodium (136-145) mmol/L Potassium (3.5-5.1) mmol/L Chloride (98-107) mmol/L Carbon Dioxide (21-32) mmol/L Anion Gap (3-11) BUN (7-18) mg/dl Creatinine (0.6-1.2) mg/dl Est Cr Clr Drug Dosing ml/min Est GFR ( Amer) Est GFR (Non-Af Amer) BUN/Creatinine Ratio (10-20) Glucose (70-99) mg/dl POC Glucose 355 H* 272 H (70-99) Calcium (8.5-10.1) mg/dl Blood Type Blood Type Recheck A Negative Antibody Screen Crossmatch 03/25/19 03/25/19 03/24/19 Range/Units 05:35 05:35 21:04 WBC 11.78 H (4.8-10.8) K/uL RBC 2.62 L (4.2-5.4) M/uL Hgb 7.7 L (12.0-16.0) g/dL Hct 23.4 L (37-47) % MCV 89.3 (80-100) fL MCH 29.4 (25-34) pg MCHC 32.9 (32-36) g/dL RDW Std Deviation 46.5 H (36.4-46.3) fL RDW Coeff of Chandni 14.1 (11.5-14.5) % Plt Count 253 (130-400) K/uL MPV 9.8 (7.4-10.4) fL Immature Gran % (Auto) 0.6 % Neut % (Auto) 82.8 % Lymph % (Auto) 7.6 % Cowley % (Auto) 7.9 % Eos % (Auto) 0.8 % Baso % (Auto) 0.3 % Immature Gran # (Auto) 0.07 H (0.00-0.02) K/uL Neut # (Auto) 9.76 H (1.4-6.5) K/uL Lymph # (Auto) 0.89 L (1.2-3.4) K/uL Cowley # (Auto) 0.93 H (0.11-0.59) K/uL Eos # (Auto) 0.09 (0-0.5) K/uL Baso # (Auto) 0.04 (0-0.2) K/uL RBC Morphology Unremarkable Sodium 134 L (136-145) mmol/L Potassium 3.4 L (3.5-5.1) mmol/L Chloride 99 (98-107) mmol/L Carbon Dioxide 29 (21-32) mmol/L Anion Gap 6.0 (3-11) BUN 12 (7-18) mg/dl Creatinine 0.70 (0.6-1.2) mg/dl Est Cr Clr Drug Dosing 63.4 ml/min Est GFR ( Amer) 96.9 Est GFR (Non-Af Amer) 83.6 BUN/Creatinine Ratio 17.8 (10-20) Glucose 221 H (70-99) mg/dl POC Glucose 268 H (70-99) Calcium 8.6 (8.5-10.1) mg/dl Blood Type Blood Type Recheck Antibody Screen Crossmatch 03/24/19 Range/Units 07:12 WBC (4.8-10.8) K/uL RBC (4.2-5.4) M/uL Hgb (12.0-16.0) g/dL Hct (37-47) % MCV (80-100) fL MCH (25-34) pg MCHC (32-36) g/dL RDW Std Deviation (36.4-46.3) fL RDW Coeff of Chandni (11.5-14.5) % Plt Count (130-400) K/uL MPV (7.4-10.4) fL Immature Gran % (Auto) % Neut % (Auto) % Lymph % (Auto) % Cowley % (Auto) % Eos % (Auto) % Baso % (Auto) % Immature Gran # (Auto) (0.00-0.02) K/uL Neut # (Auto) (1.4-6.5) K/uL Lymph # (Auto) (1.2-3.4) K/uL Cowley # (Auto) (0.11-0.59) K/uL Eos # (Auto) (0-0.5) K/uL Baso # (Auto) (0-0.2) K/uL RBC Morphology Sodium (136-145) mmol/L Potassium (3.5-5.1) mmol/L Chloride (98-107) mmol/L Carbon Dioxide (21-32) mmol/L Anion Gap (3-11) BUN (7-18) mg/dl Creatinine (0.6-1.2) mg/dl Est Cr Clr Drug Dosing ml/min Est GFR ( Amer) Est GFR (Non-Af Amer) BUN/Creatinine Ratio (10-20) Glucose (70-99) mg/dl POC Glucose (70-99) Calcium (8.5-10.1) mg/dl Blood Type A Negative Blood Type Recheck Antibody Screen NEGATIVE Crossmatch See Detail Diagnostic Findings Chest x-ray image personally reviewed by me and agree with the following report: XR chest 1V portable CLINICAL HISTORY: dyspnea COMPARISON STUDY: Chest radiograph and chest CT March 24, 2019. FINDINGS: There is no pneumothorax or pleural effusion. Cardiomediastinal silhouette is stable. Pulmonary vascular congestion with suspected mild pulmonary edema has developed. Patient is rotated. Calcified right paratracheal lymph node is again noted. IMPRESSION: Interval development of pulmonary vascular congestion with suspected mild pulmonary edema. PG Care Time/CCT Total # of Minutes Spent Total Time Spent with Patient: Total time spent is greater than 50% in coordination of care (as documented) at patient's floor/unit and/or counseling patient: (1) UTI (urinary tract infection) Hematuria presence: without hematuria Urinary tract infection type: site unspecified Qualified Code(s): N39.0 - Urinary tract infection, site not specified (2) Type 1 diabetes mellitus Diabetes mellitus complication status: with unspecified complications Qualified Code(s): E10.8 - Type 1 diabetes mellitus with unspecified complications (3) Dementia Dementia behavioral disturbance: without behavioral disturbance Dementia type: unspecified type Qualified Code(s): F03.90 - Unspecified dementia without behavioral disturbance (4) GERD (gastroesophageal reflux disease) Esophagitis presence: esophagitis presence not specified Qualified Code(s): K21.9 - Gastro-esophageal reflux disease without esophagitis (5) Hypertension Hypertension type: essential hypertension Qualified Code(s): I10 - Essential (primary) hypertension (6) Fracture of femoral neck, left Encounter type: initial encounter Fracture type: closed Qualified Code(s): S72.002A - Fracture of unspecified part of neck of left femur, initial encounter for closed fracture
[2019-03-25] MEDS: CALCIUM 600MG + VIT D 400 IU TAB PO SCH (16:47)
[2019-03-25] MEDS: MAGNESIUM OXIDE 400 MG TAB PO SCH (16:47)
[2019-03-25] MEDS: AMLODIPINE BESYLATE 5 MG TAB PO SCH (16:48)
[2019-03-25] MEDS: MIRABEGRON ER 25 MG TAB PO SCH (16:48)
[2019-03-25] MEDS ORDERED: SODIUM CHLORIDE 0.9% 500 ML IV SCH (17:00)
[2019-03-25] MEDS: ALBUT/IPRATROP 3MG/0.5MG NEB 3 ML VIAL NEB SCH ×2 (17:55→19:11)
[2019-03-25] MEDS: SIMVASTATIN 40 MG TAB PO SCH (20:41)
[2019-03-25] MEDS: SERTRALINE HCL 50 MG TABLET PO SCH (20:41)
[2019-03-26] MEDS ORDERED: INSULIN GLARGINE SOLOSTAR 100 UNITS/ML 3 ML PEN SC ONE (02:00)
[2019-03-26] MEDS: INSULIN ASPART 100 UNITS/ML 3 ML PEN SC SCH ×4 (02:17→17:50)
[2019-03-26 06:13] LABS: Basophils # (auto) 0.03 K/uL (0-0.2); Basophils % (auto) 0.2 %; Eosinophils # (auto) 0.23 K/uL (0-0.5); Eosinophils % (auto) 1.7 %; Hematocrit (blood only) 32.5 % (37-47); Hemoglobin 11.1 g/dL (12.0-16.0); Immature Granulocytes # (auto) 0.12 K/uL (0.00-0.02); Immature Granulocytes % (auto) 0.9 %; Lymphocytes % (auto) 8.3 %; Mean Corpuscular Hgb Conc 34.2 g/dL (32-36); Mean Corpuscular Volume 87.8 fL (80-100); Mean Platelet Volume 10.3 fL (7.4-10.4); Monocytes # (auto) 0.77 K/uL (0.11-0.59); Monocytes % (auto) 5.8 %; Neutrophils # (auto) 11.01 K/uL (1.4-6.5); Neutrophils % (auto) 83.1 %; Platelet Count 229 K/uL (130-400); RDW Coefficient of Variation 14.6 % (11.5-14.5); RDW Standard Deviation 47.2 fL (36.4-46.3); White Blood Count 13.26 K/uL (4.8-10.8)
[2019-03-26 06:44] LABS: Albumin Level 2.2 gm/dl (3.4-5.0); BUN Creatinine Ratio 23.8 (10-20); Bilirubin Direct 0.2 mg/dl (0-0.2); Calcium 8.8 mg/dl (8.5-10.1); Creatinine Clr Calc Pharmacy 80.7 ml/min; Est GFR (African American) 104.9; Est GFR (Non-African American) 90.5; Potassium 3.4 mmol/L (3.5-5.1)
[2019-03-26 06:47] LABS: Bilirubin,Total 0.7 mg/dl (0.2-1); Total Protein 6.4 gm/dl (6.4-8.2)
[2019-03-26] MEDS: ALBUT/IPRATROP 3MG/0.5MG NEB 3 ML VIAL NEB SCH ×4 (07:29→18:03)
--- NOTE | 2019-03-26 07:40 | Orthopedic Progress Note ---
Date of Service March 26, 2019 Assessment & Plan (1) Fracture of femoral neck, left: Overall she is doing about as well as expected. She struggled to ambulate yesterday with physical therapy but she says she feels little bit better today. We will continue aspirin 81 mg twice a day for 6 weeks for DVT prophylaxis. She can be weightbearing as tolerated and will try physical therapy again today. The Tanisha VAC dressing on her hip will likely be in place for 7 days. Orthopedic discharge instructions were already placed in the discharge summary. She is orthopedically stable for discharge when medically ready. She will follow-up with orthopedics in 2 weeks. Our office phone number is [phone]. If you have any questions regarding her care please feel free to contact me personally on my cell phone at [phone]. Present on Admission?: Yes Subjective Diane was seen and examined at bedside this morning. Overall she says her hip is doing a lot better. She does not seem to be having too much pain while lying in bed. She struggled yesterday with physical therapy. She was unable to ambulate. She was having too much pain to ambulate on her left hip. She did get 2 units of packed red blood cells yesterday. Physical Exam Musculoskeletal: On physical examination of the left hip, the Tanisha VAC dressings to suction. Her leg lengths are equal. She is active motion of her toes but unable to get her to cooperate with any other neurologic examination. Sensation seems to be intact to her quad. Results & Data Vital Signs (Past 12 Hours) Vital Signs Temp Pulse Resp BP Pulse Ox 03/26/19 07:33 109 H 18 86 L 03/25/19 23:23 37.3 C 91 H 18 159/72 H 95 (1) Fracture of femoral neck, left Encounter type: initial encounter Fracture type: closed Qualified Code(s): S72.002A - Fracture of unspecified part of neck of left femur, initial encounter for closed fracture
[2019-03-26] MEDS: RIVASTIGMINE TARTRATE 1.5 MG CAP PO SCH ×2 (07:57→17:42)
[2019-03-26] MEDS: METOPROLOL TARTRATE 25 MG TAB PO SCH ×2 (07:57→19:54)
[2019-03-26] MEDS: MEMANTINE HCL 10 MG TAB PO SCH ×2 (07:58→17:43)
[2019-03-26] MEDS: SODIUM CHLORIDE 1 GM TABLET PO SCH ×2 (07:59→17:44)
[2019-03-26] MEDS: PANCREAZE (LIPASE 10,500U) CAP PO SCH ×2 (08:06→17:43)
[2019-03-26] MEDS: ASPIRIN 81 MG ECTAB PO SCH ×2 (08:16→19:49)
[2019-03-26] MEDS: CALCITONIN SALMON NA 200 IU/AC 3.7 ML BTL SCH (08:16)
[2019-03-26] MEDS: LOSARTAN POTASSIUM 50 MG TAB PO SCH ×2 (08:16→19:49)
[2019-03-26] MEDS: LANSOPRAZOLE 30 MG SOLTAB PO SCH (08:16)
[2019-03-26] MEDS ORDERED: POTASSIUM CHLORIDE 20 MEQ TABCR PO ONE (09:30)
[2019-03-26] MEDS ORDERED: FUROSEMIDE 20 MG in SYRINGE 0 ML IV ONE (09:30)
[2019-03-26] MEDS: CHOLECALCIFEROL 1,000 UNITS TAB PO SCH (09:40)
--- NOTE | 2019-03-26 12:09 | Hospitalist Progress Note ---
Date of Service March 26, 2019 Assessment & Plan (1) Fracture of femoral neck, left: Patient with mechanical fall at home resulting in left hip fracture Now status post ORIF on 03/[address] Mcgraw Had a low-grade fever on the evening of the surgery and on postop day #1-wound looks normal, urinalysis is without infection, chest x-ray without pneumonia, no evidence of DVT on examination. Hypoxia likely due to mild pulmonary edema and severe anemia all of which is now improving -Needs encouragement with incentive spirometry and needs more mobilization to prevent atelectasis -Continue pain control with acetaminophen as needed, will discontinue opioids as this will worsen delirium -PT/OT evaluations will be needed and she will require rehab placement -Appreciate orthopedic surgery management-stable for discharge to rehab from an orthopedic standpoint as per their note on 03/26, follow-up in the office after discharge -Taking aspirin 81 mg p.o. twice daily for DVT prophylaxis (2) Acute blood loss anemia: Has baseline normocytic anemia likely of chronic disease but also had B12 deficiency in 2018 Also with acute blood loss anemia from fracture and surgery-hemoglobin down to 7.7 on postop day #1 from 9.0 on admission -She was transfused 2 units PRBCs on 03/25 Hemoglobin now improved to 11.1 which may be somewhat hemoconcentrated from recent IV Lasix? -Follow CBC in the morning (3) Fever: With low-grade fevers as above which are now resolving UA without clear source of infection and recently completed a 7-day course of antibiotics for UTI (Rocephin followed by Keflex) Chest x-ray without infiltrate Wound looks normal Do not suspect DVT or PE Likely from atelectasis -will continue to follow/observe off of all antibiotics although she did receive cefazolin in the perioperative setting -Follow CBC, CMP -Can give acetaminophen as needed (4) UTI (urinary tract infection): Resolved She was recently admitted and treated for Klebsiella UTI with discharge on 03/21/2019. She has completed a 7 day course of Keflex 500 mg twice daily (5) Hypertension: Blood pressures quite elevated today -Treated with metoprolol, amlodipine, losartan -Treating also with IV Lasix daily as needed for volume overload-gave a dose of Lasix 20 mg IV x1 today (6) Acute respiratory failure with hypoxia: Likely secondary to pulmonary edema and poor respiratory effort with atelectasis as above Is improving today with IV diuresis yesterday, is weaned down now to 1 L nasal cannula from 3 LNC yesterday Chest x-ray with pulmonary edema on 03/25 -Give another dose of IV Lasix this morning and would dose as needed on a daily basis -Follow and wean oxygen off as tolerated -Needs incentive spirometry and ambulation-discussed with nursing today (7) Type 1 diabetes mellitus: With severe hyperglycemia in the 300s again after being taken off the insulin drip I cannot find clear documentation of whether she has type I or type 2 diabetes or perhaps a combination of both I do know that she has pancreatic insufficiency and perhaps this is playing a role -Nonetheless, she has no evidence of DKA She is also on metformin at home which is being held -Restarting insulin drip this evening and pharmacy is consulted for glycemic management (8) GERD (gastroesophageal reflux disease): Continue lansoprazole (9) Dementia: Moderate to severe at baseline Is able to do some ADLs independently and ambulate with a history of multiple falls with injuries -Give supportive care -Continue memantine and rivastigmine, sertraline (10) Vertebral compression fracture: With acute T9 superior endplate vertebral compression fracture with 20% loss of height seen on CT of the chest C-spine CT and CT of the head negative for acute fractures -Pain control as needed -Has history of multiple falls with rib fractures and other vertebral compression fractures in the past - vitamin D level is quite low at 13 -Start vitamin D3 1000 units once daily (11) Tachycardia: With sinus tachycardia with PACs in the setting of low-grade fevers -Treat the fever with acetaminophen -Given volume overload which may be acute diastolic CHF, will control rate with increasing metoprolol tartrate to 25 mg p.o. 3 times daily -Continue to follow (12) Hyponatremia: With chronic hyponatremia, sodium here is mildly low at 135 -Continue salt tablets 1 g p.o. twice daily (13) Pancreatic insufficiency: Continue pancreatic enzymes with meals (14) Overactive bladder: Takes Myrbetriq on a typical basis and has a history of bladder infections and urinary incontinence -Has a Sylvester catheter in place currently-we will continue in place until is more mobile-hopeful to get it out tomorrow -We will hold Myrbetriq while Sylvester in place -Typically is on Macrobid for prophylaxis at home-holding while here (15) Osteoporosis: Continue calcitonin nasal spray and risedronate once monthly -Adding vitamin D for severe vitamin D deficiency as above With history of multiple vertebral compression fractures and now with hip fracture from standing height fall (16) Hyperlipidemia: Continue statin (17) DVT prophylaxis: Aspirin twice daily, SCDs Disposition-remain hospitalized and will need rehab placement when stable perhaps in the next 1 to 2 days Subjective Patient still very drowsy today but does wake up and answer simple questions. She was out of bed to chair today but was asleep with her chin down on her chest when I came in the room. She denies pain in the hip, denies chest pain or shortness of breath, denies abdominal pain. She continues to have low-grade temperatures today but no fevers. She does become tachycardic with a sinus tachycardia when she has the low-grade temperatures. Her blood pressures have been high. I discussed her case with her at the bedside today. Review of Systems Review of Systems: All systems reviewed & are unremarkable except as noted in HPI & below Physical Exam Constitutional: well developed and + lethargic (But does wake up and answer questions); no acute distress Eyes: PERRL, conjunctivae normal, anicteric sclerae ENMT: external ear and nose normal, oropharynx normal Neck: trachea midline, no thyromegaly Respiratory: normal respiratory effort, lungs clear to auscultation no labored breathing Auscultation: + diminished lung sounds (At the bases) Cardiovascular: Rate/Rhythm: regular rhythm (With occasional ectopy) and + tachycardic Heart Sounds: no murmur Extremities: no edema Gastrointestinal (Abdomen): normal bowel sounds, soft, nontender, no hepatosplenomegaly Musculoskeletal: Extremities: + extremities abnormal to inspection (Left hip with wound VAC in place in the groin, no edema or hematoma, no erythema), no cyanosis and no clubbing Skin: no rashes, warm and dry Neurologic: awake (But very drowsy) Speech / Cognition: + abnormal c ognition (Dementia at baseline) Genitourinary: normal external appearance (Sylvester catheter in place with pale clear yellow urine) Results & Data Vital Signs (Past 12 Hours) Vital Signs Temp Pulse Resp BP Pulse Ox 03/26/19 11:21 105 H 18 86 L 03/26/19 07:42 37.5 C 114 H 24 171/68 H 96 03/26/19 07:33 109 H 18 86 L Laboratory Results 03/26/19 03/26/19 03/26/19 Range/Units 17:15 12:06 08:07 WBC (4.8-10.8) K/uL RBC (4.2-5.4) M/uL Hgb (12.0-16.0) g/dL Hct (37-47) % MCV (80-100) fL MCH (25-34) pg MCHC (32-36) g/dL RDW Std Deviation (36.4-46.3) fL RDW Coeff of [place] (11.5-14.5) % Plt Count (130-400) K/uL MPV (7.4-10.4) fL Immature Gran % (Auto) % Neut % (Auto) % Lymph % (Auto) % [place] % (Auto) % Eos % (Auto) % Baso % (Auto) % Immature Gran # (Auto) (0.00-0.02) K/uL Neut # (Auto) (1.4-6.5) K/uL Lymph # (Auto) (1.2-3.4) K/uL [place] # (Auto) (0.11-0.59) K/uL Eos # (Auto) (0-0.5) K/uL Baso # (Auto) (0-0.2) K/uL Sodium (136-145) mmol/L Potassium (3.5-5.1) mmol/L Chloride (98-107) mmol/L Carbon Dioxide (21-32) mmol/L Anion Gap (3-11) BUN (7-18) mg/dl Creatinine (0.6-1.2) mg/dl Est Cr Clr Drug Dosing ml/min Est GFR ( Amer) Est GFR (Non-Af Amer) BUN/Creatinine Ratio (10-20) Glucose (70-99) mg/dl POC Glucose 365 H* 258 H 213 H (70-99) Calcium (8.5-10.1) mg/dl Total Bilirubin (0.2-1) mg/dl Direct Bilirubin (0-0.2) mg/dl AST (15-37) U/L ALT (12-78) U/L Alkaline Phosphatase (45-117) U/L Total Protein (6.4-8.2) gm/dl Albumin (3.4-5.0) gm/dl 25-OH Vitamin D Total (30-100) ng/ml 03/26/19 03/26/19 03/26/19 Range/Units 05:29 05:29 05:29 WBC 13.26 H (4.8-10.8) K/uL RBC 3.70 L (4.2-5.4) M/uL Hgb 11.1 L D (12.0-16.0) g/dL Hct 32.5 L (37-47) % MCV 87.8 (80-100) fL MCH 30.0 (25-34) pg MCHC 34.2 (32-36) g/dL RDW Std Deviation 47.2 H (36.4-46.3) fL RDW Coeff of [place] 14.6 H (11.5-14.5) % Plt Count 229 (130-400) K/uL MPV 10.3 (7.4-10.4) fL Immature Gran % (Auto) 0.9 % Neut % (Auto) 83.1 % Lymph % (Auto) 8.3 % [place] % (Auto) 5.8 % Eos % (Auto) 1.7 % Baso % (Auto) 0.2 % Immature Gran # (Auto) 0.12 H (0.00-0.02) K/uL Neut # (Auto) 11.01 H (1.4-6.5) K/uL Lymph # (Auto) 1.10 L (1.2-3.4) K/uL [place] # (Auto) 0.77 H (0.11-0.59) K/uL Eos # (Auto) 0.23 (0-0.5) K/uL Baso # (Auto) 0.03 (0-0.2) K/uL Sodium 135 L (136-145) mmol/L Potassium 3.4 L (3.5-5.1) mmol/L Chloride 98 (98-107) mmol/L Carbon Dioxide 29 (21-32) mmol/L Anion Gap 7.0 (3-11) BUN 13 (7-18) mg/dl Creatinine 0.55 L (0.6-1.2) mg/dl Est Cr Clr Drug Dosing 80.7 ml/min Est GFR ( Amer) 104.9 Est GFR (Non-Af Amer) 90.5 BUN/Creatinine Ratio 23.8 H (10-20) Glucose 178 H (70-99) mg/dl POC Glucose (70-99) Calcium 8.8 (8.5-10.1) mg/dl Total Bilirubin 0.7 (0.2-1) mg/dl Direct Bilirubin 0.2 (0-0.2) mg/dl AST 22 (15-37) U/L ALT 14 (12-78) U/L Alkaline Phosphatase 57 (45-117) U/L Total Protein 6.4 (6.4-8.2) gm/dl Albumin 2.2 L (3.4-5.0) gm/dl 25-OH Vitamin D Total 13.7 L (30-100) ng/ml 03/26/19 03/26/19 03/26/19 Range/Units 04:00 02:05 00:39 WBC (4.8-10.8) K/uL RBC (4.2-5.4) M/uL Hgb (12.0-16.0) g/dL Hct (37-47) % MCV (80-100) fL MCH (25-34) pg MCHC (32-36) g/dL RDW Std Deviation (36.4-46.3) fL RDW Coeff of [place] (11.5-14.5) % Plt Count (130-400) K/uL MPV (7.4-10.4) fL Immature Gran % (Auto) % Neut % (Auto) % Lymph % (Auto) % [place] % (Auto) % Eos % (Auto) % Baso % (Auto) % Immature Gran # (Auto) (0.00-0.02) K/uL Neut # (Auto) (1.4-6.5) K/uL Lymph # (Auto) (1.2-3.4) K/uL [place] # (Auto) (0.11-0.59) K/uL Eos # (Auto) (0-0.5) K/uL Baso # (Auto) (0-0.2) K/uL Sodium (136-145) mmol/L Potassium (3.5-5.1) mmol/L Chloride (98-107) mmol/L Carbon Dioxide (21-32) mmol/L Anion Gap (3-11) BUN (7-18) mg/dl Creatinine (0.6-1.2) mg/dl Est Cr Clr Drug Dosing ml/min Est GFR ( Amer) Est GFR (Non-Af Amer) BUN/Creatinine Ratio (10-20) Glucose (70-99) mg/dl POC Glucose 174 H 148 H 122 H (70-99) Calcium (8.5-10.1) mg/dl Total Bilirubin (0.2-1) mg/dl Direct Bilirubin (0-0.2) mg/dl AST (15-37) U/L ALT (12-78) U/L Alkaline Phosphatase (45-117) U/L Total Protein (6.4-8.2) gm/dl Albumin (3.4-5.0) gm/dl 25-OH Vitamin D Total (30-100) ng/ml 03/26/19 03/25/19 03/25/19 Range/Units 00:21 22:40 21:35 WBC (4.8-10.8) K/uL RBC (4.2-5.4) M/uL Hgb (12.0-16.0) g/dL Hct (37-47) % MCV (80-100) fL MCH (25-34) pg MCHC (32-36) g/dL RDW Std Deviation (36.4-46.3) fL RDW Coeff of [place] (11.5-14.5) % Plt Count (130-400) K/uL MPV (7.4-10.4) fL Immature Gran % (Auto) % Neut % (Auto) % Lymph % (Auto) % [place] % (Auto) % Eos % (Auto) % Baso % (Auto) % Immature Gran # (Auto) (0.00-0.02) K/uL Neut # (Auto) (1.4-6.5) K/uL Lymph # (Auto) (1.2-3.4) K/uL [place] # (Auto) (0.11-0.59) K/uL Eos # (Auto) (0-0.5) K/uL Baso # (Auto) (0-0.2) K/uL Sodium (136-145) mmol/L Potassium (3.5-5.1) mmol/L Chloride (98-107) mmol/L Carbon Dioxide (21-32) mmol/L Anion Gap (3-11) BUN (7-18) mg/dl Creatinine (0.6-1.2) mg/dl Est Cr Clr Drug Dosing ml/min Est GFR ( Amer) Est GFR (Non-Af Amer) BUN/Creatinine Ratio (10-20) Glucose (70-99) mg/dl POC Glucose 118 H 172 H 233 H (70-99) Calcium (8.5-10.1) mg/dl Total Bilirubin (0.2-1) mg/dl Direct Bilirubin (0-0.2) mg/dl AST (15-37) U/L ALT (12-78) U/L Alkaline Phosphatase (45-117) U/L Total Protein (6.4-8.2) gm/dl Albumin (3.4-5.0) gm/dl 25-OH Vitamin D Total (30-100) ng/ml 03/25/19 03/25/19 Range/Units 20:32 19:28 WBC (4.8-10.8) K/uL RBC (4.2-5.4) M/uL Hgb (12.0-16.0) g/dL Hct (37-47) % MCV (80-100) fL MCH (25-34) pg MCHC (32-36) g/dL RDW Std Deviation (36.4-46.3) fL RDW Coeff of [place] (11.5-14.5) % Plt Count (130-400) K/uL MPV (7.4-10.4) fL Immature Gran % (Auto) % Neut % (Auto) % Lymph % (Auto) % [place] % (Auto) % Eos % (Auto) % Baso % (Auto) % Immature Gran # (Auto) (0.00-0.02) K/uL Neut # (Auto) (1.4-6.5) K/uL Lymph # (Auto) (1.2-3.4) K/uL [place] # (Auto) (0.11-0.59) K/uL Eos # (Auto) (0-0.5) K/uL Baso # (Auto) (0-0.2) K/uL Sodium (136-145) mmol/L Potassium (3.5-5.1) mmol/L Chloride (98-107) mmol/L Carbon Dioxide (21-32) mmol/L Anion Gap (3-11) BUN (7-18) mg/dl Creatinine (0.6-1.2) mg/dl Est Cr Clr Drug Dosing ml/min Est GFR ( Amer) Est GFR (Non-Af Amer) BUN/Creatinine Ratio (10-20) Glucose (70-99) mg/dl POC Glucose 314 H* 341 H* (70-99) Calcium (8.5-10.1) mg/dl Total Bilirubin (0.2-1) mg/dl Direct Bilirubin (0-0.2) mg/dl AST (15-37) U/L ALT (12-78) U/L Alkaline Phosphatase (45-117) U/L Total Protein (6.4-8.2) gm/dl Albumin (3.4-5.0) gm/dl 25-OH Vitamin D Total (30-100) ng/ml ECG Additional Comments: ECG on 03/26 was sinus tachycardia in the 120s with PACs, no ischemic changes PG Care Time/CCT Total # of Minutes Spent Total Time Spent with Patient: Total time spent is greater than 50% in coordination of care (as documented) at patient's floor/unit and/or counseling patient: (1) UTI (urinary tract infection) Hematuria presence: without hematuria Urinary tract infection type: site unspecified Qualified Code(s): N39.0 - Urinary tract infection, site not specified (2) Type 1 diabetes mellitus Diabetes mellitus complication status: with unspecified complications Qualified Code(s): E10.8 - Type 1 diabetes mellitus with unspecified complications (3) Dementia Dementia behavioral disturbance: without behavioral disturbance Dementia type: unspecified type Qualified Code(s): F03.90 - Unspecified dementia without behavioral disturbance (4) GERD (gastroesophageal reflux disease) Esophagitis presence: esophagitis presence not specified Qualified Code(s): K21.9 - Gastro-esophageal reflux disease without esophagitis (5) Hypertension Hypertension type: essential hypertension Qualified Code(s): I10 - Essential (primary) hypertension (6) Fracture of femoral neck, left Encounter type: initial encounter Fracture type: closed Qualified Code(s): S72.002A - Fracture of unspecified part of neck of left femur, initial encounter for closed fracture
[2019-03-26] MEDS ORDERED: INSULIN GLARGINE SOLOSTAR 100 UNITS/ML 3 ML PEN SC STA ×2 (13:17→21:09)
--- NOTE | 2019-03-26 13:26 | Pharmacy Report ---
Pharmacy Glycemic Short Note 2 - Date of Service March 26, 2019 - Glycemic Short BSG Results (Last 24 hours): 03/25/19 03/25/19 03/25/19 15:29 17:00 18:16 Glucose POC Glucose 343 H* 287 H 320 H* 03/25/19 03/25/19 03/25/19 19:28 20:32 21:35 Glucose POC Glucose 341 H* 314 H* 233 H 03/25/19 03/26/19 03/26/19 22:40 00:21 00:39 Glucose POC Glucose 172 H 118 H 122 H 03/26/19 03/26/19 03/26/19 02:05 04:00 05:29 Glucose 178 H POC Glucose 148 H 174 H 03/26/19 03/26/19 08:07 12:06 Glucose POC Glucose 213 H 258 H ASSESSMENT: * Insulin infusion was stopped overnight. She received 10 units of lantus at the time of consultation yesterday. Historically, Ms. Ravis BSGs are very labile. Fluctuations from 300s to 50s are not uncommon. BSGs over the previous 24hrs: [phone]. * At this point in time I am OK with BSGs 180 - 225 mg/dL. PLAN FOR INPATIENT GLYCEMIC CONTROL: * Hold outpatient oral diabetes medications * Basal insulin * Lantus 5 units given at 0200 this AM, additional 3 units will be ordered for this afternoon in the setting of lunch time hyperglycemia * Bolus insulin * NovoLog per scale ACHS or Q6hrs while NPO * Goal Range: Low 100 mg/dL - High 130 mg/dL * Correction Factor: 30 mg/dL/unit * Nutritional / Prandial insulin per carb ratio of 1 unit per 8 grams CHO consumed
[2019-03-26] MEDS ORDERED: METOPROLOL TARTRATE 25 MG TAB PO STA (16:20)
[2019-03-26] MEDS: MAGNESIUM OXIDE 400 MG TAB PO SCH (17:40)
[2019-03-26] MEDS: CALCIUM 600MG + VIT D 400 IU TAB PO SCH (17:40)
[2019-03-26] MEDS: MIRABEGRON ER 25 MG TAB PO SCH (17:41)
[2019-03-26] MEDS: AMLODIPINE BESYLATE 5 MG TAB PO SCH (17:41)
[2019-03-26] MEDS ORDERED: INSULIN REGULAR 250 UNITS in SODIUM CHLORIDE 0.9% 247.5 ML IV SCH (17:45)
[2019-03-26] MEDS ORDERED: INSULIN HUMAN REGULAR IV BOLUS 1.5 UNITS in SYRINGE 0 ML IV ONE (17:45)
[2019-03-26] MEDS: ACETAMINOPHEN 325 MG TAB PO PRN (19:02)
[2019-03-26] MEDS ORDERED: POTASSIUM CHLORIDE 20 MEQ TABCR PO STA (19:10)
[2019-03-26] MEDS: SIMVASTATIN 40 MG TAB PO SCH (19:49)
[2019-03-26] MEDS: SERTRALINE HCL 50 MG TABLET PO SCH (19:49)
[2019-03-26] MEDS ORDERED: INSULIN ASPART 100 UNITS/ML 3 ML PEN SC SCH (21:00)
[2019-03-27 05:52] LABS: Basophils # (auto) 0.02 K/uL (0-0.2); Basophils % (auto) 0.2 %; Eosinophils # (auto) 0.31 K/uL (0-0.5); Eosinophils % (auto) 2.6 %; Hematocrit (blood only) 29.1 % (37-47); Hemoglobin 9.7 g/dL (12.0-16.0); Immature Granulocytes # (auto) 0.07 K/uL (0.00-0.02); Immature Granulocytes % (auto) 0.6 %; Lymphocytes # (auto) 1.09 K/uL (1.2-3.4); Lymphocytes % (auto) 9.3 %; Mean Corpuscular Hgb Conc 33.3 g/dL (32-36); Mean Corpuscular Volume 87.1 fL (80-100); Mean Platelet Volume 9.5 fL (7.4-10.4); Monocytes # (auto) 0.69 K/uL (0.11-0.59); Monocytes % (auto) 5.9 %; Neutrophils % (auto) 81.4 %; Platelet Count 234 K/uL (130-400); RDW Coefficient of Variation 14.4 % (11.5-14.5); RDW Standard Deviation 46.4 fL (36.4-46.3); Red Blood Count 3.34 M/uL (4.2-5.4); White Blood Count 11.78 K/uL (4.8-10.8)
[2019-03-27] MEDS ORDERED: INSULIN ASPART 100 UNITS/ML 3 ML PEN SC ONE (06:00)
[2019-03-27] MEDS ORDERED: INSULIN GLARGINE SOLOSTAR 100 UNITS/ML 3 ML PEN SC ONE ×2 (06:00→21:00)
[2019-03-27 06:27] LABS: Calcium 8.8 mg/dl (8.5-10.1); Creatinine Clr Calc Pharmacy 92.5 ml/min; Est GFR (African American) 109.7; Est GFR (Non-African American) 94.6; Potassium 3.8 mmol/L (3.5-5.1)
[2019-03-27] MEDS: ALBUT/IPRATROP 3MG/0.5MG NEB 3 ML VIAL NEB SCH ×4 (07:04→20:08)
[2019-03-27] MEDS: MEMANTINE HCL 10 MG TAB PO SCH ×2 (07:39→16:32)
[2019-03-27] MEDS: CHOLECALCIFEROL 1,000 UNITS TAB PO SCH (07:39)
[2019-03-27] MEDS: RIVASTIGMINE TARTRATE 1.5 MG CAP PO SCH ×2 (07:39→16:32)
[2019-03-27] MEDS: LANSOPRAZOLE 30 MG SOLTAB PO SCH (07:40)
[2019-03-27] MEDS: LOSARTAN POTASSIUM 50 MG TAB PO SCH ×2 (07:40→21:37)
[2019-03-27] MEDS: METOPROLOL TARTRATE 25 MG TAB PO SCH ×3 (07:40→21:37)
[2019-03-27] MEDS: SODIUM CHLORIDE 1 GM TABLET PO SCH ×2 (07:40→16:33)
[2019-03-27] MEDS: CALCITONIN SALMON NA 200 IU/AC 3.7 ML BTL SCH (07:40)
[2019-03-27] MEDS: ASPIRIN 81 MG ECTAB PO SCH ×2 (07:40→21:37)
[2019-03-27] MEDS: PANCREAZE (LIPASE 10,500U) CAP PO SCH ×2 (07:42→16:33)
--- NOTE | 2019-03-27 07:51 | Anesthesiology Progress Note ---
Date of Service March 27, 2019 Anesthesia Post Procedure Vital Signs Vital Signs: Temp Pulse Resp BP BP Pulse Ox 03/27/19 07:06 101 H 18 93 03/27/19 06:59 36.7 C 100 H 16 162/70 H 92 03/26/19 23:12 36.8 C 91 H 18 133/74 92 03/26/19 21:00 92 03/26/19 19:50 116 H 18 143/55 H 83 L 03/26/19 18:03 115 H 18 92 03/26/19 17:37 120 H 179/69 H 03/26/19 16:02 37.7 C H 123 H 18 158/59 H 90 03/26/19 15:55 37.7 C H 123 H 18 158/59 H 90 03/26/19 15:46 37.6 C H 116 H 19 162/63 H 91 03/26/19 14:59 101 H 18 92 03/26/19 11:21 105 H 18 86 L Pain Intensity Bilateral Leg: Pain Intensity: 0 Notes Mental Status: alert / awake / arousable and participated in evaluation Patient Amnestic to Procedure: Yes Nausea / Vomiting: adequately controlled Pain: adequately controlled Airway Patency, RR, SpO2: stable & adequate BP & HR: stable & adequate Hydration State: stable & adequate Anesthetic Complications: no major complications apparent and Pt Satisfied with anesthetic care
[2019-03-27 08:59] LABS: Folate (Folic Acid) 6.23 ng/ml (>5.38)
[2019-03-27] MEDS: INSULIN ASPART 100 UNITS/ML 3 ML PEN SC SCH ×4 (09:08→21:39)
[2019-03-27] MEDS: ACETAMINOPHEN 325 MG TAB PO PRN (11:36)
[2019-03-27] MEDS ORDERED: INSULIN GLARGINE SOLOSTAR 100 UNITS/ML 3 ML PEN SC STA (13:17)
--- NOTE | 2019-03-27 15:04 | Hospitalist Progress Note ---
Date of Service March 27, 2019 Assessment & Plan (1) Fracture of femoral neck, left: Patient with mechanical fall at home resulting in left hip fracture. Now status post ORIF on 03/[address] Mcgraw. - Continue pain control with acetaminophen as needed, will discontinue opioids as this will worsen delirium - Appreciate orthopedic surgery management - Stable for discharge to rehab from an orthopedic standpoint as per their note on 03/26, follow-up in the office after discharge. - Aspirin 81 mg BID for DVT prophylaxis (2) Tachycardia: With sinus tachycardia with PACs. Likely due to blood loss. - Treat the fever with acetaminophen - Continue to follow (3) Acute blood loss anemia: Has baseline normocytic anemia likely of chronic disease but also had B12 deficiency in 2018. Baseline hgb 9-11. Now with acute blood loss anemia from fracture and surgery - hemoglobin was down to 7.7 on postop day #1 from 9.0 on admission. - She was transfused 2 units PRBCs on 03/25; hemoglobin improved to 11.1, but down to 9.7 on 03/27. - No signs of bleeding at present - Monitor hgb (4) Fever: On 03/25, she had temp up to 38.8. Continued to have low low-grade fevers to 37.7 - 38.1, though by 03/26, they had resolved. UA on 03/24 was without clear source of infection and recently completed a 7-day course of antibiotics for UTI (Rocephin followed by Keflex), CXR on 03/25 was without infiltrate. Surgical wound has remained clean without sign of skin infection. Do not suspect DVT or PE. - Likely from atelectasis - Will continue to follow/observe off of all antibiotics although she did receive cefazolin in the perioperative setting (5) Hypertension: Blood pressures have been mildly elevated to 160/70. - Continue metoprolol, amlodipine, & losartan - Treated with IV Lasix daily PRN for volume overload - Last gave a dose of Lasix 20 mg IV on 03/26 (6) Acute respiratory failure with hypoxia: Episode on 03/25. Likely secondary to pulmonary edema & atelectasis. Chest x-ray with pulmonary edema on 03/25. - Improved with IV diuresis - By 03/27, she was on room air (7) Type 1 diabetes mellitus: Was on insulin drip with severe hyperglycemia in the 300s after being taken off. No evidence of DKA. - Hold home metformin - Insulin per glycemic pharmacist (8) GERD (gastroesophageal reflux disease): Continue lansoprazole (9) Dementia: Moderate to severe at baseline. Is able to do some ADLs independently and ambulate with a history of multiple falls with injuries. - Continue memantine, rivastigmine, and sertraline (10) Vertebral compression fracture: With acute T9 superior endplate vertebral compression fracture with 20% loss of height seen on CT of the chest. C-spine CT and CT of the head negative for acute fractures. - Pain control as needed - Has history of multiple falls with rib fractures and other vertebral compression fractures in the past - Vitamin D level is quite low at 13 - Ergocalciferol 50,000 units weekly (11) Hyponatremia: With chronic hyponatremia, sodium here is mildly low at 135. - Continue salt tablets 1 g PO BID (12) Pancreatic insufficiency: - Continue pancreatic enzymes with meals. (13) Overactive bladder: Takes Myrbetriq on a typical basis and has a history of bladder infections and urinary incontinence. - Hold Myrbetriq while Sylvester in place - Typically is on Macrobid for prophylaxis at home - holding while here (14) Osteoporosis: Continue calcitonin nasal spray and risedronate once monthly. - Adding vitamin D for severe vitamin D deficiency as above (15) Hyperlipidemia: Continue statin (16) DVT prophylaxis: Aspirin twice daily, SCDs Subjective Pain in the left leg, but otherwise no issues. Review of Systems Review of Systems: All systems reviewed & are unremarkable except as noted in HPI & below Physical Exam Constitutional: WD/WN, vitals as above Eyes: EOM intact bilaterally; no conjunctival abnormality ENMT: external ear and nose normal, oropharynx normal Neck: trachea midline, no thyromegaly normal visual inspection Respiratory: normal respiratory effort, lungs clear to auscultation no respiratory distress Cardiovascular: RRR, no murmur, no edema Gastrointestinal (Abdomen): Inspection/Auscultation: abdomen normal to inspection; abdomen not distended Musculoskeletal: no cyanosis or clubbing, extremities motor strength 5/5 Left hip wound vac in place without drainage. Skin: no rashes, warm and dry Neurologic: moves all extremities and awake Psychiatric: Orientation: alert, oriented to person and cooperative Results & Data Vital Signs (Past 12 Hours) Vital Signs Temp Pulse Resp BP Pulse Ox 03/27/19 11:18 90 16 94 03/27/19 07:06 101 H 18 93 03/27/19 06:59 36.7 C 100 H 16 162/70 H 92 PG Care Time/CCT Total # of Minutes Spent Total Time Spent with Patient: Total time spent is greater than 50% in coordination of care (as documented) at patient's floor/unit and/or counseling patient: (1) Fracture of femoral neck, left Encounter type: initial encounter Fracture type: closed Qualified Code(s): S72.002A - Fracture of unspecified part of neck of left femur, initial encounter for closed fracture (2) Hypertension Hypertension type: essential hypertension Qualified Code(s): I10 - Essential (primary) hypertension (3) Type 1 diabetes mellitus Diabetes mellitus complication status: with unspecified complications Qualified Code(s): E10.8 - Type 1 diabetes mellitus with unspecified complications (4) GERD (gastroesophageal reflux disease) Esophagitis presence: esophagitis presence not specified Qualified Code(s): K21.9 - Gastro-esophageal reflux disease without esophagitis (5) Dementia Dementia type: unspecified type Dementia behavioral disturbance: without behavioral disturbance Qualified Code(s): F03.90 - Unspecified dementia without behavioral disturbance
--- NOTE | 2019-03-27 16:06 | Pharmacy Report ---
Pharmacy Glycemic Short Note 2 - Date of Service March 27, 2019 - Glycemic Short BSG Results (Last 24 hours): 03/26/19 03/26/19 03/26/19 17:15 19:37 20:43 Glucose POC Glucose 365 H* 503 H* 456 H* 03/26/19 03/26/19 03/27/19 21:51 22:49 00:03 Glucose POC Glucose 447 H* 371 H* 304 H* 03/27/19 03/27/19 03/27/19 01:13 02:24 03:23 Glucose POC Glucose 227 H 172 H 156 H 03/27/19 03/27/19 03/27/19 04:32 04:47 05:01 Glucose POC Glucose 123 H 104 H 109 H 03/27/19 03/27/19 03/27/19 05:32 05:40 06:02 Glucose 120 H POC Glucose 116 H 130 H 03/27/19 03/27/19 08:05 11:56 Glucose POC Glucose 199 H 300 H ASSESSMENT: * Complicated diabetic patient with labile BG per this and prior admissions. Insulin infusion was restarted last evening (~18) and discontinued this AM (~05). * Severe hyperglycemia while hospitalized is surprising given that HbA1c was 7.1% recently on minimal outpatient insulin doses. * Calculated that while the patient was on insulin drip, she received ~31 units over 11 hours - this is significantly more than outpatient regimen of 26 units/day. She received 16 units of Lantus total yesterday. * BG appears to be trending up despite 7 units of Novolog for breakfast and another Lantus of 5 units this AM; pre-lunch was 300. Again, unclear why patient is requiring significantly more insulin and do not want to cause hypoglycemia, but want to avoid restarting drip. PLAN FOR INPATIENT GLYCEMIC CONTROL: * Hold outpatient oral diabetes medications * Basal insulin * Give Lantus 15 units x 1 at ~1300 (this equals ~20 units of basal insulin for this AM) * Lantus scale for bedtime; 3 units if BG <120; 5 units 121-179; 8 units if >180 * She likely needs BID Lantus, but optimal dose unclear. Will reassess tomorrow. * Bolus insulin * NovoLog per scale ACHS or Q6hrs while NPO * Goal Range: Low 100 mg/dL - High 130 mg/dL * Correction Factor: 25 mg/dL/unit * Nutritional / Prandial insulin per carb ratio of 1 unit per 8 grams CHO consumed * Add overnight Novolog checks at 00, 04
[2019-03-27] MEDS: MAGNESIUM OXIDE 400 MG TAB PO SCH (16:31)
[2019-03-27] MEDS: CALCIUM 600MG + VIT D 400 IU TAB PO SCH (16:31)
[2019-03-27] MEDS: AMLODIPINE BESYLATE 5 MG TAB PO SCH (16:31)
[2019-03-27] MEDS ORDERED: INSULIN HUMAN REGULAR PER UNIT 4 UNITS in SYRINGE 3.96 ML IV ONE (18:45)
[2019-03-27] MEDS: SERTRALINE HCL 50 MG TABLET PO SCH (21:37)
[2019-03-27] MEDS: SIMVASTATIN 40 MG TAB PO SCH (21:37)
[2019-03-28] MEDS: INSULIN ASPART 100 UNITS/ML 3 ML PEN SC SCH ×7 (00:23→21:41)
[2019-03-28] MEDS ORDERED: MICONAZOLE NITRATE POWDER 43 GM EXT PRN (07:24)
[2019-03-28] MEDS: ALBUT/IPRATROP 3MG/0.5MG NEB 3 ML VIAL NEB SCH ×5 (07:24→19:19)
[2019-03-28 08:03] LABS: Hematocrit (blood only) 30.5 % (37-47); Hemoglobin 10.2 g/dL (12.0-16.0); Mean Corpuscular Hgb Conc 33.4 g/dL (32-36); Mean Corpuscular Volume 86.4 fL (80-100); Mean Platelet Volume 9.7 fL (7.4-10.4); Platelet Count 321 K/uL (130-400); RDW Coefficient of Variation 14.3 % (11.5-14.5); RDW Standard Deviation 45.2 fL (36.4-46.3); Red Blood Count 3.53 M/uL (4.2-5.4); White Blood Count 12.16 K/uL (4.8-10.8)
[2019-03-28] MEDS: RIVASTIGMINE TARTRATE 1.5 MG CAP PO SCH ×2 (08:05→17:01)
[2019-03-28] MEDS: METOPROLOL TARTRATE 25 MG TAB PO SCH ×3 (08:05→20:21)
[2019-03-28] MEDS: ASPIRIN 81 MG ECTAB PO SCH (08:05)
[2019-03-28] MEDS: PANCREAZE (LIPASE 10,500U) CAP PO SCH ×2 (08:05→17:01)
[2019-03-28] MEDS: CHOLECALCIFEROL 1,000 UNITS TAB PO SCH (08:05)
[2019-03-28] MEDS: SODIUM CHLORIDE 1 GM TABLET PO SCH ×2 (08:05→17:01)
[2019-03-28] MEDS: MEMANTINE HCL 10 MG TAB PO SCH ×2 (08:06→17:01)
[2019-03-28] MEDS: LANSOPRAZOLE 30 MG SOLTAB PO SCH (08:06)
[2019-03-28] MEDS: LOSARTAN POTASSIUM 50 MG TAB PO SCH ×2 (08:06→20:21)
[2019-03-28] MEDS: CALCITONIN SALMON NA 200 IU/AC 3.7 ML BTL SCH (08:06)
[2019-03-28 08:22] LABS: Basophils # (auto) 0.03 K/uL (0-0.2); Basophils % (auto) 0.2 %; Eosinophils # (auto) 0.22 K/uL (0-0.5); Eosinophils % (auto) 1.8 %; Immature Granulocytes # (auto) 0.05 K/uL (0.00-0.02); Immature Granulocytes % (auto) 0.4 %; Lymphocytes % (auto) 9.9 %; Monocytes # (auto) 0.73 K/uL (0.11-0.59); Neutrophils # (auto) 9.93 K/uL (1.4-6.5); Neutrophils % (auto) 81.7 %
[2019-03-28 08:32] LABS: BUN Creatinine Ratio 31.8 (10-20); Calcium 8.8 mg/dl (8.5-10.1); Creatinine Clr Calc Pharmacy 80.7 ml/min; Est GFR (African American) 104.9; Est GFR (Non-African American) 90.5; Potassium 3.6 mmol/L (3.5-5.1)
[2019-03-28] MEDS ORDERED: dilTIAZem HCl 125 MG in DEXTROSE 5% 100 ML IV SCH (09:00)
[2019-03-28] MEDS ORDERED: INSULIN GLARGINE SOLOSTAR 100 UNITS/ML 3 ML PEN SC ONE ×2 (09:00→21:00)
[2019-03-28] MEDS ORDERED: AMIODARONE IV BOLUS / DRIP IV STA (09:38)
[2019-03-28] MEDS ORDERED: AMIODARONE / D5W 150 MG/100 ML BAG IV STA (09:41)
[2019-03-28] MEDS ORDERED: AMIODARONE / D5W 360 MG/200 ML BAG IV SCH (09:50)
--- NOTE | 2019-03-28 09:59 | Cardiology Consultation ---
Date of Consultation March 28, 2019 Assessment & Plan (1) Atrial flutter: * New onset Atrial Flutter started early this morning * Hemodynamically stable * Will try IV amiodarone to attempt to convert to regular sinus rhythm and anticoagulate with heparin if okay with surgery from a post op bleeding standpoint * If unable to convert with amiodarone may consider electrical cardioversion vs ablation * Patient transferred to PCU for telemetry and transthoracic echo is pending (2) Hyperlipidemia: On simvastatin 40 mg (3) Tachycardia: See above (4) DVT prophylaxis: Heparin for anticoagulation Supervising Physician Co-Signing Physician Notes Patient seen and examined. Agree with Dr. Gerber's history, physical examination, assessment, and plan. Her echocardiogram notes normal left ventricular systolic function without wall motion abnormality. There is mild LVH and mild mitral regurgitation. History of Present Illness Reason for Consultation: Atrial Flutter Requesting Physician: Omero Silva MD Attending Physician: Omero Silva MD History of Present Illness Diane Caraballo is a 78 year old woman with a history of Dementia, HTN, Diabetes, breast cancer s/p lumpectomy, pancreatic tumor, history of multiple falls who is in hospital for a hip fracture after a mechanical fall at home and on evaluation here was found to have a left femoral neck fracture. Status post open reduction internal fixation on 03/24 and has been anemic requiring 2 units of PRBC's on March 25. She has had episodes of sinus tachycardia with occasional PAC's throughout her admission and overnight went into atrial flutter for the first time with a 2:1 ratio. She has remained in A Fib and has been tachycardic in the 150's. Patient has baseline of dementia and cannot give me a very clear history but tells me she does not have any chest pain or palpitations currently. She denies any syncope/presyncope, shortness of breath or any other symptoms besides left leg soreness. Allergies Allergy/AdvReac Type Severity Reaction Status Date / Time hydrocodone Allergy Mild UNKNOWN Verified 03/24/19 07:03 repaglinide AdvReac Intermediate SEVERE Verified 03/24/19 07:03 SHAKING sertraline AdvReac Intermediate Hyponatremia Verified 03/24/19 07:03 - SIADH Home Medications Home Medications Medication Instructions Recorded Confirmed Type Caltrate 600 + D 1 tab PO QDD 06/15/18 03/24/19 History Creon 12,000 units PO BIDM 06/15/18 03/24/19 History Myrbetriq 50 mg PO QDD 06/15/18 03/24/19 History Novolog PenFill U-100 Insulin 4 unit SUBCUT QDL 06/15/18 03/24/19 History Novolog PenFill U-100 Insulin 6 unit SUBCUT BIDM 06/15/18 03/24/19 History Toujeo Max U-300 SoloStar 10 unit SUBCUT HS 06/15/18 03/24/19 History losartan [Cozaar] 50 mg PO AMHS 06/15/18 03/24/19 History memantine 10 mg PO BIDM 06/15/18 03/24/19 History metformin 1,000 mg PO BIDM 06/15/18 03/24/19 History risedronate 150 mg PO MONTHLY 06/15/18 03/24/19 History simvastatin 40 mg PO HS 06/15/18 03/24/19 History amlodipine [Norvasc] 5 mg PO QDD 03/19/19 03/24/19 History aspirin [Aspir-81] 81 mg PO QAM 03/19/19 03/24/19 History calcitonin (salmon) 1 spry NA QAM 03/19/19 03/24/19 History ibuprofen 200 mg PO Q6H PRN 03/19/19 03/24/19 History lansoprazole [Prevacid] 30 mg PO QAM 03/19/19 03/24/19 History magnesium oxide 400 mg PO QDD 03/19/19 03/24/19 History metoprolol tartrate 25 mg PO BIDM 03/19/19 03/24/19 History nitrofurantoin macrocrystal 100 mg PO HS 03/19/19 03/24/19 History rivastigmine tartrate 6 mg PO BIDM 03/19/19 03/24/19 History sertraline 25 mg PO HS 03/19/19 03/24/19 History sodium chloride 1,000 mg PO BIDM 03/19/19 03/24/19 History Patient History Medical History Type 2 diabetes mellitus (Chronic) Fracture of femoral neck, left (Acute) Type 1 diabetes mellitus (Chronic) GERD (gastroesophageal reflux disease) (Chronic) Dementia (Chronic) Dementia (Acute) Falls (Chronic) Breast CA Breast cancer right - s/p lumpectomy CHI (closed head injury) Cervical spine fracture Compression fracture Elevated total protein Fall GERD (gastroesophageal reflux disease) Hyperlipidemia Hypertension Hyponatremia likely due to SIADH Lumbar compression fracture Pancreatic carcinoma Pancreatic insufficiency Pancreatic tumor unsure if any portion of the pancreas was resected Thoracic compression fracture Surgical History S/P tubal ligation (Resolved) H/O lumpectomy History of cholecystectomy [address] [place] [address] ([place]) Family History Father Myocardial infarction Mother Myocardial infarction Other Hypertension Social History Preferred Language: Armenian Communication Ability: Effective Communication Ability Comment: baseline dementia Visual Impairment: Limited Beliefs That Will Affect Care: None marital status: Current Living Situation: Spouse other: did various jobs - [employer] ([employer] office) Feels Safe at Home: Yes Safety Concerns: Feels Safe At This Time Smoking Status: Former smoker Tobacco Type: cigarettes Cigarettes Per Day: 1 ppd Second Hand Exposure: No Tobacco Cessation Education Requested by Patient: No Hx Alcohol Use: No Hx Substance Use: No Review of Systems Constitutional: no fever, no chills and no fatigue Respiratory: no cough, no dyspnea and no wheezing Cardiovascular: no chest pain, no dyspnea, no palpitations, no lightheadedness and no syncope Gastrointestinal: no abdominal pain, no nausea and no vomiting Patient has baseline dementia unable to provide clear history of review of systems Physical Exam Constitutional: no acute distress and not ill appearing Eyes: PERRL, conjunctivae normal, anicteric sclerae Respiratory: normal respiratory effort, lungs clear to auscultation Cardiovascular: Rate/Rhythm: regular rhythm and + tachycardic Heart Sounds: normal S1 and normal S2; no click, no gallop, no murmur and no cardiac rub Vessels: normal peripheral pulses (normal in character, tachycardic); no JVD and no carotid bruit Gastrointestinal (Abdomen): normal bowel sounds, soft, nontender, no hepatosplenomegaly Skin: no rashes, warm and dry Results & Data Vital Signs (Past 12 Hours) Vital Signs Temp Pulse Pulse Pulse Resp BP BP 03/28/19 09:22 159 H 03/28/19 08:41 36.9 C 159 H 16 172/83 H 03/28/19 07:36 36.9 C 165 H 20 148/83 H 03/27/19 23:51 37.2 C 100 H 20 134/73 Pulse Ox 03/28/19 09:22 03/28/19 08:41 87 L 03/28/19 07:36 93 03/27/19 23:51 92 Resident Activity Tracking Resident Involvement: Resident Care Provided Care Provided: Adult Hospital Medicine
[2019-03-28] MEDS ORDERED: METOPROLOL TARTRATE 1 MG/ML VIAL IV PRN (10:15)
[2019-03-28] MEDS ORDERED: Heparin Adult LOW DOSE Wt-Based Dextrose 5% 25,000 units/500 mL IV SCH (11:00)
[2019-03-28] MEDS ORDERED: PERFLUTREN LIPID MICROSPHERE (DEFINITY) IV ONE (11:42)
--- NOTE | 2019-03-28 11:55 | Pharmacy Report ---
Pharmacy Glycemic Short Note 2 - Date of Service March 28, 2019 - Glycemic Short BSG Results (Last 24 hours): 03/27/19 03/27/19 03/27/19 11:56 17:34 20:32 Glucose POC Glucose 300 H 301 H* 255 H 03/27/19 03/28/19 03/28/19 23:36 03:58 07:51 Glucose 151 H POC Glucose 204 H 143 H 03/28/19 08:29 Glucose POC Glucose 158 H ASSESSMENT: * Complicated patient with both type 1 and type 2 diabetes and labile BSG's per this and prior admissions. Insulin infusion has been required x2 times this admission, last completed 03/27 AM * Severe hyperglycemia while hospitalized is surprising given that HbA1c was 7. 1% recently on minimal outpatient insulin doses. * Etiology of hyperglycemia is not entirely clear at this point but is likely multifactorial and includes missed dose of basal insulin on 03/24 and sign ificant physiologic stress. Patient was transferred to [facility] today and diltiazem drip (mixed in dextrose) was initiated * AM fasting BSG today good after receiving 28 units of Lantus yesterday. Based on patient history as recent as July 2018, a significantly lower Lantus dose was used and anticipate that 28 units ongoing will eventually cause AM hypoglycemia. However, as BSG's were still significantly elevated yesterday, will continue similar dose for now but split BID and base dose on BSG. * Post-prandial BSG's still significantly elevated yesterday. Will tighten CHO ratio with breakfast * Pre-lunch BSG still >300 mg/dL despite this tightening. Will give an IV bolus in addition to Novolog. May consider tightening further depending on trend from lunch to dinner PLAN FOR INPATIENT GLYCEMIC CONTROL: * Hold outpatient oral diabetes medications * Basal insulin: Give Lantus 15 units x 1 this AM then HS x1 based on BSG as follows: * 0 units for BSG less than 140 mg/dL * 5 units for BSG 140-180 mg/dL * 10 units for BSG greater than 180 mg/dL * Bolus insulin * NovoLog per scale ACHS with two overnight checks * Goal Range: Low 110 mg/dL - High 140 mg/dL * Correction Factor: 25 mg/dL/unit * Nutritional / Prandial insulin per carb ratio of 1 unit per 7 grams CHO consumed * Regular insulin 4 units IV x1 in addition to Novolog this afternoon for BSG > 300 mg/dL
[2019-03-28] MEDS: Heparin IV Low Dose *NO* Bolus IV SCH (13:55)
[2019-03-28] MEDS ORDERED: INSULIN HUMAN REGULAR PER UNIT 4 UNITS in SYRINGE 3.96 ML IV ONE (15:15)
[2019-03-28] MEDS: AMIODARONE / D5W 360 MG/200 ML BAG IV SCH (15:35)
[2019-03-28] MEDS: MAGNESIUM OXIDE 400 MG TAB PO SCH (15:40)
[2019-03-28] MEDS: CALCIUM 600MG + VIT D 400 IU TAB PO SCH (15:44)
--- NOTE | 2019-03-28 16:14 | Hospitalist Progress Note ---
Date of Service March 28, 2019 Assessment & Plan (1) Atrial flutter: New onset the morning of 03/28. No prior history of atrial arrhythmias. Was mildly tachycardic prior to this episode in sinus rhythm. - Started amiodarone gtt -> converted back to normal sinus within 2-3 hours. - Started on heparin gtt - Consider conversion to Eliquis tomorrow (2) Fracture of femoral neck, left: Patient with mechanical fall at home resulting in left hip fracture. Now status post ORIF on 03/[address] Mcgraw. - Continue pain control with acetaminophen as needed, will discontinue opioids as this will worsen delirium - Appreciate orthopedic surgery management - Stable for discharge to rehab from an orthopedic standpoint as per their note on 03/26, follow-up in the office after discharge. (3) Acute blood loss anemia: Has baseline normocytic anemia likely of chronic disease but also had B12 deficiency in 2018. Baseline hgb 9-11. Now with acute blood loss anemia from fracture and surgery - hemoglobin was down to 7.7 on postop day #1 from 9.0 on admission. - She was transfused 2 units PRBCs on 03/25; hemoglobin improved to 11.1, but down to 9.7 on 03/27. - No signs of bleeding at present - Monitor hgb - Up to 10.2 on 03/28 (4) Fever: On 03/25, she had temp up to 38.8. Continued to have low low-grade fevers to 37.7 - 38.1, though by 03/26, they had resolved. UA on 03/24 was without clear source of infection and recently completed a 7-day course of antibiotics for UTI (Rocephin followed by Keflex), CXR on 03/25 was without infiltrate. Surgical wound has remained clean without sign of skin infection. Do not suspect DVT or PE. - Likely from atelectasis - Will continue to follow/observe off of all antibiotics although she did receive cefazolin in the perioperative setting (5) Hypertension: Blood pressures have been mildly elevated to 160/70. - Continue metoprolol, amlodipine, & losartan - Treated with IV Lasix daily PRN for volume overload - Last gave a dose of Lasix 20 mg IV on 03/26 (6) Acute respiratory failure with hypoxia: Episode on 03/25. Likely secondary to pulmonary edema & atelectasis. Chest x-ray with pulmonary edema on 03/25. - Improved with IV diuresis - By 03/27, she was on room air (7) Type 1 diabetes mellitus: Was on insulin drip with severe hyperglycemia in the 300s after being taken off. No evidence of DKA. - Hold home metformin - Insulin per glycemic pharmacist (8) GERD (gastroesophageal reflux disease): Continue lansoprazole (9) Dementia: Moderate to severe at baseline. Is able to do some ADLs independently and ambulate with a history of multiple falls with injuries. - Continue memantine, rivastigmine, and sertraline (10) Vertebral compression fracture: With acute T9 superior endplate vertebral compression fracture with 20% loss of height seen on CT of the chest. C-spine CT and CT of the head negative for acute fractures. - Pain control as needed - Has history of multiple falls with rib fractures and other vertebral compression fractures in the past - Vitamin D level is quite low at 13 - Ergocalciferol 50,000 units weekly (11) Hyponatremia: With chronic hyponatremia, sodium here is mildly low at 135. - Continue salt tablets 1 g PO BID (12) Pancreatic insufficiency: - Continue pancreatic enzymes with meals. (13) Overactive bladder: Takes Myrbetriq on a typical basis and has a history of bladder infections and urinary incontinence. - Hold Myrbetriq while Sylvester in place - Typically is on Macrobid for prophylaxis at home - holding while here (14) Osteoporosis: Continue calcitonin nasal spray and risedronate once monthly. - Adding vitamin D for severe vitamin D deficiency as above (15) Hyperlipidemia: Continue statin (16) DVT prophylaxis: Heparin gtt at this time for aflutter Subjective This morning, she went into aflutter. She reports no chest pain, no palpitations, no shortness of breath, no other major symptoms. Review of Systems Review of Systems: All systems reviewed & are unremarkable except as noted in HPI & below Physical Exam Constitutional: WD/WN, vitals as above Eyes: EOM intact bilaterally; no conjunctival abnormality ENMT: external ear and nose normal, oropharynx normal Neck: trachea midline, no thyromegaly normal visual inspection Respiratory: normal respiratory effort, lungs clear to auscultation no respiratory distress Cardiovascular: Rate/Rhythm: regular rhythm and + tachycardic Vessels: no JVD Extremities: no edema Gastrointestinal (Abdomen): Inspection/Auscultation: abdomen normal to inspection; abdomen not distended Musculoskeletal: no cyanosis or clubbing, extremities motor strength 5/5 Skin: no rashes, warm and dry Neurologic: moves all extremities and awake Psychiatric: Orientation: alert, oriented to person and cooperative Results & Data Vital Signs (Past 12 Hours) Vital Signs Temp Pulse Pulse Pulse Resp BP BP 03/28/19 15:24 36.7 C 88 18 148/68 H 03/28/19 15:12 86 16 03/28/19 14:21 03/28/19 13:27 36.7 C 93 H 18 147/66 H 03/28/19 10:27 36.6 C 87 18 147/67 H 03/28/19 10:20 94 H 03/28/19 09:22 159 H 03/28/19 08:41 36.9 C 159 H 16 172/83 H 03/28/19 07:36 36.9 C 165 H 20 148/83 H Pulse Ox 03/28/19 15:24 91 03/28/19 15:12 91 03/28/19 14:21 95 03/28/19 13:27 97 03/28/19 10:27 92 03/28/19 10:20 03/28/19 09:22 03/28/19 08:41 87 L 03/28/19 07:36 93 PG Care Time/CCT Total # of Minutes Spent Total Time Spent with Patient: Total time spent is greater than 50% in coordination of care (as documented) at patient's floor/unit and/or counseling patient: (1) Fracture of femoral neck, left Encounter type: initial encounter Fracture type: closed Qualified Code(s): S72.002A - Fracture of unspecified part of neck of left femur, initial encounter for closed fracture (2) Hypertension Hypertension type: essential hypertension Qualified Code(s): I10 - Essential (primary) hypertension (3) Type 1 diabetes mellitus Diabetes mellitus complication status: with unspecified complications Qualified Code(s): E10.8 - Type 1 diabetes mellitus with unspecified complications (4) GERD (gastroesophageal reflux disease) Esophagitis presence: esophagitis presence not specified Qualified Code(s): K21.9 - Gastro-esophageal reflux disease without esophagitis (5) Dementia Dementia type: unspecified type Dementia behavioral disturbance: without behavioral disturbance Qualified Code(s): F03.90 - Unspecified dementia without behavioral disturbance
[2019-03-28] MEDS ORDERED: ERGOCALCIFEROL 50,000 UNITS CAP PO ONE (16:45)
[2019-03-28 17:27] LABS: Partial Thromboplastin Ratio 1.2; Partial Thromboplastin Time 31.9 Seconds (21.0-31.0)
[2019-03-28] MEDS ORDERED: HEPARIN IV BOLUS 4,000 UNITS in SYRINGE 0 ML IV ONE (17:45)
[2019-03-28] MEDS: SERTRALINE HCL 50 MG TABLET PO SCH (20:23)
[2019-03-29] MEDS: INSULIN ASPART 100 UNITS/ML 3 ML PEN SC SCH ×9 (00:03→20:48)
[2019-03-29 00:32] LABS: Partial Thromboplastin Ratio 1.5; Partial Thromboplastin Time 41.2 Seconds (21.0-31.0)
[2019-03-29] MEDS ORDERED: HEPARIN IV BOLUS 2,000 UNITS in SYRINGE 0 ML IV ONE ×2 (00:39→09:00)
[2019-03-29] MEDS: AMIODARONE / D5W 360 MG/200 ML BAG IV SCH (03:04)
[2019-03-29 06:52] LABS: Hemoglobin 9.5 g/dL (12.0-16.0); Mean Corpuscular Hgb Conc 33.9 g/dL (32-36); Mean Corpuscular Volume 86.4 fL (80-100); Mean Platelet Volume 9.4 fL (7.4-10.4); Platelet Count 338 K/uL (130-400); RDW Coefficient of Variation 14.2 % (11.5-14.5); RDW Standard Deviation 45.2 fL (36.4-46.3); Red Blood Count 3.24 M/uL (4.2-5.4); White Blood Count 10.26 K/uL (4.8-10.8)
[2019-03-29] MEDS: ALBUT/IPRATROP 3MG/0.5MG NEB 3 ML VIAL NEB SCH (06:55)
[2019-03-29 07:16] LABS: Partial Thromboplastin Ratio 1.6; Partial Thromboplastin Time 42.4 Seconds (21.0-31.0)
[2019-03-29 07:28] LABS: BUN Creatinine Ratio 24.8 (10-20); Creatinine Clr Calc Pharmacy 71.7 ml/min; Est GFR (African American) 101.3; Est GFR (Non-African American) 87.4; Potassium 3.3 mmol/L (3.5-5.1)
[2019-03-29] MEDS: LANSOPRAZOLE 30 MG SOLTAB PO SCH (09:00)
[2019-03-29] MEDS: LOSARTAN POTASSIUM 50 MG TAB PO SCH ×2 (09:00→20:39)
[2019-03-29] MEDS ORDERED: INSULIN GLARGINE SOLOSTAR 100 UNITS/ML 3 ML PEN SC ONE ×2 (09:00→21:00)
[2019-03-29] MEDS: SODIUM CHLORIDE 1 GM TABLET PO SCH ×2 (09:01→17:21)
[2019-03-29] MEDS: PANCREAZE (LIPASE 10,500U) CAP PO SCH ×2 (09:01→17:23)
[2019-03-29] MEDS: MEMANTINE HCL 10 MG TAB PO SCH ×2 (09:01→17:22)
[2019-03-29] MEDS: RIVASTIGMINE TARTRATE 1.5 MG CAP PO SCH ×2 (09:02→17:24)
[2019-03-29] MEDS: CALCITONIN SALMON NA 200 IU/AC 3.7 ML BTL SCH (09:02)
[2019-03-29] MEDS: AMIODARONE 200 MG TAB PO SCH ×2 (09:21→20:36)
[2019-03-29] MEDS: METOPROLOL TARTRATE 25 MG TAB PO SCH ×3 (10:02→20:40)
[2019-03-29] MEDS ORDERED: ALBUT/IPRATROP 3MG/0.5MG NEB 3 ML VIAL NEB PRN (10:07)
--- NOTE | 2019-03-29 14:00 | Hospitalist Progress Note ---
Date of Service March 29, 2019 Assessment & Plan (1) Atrial flutter: New onset the morning of 03/28. No prior history of atrial arrhythmias. Was mildly tachycardic prior to this episode in sinus rhythm. - Started amiodarone gtt -> converted back to normal sinus within 2-3 hours. - Started amiodarone 200mg PO BID on 03/29 - Started on heparin gtt -> Converted to Eliquis on 03/29 - One brief episode of SVT that self-resolved in the evening of 03/28 (2) Fracture of femoral neck, left: Patient with mechanical fall at home resulting in left hip fracture. S/p ORIF on 03/[address] Mcgraw. - Continue pain control with acetaminophen as needed, will discontinue opioids as this will worsen delirium - Appreciate orthopedic surgery management - Stable for discharge to rehab from an orthopedic standpoint as per their note on 03/26, follow-up in the office after discharge. (3) Acute blood loss anemia: Has baseline normocytic anemia likely of chronic disease but also had B12 deficiency in 2018. Baseline hgb 9-11. Now with acute blood loss anemia from fracture and surgery - hemoglobin was down to 7.7 on postop day #1 from 9.0 on admission. - She was transfused 2 units PRBCs on 03/25; hemoglobin improved to 11.1, but down to 9.7 on 03/27. - Monitor hgb - 9.5 on 03/29 - No signs of bleeding at present (4) Fever: On 03/25, she had temp up to 38.8. Continued to have low low-grade fevers to 37.7 - 38.1, though by 03/26, they had resolved. UA on 03/24 was without clear source of infection and recently completed a 7-day course of antibiotics for UTI (Rocephin followed by Keflex), CXR on 03/25 was without infiltrate. Surgical wound has remained clean without sign of skin infection. Do not suspect DVT or PE. - Likely from atelectasis - Will continue to follow/observe off of all antibiotics - As of 03/29, no further fevers (5) Hypertension: Blood pressures have been mildly elevated to 160/70. - Continue metoprolol, amlodipine, & losartan - Treated with IV Lasix daily PRN for volume overload - Last gave a dose of Lasix 20 mg IV on 03/26 (6) Acute respiratory failure with hypoxia: Episode on 03/25. Likely secondary to pulmonary edema & atelectasis. Chest x-ray with pulmonary edema on 03/25. - Improved with IV diuresis - By 03/27, she was on room air (7) Type 1 diabetes mellitus: Was on insulin drip with severe hyperglycemia in the 300s after being taken off. No evidence of DKA. - Hold home metformin - Insulin per glycemic pharmacist (8) GERD (gastroesophageal reflux disease): Continue lansoprazole (9) Dementia: Moderate to severe at baseline. Is able to do some ADLs independently and ambulate with a history of multiple falls with injuries. - Continue memantine, rivastigmine, and sertraline - Will monitor QTc on amiodarone (10) Vertebral compression fracture: With acute T9 superior endplate vertebral compression fracture with 20% loss of height seen on CT of the chest. C-spine CT and CT of the head negative for acute fractures. - Pain control as needed - Has history of multiple falls with rib fractures and other vertebral compression fractures in the past - Vitamin D level is quite low at 13 - Ergocalciferol 50,000 units weekly - Give on Tuesdays (11) Hyponatremia: With chronic hyponatremia, sodium here is mildly low at 135. - Continue salt tablets 1 g PO BID (12) Pancreatic insufficiency: - Continue pancreatic enzymes with meals. (13) Overactive bladder: Takes Myrbetriq on a typical basis and has a history of bladder infections and urinary incontinence. - Hold Myrbetriq while Sylvester in place - Typically is on Macrobid for prophylaxis at home - holding while here (14) Osteoporosis: Continue calcitonin nasal spray and risedronate once monthly. - Adding vitamin D for severe vitamin D deficiency as above (15) Hyperlipidemia: Continue statin (16) DVT prophylaxis: Eliquis for aflutter Subjective Doing well. Less pain in the left leg. Up and putting weight on it when I saw her today. Review of Systems Review of Systems: All systems reviewed & are unremarkable except as noted in HPI & below Physical Exam Constitutional: WD/WN, vitals as above Eyes: EOM intact bilaterally; no conjunctival abnormality ENMT: external ear and nose normal, oropharynx normal Neck: trachea midline, no thyromegaly normal visual inspection Respiratory: normal respiratory effort, lungs clear to auscultation no respiratory distress Cardiovascular: RRR, no murmur, no edema Rate/Rhythm: regular rhythm and + tachycardic Vessels: no JVD Extremities: no edema Gastrointestinal (Abdomen): Inspection/Auscultation: abdomen normal to inspection; abdomen not distended Musculoskeletal: no cyanosis or clubbing, extremities motor strength 5/5 Skin: no rashes, warm and dry Neurologic: moves all extremities and awake Psychiatric: Orientation: alert, oriented to person and cooperative Results & Data Vital Signs (Past 12 Hours) Vital Signs Temp Pulse Pulse Pulse Resp BP BP 03/29/19 10:56 36.7 C 86 20 152/77 H 03/29/19 08:00 90 03/29/19 07:07 37.0 C 100 H 19 150/57 H 03/29/19 06:55 103 H 18 03/29/19 03:34 37.4 C 96 H 20 159/76 H Pulse Ox 03/29/19 10:56 98 03/29/19 08:00 03/29/19 07:07 94 03/29/19 06:55 87 L 03/29/19 03:34 92 PG Care Time/CCT Total # of Minutes Spent Total Time Spent with Patient: Total time spent is greater than 50% in coordination of care (as documented) at patient's floor/unit and/or counseling patient: (1) Fracture of femoral neck, left Encounter type: initial encounter Fracture type: closed Qualified Code(s): S72.002A - Fracture of unspecified part of neck of left femur, initial encounter for closed fracture (2) Hypertension Hypertension type: essential hypertension Qualified Code(s): I10 - Essential (primary) hypertension (3) Type 1 diabetes mellitus Diabetes mellitus complication status: with unspecified complications Qualified Code(s): E10.8 - Type 1 diabetes mellitus with unspecified complications (4) GERD (gastroesophageal reflux disease) Esophagitis presence: esophagitis presence not specified Qualified Code(s): K21.9 - Gastro-esophageal reflux disease without esophagitis (5) Dementia Dementia type: unspecified type Dementia behavioral disturbance: without behavioral disturbance Qualified Code(s): F03.90 - Unspecified dementia without behavioral disturbance
[2019-03-29] MEDS: APIXABAN 5 MG TABLET PO SCH (15:08)
[2019-03-29 15:16] LABS: Partial Thromboplastin Ratio 1.4
[2019-03-29] MEDS: CALCIUM 600MG + VIT D 400 IU TAB PO SCH (17:20)
[2019-03-29] MEDS: MAGNESIUM OXIDE 400 MG TAB PO SCH (17:22)
[2019-03-29] MEDS: ACETAMINOPHEN 325 MG TAB PO PRN (19:46)
[2019-03-29] MEDS: SERTRALINE HCL 50 MG TABLET PO SCH (21:44)
[2019-03-30] MEDS ORDERED: INSULIN ASPART 100 UNITS/ML 3 ML PEN SC SCH
[2019-03-30] MEDS: APIXABAN 5 MG TABLET PO SCH ×2 (06:27→21:00)
[2019-03-30 07:36] LABS: Mean Corpuscular Hgb Conc 33.3 g/dL (32-36); Mean Corpuscular Volume 87.7 fL (80-100); Mean Platelet Volume 9.4 fL (7.4-10.4); Platelet Count 381 K/uL (130-400); RDW Coefficient of Variation 14.5 % (11.5-14.5); Red Blood Count 3.08 M/uL (4.2-5.4)
[2019-03-30 07:54] LABS: Partial Thromboplastin Ratio 1.1; Partial Thromboplastin Time 29.7 Seconds (21.0-31.0)
[2019-03-30] MEDS: INSULIN ASPART 100 UNITS/ML 3 ML PEN SC SCH ×6 (08:00→21:02)
[2019-03-30] MEDS: SODIUM CHLORIDE 1 GM TABLET PO SCH ×2 (08:00→16:19)
[2019-03-30] MEDS: RIVASTIGMINE TARTRATE 1.5 MG CAP PO SCH ×2 (09:00→16:20)
[2019-03-30] MEDS: CALCITONIN SALMON NA 200 IU/AC 3.7 ML BTL SCH (09:00)
[2019-03-30] MEDS ORDERED: INSULIN GLARGINE SOLOSTAR 100 UNITS/ML 3 ML PEN SC ONE ×2 (09:00→21:00)
[2019-03-30] MEDS: AMIODARONE 200 MG TAB PO SCH ×2 (09:00→21:01)
[2019-03-30] MEDS: METOPROLOL TARTRATE 25 MG TAB PO SCH ×3 (09:00→21:01)
[2019-03-30] MEDS: LOSARTAN POTASSIUM 50 MG TAB PO SCH ×2 (09:00→21:01)
[2019-03-30] MEDS: LANSOPRAZOLE 30 MG SOLTAB PO SCH (09:00)
[2019-03-30] MEDS: PANCREAZE (LIPASE 10,500U) CAP PO SCH ×2 (09:00→16:22)
[2019-03-30] MEDS: MEMANTINE HCL 10 MG TAB PO SCH ×2 (09:00→16:17)
[2019-03-30] MEDS ORDERED: POTASSIUM CHLORIDE 20 MEQ TABCR PO ONE (12:30)
--- NOTE | 2019-03-30 13:05 | Cardiology Progress Note ---
Date of Service March 30, 2019 Assessment & Plan (1) Atrial flutter: Fortunately, the patient converted to sinus rhythm on intravenous amiodarone. She has been transitioned to oral dosing at 200 mg b.i.d.. Would change to 200 mg daily at time of discharge. She is tolerating Eliquis at 5 mg b.i.d. without difficulty. (2) Hyperlipidemia: Not currently on a statin. (3) Tachycardia: She demonstrated sinus tachycardia yesterday, however, that has resolved. (4) DVT prophylaxis: Currently on Eliquis. Subjective The patient is resting comfortably in bed without complaints of chest pain, dyspnea, or palpitations. Physical Exam Physical Exam: In general this is a well-developed well-nourished white female in no acute distress. HEENT exam is negative. Neck is supple with full carotid upstrokes. There are no carotid bruits. Jugular venous pressure is flat at 90. There is no thyromegaly. Cardiovascular exam reveals a regular rhythm with a normal S1 and S2. No S3, S4, or murmurs are noted. Lungs are clear without rales, rhonchi, or wheezes. Abdomen is soft and nontender without bruits. Extremities reveal intact radial artery and posterior tibial pulses bilaterally. There is no peripheral edema. Results & Data Vital Signs (Past 12 Hours) Vital Signs Temp Pulse Pulse Pulse Resp BP BP 03/30/19 11:45 36.8 C 81 18 175/71 H 03/30/19 08:00 88 03/30/19 07:09 36.8 C 90 20 155/61 H 03/30/19 04:13 37.1 C 86 16 165/76 H Pulse Ox 03/30/19 11:45 94 03/30/19 08:00 03/30/19 07:09 91 03/30/19 04:13 92 Diagnostic Findings laboratory monitor notes sinus rhythm with occasional PAC. EKG notes normal sinus rhythm with a solitary PAC. QT interval is normal.
[2019-03-30] MEDS ORDERED: INSULIN HUMAN REGULAR PER UNIT 4 UNITS in SYRINGE 3.96 ML IV ONE (13:30)
--- NOTE | 2019-03-30 14:25 | Hospitalist Progress Note ---
Date of Service March 30, 2019 Assessment & Plan (1) Atrial flutter: New onset the morning of 03/28. No prior history of atrial arrhythmias. Was mildly tachycardic prior to this episode in sinus rhythm. CHADs-Vasc is 5, making her a 7.2% stroke risk per year. - Started amiodarone gtt -> converted back to normal sinus within 2-3 hours. - Started amiodarone 200mg PO BID on 03/29 - Started on heparin gtt -> Converted to Eliquis on 03/29 - One brief episode of SVT that self-resolved in the evening of 03/28 - Would not recommend continuing anticoagulation unless she is in a monitored environment. She has had multiple falls at home, and I believe that in the home setting, her fall/bleeding risk is too high compared to CVA risk. (2) Fracture of femoral neck, left: Patient with mechanical fall at home resulting in left hip fracture. S/p ORIF on 03/[address] Mcgraw. - Continue pain control with acetaminophen as needed, will discontinue opioids as this will worsen delirium. - Appreciate orthopedic surgery management - Stable for discharge to rehab from an orthopedic standpoint as per their note on 03/26, follow-up in the office after discharge. - Discussed with ortho on 03/30; ok for discharge. (3) Acute blood loss anemia: Has baseline normocytic anemia likely of chronic disease but also had B12 deficiency in 2018. Baseline hgb 9-11. Now with acute blood loss anemia from f racture and surgery - hemoglobin was down to 7.7 on postop day #1 from 9.0 on admission. - She was transfused 2 units PRBCs on 03/25; hemoglobin improved to 11.1, but down to 9.7 on 03/27. - Monitor hgb - 9.0 on 03/30 - No signs of bleeding at present (4) Fever: On 03/25, she had temp up to 38.8. Continued to have low low-grade fevers to 37.7 - 38.1, though by 03/26, they had resolved. UA on 03/24 was without clear source of infection and recently completed a 7-day course of antibiotics for UTI (Rocephin followed by Keflex), CXR on 03/25 was without infiltrate. Surgical wound has remained clean without sign of skin infection. Do not suspect DVT or PE. - Likely from atelectasis - Will continue to follow/observe off of all antibiotics - As of 03/30, no further fevers (5) Hypertension: Blood pressures have been mildly elevated to 160/70. - Continue metoprolol, amlodipine, & losartan - Treated with IV Lasix daily PRN for volume overload - Last gave a dose of Lasix 20 mg IV on 03/26 (6) Acute respiratory failure with hypoxia: Episode on 03/25. Likely secondary to pulmonary edema & atelectasis. Chest x-ray with pulmonary edema on 03/25. - Improved with IV diuresis - By 03/27, she was on room air (7) Type 1 diabetes mellitus: Was on insulin drip with severe hyperglycemia in the 300s after being taken off. No evidence of DKA. - Hold home metformin - Insulin per glycemic pharmacist (8) GERD (gastroesophageal reflux disease): Continue lansoprazole (9) Dementia: Moderate to severe at baseline. Is able to do some ADLs independently and ambulate with a history of multiple falls with injuries. - Continue memantine, rivastigmine, and sertraline - Will monitor QTc on amiodarone - QTc was 423 on 03/30 (10) Vertebral compression fracture: With acute T9 superior endplate vertebral compression fracture with 20% loss of height seen on CT of the chest. C-spine CT and CT of the head negative for acute fractures. - Pain control as needed - Has history of multiple falls with rib fractures and other vertebral compression fractures in the past - Vitamin D level is quite low at 13 - Ergocalciferol 50,000 units weekly - Give on Tuesdays (11) Hyponatremia: With chronic hyponatremia, sodium here is mildly low at 135. - Continue salt tablets 1 g PO BID (12) Pancreatic insufficiency: - Continue pancreatic enzymes with meals. (13) Overactive bladder: Takes Myrbetriq on a typical basis and has a history of bladder infections and urinary incontinence. - Hold Myrbetriq while Sylvester in place - Typically is on Macrobid for prophylaxis at home - holding while here (14) Osteoporosis: Continue calcitonin nasal spray and risedronate once monthly. - Adding vitamin D for severe vitamin D deficiency as above (15) Hyperlipidemia: Continue statin (16) DVT prophylaxis: Eliquis for aflutter Subjective No major concerns today other than continue leg pain in the left leg. Review of Systems Review of Systems: All systems reviewed & are unremarkable except as noted in HPI & below Physical Exam Constitutional: WD/WN, vitals as above Eyes: EOM intact bilaterally; no conjunctival abnormality ENMT: external ear and nose normal, oropharynx normal Neck: trachea midline, no thyromegaly normal visual inspection Respiratory: normal respiratory effort, lungs clear to auscultation no respiratory distress Cardiovascular: RRR, no murmur, no edema Rate/Rhythm: regular rhythm and + tachycardic Vessels: no JVD Extremities: no edema Gastrointestinal (Abdomen): Inspection/Auscultation: abdomen normal to inspection; abdomen not distended Musculoskeletal: no cyanosis or clubbing, extremities motor strength 5/5 Skin: no rashes, warm and dry Neurologic: moves all extremities and awake Psychiatric: Orientation: alert, oriented to person and cooperative Results & Data Vital Signs (Past 12 Hours) Vital Signs Temp Pulse Pulse Pulse Resp BP BP 03/30/19 11:45 36.8 C 81 18 175/71 H 03/30/19 08:00 88 03/30/19 07:09 36.8 C 90 20 155/61 H 03/30/19 04:13 37.1 C 86 16 165/76 H Pulse Ox 03/30/19 11:45 94 03/30/19 08:00 03/30/19 07:09 91 03/30/19 04:13 92 PG Care Time/CCT Total # of Minutes Spent Total Time Spent with Patient: Total time spent is greater than 50% in coordination of care (as documented) at patient's floor/unit and/or counseling patient: (1) Fracture of femoral neck, left Encounter type: initial encounter Fracture type: closed Qualified Code(s): S72.002A - Fracture of unspecified part of neck of left femur, initial encounter for closed fracture (2) Hypertension Hypertension type: essential hypertension Qualified Code(s): I10 - Essential (primary) hypertension (3) Type 1 diabetes mellitus Diabetes mellitus complication status: with unspecified complications Qualified Code(s): E10.8 - Type 1 diabetes mellitus with unspecified complications (4) GERD (gastroesophageal reflux disease) Esophagitis presence: esophagitis presence not specified Qualified Code(s): K21.9 - Gastro-esophageal reflux disease without esophagitis (5) Dementia Dementia type: unspecified type Dementia behavioral disturbance: without behavioral disturbance Qualified Code(s): F03.90 - Unspecified dementia without behavioral disturbance
--- NOTE | 2019-03-30 15:09 | Pharmacy Report ---
Pharmacy Glycemic Short Note 2 - Date of Service March 30, 2019 - Glycemic Short BSG Results (Last 24 hours): 03/29/19 03/29/19 03/29/19 16:35 20:38 20:40 POC Glucose 129 H 62 L* 62 L* 03/29/19 03/29/19 03/30/19 20:53 23:50 07:24 POC Glucose 78 220 H 156 H 03/30/19 07:25 POC Glucose 167 H ASSESSMENT: 03/30: * Patient with very labile BSG. Fasting BSGs are okay, but continued random elevated post prandial levels. Hypoglycemic episode yesterday likely due to insulin stacking (stemming from closer than normal administration of lunch and dinner novolog). Thus evening lantus was not given and this be contributing to some of the hyperglycemia seen today. A one time 4 unit IV bolus was given at lunch today (with 20 meq PO KCL) to help bring this down. Overall plan is to transition back to a nightly once daily regimen. 36 units of insulin were given yesterday 03/28 * Complicated patient with both type 1 and type 2 diabetes and labile BSG's per this and prior admissions. Insulin infusion has been required x2 times this admission, last completed 03/27 AM * Severe hyperglycemia while hospitalized is surprising given that HbA1c was 7.1% recently on minimal outpatient insulin doses. * Etiology of hyperglycemia is not entirely clear at this point but is likely multifactorial and includes missed dose of basal insulin on 03/24 and significant physiologic stress. Patient was transferred to [facility] today and diltiazem drip (mixed in dextrose) was initiated * AM fasting BSG today good after receiving 28 units of Lantus yesterday. Based on patient history as recent as July 2018, a significantly lower Lantus dose was used and anticipate that 28 units ongoing will eventually cause AM hypoglycemia. However, as BSG's were still significantly elevated yesterday, will continue similar dose for now but split BID and base dose on BSG. * Post-prandial BSG's still significantly elevated yesterday. Will tighten CHO ratio with breakfast * Pre-lunch BSG still >300 mg/dL despite this tightening. Will give an IV bolus in addition to Novolog. May consider tightening further depending on trend from lunch to dinner PLAN FOR INPATIENT GLYCEMIC CONTROL: * Hold outpatient oral diabetes medications * Basal insulin: Give Lantus 15 units x 1 this AM then HS x1 based on BSG as follows: * 0 units for BSG less than 110 mg/dL * 10 units for BSG 110-200 mg/dL * 15 units for BSG greater than 200 mg/dL * Bolus insulin * NovoLog per scale ACHS with two overnight checks * Goal Range: Low 110 mg/dL - High 140 mg/dL * Correction Factor: 25 mg/dL/unit * Nutritional / Prandial insulin per carb ratio of 1 unit per 7 grams CHO consumed * Regular insulin 4 units IV x1 in addition to Novolog this afternoon for BSG > 300 mg/dL
[2019-03-30] MEDS: MAGNESIUM OXIDE 400 MG TAB PO SCH (16:23)
[2019-03-30] MEDS: CALCIUM 600MG + VIT D 400 IU TAB PO SCH (16:24)
[2019-03-30] MEDS: SERTRALINE HCL 50 MG TABLET PO SCH (21:00)
[2019-03-30] MEDS: ACETAMINOPHEN 325 MG TAB PO PRN (21:53)
[2019-03-31 06:23] LABS: Partial Thromboplastin Ratio 1.1; Partial Thromboplastin Time 29.1 Seconds (21.0-31.0)
[2019-03-31 06:49] LABS: BUN Creatinine Ratio 22.5 (10-20); Calcium 9.1 mg/dl (8.5-10.1); Creatinine Clr Calc Pharmacy 72.1 ml/min; Est GFR (African American) 101.3; Est GFR (Non-African American) 87.4; Potassium 3.7 mmol/L (3.5-5.1)
[2019-03-31] MEDS: LOSARTAN POTASSIUM 50 MG TAB PO SCH ×2 (07:43→20:51)
[2019-03-31] MEDS: ACETAMINOPHEN 325 MG TAB PO PRN ×4 (07:43→23:54)
[2019-03-31] MEDS: APIXABAN 5 MG TABLET PO SCH ×2 (07:44→20:51)
[2019-03-31] MEDS: RIVASTIGMINE TARTRATE 1.5 MG CAP PO SCH ×2 (07:44→17:00)
[2019-03-31] MEDS: MIRABEGRON ER 25 MG TAB PO SCH (07:44)
[2019-03-31] MEDS: LANSOPRAZOLE 30 MG SOLTAB PO SCH (07:44)
[2019-03-31] MEDS: AMIODARONE 200 MG TAB PO SCH ×2 (07:45→20:51)
[2019-03-31] MEDS: SODIUM CHLORIDE 1 GM TABLET PO SCH ×2 (07:45→17:02)
[2019-03-31] MEDS: METOPROLOL TARTRATE 25 MG TAB PO SCH ×2 (07:45→14:36)
[2019-03-31] MEDS: MEMANTINE HCL 10 MG TAB PO SCH ×2 (07:45→17:00)
[2019-03-31] MEDS: PANCREAZE (LIPASE 10,500U) CAP PO SCH ×2 (07:45→17:00)
[2019-03-31] MEDS: CALCITONIN SALMON NA 200 IU/AC 3.7 ML BTL SCH (07:46)
[2019-03-31] MEDS: INSULIN ASPART 100 UNITS/ML 3 ML PEN SC SCH ×5 (07:55→20:49)
[2019-03-31] MEDS ORDERED: METOPROLOL TARTRATE 1 MG/ML VIAL IV STA (08:26)
[2019-03-31] MEDS ORDERED: METOPROLOL TARTRATE 1 MG/ML VIAL IV ONE (08:27)
--- NOTE | 2019-03-31 08:28 | Pharmacy Report ---
Pharmacy Glycemic Short Note 2 - Date of Service March 31, 2019 - Glycemic Short BSG Results (Last 24 hours): 03/30/19 03/30/19 03/30/19 07:24 07:25 11:17 Glucose POC Glucose 156 H 167 H 325 H* 03/30/19 03/30/19 03/30/19 11:19 15:54 20:33 Glucose POC Glucose 344 H* 103 H 104 H 03/31/19 03/31/19 05:06 07:12 Glucose 159 H POC Glucose 173 H ASSESSMENT: * 78yo T1?DM female with adequate outaptietn control per recent A1c (7.1% on 03/20/19) * Pt has been receiving ~35-45 units of insulin per day with near adequate control * AM fasting BSG is slightly above goal range at 167 yesterday, 159 mg/dl tod ay. Pt receiving Lantus 15 units SQ daily in AM. This dosing is more than outpatient dosing of 10 units HS and AM fasting BSG is trending downwards so hesitant to increase basal any further. Additionally, may need to stack doses slightly over the next few days to get back on her HS dosing schedule. No changes to basal insulin today. * Post prandial BSGs all in goal range except for lunch. Will tighten breakfast CR only to prevent hyperglycemia prior to lunch. PLAN FOR INPATIENT GLYCEMIC CONTROL: * Hold outpatient oral diabetes medications * May consider resuming 1-2 days prior to discharge if warranted * Basal insulin: * Lantus 15 units SQ Q24hrs * Bolus insulin * NovoLog per scale ACHS with two overnight checks * Goal Range: Low 110 mg/dL - High 140 mg/dL * Correction Factor: 25 mg/dL/unit * Nutritional / Prandial insulin per carb ratio of 1 unit per 6 grams CHO consumed at breakfast * Nutritional / Prandial insulin per carb ratio of 1 unit per 7 grams CHO consumed at all other meals
[2019-03-31] MEDS ORDERED: INSULIN GLARGINE SOLOSTAR 100 UNITS/ML 3 ML PEN SC SCH (09:00)
--- NOTE | 2019-03-31 09:11 | Cardiology Progress Note ---
Date of Service March 31, 2019 Assessment & Plan (1) Atrial flutter: Recurrent atrial tachy dysrhythmia this morning, apparently asymptomatic and not as tachycardic as initial atrial flutter. Given recurrent dysrhythmia, would not reduce amiodarone upon discharge, continue amiodarone 200 mg b.i.d. for several weeks further. Dose can be reduced as an outpatient. Increase metoprolol from 75 mg total dose daily (25 mg t.i.d.) to 100 mg total dose daily (50 mg q.12 hours). Case discussed with Dr. Silva. (2) Hyperlipidemia: Not currently on a statin. (3) Hypertension: Consistent minor hypertension. Increased beta-emerald may help. Overall, BP not unreasonable given the presence of pain from recent femur fracture and probable anxiety in patient with dementia and limited insight. (4) Dementia: Subjective Patient resting comfortably. Only complaint is leg discomfort (status post femur fracture). She had an episode of atrial tachy-dysrhythmia in the 130 bpm range this morning lasting perhaps 20 minutes, resolved with a single dose of IV Lopressor. She denies any subjective palpitations or any symptoms during this episode. No chest pain, shortness of breath, or lightheadedness. Physical Exam Physical Exam: No distress. Skin: No unusual lesions or ecchymosis. HEENT: Unremarkable. Neck: Jugular venous pulse at the clavicle at 90, no carotid bruits. Lungs: Clear and equal breath sounds bilaterally. No wheezing or crackles. Cardiac: Regular rhythm with sporadic ectopy, normal S1 and S2. No murmur or gallop. Abdomen: Benign. Extremities: Nontender without edema. Intact peripheral pulses. Neurologic: Normal affect, limited insight, grossly nonfocal Results & Data Vital Signs (Past 12 Hours) Vital Signs Temp Pulse Pulse Pulse Resp BP BP 03/31/19 08:47 81 153/70 H 03/31/19 08:27 126 H 194/73 H 03/31/19 08:03 99.0 F 91 H 18 03/31/19 03:50 98.4 F 101 H 18 174/72 H 03/31/19 00:00 80 03/30/19 23:43 98.2 F 83 18 162/62 H BP Pulse Ox 03/31/19 08:47 03/31/19 08:27 03/31/19 08:03 194/67 H 92 03/31/19 03:50 91 03/31/19 00:00 03/30/19 23:43 90 Laboratory Results 03/31/19 05:06 Potassium 3.7 Creatinine 0.61 Diagnostic Findings ECG is a.m. showed sinus rhythm at 80 bpm with no ectopy and no ST abnormalities.. Monitor showed sinus rhythm with PACs, 1 run of atrial tachy dysrhythmia at 130 ppm lasting 15-20 minutes this morning. (1) Hypertension Hypertension type: essential hypertension Qualified Code(s): I10 - Essential (primary) hypertension (2) Dementia Dementia type: unspecified type Dementia behavioral disturbance: without behavioral disturbance Qualified Code(s): F03.90 - Unspecified dementia without behavioral disturbance
[2019-03-31] MEDS ORDERED: INSULIN GLARGINE SOLOSTAR 100 UNITS/ML 3 ML PEN SC ONE (12:00)
[2019-03-31] MEDS ORDERED: TRAMADOL HCL 50 MG TABLET PO PRN (14:09)
--- NOTE | 2019-03-31 16:07 | Hospitalist Progress Note ---
Date of Service March 31, 2019 Assessment & Plan (1) Atrial flutter: New onset the morning of 03/28. No prior history of atrial arrhythmias. Was mildly tachycardic prior to this episode in sinus rhythm. CHADs-Vasc is 5, making her a 7.2% stroke risk per year. - Started amiodarone gtt -> converted back to normal sinus within 2-3 hours. - Started amiodarone 200mg PO BID on 03/29 - Started Eliquis on 03/29 - One brief episode of SVT that self-resolved in the evening of 03/28 & again on 03/31. - Would not recommend continuing anticoagulation unless she is in a monitored environment. She has had multiple falls at home, and I believe that in the home setting, her fall/bleeding risk is too high compared to CVA risk. (2) Fracture of femoral neck, left: Patient with mechanical fall at home resulting in left hip fracture. S/p ORIF on 03/[address] Mcgraw. - Continue pain control with acetaminophen as needed, will discontinue opioids as this will worsen delirium. - Appreciate orthopedic surgery management - Stable for discharge to rehab from an orthopedic standpoint as per their note on 03/26, follow-up in the office after discharge. - Discussed with ortho on 03/30; ok for discharge. (3) Acute blood loss anemia: Has baseline normocytic anemia likely of chronic disease but also had B12 deficiency in 2018. Baseline hgb 9-11. Now with acute blood loss anemia from fracture and surgery - hemoglobin was down to 7.7 on postop day #1 from 9.0 on admission. - She was transfused 2 units PRBCs on 03/25; hemoglobin improved to 11.1, but down to 9.7 on 03/27. - Monitor hgb - 9.0 on 03/30 - No signs of bleeding at present (4) Fever: On 03/25, she had temp up to 38.8. Continued to have low low-grade fevers to 37.7 - 38.1, though by 03/26, they had resolved. UA on 03/24 was without clear source of infection and recently completed a 7-day course of antibiotics for UTI (Rocephin followed by Keflex), CXR on 03/25 was without infiltrate. Surgical wound has remained clean without sign of skin infection. Do not suspect DVT or PE. - Likely from atelectasis - Will continue to follow/observe off of all antibiotics - As of 03/30, no further fevers (5) Hypertension: Blood pressures have been mildly elevated to 160/70. - Continue metoprolol, amlodipine, & losartan - Treated with IV Lasix daily PRN for volume overload - Last gave a dose of Lasix 20 mg IV on 03/26 (6) Acute respiratory failure with hypoxia: Episode on 03/25. Likely secondary to pulmonary edema & atelectasis. Chest x-ray with pulmonary edema on 03/25. - Improved with IV diuresis - By 03/27, she was on room air (7) Type 1 diabetes mellitus: Was on insulin drip with severe hyperglycemia in the 300s after being taken off. No evidence of DKA. - Hold home metformin - Insulin per glycemic pharmacist (8) GERD (gastroesophageal reflux disease): Continue lansoprazole (9) Dementia: Moderate to severe at baseline. Is able to do some ADLs independently and ambulate with a history of multiple falls with injuries. - Continue memantine, rivastigmine, and sertraline - Will monitor QTc on amiodarone - QTc was 423 on 03/30 (10) Vertebral compression fracture: With acute T9 superior endplate vertebral compression fracture with 20% loss of height seen on CT of the chest. C-spine CT and CT of the head negative for acute fractures. - Pain control as needed - Has history of multiple falls with rib fractures and other vertebral compression fractures in the past - Vitamin D level is quite low at 13 - Ergocalciferol 50,000 units weekly - Give on Tuesdays (11) Hyponatremia: With chronic hyponatremia, sodium here is mildly low at 135. - Continue salt tablets 1 g PO BID (12) Pancreatic insufficiency: - Continue pancreatic enzymes with meals. (13) Overactive bladder: Takes Myrbetriq on a typical basis and has a history of bladder infections and urinary incontinence. - Hold Myrbetriq while Sylvester in place - Typically is on Macrobid for prophylaxis at home (14) Osteoporosis: Continue calcitonin nasal spray and risedronate once monthly. - Adding vitamin D for severe vitamin D deficiency as above (15) Hyperlipidemia: Continue statin (16) DVT prophylaxis: Selenaqujulius for aflutter Subjective Reports tremendous pain in her left leg, though she is sitting comfortably in the chair. Review of Systems Review of Systems: Unobtainable due to cognitive status Physical Exam Constitutional: WD/WN, vitals as above Eyes: EOM intact bilaterally; no conjunctival abnormality ENMT: external ear and nose normal, oropharynx normal Neck: trachea midline, no thyromegaly normal visual inspection Respiratory: normal respiratory effort, lungs clear to auscultation no respiratory distress Cardiovascular: RRR, no murmur, no edema Rate/Rhythm: regular rhythm and + tachycardic Vessels: no JVD Extremities: no edema Gastrointestinal (Abdomen): Inspection/Auscultation: abdomen normal to inspection; abdomen not distended Musculoskeletal: no cyanosis or clubbing, extremities motor strength 5/5 Stable line of gumaro on left leg. No erythema or warmth. Skin: no rashes, warm and dry Neurologic: moves all extremities and awake Psychiatric: Orientation: alert, oriented to person and cooperative Results & Data Vital Signs (Past 12 Hours) Vital Signs Temp Pulse Pulse Pulse Resp BP BP 03/31/19 15:05 37.0 C 79 18 164/61 H 03/31/19 13:46 36.7 C 91 H 76 18 153/70 H 03/31/19 11:56 36.7 C 76 18 03/31/19 08:47 81 153/70 H 03/31/19 08:27 126 H 194/73 H 03/31/19 08:03 37.2 C 91 H 18 BP Pulse Ox 03/31/19 15:05 94 03/31/19 13:46 149/63 H 93 03/31/19 11:56 149/63 H 93 03/31/19 08:47 03/31/19 08:27 03/31/19 08:03 194/67 H 92 PG Care Time/CCT Total # of Minutes Spent Total Time Spent with Patient: Total time spent is greater than 50% in coordination of care (as documented) at patient's floor/unit and/or counseling patient: (1) Fracture of femoral neck, left Encounter type: initial encounter Fracture type: closed Qualified Code(s): S72.002A - Fracture of unspecified part of neck of left femur, initial encounter for closed fracture (2) Hypertension Hypertension type: essential hypertension Qualified Code(s): I10 - Essential (primary) hypertension (3) Type 1 diabetes mellitus Diabetes mellitus complication status: with unspecified complications Qualified Code(s): E10.8 - Type 1 diabetes mellitus with unspecified complications (4) GERD (gastroesophageal reflux disease) Esophagitis presence: esophagitis presence not specified Qualified Code(s): K21.9 - Gastro-esophageal reflux disease without esophagitis (5) Dementia Dementia type: unspecified type Dementia behavioral disturbance: without behavioral disturbance Qualified Code(s): F03.90 - Unspecified dementia without behavioral disturbance
[2019-03-31] MEDS: MAGNESIUM OXIDE 400 MG TAB PO SCH (17:00)
[2019-03-31] MEDS: CALCIUM 600MG + VIT D 400 IU TAB PO SCH (17:00)
[2019-03-31] MEDS: METOPROLOL TARTRATE 50 MG TAB PO SCH (20:51)
[2019-03-31] MEDS: SERTRALINE HCL 50 MG TABLET PO SCH (20:52)
[2019-04-01] MEDS: INSULIN ASPART 100 UNITS/ML 3 ML PEN SC SCH ×2 (07:49→11:59)
[2019-04-01] MEDS: METOPROLOL TARTRATE 50 MG TAB PO SCH (07:50)
[2019-04-01] MEDS: MEMANTINE HCL 10 MG TAB PO SCH (07:50)
[2019-04-01] MEDS: PANCREAZE (LIPASE 10,500U) CAP PO SCH (07:50)
[2019-04-01] MEDS: RIVASTIGMINE TARTRATE 1.5 MG CAP PO SCH (07:50)
[2019-04-01] MEDS: LANSOPRAZOLE 30 MG SOLTAB PO SCH (07:50)
[2019-04-01] MEDS: MIRABEGRON ER 25 MG TAB PO SCH (07:50)
[2019-04-01] MEDS: CALCITONIN SALMON NA 200 IU/AC 3.7 ML BTL SCH (07:51)
[2019-04-01] MEDS: LOSARTAN POTASSIUM 50 MG TAB PO SCH (07:51)
[2019-04-01] MEDS: SODIUM CHLORIDE 1 GM TABLET PO SCH (07:51)
[2019-04-01] MEDS: AMIODARONE 200 MG TAB PO SCH (07:51)
[2019-04-01] MEDS: APIXABAN 5 MG TABLET PO SCH (07:52)
[2019-04-01] MEDS: ACETAMINOPHEN 325 MG TAB PO PRN ×2 (08:02→12:37)
--- NOTE | 2019-04-01 09:01 | Cardiology Progress Note ---
Date of Service April 01, 2019 Assessment & Plan (1) Atrial flutter: Since she did have recurrent atrial tachy dysrhythmia yesterday, would not reduce amiodarone upon discharge, continue amiodarone 200 mg b.i.d. for several weeks further. Dose can be reduced as an outpatient. Continue metoprolol at increased dose of 100 mg total dose daily (50 mg q.12 hours). (2) Hyperlipidemia: Not currently on a statin. (3) Hypertension: Labile BP. If she remains consistently elevated, could add low-dose amlodipine (2.5 mg daily). Overall BP not unreasonable given the presence of pain from recent femur fracture and probable anxiety in patient with dementia and limited insight. (4) Dementia: Subjective The patient is resting comfortably in bed without complaints of chest pain, dyspnea, or palpitations. Her blood pressure was transiently elevated this morning, but is now back to near normotensive. No significant dysrhythmias overnight heart rate well controlled, rhythm sinus. Physical Exam Physical Exam: No distress. Appears comfortable. Skin: No unusual lesions or ecchymosis. HEENT: Unremarkable. Neck: Jugular venous at the clavicle at 90, no carotid bruits. Lungs: Clear and equal breath sounds bilaterally. Cardiac: Regular rhythm. No obvious murmur or gallop. Abdomen: Benign. Extremities: No edema. Intact peripheral pulses. Neurologic: Normal affect, limited insight, nonfocal Results & Data Vital Signs (Past 12 Hours) Vital Signs Temp Pulse Pulse Resp BP Pulse Ox 04/01/19 08:56 155/64 H 04/01/19 07:48 98.4 F 89 24 227/73 H 91 04/01/19 03:25 98.4 F 75 20 172/70 H 91 04/01/19 00:53 69 03/31/19 23:22 98.1 F 72 20 162/68 H 90 (1) Dementia Dementia behavioral disturbance: without behavioral disturbance Dementia type: unspecified type Qualified Code(s): F03.90 - Unspecified dementia without behavioral disturbance (2) Hypertension Hypertension type: essential hypertension Qualified Code(s): I10 - Essential (primary) hypertension
[2019-04-01] MEDS ORDERED: INSULIN HUMAN REGULAR PER UNIT 6 UNITS in SYRINGE 5.94 ML IV ONE (11:45)
[2019-04-01] MEDS ORDERED: INSULIN GLARGINE SOLOSTAR 100 UNITS/ML 3 ML PEN SC SCH (12:00)
--- NOTE | 2019-04-01 13:35 | Pharmacy Report ---
Pharmacy Glycemic Short Note 2 - Date of Service April 01, 2019 - Glycemic Short BSG Results (Last 24 hours): 03/31/19 03/31/19 04/01/19 16:52 20:32 07:16 POC Glucose 143 H 93 139 H 04/01/19 04/01/19 11:25 11:26 POC Glucose 390 H* 408 H* ASSESSMENT: 04/01 * Ms. Caraballo rec'd 44 units of insulin yesterday (18 of this being basal) * She had a significant elevation in her lunch BSG again today, even higher than yesterday and with a tighter CR with breakfast. I confirmed with the nurse that she has not had any po intake that was not covered by insulin. The spikes at lunch would indicate that she needs tighter coverage with breakfast but I also wonder if qHS basal dosing would help with this as well? * For today, I gave a one time bolus of IV insulin and was going to have BSG checked this afternoon. Patient is now being discharged to a SNF and nurse called re: concern with only 3 units of Novolog w/ meals so I have provided updated recommendations over the phone as noted below. 03/31 * 78yo T1?DM female with adequate outpatient control per recent A1c (7.1% on 03/20/19) * Pt has been receiving ~35-45 units of insulin per day with near adequate control * AM fasting BSG is slightly above goal range at 167 yesterday, 159 mg/dl today. Pt receiving Lantus 15 units SQ daily in AM. This dosing is more than outpatient dosing of 10 units HS and AM fasting BSG is trending downwards so hesitant to increase basal any further. Additionally, may need to stack doses slightly over the next few days to get back on her HS dosing schedule. No changes to basal insulin today. * Post prandial BSGs all in goal range except for lunch. Will tighten breakfast CR only to prevent hyperglycemia prior to lunch. * Pt with severe hyperglycemia (BSG = 311mg/dl) prior to lunch despite tightening CR this morning with breakfast. Will increase Lantus dosing to 18 units (was 15 units) & give additional 3 units now. Will further tighten CR with breakfast from 6 to 5 Will loosen CF slightly since we are adding more basal insulin. No further changes. The past two days patient has been high at lunch but then BSG drops into range at dinner & HS with current orders PLAN FOR INPATIENT GLYCEMIC CONTROL: * Hold outpatient oral diabetes medications * Basal insulin: * Lantus 18 units SQ Q24hrs - moving back to HS dosing * Bolus insulin * NovoLog per scale ACHS with two overnight checks * Goal Range: Low 110 mg/dL - High 140 mg/dL * Correction Factor: 25 mg/dL/unit with breakfast; 30 mg/dL/unit * Nutritional / Prandial insulin per carb ratio of 1 unit per 5 grams CHO consumed at breakfast * Nutritional / Prandial insulin per carb ratio of 1 unit per 7 grams CHO consumed at all other meals Discharge Recommendations: * Lantus 18 units qHS * Novolog 8 units with meals + sliding scale as directed by SNF orders
--- NOTE | 2019-04-01 13:53 | Discharge Summary ---
Date of Service April 01, 2019 Admission HPI Per Admitting Provider 78-year-old female with dementia who was just discharged on March 21 after developing a UTI with metabolic encephalopathy. She has baseline dementia. She is currently on Keflex 500 mg twice a day for several more days. She suffered a mechanical fall at home and developed left hip pain. She was brought to the ED for evaluation. She has evidence of a left femoral neck fracture. Orthopedic consultation is pending. She will need surgical intervention. Her requests a full CODE STATUS. She has other medical problems including hypertension, chronic hyponatremia, type 2 diabetes. She will be kept n.p.o. in the event that surgery is done later today Principal Diagnosis Left hip fracture Discharge Exam Constitutional WD/WN, vitals as above Eyes EOM intact bilaterally; no conjunctival abnormality ENMT external ear and nose normal, oropharynx normal Neck trachea midline, no thyromegaly normal visual inspection Respiratory normal respiratory effort, lungs clear to auscultation no respiratory distress Cardiovascular RRR, no murmur, no edema Rate/Rhythm: regular rhythm and + tachycardic Vessels: no JVD Extremities: no edema Gastrointestinal (Abdomen) Inspection/Auscultation: abdomen normal to inspection; abdomen not distended Musculoskeletal no cyanosis or clubbing, extremities motor strength 5/5 Skin no rashes, warm and dry Neurologic moves all extremities and awake Psychiatric Orientation: alert, oriented to person and cooperative Discharge Data Allergies Allergy/AdvReac Type Severity Reaction Status Date / Time hydrocodone Allergy Mild UNKNOWN Verified 03/24/19 07:03 repaglinide AdvReac Intermediate SEVERE Verified 03/24/19 07:03 SHAKING sertraline AdvReac Intermediate Hyponatremia Verified 03/24/19 07:03 - SIADH Consultations 03/24/19 07:02 Consult Case Management - Discharge Planning Routine 03/24/19 10:31 Consult Orthopedic Surgery Stat 03/24/19 10:37 ED Decision to Admit Stat 03/24/19 11:29 Consult Orthopedic Surgery Routine 03/24/19 18:33 Consult Case Management - Discharge Planning Routine 03/29/19 08:32 Consult Cardiology Routine Procedures Performed Operation Date: 03/24/19 07:30 Actual Procedures p Left Anterior Bipolar Hip Arthroplasty, cemented (Left) - Mukesh Mcgraw, Ordered Studies 03/24/19 FL fluoroscopy <1hr Routine FL hip LT 2-3V Routine 03/24/19 07:02 CT cervical spine wo con Stat CT chest w con Stat CT head/brain wo con Stat 03/24/19 07:53 CT pelvis wo con Stat Hospital Course (1) Atrial flutter: New onset the morning of 03/28. No prior history of atrial arrhythmias. Was mildly tachycardic prior to this episode in sinus rhythm. CHADs-Vasc is 5, making her a 7.2% stroke risk per year. - Started amiodarone gtt -> converted back to normal sinus within 2-3 hours. - Started amiodarone 200mg PO BID on 03/29 - Started Eliquis on 03/29 - One brief episode of SVT that self-resolved in the evening of 03/28 & again on 03/31. - Would not recommend continuing anticoagulation unless she is in a monitored environment. She has had multiple falls at home, and I believe that in the home setting, her fall/bleeding risk is too high compared to CVA risk. (2) Fracture of femoral neck, left: Patient with mechanical fall at home resulting in left hip fracture. S/p ORIF on 03/[address] Mcgraw. - Continue pain control with acetaminophen as needed, will discontinue opioids as this will worsen delirium. - Appreciate orthopedic surgery management - Stable for discharge to rehab from an orthopedic standpoint as per their note on 03/26, follow-up in the office after discharge. - Discussed with ortho on 03/30; ok for discharge. (3) Acute blood loss anemia: Has baseline normocytic anemia likely of chronic disease but also had B12 deficiency in 2018. Baseline hgb 9-11. Now with acute blood loss anemia from fracture and surgery - hemoglobin was down to 7.7 on postop day #1 from 9.0 on admission. - She was transfused 2 units PRBCs on 03/25; hemoglobin improved to 11.1, but down to 9.7 on 03/27. - Monitor hgb - 9.0 on 03/30 - No signs of bleeding at present (4) Fever: On 03/25, she had temp up to 38.8. Continued to have low low-grade fevers to 37.7 - 38.1, though by 03/26, they had resolved. UA on 03/24 was without clear source of infection and recently completed a 7-day course of antibiotics for UTI (Rocephin followed by Jan), CXR on 03/25 was without infiltrate. Surgical wound has remained clean without sign of skin infection. Do not suspect DVT or PE. - Likely from atelectasis - Will continue to follow/observe off of all antibiotics - As of 03/30, no further fevers (5) Hypertension: Blood pressures have been mildly elevated to 160/70. - Continue metoprolol, amlodipine, & losartan - Treated with IV Lasix daily PRN for volume overload - Last gave a dose of Lasix 20 mg IV on 03/26 (6) Acute respiratory failure with hypoxia: Episode on 03/25. Likely secondary to pulmonary edema & atelectasis. Chest x-ray with pulmonary edema on 03/25. - Improved with IV diuresis - By 03/27, she was on room air (7) Type 1 diabetes mellitus: Was on insulin drip with severe hyperglycemia in the 300s after being taken off. No evidence of DKA. - Hold home metformin - On discharge, she was on Lantus 18 units daily, Novolog 8 units with meals, and a Sliding scale insulin (8) GERD (gastroesophageal reflux disease): Continue lansoprazole (9) Dementia: Moderate to severe at baseline. Is able to do some ADLs independently and ambulate with a history of multiple falls with injuries. - Continue memantine, rivastigmine, and sertraline - Will monitor QTc on amiodarone - QTc was 423 on 03/30 (10) Vertebral compression fracture: With acute T9 superior endplate vertebral compression fracture with 20% loss of height seen on CT of the chest. C-spine CT and CT of the head negative for acute fractures. - Pain control as needed - Has history of multiple falls with rib fractures and other vertebral compression fractures in the past - Vitamin D level is quite low at 13 - Ergocalciferol 50,000 units weekly - Give on Tuesdays (11) Hyponatremia: With chronic hyponatremia, sodium here is mildly low at 135. - Continue salt tablets 1 g PO BID (12) Pancreatic insufficiency: - Continue pancreatic enzymes with meals. (13) Overactive bladder: Takes Myrbetriq on a typical basis and has a history of bladder infections and urinary incontinence. - Hold Myrbetriq while Sylvester in place - Typically is on Macrobid for prophylaxis at home (14) Osteoporosis: Continue calcitonin nasal spray and risedronate once monthly. - Adding vitamin D for severe vitamin D deficiency as above (15) Hyperlipidemia: Continue statin (16) DVT prophylaxis: Eliquis for aflutter Total Time Total Time Spent Total Time Spent (In Minutes): 35 Discharge Plan Discharge Items Patient Disposition: Transfer [facility] Fac Reason For Visit: LEFT HIP FRACTURE Discharge Diagnosis: Left hip fracture Discharge Goals: Decrease discomfort and Improve disease control Activity: Resume your previous activity Non-emergency contact: Primary Care Provider and Gore Seamer Call non-emergency contact if: you have any medication questions Follow-up/Referrals: Zbigniew García MD [Physician] - (Please see Dr. García in 2-4 weeks for follow up of your atrial flutter.) Toney Morgan [Primary Care Provider] - Mukesh Mcgraw DO [Physician] - (Please follow up by 04/07 for your left hip.) Diet: Heart Healthy Addtl Provider Instructions: Medical issues: 1) Went into aflutter. New diagnosis - Started on amiodarone & Eliquis with resolution. Back in normal sinus by discharge. Follow up with cardiology in 2 weeks. 2) Sugars have been somewhat instable, though improved by discharge. Will need blood sugar checks 4x/day until regimen is established with new diet and new location. Presently on Lantus 18 units daily and 8 units of Novolog with meals plus a sliding scale for correction. ORTHOPEDIC INSTRUCTIONS Hip Hemiarthroplasty Activity and Therapy Recommendations: 1. You were shown a series of exercises in the hospital. Do these exercises three times each day if you are able. 2. Get up and walk several times each day if you are capable. Make sure you have assistance is needed. For the first four weeks, try not to stand or walk for more than one hour at a time. If you do stand or walk for more than one hour, you will not hurt anything, but your leg will likely swell. 3. As you feel comfortable, you may change from the walker or crutches to a cane and then to independent walking if you are able. Please be safe. Medications: 1. Narcotic You will likely be sent from the hospital with the narcotic pain medication that worked best throughout your stay. 2. Aspirin You will be required to take Aspirin 81mg twice a day for 6 weeks after surgery to prevent blood clots. 3. Other medications may be given for specific circumstances. If you have any questions, please call the office at [phone]. 4. Resume previous home medications unless otherwise instructed TEDs/Elastic Stockings: The white elastic stockings help limit swelling and prevent blood clots from forming in your legs. The more you wear them, the more they work. Wear them for six weeks. Dressing Care: You will likely have a purple VAC dressing after surgery. This dressing will keep the incision dry and promote early healing. After about 8 days the batteries will wear out and the VAC will lose suction. Simply remove the dressing at that time and throw everything away, including the small suction machine. Then, you may leave the gumaro open to air or cover them with a dry dressing so they do not rub on your pants. The gumaro will be removed at your 2 week follow-up appointment. Showering: You may shower immediately with the purple VAC dressing. Let the shower spray hit your opposite side and slowly pat the plastic dry. Do not soak the dressing. After the dressing is removed you may shower normally with the gumaro exposed. Let soapy water run over the gumaro and pat them dry. Things To Watch For: 1. Drainage from the incision site that occurs more than one week after your s urgery. 2. Increased redness at the incision site. 3. Fever above 102 degrees Fahrenheit. 4. Unusual chest pain or shortness of breath. 5. Call [facility] at with any of the above problems Follow-Up Visit: Follow-up with Dr. Mcgraw 2 weeks after your day of surgery. Please call to make an appointment or be sure your rehab facility has made one. If you have any questions call Prescriptions: New Lantus Solostar U-100 Insulin 100 unit/mL (3 mL) Insulin Pen 18 unit SC DAILY Qty: 1 RF: 0 apixaban 5 mg tablet 5 mg PO Q12H Qty: 1 RF: 0 amiodarone 200 mg tablet 200 mg PO BID 7 Days Qty: 14 RF: 0 Novolog Flexpen U-100 Insulin 100 unit/mL (3 mL) insulin pen 8 units SQ .tidac Qty: 15 RF: 0 Continued sodium chloride 1 gram Tablet 1,000 mg PO BIDM RF: 0 rivastigmine tartrate 6 mg Capsule 6 mg PO BIDM RF: 0 nitrofurantoin macrocrystal 100 mg Capsule 100 mg PO HS RF: 0 lansoprazole [Prevacid] 30 mg Capsule,Delayed Release(Dr/Ec) 30 mg PO QAM RF: 0 ibuprofen 200 mg Tablet 200 mg PO Q6H PRN (Reason: Pain) RF: 0 magnesium oxide 400 mg (241.3 mg magnesium) tablet 400 mg PO QDD RF: 0 calcitonin (salmon) 200 unit/actuation spray,non-aerosol 1 spry NA QAM RF: 0 sertraline 50 mg tablet 25 mg PO HS RF: 0 losartan [Cozaar] 50 mg Tablet 50 mg PO AMHS RF: 0 memantine 10 mg Tablet 10 mg PO BIDM RF: 0 risedronate 150 mg Tablet 150 mg PO MONTHLY RF: 0 Creon 12,000-38,000 -60,000 unit Capsule,Delayed Release(Dr/Ec) 12,000 units PO BIDM RF: 0 Caltrate 600 + D 600 mg (1,500 mg)-800 unit Tablet,Chewable 1 tab PO QDD RF: 0 Changed metoprolol tartrate 25 mg Tablet 50 mg PO BIDM Qty: 0 RF: 0 Myrbetriq 50 mg Tablet Extended Release 24 Hr 25 mg PO QDD Qty: 0 RF: 0 Discontinued aspirin [Aspir-81] 81 mg Tablet,Delayed Release (Dr/Ec) 81 mg PO QAM RF: 0 amlodipine [Norvasc] 5 mg tablet 5 mg PO QDD RF: 0 simvastatin 40 mg Tablet 40 mg PO HS RF: 0 metformin 1,000 mg Tablet 1,000 mg PO BIDM RF: 0 Novolog PenFill U-100 Insulin 100 unit/mL Cartridge 6 unit SUBCUT BIDM RF: 0 Novolog PenFill U-100 Insulin 100 unit/mL Cartridge 4 unit SUBCUT QDL RF: 0 Toujeo Max U-300 SoloStar 300 unit/mL (3 mL) Insulin Pen 10 unit SUBCUT HS RF: 0 Stand-Alone Forms: [facility] Discharge Orders: Discharge Order (Routine); Ordered 03/31/19 Ordered By: Omero Silva Skilled Items Patient informed of condition?: Yes DNR: No Discharge Level of Care: Skilled Communicable Disease: No Discharge Prognosis: Stable Admission Data Admit Date/Time: 03/24/19 10:46 Attending Provider: Omero Silva Admit Provider: Keven Morris Primary Care Provider: Toney Morgan Other Providers: Kelechi Hall ; Omero Silva ; Keven Morris ; Zbigniew García Service: Telemetry Other Interventions: Discharge Summary Assessment (RN) Last Done: 04/01/19 12:23
== END 2019-04-01 13:15 | DRG 469 ==
LOC: ED 06:39 → SUATTDRO 10:46 → 3N 10:46 → 2S 03-28 08:59

== ENCOUNTER 2019-04-22 20:38 | Inpatient (IN) ==
--- NOTE | 2019-04-22 22:10 | CT Scan Report ---
CT head/brain wo con CLINICAL HISTORY: Headache status post head trauma COMPARISON STUDY: 03/24/2019 TECHNIQUE: Axial CT of the brain is performed from the vertex to the skull base. IV contrast was not administered for this examination. A dose lowering technique was utilized adhering to the principles of ALARA. CT DOSE: FINDINGS: No intra or extra-axial mass lesions are visualized. There is no CT evidence of acute cortical infarc tion. There is no evidence of midline shift. There is no acute hemorrhage. No calvarial fractures ar e visualized. There are moderate white matter hypodensities likely on a small vessel basis. There is persistent ventricular dilatation, likely secondary to volume loss. There is no evidence of acute sinusitis IMPRESSION: No acute intracranial findings Electronically signed by: Mukund Gavin M.D. 04/22/2019 10:09 PM
--- NOTE | 2019-04-22 22:36 | XRay Report ---
XR pelvis 1-2V routine CLINICAL HISTORY: Pain status post trauma COMPARISON: None. DISCUSSION: There is a bipolar left hip arthroplasty. There are no acute fractures or dislocations. T he bones are osteopenic. There are vascular calcifications present. IMPRESSION: Postsurgical changes of a bipolar left hip arthroplasty. No acute fractures or dislocatio ns Electronically signed by: Mukund Gavin M.D. 04/22/2019 10:34 PM
--- NOTE | 2019-04-22 22:37 | XRay Report ---
XR femur LT 2V routine CLINICAL HISTORY: Left femur pain status post trauma COMPARISON: March 2019 DISCUSSION: There is a bipolar left hip arthroplasty. There are no acute fractures or dislocations. T here are vascular calcifications present. There is a 22 mm sclerotic lesion within the distal femoral metaphysis, consistent with either a bone infarct or chondroid lesion. This remains similar to the p rior study. IMPRESSION: Postsurgical change. No acute fractures or dislocations identified. Electronically signed by: Mukund Gavin M.D. 04/22/2019 10:36 PM
[2019-04-22 22:49] LABS: Basophils # (auto) 0.04 K/uL (0-0.2); Basophils % (auto) 0.5 %; Eosinophils # (auto) 0.25 K/uL (0-0.5); Eosinophils % (auto) 2.8 %; Hematocrit (blood only) 34.2 % (37-47); Hemoglobin 11.2 g/dL (12.0-16.0); Immature Granulocytes # (auto) 0.03 K/uL (0.00-0.02); Immature Granulocytes % (auto) 0.3 %; Lymphocytes # (auto) 1.48 K/uL (1.2-3.4); Lymphocytes % (auto) 16.7 %; Mean Corpuscular Hgb Conc 32.7 g/dL (32-36); Mean Corpuscular Volume 91.9 fL (80-100); Monocytes # (auto) 0.55 K/uL (0.11-0.59); Monocytes % (auto) 6.2 %; Neutrophils % (auto) 73.5 %; Platelet Count 351 K/uL (130-400); RDW Coefficient of Variation 14.5 % (11.5-14.5); RDW Standard Deviation 48.7 fL (36.4-46.3); Red Blood Count 3.72 M/uL (4.2-5.4); White Blood Count 8.85 K/uL (4.8-10.8)
[2019-04-22 23:05] LABS: BUN Creatinine Ratio 35.2 (10-20); Calcium 9.2 mg/dl (8.5-10.1); Creatinine Clr Calc Pharmacy 47.1 ml/min; Est GFR (African American) 73.5; Est GFR (Non-African American) 63.4; Potassium 4.4 mmol/L (3.5-5.1)
[2019-04-22 23:08] LABS: Albumin Globulin Ratio 0.7 (0.9-2); Bilirubin,Total 0.2 mg/dl (0.2-1); Globulin 4.6 gm/dl (2.5-4.0); Total Protein 7.6 gm/dl (6.4-8.2)
--- NOTE | 2019-04-22 23:41 | History & Physical Report ---
Date of Service April 22, 2019 Assessment & Plan (1) Fall: Chief Complaint: 78 y/o F Hx DM II, HTN, HLD, breast and pancreatic CA - resolved, A flutter, GERD, advanced dementia, unsteady gait and frequent falls. The pt was discharged from a rehab facility a few days ago. She had been there since 04/01. She was originally admitted to [facility] due to a L femoral Fx 03/24. She underwent a L hip arthroplasty 03/29. Her does not have dementia, however, his mobility is limited and he requires a walker. The pt has a tendency to wander and fall. She is prescribed Eliquis for A flutter. This evening, her had fallen asleep and woke up to find her on the floor. She c/o L hip pain. She was brought to the hospital and a fracture was ruled out. A CT head was also negative. The pt had no recollection of the episode due to her dementia and cannot participate meaningfully in the HPI/ROS. In short, she is admitted to the hospital as she is at risk of wandering and falling, and her elderly is unable to physically handle this. On review of her medications, it appears that he has been experimenting with her meds based on his perception as to how she responds to them. He has not provided er with Eliquis for example - which I might agree with - as he believes she falls too often to be taking this medication. We do not therefore have a reliable med list in terms of what she has been taking recently. 1) Dementia with unsteady gait, tendency to wander and frequent falls - this pt i not safe at home. We will consult PT, OT and attempt placement in a nursing facility. 2) A flutter - sinus on admission - I do not think the benefits of Eliquis outweigh risks and have held this for now. Cont Amio. 3) HTN - cont Amlodipine. Her states she should be on Losartan but this was DCd by her MD which he took issue with. We should likely find out why as she is hypertensive on admission. I will provide a low dose. 4) DM - SS Full code - SCDs if remains in hospital Total time for this admission including review of labs, meds, imaging, records - discussion with pt, , ER attending - 45 min Present on Admission?: Yes (2) Dementia: Present on Admission?: Yes History of Present Illness Chief Complaint: 78 y/o F Hx DM II, HTN, HLD, breast and pancreatic CA - resolved, AFlutter, GERD, avanced dementia, unsteady gait and frequent falls. The pt was discharged from a rehab facility a few days ago. She had been there since 04/01. She was originally admitted to [facility] due to a L femoral Fx 03/24. She underwent a L hip arthroplasty 03/29. Her does not have dementia, however, his mobility is limited and he requires a walker. The pt has a tendency to wander and fall. She is prescribed Eliquis for A flutter. This evening, her had fallen asleep and woke up to find her on the floor. She c/o L hip pain. She was brought to the hospital and a fracture was ruled out. A CT head was also negative. The pt had no recollection of the episode due to her dementia and cannot participate meaningfully in the HPI/ROS. In short, she is admitted to the hospital as she is at risk of wandering and falling, and her elderly is unable to physically handle this. On review of her medications, it appears that he has been experimenting with her meds based on his perception as to how she responds to them. He has not provided er with Eliquis for example - which I might agree with - as he believes she falls too often to be taking this medication. We do not therefore have a reliable med list in terms of what she has been taking recently. PMH: 1) Paroxysmal atrial flutter - Eliquis 2) HTN 3) HLD 4) Advanced dementia 5) SIADH 6) DM II 7) Pancreatic CA - resected 8) Breast CA 9) Pancreatic insufficiency 10) Unsteady gait - frequent falls Surgery 1) Pancreatic mass 2) Lumpectomy 3) L femoral ORIF Social: No smoking or drinking. Acre-dependent due to dementia. Family: Noncontributory Primary Care Provider: Toney Morgan Allergies Allergy/AdvReac Type Severity Reaction Status Date / Time hydrocodone Allergy Mild UNKNOWN Verified 03/24/19 07:03 repaglinide AdvReac Intermediate SEVERE Verified 03/24/19 07:03 SHAKING sertraline AdvReac Intermediate Hyponatremia Verified 03/24/19 07:03 - SIADH Home Medications Home Medications Medication Instructions Recorded Confirmed Type Unobtainable 04/22/19 04/22/19 History Past Med/Surg History Medical History Type 2 diabetes mellitus (Chronic) Fracture of femoral neck, left (Acute) Type 1 diabetes mellitus (Chronic) GERD (gastroesophageal reflux disease) (Chronic) Dementia (Chronic) Dementia (Acute) Falls (Chronic) Breast CA Breast cancer right - s/p lumpectomy CHI (closed head injury) Cervical spine fracture Compression fracture Elevated total protein Fall GERD (gastroesophageal reflux disease) Hyperlipidemia Hypertension Hyponatremia likely due to SIADH Lumbar compression fracture Pancreatic carcinoma Pancreatic insufficiency Pancreatic tumor unsure if any portion of the pancreas was resected Thoracic compression fracture Surgical History S/P tubal ligation (Resolved) H/O lumpectomy History of cholecystectomy [address] [place] [address] ([place], [place]) Family History Father Myocardial infarction Mother Myocardial infarction Other Hypertension Social History Preferred Language: Thai Communication Ability: Effective Visual Impairment: Limited Beliefs That Will Affect Care: None marital status: Current Living Situation: Spouse other: did various jobs - [employer] ([employer] office) Feels Safe at Home: Yes Smoking Status: Former smoker Tobacco Type: cigarettes Cigarettes Per Day: 1 ppd Second Hand Exposure: No Hx Alcohol Use: No Hx Substance Use: No Review of Systems Review of Systems: Cannot obtain due to dementia Physical Exam Physical Exam: General: Pleasantly confused, elderly F, no distress ENT: No erythema or exudates, no thrush Eyes: MANOLO, EOMI Head and neck: Normocephalic, atraumatic, No JVD, neck is supple. Chest/heart: Nontender, S1,2, RRR, no murmurs, no gallops Lungs: CTAB, no wheezing or crackles Abdomen: Nontender, nondistended, BS+ Neuro: Speech is clear, no unilateral weakness or loss of sensation, coor dination intact - disoriented at baseline Musculoskeletal: No joint inflammation, muscle tenderness, FROM Skin: No acute rashes or ulcers Extremities: No clubbing, cyanosis, edema Results & Data Vital Signs (Past 12 Hours) Vital Signs Temp Pulse Pulse Resp BP BP Pulse Ox 04/22/19 22:48 72 20 165/66 H 97 04/22/19 20:47 98.4 F 70 20 179/70 H 97 Diagnostic Findings Pelvic and Hip XR: neg for fractures. CT head: neg for acute findings PG Care Time/CCT Total # of Minutes Spent Total Time Spent with Patient: Total time spent is greater than 50% in coordination of care (as documented) at patient's floor/unit and/or counseling patient: (1) Fall Encounter type: initial encounter Qualified Code(s): W19.XXXA - Unspecified fall, initial encounter
--- NOTE | 2019-04-22 23:57 | Emergency Department Note ---
Entered by Tamara Zhu acting as a scribe for ED Provider Note CHIEF COMPLAINT: Left-sided fall injuries HISTORY OF PRESENT ILLNESS: The patient is a 78 year old female who presents to the Emergency Room with complaints of an episode of left-sided fall injuries 1 hour prior to arrival. The patient was limited due to dementia therefore the patients provided most of the history. The patients states that he heard a loud "bang" and found his laying on a cement floor in their home. The patient states that s he is not in any immediate pain. She reports that she only has slight pain near her left hip. The patient's reports that she had a left hip replacement a few weeks ago at [facility]. Pt denies LOC, headache, fevers, chills, diaphoresis, visual changes, neck pain, chest pain, breathing difficulties, nausea, vomiting, abdominal pain, back pain, melena, hematochezia, urinary symptoms, numbness, weakness, lymphadenopathy, rash, or other complaints. REVIEW OF SYSTEMS: See HPI for pertinent positives and negatives. A total of ten systems were reviewed and were otherwise negative. PMHx/PSHx: Dementia GERD HTN SOCIAL HISTORY: Patient lives at home. PHYSICAL EXAM: GENERAL: Awake, alert, well-appearing, in no distress HENT: Normocephalic, atraumatic. Oropharynx unremarkable. EYES: PERRL. Normal conjunctiva. Sclera non-icteric. NECK: Inspection normal. Non-tender. Supple. No nuchal rigidity. FROM. No masses. RESPIRATORY: Clear to auscultation. No wheezes. No rales. Normal respiratory effort. CARDIAC: Normal rate. Normal rhythm. No murmurs. No rubs. Extremities warm and well perfused. Pulses equal. No JVD. GI: Soft, non-distended. No tenderness to palpation. No rebound or guarding. No masses. RECTAL: Deferred. MUSCULOSKELETAL: Atraumatic. Chest examination reveals no tenderness. The back is symmetrical on inspection without obvious abnormality. There is no CVA tenderness to palpation. No joint edema. LOWER EXTREMITIES: Tenderness in posterior mid femur on the left. Calves are equal size bilaterally and non-tender. No edema. No discoloration. NEURO: Normal sensorium. No sensory or motor deficits noted. SKIN: No rash or jaundice noted. EMERGENCY DEPARTMENT COURSE: 2049: Past medical records reviewed. The patient was evaluated in room A4, and a complete history and physical examination were performed. 2199: Patient is resting comfortably. Awaiting imaging. 2244: Patient's states that she cannot take care of her at home. Discussed with case management. Consulted with internal medicine for further assistance. MEDICAL DECISION MAKING: A4 Prior records reviewed and summarized above. Triage Nursing notes reviewed and agree them. Additional history obtained from the . The patient's history was concerning for traumatic injury. Differential diagnosis: Etiologies such as fracture, dislocation, neurovascular compromise, compartment syndrome, soft tissue injury, as well as others were entertained. Physical examination: The surgical wound was clean dry and intact. The patient had some mild tenderness in the mid shaft of the femur. ER treatment provided: Monitoring. No medication was given. On reassessment the patient was stable. Diagnostics interpreted by me: The labs revealed an unremarkable CBC and chemistry panel. Imaging studies: X-ray imaging of the pelvis and hip did not reveal any acute fracture. CT imaging of the head was negative for acute traumatic injury. After imaging was performed the patient's states that he is having significant difficulty taking care of her at home given her dementia and his advanced age. He was looking for assistance with placement. He does not feel that she is safe going home. At that point blood work was ordered. I did di scuss the case with the ER counseling case manager. Given the time of day on Wednesday she recommended that the patient needs to come into the hospital due to the safety concerns and inpatient case management will have to work on her situation for placement. Consultation: A consultation was placed with the centerless grinder tender on-call, Dr martin. The case was discussed and diagnostics were reviewed. The patient was evaluated in the ER for further treatment. IMPRESSION: Left leg pain, fall PLAN: Admitted The scribe's documentation has been prepared under my direction and personally reviewed by me in its entirety. I confirm that the note above accurately reflects all work, treatment, procedures, and medical decision making performed by me. Impression & Plan Left leg pain, Fall Past Med/Surg History Medical History Type 2 diabetes mellitus (Chronic) Fracture of femoral neck, left (Acute) Type 1 diabetes mellitus (Chronic) GERD (gastroesophageal reflux disease) (Chronic) Dementia (Chronic) Dementia (Acute) Falls (Chronic) Breast CA Breast cancer right - s/p lumpectomy CHI (closed head injury) Cervical spine fracture Compression fracture Elevated total protein Fall GERD (gastroesophageal reflux disease) Hyperlipidemia Hypertension Hyponatremia likely due to SIADH Lumbar compression fracture Pancreatic carcinoma Pancreatic insufficiency Pancreatic tumor unsure if any portion of the pancreas was resected Thoracic compression fracture Surgical History S/P tubal ligation (Resolved) H/O lumpectomy History of cholecystectomy [address] [place] [address] ([place], [place]) Family History Father Myocardial infarction Mother Myocardial infarction Other Hypertension Social History Preferred Language: Lithuanian Communication Ability: Effective Visual Impairment: Limited Beliefs That Will Affect Care: None marital status: Current Living Situation: Spouse other: did various jobs - [employer] ([employer] office) Feels Safe at Home: Yes Smoking Status: Former smoker Tobacco Type: cigarettes Cigarettes Per Day: 1 ppd Second Hand Exposure: No Hx Alcohol Use: No Hx Substance Use: No Results & Data Vital Signs Vital Signs - 24 hr 04/22/19 20:47 04/22/19 22:48 Temperature 36.9 C Temperature Source Oral Sepsis Recent Fever Within 48 Hours No Sepsis Action Taken by Nursing No Action Required Pulse Rate 70 Pulse Rate [Right Finger] 72 Respiratory Rate 20 20 Respiratory Effort / Characteristics Non-Labored Spontaneous Respiratory Depth Normal Respiratory Pattern Regular Blood Pressure 179/70 H Blood Pressure [Left Arm] 165/66 H Blood Pressure Mean 106 Blood Pressure Mean [Left Arm] 99 Pulse Oximetry 97 97 Oxygen Delivery Method Room Air Room Air Laboratory Data Result diagrams: 04/22/19 22:38 04/22/19 22:38 Lab Results 04/22/19 04/22/19 Range/Units 22:38 22:38 WBC 8.85 (4.8-10.8) K/uL RBC 3.72 L (4.2-5.4) M/uL Hgb 11.2 L (12.0-16.0) g/dL Hct 34.2 L (37-47) % MCV 91.9 (80-100) fL MCH 30.1 (25-34) pg MCHC 32.7 (32-36) g/dL RDW Std Deviation 48.7 H (36.4-46.3) fL RDW Coeff of Chandni 14.5 (11.5-14.5) % Plt Count 351 (130-400) K/uL MPV 9.0 (7.4-10.4) fL Immature Gran % (Auto) 0.3 % Neut % (Auto) 73.5 % Lymph % (Auto) 16.7 % Emery % (Auto) 6.2 % Eos % (Auto) 2.8 % Baso % (Auto) 0.5 % Immature Gran # (Auto) 0.03 H (0.00-0.02) K/uL Neut # (Auto) 6.50 (1.4-6.5) K/uL Lymph # (Auto) 1.48 (1.2-3.4) K/uL Emery # (Auto) 0.55 (0.11-0.59) K/uL Eos # (Auto) 0.25 (0-0.5) K/uL Baso # (Auto) 0.04 (0-0.2) K/uL Sodium 134 L (136-145) mmol/L Potassium 4.4 (3.5-5.1) mmol/L Chloride 102 (98-107) mmol/L Carbon Dioxide 26 (21-32) mmol/L Anion Gap 7.0 (3-11) BUN 31 H (7-18) mg/dl Creatinine 0.88 (0.6-1.2) mg/dl Est Cr Clr Drug Dosing 47.1 ml/min Est GFR ( Amer) 73.5 Est GFR (Non-Af Amer) 63.4 BUN/Creatinine Ratio 35.2 H (10-20) Glucose 95 (70-99) mg/dl Calcium 9.2 (8.5-10.1) mg/dl Total Bilirubin 0.2 (0.2-1) mg/dl AST 18 (15-37) U/L ALT 15 (12-78) U/L Alkaline Phosphatase 86 (45-117) U/L Total Protein 7.6 (6.4-8.2) gm/dl Albumin 3.0 L (3.4-5.0) gm/dl Globulin 4.6 H (2.5-4.0) gm/dl Albumin/Globulin Ratio 0.7 L (0.9-2) Discharge Plan Visit Data Chief Complaint: Fall ED Provider: Chance Camarillo Discharge Problem: Left leg pain, Fall Forms Stand Alone Forms: My [facility] [employer] Prescriptions Prescriptions: No Action Unobtainable RF: 0 Discharge Problem: Fall Qualifiers: Encounter type: initial encounter Qualified Code(s): W19.XXXA - Unspecified fall, initial encounter The scribe's documentation has been prepared under my direction and personally reviewed by me in its entirety. I confirm that the note above accurately reflects all work, treatment, procedures, and medical decision making performed by me.
[2019-04-23] MEDS ORDERED: LOSARTAN POTASSIUM 25 MG TAB PO ONE (00:19)
[2019-04-23] MEDS ORDERED: DEXTROSE 50% 50 ML SYRINGE IV PRN (02:15)
[2019-04-23] MEDS ORDERED: GLUCAGON FOR INJ 1 MG VIAL IM PRN (02:15)
[2019-04-23] MEDS ORDERED: GLUCOSE 10 TABS/TUBE PO PRN (02:15)
[2019-04-23] MEDS ORDERED: CARBOHYDRATES FOR HYPOGLYCEMIA PO PRN (02:15)
[2019-04-23] MEDS ORDERED: GLUCOSE 40% GEL 15 GM TUBE PO PRN (02:15)
[2019-04-23] MEDS: ACETAMINOPHEN 500 MG TAB PO SCH ×6 (02:33→21:12)
[2019-04-23] MEDS: PANCREAZE (LIPASE 10,500U) CAP PO SCH ×3 (08:26→16:56)
[2019-04-23] MEDS: AMIODARONE 200 MG TAB PO SCH (08:26)
[2019-04-23] MEDS: MEMANTINE HCL 10 MG TAB PO SCH (08:26)
[2019-04-23] MEDS: PANTOprazole 40 MG TAB PO SCH (08:26)
[2019-04-23] MEDS: SERTRALINE HCL 50 MG TABLET PO SCH (08:26)
[2019-04-23] MEDS: AMLODIPINE BESYLATE 5 MG TAB PO SCH (08:26)
[2019-04-23] MEDS: MIRABEGRON ER 25 MG TAB PO SCH (08:26)
[2019-04-23] MEDS: INSULIN ASPART 100 UNITS/ML 3 ML PEN SC SCH ×4 (08:27→21:12)
[2019-04-23 09:04] LABS: BUN Creatinine Ratio 29.4 (10-20); Calcium 9.2 mg/dl (8.5-10.1); Creatinine Clr Calc Pharmacy 56.3 ml/min; Est GFR (African American) 90.6; Est GFR (Non-African American) 78.1; Magnesium 1.8 mg/dl (1.8-2.4); Potassium 4.2 mmol/L (3.5-5.1)
[2019-04-23] MEDS: CYANOCOBALAMIN 500 MCG TABLET (VITAMIN B-12) PO SCH (09:16)
[2019-04-23] MEDS ORDERED: LANTUS PER UNIT CHARGE SC ONE (12:30)
--- NOTE | 2019-04-23 20:37 | Hospitalist Progress Note ---
Date of Service April 23, 2019 Assessment & Plan (1) Fall: Has had numerous falls over the years, and had a fall in March leading to left hip fracture requiring ORIF. She was discharged to [facility] after her admission for the hip fracture. reports fall(s) while at SNF. After discharge from SNF 1 week ago she then had another fall yesterday. Fortunately head CT, left femur x-ray, and pelvic x-rays do not show any injuries, ICH, fractures, etc. She has vitamin B12 deficiency - this could contribute to fall risk but suspect her dementia in and of itself is major culprit. PT, OT yasmine. Best disposition plan would likely be a dementia unit in local SNF. I discussed this with the pt's today at length. Present on Admission?: Yes (2) Dementia: severe, advanced. needs SNF placement likely indefinitely. replace low b12. TSH in fall 2017 was wnl. cont namenda cont zoloft Present on Admission?: Yes (3) Type 1 diabetes mellitus: During prior stay she was using lantus 18 units daily. Since appetite has been poor since admission will lower lantus dose to 7 units BID. For novolog - use correction factor of 30; adjust as needed. Defer on carb coverage since she is not eating well. Add back when appetite is improved. Present on Admission?: Yes (4) Fracture of femoral neck, left: s/p ORIF on 03/24/19 incision has healed nicely plain films yesterday w/o new fracture or dislocation Present on Admission?: No (5) Atrial flutter: Paroxysmal. Remains on amiodarone 200mg daily. Clinically in NSR. Check EKG to confirm NSR status. I had long conversation with re: systemic anticoagulation. Although falls are NOT an absolute contraindication to anticoagulation [id number] she is having them quite frequently (once/week recently). In light of advanced dementia, high fall risk, and overall poor prognosis I recommended we hold off on restarting eliquis for now. Present on Admission?: No (6) Pancreatic insufficiency: Noted. Cont pancrease enzymes 1 capsule AC. 2nd to resection of pancreas for prior pancreatic cancer. Present on Admission?: Yes (7) GERD (gastroesophageal reflux disease): cont PPI (8) Vitamin B12 deficiency: level was 250 in March. start replacement -- 1000mcg daily. (9) Hypertension: cont amlodipine was on 50mg BID of metoprolol during prior stay as well as losartan 50mg BID will resume metoprolol 50mg BID in AM; if needed can resume the losartan as well (10) DVT prophylaxis: heparin 5000 BID this can serve as prophylaxis against DVT in setting of recent hip fracture as well PT, OT yasmine I asked SW to meet w/ at bedside today to discuss options for dispo including SNF wishes to initiate SNF placement referrals to be made tomorrow will change observation status to full admission I certify that the inpatient services were ordered in accordance with Medicare regulations governing the order. This includes certification that hospital inpatient services are reasonable and necessary and in the case of services not specified as inpatient-only under 42 CFR 419.22(n), that they are appropriately provided as inpatient services in accordance to with the 2-midnight benchmark under 43 CFR 412.3(e) Subjective no issues overnight. pleasantly confused, although she slept most of the visit. at bedside -- numerous questions about her medications, insulin, whether to return to SNF, what stage of dementia she is in, etc. he admits that he took her out of [facility] because her Medicare days had run out. he also admits it has gotten much harder for him to care for her at home. he recognizes his limitations. she has been inconsistently eating/drinking at home. she "has good days and some bad days." Review of Systems Review of Systems: Unobtainable due to cognitive status Physical Exam Constitutional: + thin and + altered mental status; no acute distress ENMT: external ear and nose normal, oropharynx normal Respiratory: normal respiratory effort, lungs clear to auscultation Cardiovascular: Rate/Rhythm: regular rate and regular rhythm Heart Sounds: normal S1 and normal S2; no murmur Vessels: posterior tibial pulses present and dorsalis pedis pulses present; no JVD Extremities: no edema Gastrointestinal (Abdomen): normal bowel sounds, soft, nontender, no hepatosplenomegaly Skin: left hip incision from recent hip fracture clean, well-healed Neurologic: moves all 4 limbs equally Psychiatric: Orientation: + not alert (but does wake up to name being called) and + not oriented x 3 Results & Data Vital Signs (Past 12 Hours) Vital Signs Temp Pulse Resp BP Pulse Ox 04/23/19 15:00 36.8 C 95 H 20 164/80 H 94 04/23/19 11:27 147/65 H Laboratory Results Laboratory Results - last 24 hr 04/23/19 04/23/19 04/23/19 08:17 08:24 11:34 Sodium 134 L Potassium 4.2 Chloride 100 Carbon Dioxide 27 Anion Gap 7.0 BUN 22 H Creatinine 0.74 Est Cr Clr Drug Dosing 56.3 Est GFR ( Amer) 90.6 Est GFR (Non-Af Amer) 78.1 BUN/Creatinine Ratio 29.4 H Glucose 169 H POC Glucose 162 H 277 H Calcium 9.2 Magnesium 1.8 04/23/19 04/23/19 16:40 20:28 Sodium Potassium Chloride Carbon Dioxide Anion Gap BUN Creatinine Est Cr Clr Drug Dosing Est GFR ( Amer) Est GFR (Non-Af Amer) BUN/Creatinine Ratio Glucose POC Glucose 186 H 237 H Calcium Magnesium PG Care Time/CCT Total # of Minutes Spent Total Time Spent with Patient: Total time spent is greater than 50% in coordin ation of care (as documented) at patient's floor/unit and/or counseling patient: (1) Fall Encounter type: initial encounter Qualified Code(s): W19.XXXA - Unspecified fall, initial encounter (2) Dementia Dementia type: unspecified type Dementia behavioral disturbance: without behavioral disturbance Qualified Code(s): F03.90 - Unspecified dementia without behavioral disturbance (3) Type 1 diabetes mellitus Diabetes mellitus complication status: with unspecified complications Qualified Code(s): E10.8 - Type 1 diabetes mellitus with unspecified complications (4) Fracture of femoral neck, left Encounter type: initial encounter Fracture type: closed Qualified Code(s): S72.002A - Fracture of unspecified part of neck of left femur, initial encounter for closed fracture (5) Atrial flutter Atrial flutter type: unspecified Qualified Code(s): I48.92 - Unspecified atrial flutter (6) GERD (gastroesophageal reflux disease) Esophagitis presence: esophagitis presence not specified Qualified Code(s): K21.9 - Gastro-esophageal reflux disease without esophagitis (7) Hypertension Hypertension type: essential hypertension Qualified Code(s): I10 - Essential (primary) hypertension
[2019-04-23] MEDS: INSULIN GLARGINE SOLOSTAR 100 UNITS/ML 3 ML PEN SC SCH (21:12)
[2019-04-23] MEDS: HEPARIN SOD 5,000 UNIT/0.5 ML VIAL SQ SCH (21:12)
[2019-04-24] MEDS: ACETAMINOPHEN 500 MG TAB PO SCH ×6 (02:22→20:51)
[2019-04-24 06:15] LABS: Hematocrit (blood only) 31.3 % (37-47); Hemoglobin 10.5 g/dL (12.0-16.0); Mean Corpuscular Hgb Conc 33.5 g/dL (32-36); Mean Corpuscular Volume 90.2 fL (80-100); Mean Platelet Volume 9.4 fL (7.4-10.4); Platelet Count 341 K/uL (130-400); RDW Coefficient of Variation 14.5 % (11.5-14.5); RDW Standard Deviation 48.1 fL (36.4-46.3); Red Blood Count 3.47 M/uL (4.2-5.4); White Blood Count 8.88 K/uL (4.8-10.8)
[2019-04-24 06:48] LABS: BUN Creatinine Ratio 33.2 (10-20); Calcium 8.8 mg/dl (8.5-10.1); Creatinine Clr Calc Pharmacy 56.3 ml/min; Est GFR (African American) 90.6; Est GFR (Non-African American) 78.1; Potassium 3.9 mmol/L (3.5-5.1)
[2019-04-24] MEDS: SERTRALINE HCL 50 MG TABLET PO SCH (08:14)
[2019-04-24] MEDS: CYANOCOBALAMIN 500 MCG TABLET (VITAMIN B-12) PO SCH (08:14)
[2019-04-24] MEDS: PANTOprazole 40 MG TAB PO SCH (08:14)
[2019-04-24] MEDS: AMLODIPINE BESYLATE 5 MG TAB PO SCH (08:14)
[2019-04-24] MEDS: MEMANTINE HCL 10 MG TAB PO SCH (08:15)
[2019-04-24] MEDS: PANCREAZE (LIPASE 10,500U) CAP PO SCH ×3 (08:15→15:52)
[2019-04-24] MEDS: MIRABEGRON ER 25 MG TAB PO SCH (08:16)
[2019-04-24] MEDS: AMIODARONE 200 MG TAB PO SCH (08:16)
[2019-04-24] MEDS: HEPARIN SOD 5,000 UNIT/0.5 ML VIAL SQ SCH ×2 (08:16→20:48)
[2019-04-24] MEDS: INSULIN GLARGINE SOLOSTAR 100 UNITS/ML 3 ML PEN SC SCH ×2 (08:18→20:49)
[2019-04-24] MEDS: INSULIN ASPART 100 UNITS/ML 3 ML PEN SC SCH ×4 (08:18→20:46)
[2019-04-24] MEDS: METOPROLOL TARTRATE 50 MG TAB PO SCH ×2 (09:37→20:51)
--- NOTE | 2019-04-24 11:51 | Hospitalist Progress Note ---
Date of Service April 24, 2019 Assessment & Plan (1) Fall: Has had numerous falls over the years, and had a fall in March leading to left hip fracture requiring ORIF. She was discharged to [facility] after her admission for the hip fracture. reports fall(s) while at SNF. After discharge from SNF 1 week ago she then had another fall day of admission Fortunately head CT, left femur x-ray, and pelvic x-rays do not show any injuries, ICH, fractures, etc. She has vitamin B12 deficiency - this could contribute to fall risk but suspect her dementia in and of itself is major culprit. PT, LUCA underwood. Best disposition plan would likely be a dementia unit in local SNF. CM working with , finances may be issue, certainly not safe for patient to go home (2) Dementia: severe, advanced. needs SNF placement indefinitely replace low b12. TSH in fall 2017 was wnl. cont namenda cont zoloft (3) Type 1 diabetes mellitus: During prior stay she was using lantus 18 units daily. Since appetite has been poor since admission will lower lantus dose to 7 units BID. For novolog - use correction factor of 30; adjust as needed. monitor for any hypoglycemia, no episodes (4) Fracture of femoral neck, left: s/p ORIF on 03/24/19 incision has healed nicely plain films on admission w/o new fracture or dislocation (5) Atrial flutter: Paroxysmal. Remains on amiodarone 200mg daily. in NSR currently In light of advanced dementia, high fall risk, and overall poor prognosis will hold Eliquis on discharge (6) Pancreatic insufficiency: Noted. Cont pancrease enzymes 1 capsule AC. 2nd to resection of pancreas for prior pancreatic cancer. (7) GERD (gastroesophageal reflux disease): cont PPI (8) Vitamin B12 deficiency: level was 250 in March. start replacement -- 1000mcg daily. (9) Hypertension: cont amlodipine was on 50mg BID of metoprolol during prior stay as well as losartan 50mg BID will resume metoprolol 50mg BID in AM; if needed can resume the losartan as well (10) DVT prophylaxis: heparin 5000 BID this can serve as prophylaxis against DVT in setting of recent hip fracture as well PTLUCA working on SNF placement, locked unit is ideal Subjective patient resting in bed, she is very pleasant, no acute issues she denies any pain discussed that she is here due to fall, that we are working on placement d/w case management, working on going to SNF but will need to pay large sum up front he is working with his winding machine operator to see if this is possible labs and vitals stable no complaints from patient Review of Systems Review of Systems: All systems reviewed & are unremarkable except as noted in HPI & below Physical Exam Constitutional: WD/WN, vitals as above Eyes: PERRL, conjunctivae normal, anicteric sclerae ENMT: external ear and nose normal, oropharynx normal Neck: trachea midline, no thyromegaly Respiratory: normal respiratory effort, lungs clear to auscultation Cardiovascular: RRR, no murmur, no edema Gastrointestinal (Abdomen): normal bowel sounds, soft, nontender, no hepatosplenomegaly Musculoskeletal: no cyanosis or clubbing, extremities motor strength 5/5 Skin: no rashes, warm and dry Neurologic: patellar DTR's 2+ bilat, sensation intact and PERRL, EOMI, accommodation nl, no face palsy, no dysarthria Psychiatric: Orientation: alert and oriented to person; + not oriented to place and + not oriented to time Lymphatic: no cervical or axillary lymphadenopathy Results & Data Vital Signs (Past 12 Hours) Vital Signs Temp Pulse Resp BP Pulse Ox 04/24/19 07:29 36.7 C 83 16 172/65 H 95 04/24/19 00:00 36.8 C 87 20 142/89 H 96 Laboratory Results Laboratory Results - last 24 hr 04/23/19 04/23/19 04/23/19 11:34 16:40 20:28 WBC RBC Hgb Hct MCV MCH MCHC RDW Std Deviation RDW Coeff of Chandni Plt Count MPV Sodium Potassium Chloride Carbon Dioxide Anion Gap BUN Creatinine Est Cr Clr Drug Dosing Est GFR ( Amer) Est GFR (Non-Af Amer) BUN/Creatinine Ratio Glucose POC Glucose 277 H 186 H 237 H Calcium 04/24/19 04/24/19 04/24/19 05:37 05:37 07:45 WBC 8.88 RBC 3.47 L Hgb 10.5 L Hct 31.3 L MCV 90.2 MCH 30.3 MCHC 33.5 RDW Std Deviation 48.1 H RDW Coeff of Chandni 14.5 Plt Count 341 MPV 9.4 Sodium 135 L Potassium 3.9 Chloride 100 Carbon Dioxide 26 Anion Gap 9.0 BUN 24 H Creatinine 0.74 Est Cr Clr Drug Dosing 56.3 Est GFR ( Amer) 90.6 Est GFR (Non-Af Amer) 78.1 BUN/Creatinine Ratio 33.2 H Glucose 99 POC Glucose 118 H Calcium 8.8 04/24/19 11:32 WBC RBC Hgb Hct MCV MCH MCHC RDW Std Deviation RDW Coeff of Chandni Plt Count MPV Sodium Potassium Chloride Carbon Dioxide Anion Gap BUN Creatinine Est Cr Clr Drug Dosing Est GFR ( Amer) Est GFR (Non-Af Amer) BUN/Creatinine Ratio Glucose POC Glucose 243 H Calcium Medications Administered Current Inpatient Medications Acetaminophen (Tylenol) 500 mg PO Q4H [facility] Stop: 05/23/19 01:59 Last Admin: 04/24/19 09:36 Dose: 500 mg Documented by: Amiodarone HCl (Cordarone) 200 mg PO QAM [facility] Stop: 05/23/19 08:59 Last Admin: 04/24/19 08:16 Dose: 200 mg Documented by: Amlodipine Besylate (Norvasc) 5 mg PO QAM [facility] Stop: 05/23/19 08:59 Last Admin: 04/24/19 08:14 Dose: 5 mg Documented by: Lipase/Protease/Amylase (Pancreaze (Lipase 10,500u)) 1 cap PO AC [facility] Stop: 05/23/19 07:29 Last Admin: 04/24/19 08:15 Dose: 1 cap Documented by: Cyanocobalamin (Vitamin B-12) 1,000 mcg PO QAM [facility] Stop: 05/23/19 08:59 Last Admin: 04/24/19 08:14 Dose: 1,000 mcg Documented by: Dextrose (Dextrose 50%) 25 - 50 ml IV UD PRN; Protocol PRN Reason: Hypoglycemia Protocol Stop: 05/23/19 02:14 Glucagon (Glucagen) 1 mg IM UD PRN; Protocol PRN Reason: Hypoglycemia Protocol Stop: 05/23/19 02:14 Glucose (Glucose 40%) 15 - 30 gm PO UD PRN; Protocol PRN Reason: Hypoglycemia Protocol Stop: 05/23/19 02:14 Glucose (Dex4 Glucose) 4 - 8 tabs PO UD PRN; Protocol PRN Reason: Hypoglycemia Protocol Stop: 05/23/19 02:14 Heparin Sodium (Porcine) (Heparin Sodium (Porcine)) 5,000 units SQ Q12 [facility]ID Stop: 05/23/19 20:59 Last Admin: 04/24/19 08:16 Dose: 5,000 units Documented by: Insulin Aspart (Novolog Flexpen) 0 units SC ACHS [facility] Stop: 05/23/19 07:29 Last Admin: 04/24/19 08:18 Dose: Not Given Documented by: Insulin Glargine (Lantus Solostar Pen) 7 units SC BID [facility] Stop: 05/23/19 20:59 Last Admin: 04/24/19 08:18 Dose: 7 units Documented by: Memantine (Namenda) 10 mg PO QAM [facility] Stop: 05/23/19 08:59 Last Admin: 04/24/19 08:15 Dose: 10 mg Documented by: Metoprolol Tartrate (Lopressor) 50 mg PO BID [facility] Stop: 05/24/19 08:59 Last Admin: 04/24/19 09:37 Dose: 50 mg Documented by: Mirabegron (Myrbetriq Er) 25 mg PO DAILY [facility] Stop: 05/23/19 08:59 Last Admin: 04/24/19 08:16 Dose: 25 mg Documented by: Miscellaneous (Carbohydrates For Hypoglycemia) 15 - 30 gm PO UD PRN PRN Reason: Hypoglycemia Treatment Stop: 05/23/19 02:14 Pantoprazole Sodium (Protonix) 40 mg PO QAM [facility] Stop: 05/23/19 08:59 Last Admin: 04/24/19 08:14 Dose: 40 mg Documented by: Sertraline HCl (Zoloft) 25 mg PO QAM [facility] Stop: 05/23/19 08:59 Last Admin: 04/24/19 08:14 Dose: 25 mg Documented by: PG Care Time/CCT Total # of Minutes Spent Total Time Spent with Patient: Total time spent is greater than 50% in coordination of care (as documented) at patient's floor/unit and/or counseling patient: (1) Fall Encounter type: initial encounter Qualified Code(s): W19.XXXA - Unspecified fall, initial encounter (2) Dementia Dementia type: unspecified type Dementia behavioral disturbance: without behavioral disturbance Qualified Code(s): F03.90 - Unspecified dementia without behavioral disturbance (3) Type 1 diabetes mellitus Diabetes mellitus complication status: with unspecified complications Qualified Code(s): E10.8 - Type 1 diabetes mellitus with unspecified complications (4) Fracture of femoral neck, left Encounter type: initial encounter Fracture type: closed Qualified Code(s): S72.002A - Fracture of unspecified part of neck of left femur, initial encounter for closed fracture (5) Atrial flutter Atrial flutter type: unspecified Qualified Code(s): I48.92 - Unspecified atrial flutter (6) GERD (gastroesophageal reflux disease) Esophagitis presence: esophagitis presence not specified Qualified Code(s): K21.9 - Gastro-esophageal reflux disease without esophagitis (7) Hypertension Hypertension type: essential hypertension Qualified Code(s): I10 - Essential (primary) hypertension
[2019-04-24 20:56] LABS: Appearance Urine Turbid (Clear); Bacteria Urine Automated Negative (Negative); Bilirubin Urine Negative (Negative); Blood Urine 1+ (Negative); Color Urine Yellow; Epithelial Cell Urine Auto >30 /lpf (0-5); Glucose Urine UA Negative (Negative); Ketones Urine Trace (Negative); Leukocyte Esterase Urine 3+ (Negative); Nitrite Urine Negative (Negative); Protein Urine 1+ (Negative); Specific Gravity Urine 1.021 (1.000-1.030); Urobilinogen Urine Negative (Negative); WBC Urine Automated >30 /hpf (0-5); pH Urine 5.5 (4.5-7.5)
[2019-04-24] MEDS ORDERED: FLUCONAZOLE 50 MG TAB PO ONE (21:33)
[2019-04-25] MEDS: ACETAMINOPHEN 500 MG TAB PO SCH ×4 (02:03→12:33)
[2019-04-25] MEDS: PANCREAZE (LIPASE 10,500U) CAP PO SCH ×2 (07:54→11:41)
[2019-04-25] MEDS: INSULIN ASPART 100 UNITS/ML 3 ML PEN SC SCH ×2 (08:01→11:46)
[2019-04-25] MEDS: AMLODIPINE BESYLATE 5 MG TAB PO SCH (08:04)
[2019-04-25] MEDS: PANTOprazole 40 MG TAB PO SCH (08:04)
[2019-04-25] MEDS: CYANOCOBALAMIN 500 MCG TABLET (VITAMIN B-12) PO SCH (08:04)
[2019-04-25] MEDS: METOPROLOL TARTRATE 50 MG TAB PO SCH (08:05)
[2019-04-25] MEDS: SERTRALINE HCL 50 MG TABLET PO SCH (08:05)
[2019-04-25] MEDS: MEMANTINE HCL 10 MG TAB PO SCH (08:06)
[2019-04-25] MEDS: AMIODARONE 200 MG TAB PO SCH (08:07)
[2019-04-25] MEDS: MIRABEGRON ER 25 MG TAB PO SCH (08:07)
[2019-04-25] MEDS: HEPARIN SOD 5,000 UNIT/0.5 ML VIAL SQ SCH (08:10)
[2019-04-25] MEDS ORDERED: INSULIN GLARGINE SOLOSTAR 100 UNITS/ML 3 ML PEN SC SCH (09:00)
--- NOTE | 2019-04-25 11:14 | Discharge Summary ---
Date of Service April 25, 2019 Admission HPI Per Admitting Provider Chief Complaint: 78 y/o F Hx DM II, HTN, HLD, breast and pancreatic CA - resolved, AFlutter, GERD, avanced dementia, unsteady gait and frequent falls. The pt was discharged from a rehab facility a few days ago. She had been there since 04/01. She was originally admitted to [facility] due to a L femoral Fx 03/24. She underwent a L hip arthroplasty 03/29. Her does not have dementia, however, his mobility is limited and he requires a walker. The pt has a tendency to wander and fall. She is prescribed Eliquis for A flutter. This evening, her had fallen asleep and woke up to find her on the floor. She c/o L hip pain. She was brought to the hospital and a fracture was ruled out. A CT head was also negative. The pt had no recollection of the episode due to her dementia and cannot participate meaningfully in the HPI/ROS. In short, she is admitted to the hospital as she is at risk of wandering and falling, and her elderly is unable to physically handle this. On review of her medications, it appears that he has been experimenting with her meds based on his perception as to how she responds to them. He has not provided er with Eliquis for example - which I might agree with - as he believes she falls too often to be taking this medication. We do not therefore have a reliable med list in terms of what she has been taking recently. Principal Diagnosis Falls, ambulatory dysfunction Discharge Exam Constitutional WD/WN, vitals as above Eyes PERRL, conjunctivae normal, anicteric sclerae ENMT external ear and nose normal, oropharynx normal Neck trachea midline, no thyromegaly Respiratory normal respiratory effort, lungs clear to auscultation Cardiovascular RRR, no murmur, no edema Gastrointestinal (Abdomen) normal bowel sounds, soft, nontender, no hepatosplenomegaly Musculoskeletal no cyanosis or clubbing, extremities motor strength 5/5 Skin no rashes, warm and dry Neurologic patellar DTR's 2+ bilat, sensation intact and PERRL, EOMI, accommodation nl, no face palsy, no dysarthria Psychiatric Orientation: alert and oriented to person; + not oriented to place and + not oriented to time Lymphatic no cervical or axillary lymphadenopathy Discharge Data Allergies Allergy/AdvReac Type Severity Reaction Status Date / Time hydrocodone Allergy Mild UNKNOWN Verified 03/24/19 07:03 repaglinide AdvReac Intermediate SEVERE Verified 03/24/19 07:03 SHAKING sertraline AdvReac Intermediate Hyponatremia Verified 03/24/19 07:03 - SIADH Consultations 04/22/19 22:47 ED Decision to Admit Stat Ordered Studies 04/22/19 20:56 CT head/brain wo con Stat Hospital Course (1) Fall: Has had numerous falls over the years, and had a fall in March leading to left hip fracture requiring ORIF. She was discharged to [facility] after her admission for the hip fracture. reports fall(s) while at SNF. After discharge from SNF 1 week ago she then had another fall day of admission Fortunately head CT, left femur x-ray, and pelvic x-rays do not show any injuries, ICH, fractures, etc. She has vitamin B12 deficiency - this could contribute to fall risk but suspect her dementia in and of itself is major culprit. PT, OT yasmine. Best disposition plan would likely be a dementia unit in local SNF. CM working with , will d/c today to SNF (2) Dementia: severe, advanced. she is pleasant but lacks awareness, impulsive, wonders needs SNF placement indefinitely replace low b12. TSH in fall 2017 was wnl. cont namenda cont zoloft (3) Type 1 diabetes mellitus: prior stay she was using lantus 18 units daily. will lower Lantus to 10 units daily because patient not eating well had a blood sugar of 78 but was asymptomatic eating better (4) Fracture of femoral neck, left: s/p ORIF on 03/24/19 this fracture occurred on prior fall, not related to most recent falls incision has healed nicely plain films on admission w/o new fracture or dislocation (5) Atrial flutter: Paroxysmal. Remains on amiodarone 200mg daily, metoprolol 50mg BID in NSR currently In light of advanced dementia, high fall risk, and overall poor prognosis will hold Eliquis on discharge (6) Pancreatic insufficiency: Noted. Cont pancrease enzymes 1 capsule AC. 2nd to resection of pancreas for prior pancreatic cancer. (7) GERD (gastroesophageal reflux disease): cont PPI (8) Vitamin B12 deficiency: level was 250 in March. start replacement -- 1000mcg daily. (9) Hypertension: cont amlodipine was on 50mg BID of metoprolol during prior stay as well as losartan 50mg BID will resume metoprolol 50mg BID in AM; if needed can resume the losartan as well (10) DVT prophylaxis: heparin 5000 BID Total Time Total Time Spent Total Time Spent (In Minutes): 31 minutes Total Time Includes: Examination of the Patient, Discharge Planning, Medication Reconciliation and Other (discussion with case management and ) Discharge Plan Discharge Items Patient Disposition: Transfer Fdc Fac Reason For Visit: FALLS, DEMENTIA Discharge Diagnosis: Advanced dementia Recurrent falls Condition: Good Discharge Goals: Improve disease control and Improve function Activity: Resume your previous activity Non-emergency contact: Primary Care Provider Call non-emergency contact if: you have any medication questions, your symptoms worsen, your pain is not controlled and you have a fever Follow-up/Referrals: oTney Morgan [Primary Care Provider] - Diet: Carb Consistent or DM2 Addtl Provider Instructions: Medications: please note that these medications are not new, just listed this way due to med reconciliation - LANTUS: dose lowered from 18 units to 10 units daily, appetite intermittently poor - ELIQUIS: stopped this admission due to recurrent falls, too high of a risk for anticoagulation Fall at home: fortunately no fractures patient requires 24 hour care, repeated falls at home has advanced dementia, very impulsive and unaware of danger of walking independently Atrial fibrillation/flutter, paroxysmal in normal sinus rhythm on EKG continue metoprolol and amiodarone stopped Eliquis due to repeated falls Prescriptions: New amiodarone 200 mg Tablet 200 mg PO QAM Qty: 30 RF: 0 amlodipine [Norvasc] 5 mg Tablet 5 mg PO QAM Qty: 30 RF: 0 cyanocobalamin (vitamin B-12) [Vitamin B-12] 500 mcg Tablet 1,000 mcg PO QAM Qty: 60 RF: 0 pantoprazole 40 mg Tablet,Delayed Release (Dr/Ec) 40 mg PO QAM Qty: 30 RF: 0 metoprolol tartrate 50 mg Tablet 50 mg PO BID Qty: 60 RF: 0 sertraline 50 mg Tablet 25 mg PO QAM Qty: 15 RF: 0 memantine [Namenda] 10 mg Tablet 10 mg PO QAM Qty: 30 RF: 0 Lantus Solostar U-100 Insulin 100 unit/mL (3 mL) Insulin Pen 10 unit SC DAILY 30 Days Qty: 3 RF: 0 Myrbetriq 25 mg Tablet Extended Release 24 Hr 25 mg PO DAILY Qty: 30 RF: 0 Creon 36,000-114,000- 180,000 unit Capsule,Delayed Release(Dr/Ec) 1 cap PO AC Qty: 120 RF: 0 No Action Unobtainable RF: 0 Stand-Alone Forms: [facility] Discharge Orders: Discharge Order (Routine); Ordered 04/25/19 Ordered By: Deshaun Young Skilled Items Patient informed of condition?: Yes DNR: No Discharge Level of Care: Skilled Communicable Disease: No Discharge Prognosis: Stable Admission Data Admit Date/Time: 04/23/19 16:25 Attending Provider: Deshaun Young Admit Provider: Phuc Hall Primary Care Provider: Toney Morgan Other Providers: Phuc Hall Service: Medical
[2019-04-25] MEDS ORDERED: INSULIN GLARGINE SOLOSTAR 100 UNITS/ML 3 ML PEN SC STA (11:57)
== END 2019-04-25 13:45 | DRG 92 ==
LOC: ED 20:38 → 2N 20:38 → SUATTDRO 23:20 → 2N 04-23 00:53 → SUATTDRO 04-23 16:25